=== PATIENT | male | born 1955 | race Caucasian/White ===

== ENCOUNTER 2017-02-22 21:58 | Inpatient (IN) ==
[2017-02-23] MEDS ORDERED: Naloxone 0.4 MG/ML INJ IVP PRN (01:38)
[2017-02-23] MEDS ORDERED: Acetaminophen 325 MG TABLET PO PRN (01:38)
[2017-02-23] MEDS ORDERED: Ondansetron 4 MG/2 ML VIAL IVP PRN (01:38)
--- NOTE | 2017-02-23 01:45 | Internal Med History&Physical ---
Date of Encounter: 02/23/17 Time of Encounter: 01:00 Assessment and Plan (1) COPD (chronic obstructive pulmonary disease) Current visit: No Status: Acute Not in exacerbation, continue nebs prn and home MDI. O2 supplementation Qualifiers: COPD type: unspecified COPD Qualified Code(s): J44.9 - Chronic obstructive pulmonary disease, unspecified (2) History of lung cancer Current visit: Yes Status: Chronic Unclear if he has recurrent disease although CT done earlier this year shows similar area of concern on the right. I think it prudent to get Pulm and Onc consult for further testing and advice. (3) Hypothyroid Current visit: Yes Status: Acute Continue home Synthroid. Qualifiers: Hypothyroidism type: unspecified Qualified Code(s): E03.9 - Hypothyroidism , unspecified (4) Type 2 diabetes mellitus Current visit: Yes Status: Acute Home meds, FS monitoring. Qualifiers: Diabetes mellitus complication status: with hyperglycemia Diabetes mellitus watermelon harvesting supervisor insulin use: without watermelon harvesting supervisor use Qualified Code(s): E11.65 - Type 2 diabetes mellitus with hyperglycemia Internal Medicine - H&P: HPI Chief complaint: Weakness Admitted From: Hospital to Hospital Transfer Plans for Post Hospital Care: Home History of present illness: Mr. 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 He presented there with weakness and CT chest was done and showed mild pathc bronchopneumonia, 3.3x5.4cm opacity in right perihilar region, atelectasis right upper and middle lobes. His oncologist, Dr Hartman is here at [place]. At this time he feels weak, no dyspnea, no chest pains, no change in chronic cough , no change in BM. Estimated LOS less than 2 days. Past Med Surg Social Fam HX - Past Medical History Medical history: cancer, COPD, diabetes, GERD, hyperlipidemia, thyroid disease, other Psychiatric history: anxiety, panic disorder - Past Surgical History Surgical History: cataract, other - Social History Smoking Status: Former smoker Smokeless Tobacco Status: Yes Alcohol use: none Drug use: none - Family History Sister Living Status: Hx Family GI Disorders: Yes Internal Medicine - H&P: Meds Atenolol [Tenormin] 25 mg PO DAILY 11/23/14 [History] Glimepiride [Amaryl] 4 mg PO BID 11/23/14 [History] Metformin HCl [Metformin HCl ER] 500 mg PO BID 11/23/14 [History] Oxygen 1 each .ROUTE AD 11/23/14 [History] SitaGLIPtin [Januvia] 100 mg PO DAILY 11/23/14 [History] Tiotropium [Spiriva] 18 mcg IH DAILY 11/23/14 [History] Levothyroxine [Synthroid] 112 mcg PO DAILY #30 tablet 03/13/16 [Rx] HYDROcodone/Acet 7.5/325 mg [[place] 7.5-325 mg] 1 tab PO BID #60 tablet 11/04/16 [Rx] Rosuvastatin [Crestor] 20 mg PO HS 11/04/16 [History] 3 Allergy/AdvReac Type Severity Reaction Status Date / Time No Known Allergies Allergy Unverified 11/04/16 13:26 All Systems PM: A 10-system review of systems was performed and is negative for pertinent findings except as documented above in the HPI. - Constitutional Vitals: Temp Pulse Resp BP Pulse Ox 97.7 F 100 20 105/67 95 02/23/17 00:23 02/23/17 00:23 02/23/17 00:23 02/23/17 00:23 02/23/17 00:23 General appearance: Present: A&O X 3, pleasant Exam: Chronically ill appearing man in no distress. - Head Head exam: Present: atraumatic, normal inspection, normocephalic - Eye Eye exam: Present: EOMI, PERRL - ENT ENT exam: Present: mucous membranes moist - Neck Neck exam general surgery: Present: full ROM, supple, trachea midline - Respiratory Respiratory exam: Present: prolonged expiratory phase, wheezes - Cardiovascular Cardiovascular exam: Present: RRR, +S1, +S2 - GI/Abdominal GI/Abdominal exam: Present: normal bowel sounds, soft, no peritoneal signs - Extremities Exam Extremities exam: Present: normal inspection, warm - Neurological Exam Neurological exam: Present: CN II-XII intact, oriented X3, no focal deficits - Psychiatric Psychiatric exam: Present: normal affect, normal mood - Skin Skin exam: Present: dry, warm Internal Med - H&P Results - Labs Labs: Reviewed at [facility] 02/22/17): WBC 11 Hb 14.1 Plt 197 Na 137 K3.8 Crea 0.73 Gluc 231
[2017-02-23 03:01] LABS: Basophils % 0.1 %; Hematocrit 37.9 % (37.5-50.1); Hemoglobin 12.6 g/dL (12.9-16.9); Immature Granulocytes % 1.2 % (0-4); Lymphocytes # 0.6 K/mcL (0.6-4.6); Lymphocytes % 4.1 %; Mean Corpuscular HGB Conc 33.2 g/dL (31.6-35.5); Mean Corpuscular Hemoglobin 27.5 pg (28.0-33.3); Mean Corpuscular Volume 82.6 fL (83.0-100.0); Mean Platelet Volume 9.4 fL (9.4-12.4); Monocytes # 0.5 K/mcL (0.0-1.3); Monocytes % 3.7 %; Neutrophils # 13.2 K/mcL (1.6-8.9); Platelet Count 206 K/mcL (140-400); Red Blood Count 4.59 M/mcL (4.19-5.50); Red Cell Distribution Width 13.8 % (11.5-14.5); Segmented Neutrophils % 90.9 %
[2017-02-23 03:07] LABS: INR 1.2; Prothrombin Time 12.5 Seconds (9.4-12.1)
[2017-02-23 03:10] LABS: Activated Partial Thrombo Time 26.9 Seconds (26.0-36.0)
[2017-02-23 03:13] LABS: Alanine Aminotransferase 17 Units/L (0-55); Albumin 3.4 g/dL (3.5-5.0); Albumin/Globulin Ratio 1.1 (1.1-2.2); Alkaline Phosphatase 40 Units/L (38-126); Aspartate Amino Transferase 12 Units/L (5-34); BUN/Creatinine Ratio 26 (6-26); Bilirubin,Total 0.2 mg/dL (0.2-1.2); Blood Urea Nitrogen 19 mg/dL (8-26); Calcium 9.2 mg/dL (8.6-10.8); Carbon Dioxide 23 mEq/L (19-29); Chloride 106 mEq/L (98-109); Globulin 3.2 g/dL (2.4-3.5); Glucose 239 mg/dL (70-99); Magnesium 2.1 mg/dL (1.6-2.6); Osmolality,Calculated 298 (280-300); Phosphorous 1.6 mg/dL (2.3-4.7); Potassium 3.8 mEq/L (3.5-4.5); Sodium 139 mEq/L (136-145); Total Protein 6.6 g/dL (6.0-8.3); eGFR For African Americans > 60 (> 60); eGFR For Non-African Americans > 60 (> 60)
[2017-02-23] MEDS ORDERED: Levofloxacin 750 MG/150 ML 750 MG/150 ML BAG IVPB STA (03:15)
[2017-02-23] MEDS ORDERED: *HR* Morphine 2 MG/ML SYRINGE IVP ONE (03:19)
[2017-02-23] MEDS: *HR* Heparin 5,000 UNIT/ML VIAL SQ SCH ×2 (05:26→17:42)
[2017-02-23] MEDS: Tiotropium 18 MCG inhalation IH SCH (07:33)
[2017-02-23] MEDS ORDERED: Sodium Phosphate 30 MMOL in D5% in Water 100 ML IVPB ONE (07:50)
[2017-02-23] MEDS ORDERED: *HR* HYDROcodone/Acet 7.5/325 mg TABLET PO SCH (09:00)
[2017-02-23] MEDS: Insulin LISPRO 300 UNITS/3 ML VIAL SQ SCH ×3 (12:13→21:13)
[2017-02-23] MEDS ORDERED: *HR* HYDROcodone/Acet 7.5/325 mg TABLET PO PRN (13:06)
[2017-02-23] MEDS ORDERED: D5% in Water 1,000 ML IVC PRN (13:06)
[2017-02-23] MEDS ORDERED: Dextrose Gel 15 GM PO PRN ×2 (13:06)
[2017-02-23] MEDS ORDERED: *HR* Dextrose 50 % in Water (Syg) 50 ML SYRINGE IVP PRN (13:06)
[2017-02-23] MEDS: Insulin DETEMIR 100 UNIT/ML X5UNITS SQ SCH (21:12)
--- NOTE | 2017-02-24 02:19 | Event Note ---
Date of Encounter: 02/23/17 Time of Encounter: 15:42 Patient is a 61 year old man with history of metastatic large cell neuro endocrine cancer who underwent chemotherapy in 2013, and with chronic respiratory failure now on home O2. He presented for weakness, which he states is in all his extremities. This has been ongoing for several weeks. He was transferred from [facility] for further workup after CT chest showed bronchopneumonia and 3.3x5.4 cm opacity in right perhilar region. He denies any fevers/chills, he does have leukocytosis on admission. He is currently stable after arriving to floors. No acute distress. Does exhibit weakness, but AAOx3. - Consult to Oncology and Pulmonology in AM for further workup - PT/OT - Antibiotic therapy - currently Levaquin - glycemic control
[2017-02-24 05:08] LABS: Basophils % 0.1 %; Eosinophils % 0.1 %; Hematocrit 38.3 % (37.5-50.1); Hemoglobin 12.8 g/dL (12.9-16.9); Immature Granulocytes % 0.9 % (0-4); Lymphocytes # 1.4 K/mcL (0.6-4.6); Lymphocytes % 16.2 %; Mean Corpuscular HGB Conc 33.4 g/dL (31.6-35.5); Mean Corpuscular Hemoglobin 27.4 pg (28.0-33.3); Mean Corpuscular Volume 81.8 fL (83.0-100.0); Mean Platelet Volume 9.3 fL (9.4-12.4); Monocytes # 0.7 K/mcL (0.0-1.3); Monocytes % 7.6 %; Neutrophils # 6.4 K/mcL (1.6-8.9); Platelet Count 174 K/mcL (140-400); Red Blood Count 4.68 M/mcL (4.19-5.50); Red Cell Distribution Width 13.8 % (11.5-14.5); Segmented Neutrophils % 75.1 %
[2017-02-24] MEDS: *HR* Heparin 5,000 UNIT/ML VIAL SQ SCH ×2 (05:19→16:42)
[2017-02-24 05:20] LABS: BUN/Creatinine Ratio 29 (6-26); Blood Urea Nitrogen 18 mg/dL (8-26); Calcium 8.7 mg/dL (8.6-10.8); Carbon Dioxide 29 mEq/L (19-29); Chloride 106 mEq/L (98-109); Glucose 81 mg/dL (70-99); Osmolality,Calculated 293 (280-300); Potassium 3.6 mEq/L (3.5-4.5); Sodium 141 mEq/L (136-145); eGFR For African Americans > 60 (> 60); eGFR For Non-African Americans > 60 (> 60)
[2017-02-24] MEDS: Levofloxacin 750 MG/150 ML 750 MG/150 ML BAG IVPB SCH (07:53)
[2017-02-24] MEDS: Insulin LISPRO 300 UNITS/3 ML VIAL SQ SCH ×4 (07:55→21:26)
--- NOTE | 2017-02-24 10:46 | Internal Med Progress Note ---
Date of Encounter: 02/24/17 Time of Encounter: 10:47 - Assessment and plan (1) Pneumonia Current Visit: Yes Status: Acute Assessment and plan: CT chest from [facility] showed mild pathc bronchopneumonia, 3.3x5.4cm opacity in right perihilar region, atelectasis right upper and middle lobes Similar to prior CT scan Patient is awaiting Oncology review Continue Levaquin for now NO cultures at this time Qualifiers: Pneumonia type: due to unspecified organism Laterality: bilateral Lung location: unspecified part of lung Qualified Code(s): J18.9 - Pneumonia, unspecified organism (2) COPD (chronic obstructive pulmonary disease) Current Visit: Yes Status: Chronic Assessment and plan: NO evidence of exacerbation Qualifiers: COPD type: unspecified COPD Qualified Code(s): J44.9 - Chronic obstructive pulmonary disease, unspecified (3) History of lung cancer Current Visit: Yes Status: Chronic Assessment and plan: Oncology consulted, 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 , per chart, had prophylactic cranial radiation (4) Hypothyroid Current Visit: Yes Status: Chronic Assessment and plan: Continue home meds Qualifiers: Hypothyroidism type: unspecified Qualified Code(s): E03.9 - Hypothyroidism , unspecified (5) Type 2 diabetes mellitus Current Visit: Yes Status: Chronic Assessment and plan: 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 Continue sliding scale insulin, patient is on oral agents at home Qualifiers: Diabetes mellitus complication status: with ophthalmic complications Diabetes mellitus complication detail: with diabetic retinopathy Diabetic retinopathy severity: with unspecified retinopathy severity Diabetes mellitus macular edema: macular edema presence unspecified Diabetes mellitus terminal operator insulin use: without terminal operator use Laterality: left Qualified Code(s): E11.319 - Type 2 diabetes mellitus with unspecified diabetic retinopathy without macular edema - Subjective Interval history: Seen and evaluated at bedside No new complains Known Type II DM, HTN, Left eye blindness, admitted from outside hospital for Pneumonia and weakness Some concern about his hx of Lung CA and the new imaging finding - Constitutional Vitals: Temp Pulse Resp BP Pulse Ox 98.2 F 81 13 97/63 95 02/24/17 06:58 02/24/17 06:58 02/24/17 06:58 02/24/17 06:58 02/24/17 06:58 General appearance: Present: A&O X 3, pleasant, no acute distress - Head Head exam: Present: atraumatic, normocephalic - Eye Additional comments: Anisocoria, Lt > Rt , red eye left-chronic per patient - Neck Neck exam general surgery: Present: supple, trachea midline. Absent: lymphadenopathy - Respiratory Respiratory exam: Present: rhonchi - Cardiovascular Cardiovascular exam: Present: RRR, +S1, +S2. Absent: diastolic murmur, gallop, rubs, systolic murmur - GI/Abdominal GI/Abdominal exam: Present: normal bowel sounds, soft, no peritoneal signs. Absent: distended, tenderness - Extremities Exam Extremities exam: Present: warm, radial pulses palpable and symmetrical. Absent : calf tenderness, cyanotic, pedal edema - Neurological Exam Neurological exam: Present: alert, CN II-XII intact, oriented X3, no focal deficits. Absent: pronater drift, facial droop, speech deficit - Skin Skin exam: Present: dry, intact Internal Medicine: Result - Labs CBC & Chem 7: 02/24/17 04:41 02/24/17 04:41 Labs: Short CBC 02/24/17 Range/Units 04:41 WBC 8.5 (4.3-11.1) K/mcL Hgb 12.8 L (12.9-16.9) g/dL Hct 38.3 (37.5-50.1) % Plt Count 174 (140-400) K/mcL Neutrophils # 6.4 (1.6-8.9) K/mcL BMP 02/24/17 04:41 Sodium 141 Potassium 3.6 Chloride 106 Carbon Dioxide 29 BUN 18 Creatinine 0.63 L Glucose 81 Calcium 8.7 - ABG Interpretation ABG results: PT/INR, D-dimer PT 12.5 Seconds (9.4-12.1) H 02/23/17 02:20 Consult Discharge Plan - Plan Referrals: Juanito Dsouza DO [Primary Care Provider] - 03/05/17 11:15 am (Please follow up as schedule...)
[2017-02-24] MEDS: Tiotropium 18 MCG inhalation IH SCH (10:48)
[2017-02-24] MEDS ORDERED: *HR* HYDROcodone/Acet 5/325 mg TABLET PO PRN (16:43)
[2017-02-24] MEDS: Latanoprost 2.5 ML BOTTLE LEFT EYE SCH (18:01)
--- NOTE | 2017-02-24 19:03 | Oncology Inp Consult Note ---
Date of Encounter: 02/24/17 Time of Encounter: 19:00 Assessment and Plan (1) History of lung cancer Status: Chronic Assessment and plan: He appears to have pneumonia and has been placed on appropriate therapy by the hospitalist team. I have reviewed the outside CT report and personally reviewed CT imaging from 05/13. These findings in the January scan appear to correspond to findings on most recent scan. It does not appear he has recurrent cancer. Would recommend continued treatment for pneumonia and repeat imaging in 4-6 weeks time. Of note, slow cognition likely secondary to prior prophylactic cranial irradiation. We will otherwise sign off. Please call with questions. - Data of Consult Requesting Physician: Thomas Muse MD Primary Care Provider: Juanito Dsouza - Consult Narrative Reason for consult: Abnormal CT in setting of cancer History of present illness: Mr. Loco is a 61 year old male with a history of stage IIIb large-cell neuroendocrine cancer under the care of my partner, Dr. Hartman. He presented in August 2008 with mets to bilateral supraclavicular, paratracheal, perivascular and subcarinal lymph node basins. He was treated six cycles of cisplatin and etoposide with concurrent radiation as well as prophylactic cranial radiation March 2009. Bronchoscopy and washings January [address] Nieto was negative for malignancy. CT imaging in 2014 showed an area of atelectasis in the RUL and right hilum. Most recent CT imaging at our institution 05/01/16 shows right hilar mass and cicatricial atelectasis in the medial aspects of both upper lobes is stable. Stable subcentimeter nodules in the lungs. Fatty liver. He presented to [facility] 02/22 with feeling "weak". Denies any focality or new paresthesia. Has continued, chronic cough. Stable BENEDICT. Afebrile. No headache , blurred or double vision. Poor historian. CT imaging of chest revealed patchy pneumonia in the lung basis right>left. Trace right pleural effusion and opacity in the right perihilar region measuring 3.3 x 5.4cm. Cicatricial atelectasis in the RUL/RML. These appear chronic by outside radiology; I do not have actual images to review. Past Med Surg Social Fam HX - Past Medical History Medical history: cancer, COPD, diabetes, GERD, hyperlipidemia, thyroid disease, other Psychiatric history: anxiety, panic disorder - Past Surgical History Surgical History: cataract, other - Social History Smoking Status: Former smoker Smokeless Tobacco Status: Yes Alcohol use: none Drug use: none - Family History Sister Living Status: Hx Family GI Disorders: Yes Medications and Allergies Atenolol [Tenormin] 25 mg PO DAILY 11/23/14 [History] Glimepiride [Amaryl] 4 mg PO BID 11/23/14 [History] Metformin HCl [Metformin HCl ER] 500 mg PO BID 11/23/14 [History] Oxygen 1 each .ROUTE AD 11/23/14 [History] SitaGLIPtin [Januvia] 100 mg PO DAILY 11/23/14 [History] Tiotropium [Spiriva] 18 mcg IH DAILY 11/23/14 [History] Rosuvastatin [Crestor] 20 mg PO HS 11/04/16 [History] Brimonidine Tartrate [Brimonidine Tartrate] 2 drop BOTH EYES BID 02/23/17 [ History] Budesonide/Formoterol 80/4.5 [Symbicort 80/4.5] 2 puff IH BID 02/23/17 [History ] HYDROcodone/Acet 5/325 mg [[place] 5-325 mg] 1 tab PO Q6H PRN 02/23/17 [History] Latanoprost [Xalatan] 1 drop LEFT EYE QPM 02/23/17 [History] 3 Allergy/AdvReac Type Severity Reaction Status Date / Time No Known Allergies Allergy Unverified 11/04/16 13:26 All systems: reviewed and no additional remarkable complaints except as stated Constitutional: Present: fatigue, lethargy, weakness, weight loss Eyes: Present: as per HPI Ears: Present: as per HPI Nose, mouth and throat: Present: as per HPI Cardiovascular: Present: as per HPI Respiratory: Present: cough, dyspnea on exertion, chest congestion Gastrointestinal: Present: as per HPI Genitourinary: as per HPI Musculoskeletal: Present: as per HPI Neurological: Present: as per HPI Oncology - Exam - Constitutional Vitals: Temp Pulse Resp BP Pulse Ox 98.1 F 91 14 103/64 92 02/24/17 15:27 02/24/17 15:27 02/24/17 15:27 02/24/17 15:27 02/24/17 15:27 General appearance: cooperative, no acute distress - Head Head exam: Present: atraumatic, normal inspection, normocephalic - Eye Eye exam: Present: normal appearance, conjuntiva pink, sclera anicteric - ENT ENT exam: Present: mucous membranes moist, normal exam - Neck Neck exam: Present: full ROM, normal inspection - Respiratory Respiratory exam: Present: rhonchi - Cardiovascular Cardiovascular exam: Present: RRR - GI/Abdominal GI/Abdominal exam: Present: normal bowel sounds - Extremities Exam Extremities exam: Present: normal inspection - Neurological Exam Neurological exam: Present: alert, CN II-XII intact, oriented X3, no focal deficits - Expanded Neurological Exam Neurological exam: Present: memory loss-recent event Oncology - Results Labs: Short CBC 02/24/17 Range/Units 04:41 WBC 8.5 (4.3-11.1) K/mcL Hgb 12.8 L (12.9-16.9) g/dL Hct 38.3 (37.5-50.1) % Plt Count 174 (140-400) K/mcL Neutrophils # 6.4 (1.6-8.9) K/mcL BMP 02/24/17 04:41 Sodium 141 Potassium 3.6 Chloride 106 Carbon Dioxide 29 BUN 18 Creatinine 0.63 L Glucose 81 Calcium 8.7 Consult Discharge Plan - Plan Referrals: Juanito Dsouza DO [Primary Care Provider] - 03/05/17 11:15 am (Please follow up as schedule...)
[2017-02-24] MEDS: Insulin DETEMIR 100 UNIT/ML X5UNITS SQ SCH (21:17)
[2017-02-24] MEDS: Budesonide/Formoterol 80/4.5 MDI IH SCH (22:01)
[2017-02-25] MEDS: *HR* Heparin 5,000 UNIT/ML VIAL SQ SCH ×2 (05:24→17:14)
[2017-02-25 05:45] LABS: Basophils % 0.4 %; Eosinophils # 0.1 K/mcL (0.0-0.6); Eosinophils % 1.2 %; Hematocrit 43.2 % (37.5-50.1); Immature Granulocytes % 2.1 % (0-4); Lymphocytes # 1.6 K/mcL (0.6-4.6); Lymphocytes % 20.6 %; Mean Corpuscular HGB Conc 33.3 g/dL (31.6-35.5); Mean Corpuscular Hemoglobin 27.4 pg (28.0-33.3); Mean Corpuscular Volume 82.1 fL (83.0-100.0); Mean Platelet Volume 9.1 fL (9.4-12.4); Monocytes # 0.5 K/mcL (0.0-1.3); Monocytes % 6.6 %; Neutrophils # 5.2 K/mcL (1.6-8.9); Nucleated Red Blood Cells 0.3 /100 WBC (0); Platelet Count 188 K/mcL (140-400); Red Blood Count 5.26 M/mcL (4.19-5.50); Red Cell Distribution Width 13.6 % (11.5-14.5); Segmented Neutrophils % 69.1 %
[2017-02-25 05:50] LABS: Hemoglobin 14.4 g/dL (12.9-16.9)
[2017-02-25 06:02] LABS: BUN/Creatinine Ratio 20 (6-26); Blood Urea Nitrogen 14 mg/dL (8-26); Calcium 9.1 mg/dL (8.6-10.8); Carbon Dioxide 29 mEq/L (19-29); Chloride 104 mEq/L (98-109); Glucose 129 mg/dL (70-99); Osmolality,Calculated 292 (280-300); Potassium 4.2 mEq/L (3.5-4.5); Sodium 140 mEq/L (136-145); eGFR For African Americans > 60 (> 60); eGFR For Non-African Americans > 60 (> 60)
[2017-02-25] MEDS: Tiotropium 18 MCG inhalation IH SCH (07:59)
[2017-02-25] MEDS: Budesonide/Formoterol 80/4.5 MDI IH SCH ×2 (07:59→19:51)
[2017-02-25] MEDS: Insulin LISPRO 300 UNITS/3 ML VIAL SQ SCH ×4 (09:50→21:11)
[2017-02-25] MEDS: Levofloxacin 750 MG/150 ML 750 MG/150 ML BAG IVPB SCH (09:55)
--- NOTE | 2017-02-25 12:19 | Internal Med Progress Note ---
Date of Encounter: 02/25/17 Time of Encounter: 11:40 - Assessment and plan (1) Pneumonia Current Visit: Yes Status: Acute Assessment and plan: CT chest from [facility] showed mild pathc bronchopneumonia, 3.3x5.4cm opacity in right perihilar region, atelectasis right upper and middle lobes Similar to prior CT scan Continue Levaquin for now NO cultures at this time Qualifiers: Pneumonia type: due to unspecified organism Laterality: bilateral Lung location: unspecified part of lung Qualified Code(s): J18.9 - Pneumonia, unspecified organism (2) COPD (chronic obstructive pulmonary disease) Current Visit: Yes Status: Chronic Assessment and plan: NO evidence of exacerbation Qualifiers: COPD type: unspecified COPD Qualified Code(s): J44.9 - Chronic obstructive pulmonary disease, unspecified (3) History of lung cancer Current Visit: Yes Status: Chronic Assessment and plan: Oncology consulted, 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 , per chart, had prophylactic cranial radiation (4) Hypothyroid Current Visit: Yes Status: Chronic Assessment and plan: Continue home meds Qualifiers: Hypothyroidism type: unspecified Qualified Code(s): E03.9 - Hypothyroidism , unspecified (5) Type 2 diabetes mellitus Current Visit: Yes Status: Chronic Assessment and plan: 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 Continue sliding scale insulin, patient is on oral agents at home Qualifiers: Diabetes mellitus complication status: with ophthalmic complications Diabetes mellitus complication detail: with diabetic retinopathy Diabetic retinopathy severity: with unspecified retinopathy severity Diabetes mellitus macular edema: macular edema presence unspecified Diabetes mellitus intermediate manager insulin use: without intermediate manager use Laterality: left Qualified Code(s): E11.319 - Type 2 diabetes mellitus with unspecified diabetic retinopathy without macular edema (6) Fatigue Current Visit: Yes Status: Acute Assessment and plan: Patient reports he is feeling stronger and able to ambulate this morning PTOT recommends ECF, he is hesitant about this SW Chen to see Qualifiers: Fatigue type: unspecified Qualified Code(s): R53.83 - Other fatigue - Subjective Interval history: Seen and evaluated at bedside No new complains Known Type II DM, HTN, Left eye blindness, admitted from outside hospital for Pneumonia and weakness Being managed for community acquired pneumonia Oncolog review appreciated, no concerns for recurrent CA - Constitutional Vitals: Temp Pulse Resp BP Pulse Ox 98.6 F 86 18 85/51 94 02/25/17 11:26 02/25/17 11:26 02/25/17 11:26 02/25/17 11:26 02/25/17 11:26 General appearance: Present: A&O X 3, pleasant, no acute distress - Head Head exam: Present: atraumatic, normocephalic - Eye Eye exam: Present: PERRL, conjuntiva pink, sclera anicteric Pupils: Present: PERRL - Neck Neck exam general surgery: Present: supple, trachea midline. Absent: lymphadenopathy - Respiratory Respiratory exam: Present: rhonchi. Absent: accessory muscle use, rales, wheezes - Cardiovascular Cardiovascular exam: Present: RRR, +S1, +S2. Absent: diastolic murmur, gallop, rubs, systolic murmur - GI/Abdominal GI/Abdominal exam: Present: normal bowel sounds, soft, no peritoneal signs. Absent: distended, tenderness - Extremities Exam Extremities exam: Present: warm, radial pulses palpable and symmetrical. Absent : calf tenderness, cyanotic, pedal edema - Neurological Exam Neurological exam: Present: alert, CN II-XII intact, oriented X3, no focal deficits. Absent: pronater drift, facial droop, speech deficit - Skin Skin exam: Present: dry, intact Internal Medicine: Result - Labs CBC & Chem 7: 02/25/17 05:30 02/25/17 05:30 Labs: Short CBC 02/25/17 Range/Units 05:30 WBC 7.5 (4.3-11.1) K/mcL Hgb 14.4 D (12.9-16.9) g/dL Hct 43.2 (37.5-50.1) % Plt Count 188 (140-400) K/mcL Neutrophils # 5.2 (1.6-8.9) K/mcL BMP 02/25/17 05:30 Sodium 140 Potassium 4.2 Chloride 104 Carbon Dioxide 29 BUN 14 Creatinine 0.71 L Glucose 129 H Calcium 9.1 - ABG Interpretation ABG results: PT/INR, D-dimer PT 12.5 Seconds (9.4-12.1) H 02/23/17 02:20 Consult Discharge Plan - Plan Referrals: Juanito Dsouza DO [Primary Care Provider] - 03/05/17 11:15 am (Please follow up as schedule...)
[2017-02-25] MEDS: Latanoprost 2.5 ML BOTTLE LEFT EYE SCH (17:14)
[2017-02-25] MEDS: Insulin DETEMIR 100 UNIT/ML X5UNITS SQ SCH (21:11)
[2017-02-26 03:52] LABS: Basophils % 0.4 %; Eosinophils # 0.2 K/mcL (0.0-0.6); Eosinophils % 1.8 %; Hematocrit 41.3 % (37.5-50.1); Hemoglobin 13.7 g/dL (12.9-16.9); Immature Granulocytes % 2.4 % (0-4); Lymphocytes # 1.4 K/mcL (0.6-4.6); Lymphocytes % 17.5 %; Mean Corpuscular HGB Conc 33.2 g/dL (31.6-35.5); Mean Corpuscular Volume 81.3 fL (83.0-100.0); Mean Platelet Volume 9.3 fL (9.4-12.4); Monocytes # 0.5 K/mcL (0.0-1.3); Monocytes % 5.9 %; Neutrophils # 5.9 K/mcL (1.6-8.9); Platelet Count 209 K/mcL (140-400); Red Blood Count 5.08 M/mcL (4.19-5.50); Red Cell Distribution Width 13.2 % (11.5-14.5)
[2017-02-26 04:06] LABS: BUN/Creatinine Ratio 24 (6-26); Blood Urea Nitrogen 17 mg/dL (8-26); Carbon Dioxide 25 mEq/L (19-29); Chloride 103 mEq/L (98-109); Glucose 189 mg/dL (70-99); Osmolality,Calculated 291 (280-300); Potassium 3.8 mEq/L (3.5-4.5); Sodium 137 mEq/L (136-145); eGFR For African Americans > 60 (> 60); eGFR For Non-African Americans > 60 (> 60)
[2017-02-26] MEDS: *HR* Heparin 5,000 UNIT/ML VIAL SQ SCH (05:25)
[2017-02-26] MEDS: Insulin LISPRO 300 UNITS/3 ML VIAL SQ SCH ×2 (08:53→11:38)
[2017-02-26] MEDS ORDERED: levoFLOXacin 750 MG TABLET PO SCH (09:00)
[2017-02-26 11:08] VITALS: BP 107/71
--- NOTE | 2017-02-26 11:16 | Discharge Summary ---
Date of Encounter: 02/26/17 Time of Encounter: 09:45 - Discharge Diagnosis (1) Pneumonia Priority: Primary Status: Acute Comments: Community acquired Most likely due to strep Complete at least 7 days of Levaquin. 3 more days in SNF Qualifiers: Pneumonia type: due to unspecified organism Laterality: bilateral Lung location: unspecified part of lung Qualified Code(s): J18.9 - Pneumonia, unspecified organism (2) COPD (chronic obstructive pulmonary disease) Priority: Secondary Status: Chronic Comments: Continue home Spiriva, LABA/Steroid. No exacerbation in this visit Qualifiers: COPD type: unspecified COPD Qualified Code(s): J44.9 - Chronic obstructive pulmonary disease, unspecified (3) History of lung cancer Priority: Secondary Status: Chronic (4) Hypothyroid Priority: Secondary Status: Chronic Comments: Continue home dose of levothyroixine Qualifiers: Hypothyroidism type: unspecified Qualified Code(s): E03.9 - Hypothyroidism , unspecified (5) Type 2 diabetes mellitus Priority: Secondary Status: Chronic Comments: Continue home PO medications Qualifiers: Diabetes mellitus complication status: with ophthalmic complications Diabetes mellitus complication detail: with diabetic retinopathy Diabetic retinopathy severity: with unspecified retinopathy severity Diabetes mellitus macular edema: macular edema presence unspecified 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 [employer] insulin use: without halfway use Laterality: left Qualified Code(s): E11.319 - Type 2 diabetes mellitus with unspecified diabetic retinopathy without macular edema (6) Fatigue Priority: Primary Status: Acute Comments: For discharge to SNF Qualifiers: Fatigue type: unspecified Qualified Code(s): R53.83 - Other fatigue - Discharge Medications Prescriptions: HYDROcodone/Acet 5/325 mg [[place] 5-325 mg] 1 tab PO Q6H PRN #15 tablet PRN Reason: Pain Home Medications: Glimepiride [Amaryl] 4 mg PO BID 11/23/14 [History] Metformin HCl [Metformin HCl ER] 500 mg PO BID 11/23/14 [History] Oxygen 1 each .ROUTE AD 11/23/14 [History] SitaGLIPtin [Januvia] 100 mg PO DAILY 11/23/14 [History] Tiotropium [Spiriva] 18 mcg IH DAILY 11/23/14 [History] Rosuvastatin [Crestor] 20 mg PO HS 11/04/16 [History] Brimonidine Tartrate 2 drop BOTH EYES BID 02/23/17 [History] Budesonide/Formoterol 80/4.5 [Symbicort 80/4.5] 2 puff IH BID 02/23/17 [History ] Latanoprost [Xalatan] 1 drop LEFT EYE QPM 02/23/17 [History] HYDROcodone/Acet 5/325 mg [[place] 5-325 mg] 1 tab PO Q6H PRN #15 tablet 02/26/17 [Rx] Levothyroxine [Synthroid] 112 mcg PO DAILY@0630 tablet 02/26/17 [Rx] levoFLOXacin [Levaquin] 750 mg PO DAILY #0 tablet 02/26/17 [Rx] Allergies/Adverse Reactions: 3 Allergy/AdvReac Type Severity Reaction Status Date / Time No Known Allergies Allergy Unverified 11/04/16 13:26 Date of admission: 02/24/17 16:42 Primary care physician: Juanito Dsouza Consults: 02/23/17 19:26 Consult to Occupational Therapy [CONS] Routine Comment: Evaluate, develop and implement POC Reason for Consult: Weakness, eval and treat. Consult to Oncology [CONS] Routine Consulting Provider: [facility] Reason for Consult: History of lung cancer, patient known to Dr. Hartman. Call Completed: No Consult to Physical Therapy [CONS] Routine Comment: Evaluate, develop and implement POC Reason for Consult: Weakness, dispo planning. Consult to Pulmonology [CONS] Routine Consulting Provider: [facility] Reason for Consult: CT findings of opacities, has history of large cell endocrine cancer in 2013. Call Completed: No 02/24/17 15:23 Consult to Change Person [CONS] Routine Reason for SW Consult: therapy rec e[facility] Discharging clinician: Thomas Muse Anticipated date of discharge: 02/26/17 - Patient Status Disposition: Transfer SNF Condition: Good Functional capacity at discharge: uses cane/walker Overall status at discharge: patient is progressing back to baseline - Discharge Instructions Instructions: Sepsis (DC), Pneumonia (DC) Follow Up With: Juanito Dsouza DO [Primary Care Provider] - 03/05/17 11:15 am (Please follow up as schedule...) - Diet and Activity Activity: as per physical therapy Diet: diabetic diet, low fat, low cholesterol, low salt diet Interval History: See below Hospital course: Mr. Pittenger is a 61 year old male with DM complicated by retinopathy , Hypothyroid, Lung CA with prior cranial radiation, HTN He was transferred from [facility] in-patient to [facility] due to concerns of recurrence of his Lung CA on imaging He was being managed for pneumonia and weakness He has been clinically stable Our Oncologist here was consulted to evaluate patient and per their review, patient's disease is stable PTOT recommends SNF for in-patient rehab. He is seen and evaluated at bedside this morning, in no distress, no complains and feeling great Labs have been unremarkable Physical exam is unremarkable He had an episode of low blood pressure during this admission that responded to discontinuation of his home dose of atenolol He is clinically stable for transfer to SNF , to complete 3 more days of Levaquin resume all home meds except atenolol - Time Spent with Patient Total time spent providing and/or coordinating discharge services: Greater than 30 minutes - Constitutional Vitals: Temp Pulse Resp BP Pulse Ox 97.7 F 105 18 107/71 95 02/26/17 11:02 02/26/17 11:02 02/26/17 11:02 02/26/17 11:02 02/26/17 11:02 General appearance: Present: A&O X 3, pleasant, no acute distress, answers questions appropriately - Head Head exam: Present: atraumatic, normocephalic - Eye Eye exam: Present: PERRL, conjuntiva pink, sclera anicteric Pupils: Present: PERRL - Neck Neck exam general surgery: Present: supple, trachea midline. Absent: lymphadenopathy - Respiratory Respiratory exam: Present: CTAB. Absent: accessory muscle use, rales, rhonchi, wheezes - Cardiovascular Cardiovascular exam: Present: RRR, +S1, +S2. Absent: diastolic murmur, gallop, rubs, systolic murmur - GI/Abdominal GI/Abdominal exam: Present: normal bowel sounds, soft, no peritoneal signs. Absent: distended, tenderness - Extremities Exam Extremities exam: Present: warm, radial pulses palpable and symmetrical. Absent : calf tenderness, cyanotic, pedal edema - Neurological Exam Neurological exam: Present: alert, CN II-XII intact, oriented X3, no focal deficits. Absent: pronater drift, facial droop, speech deficit - Skin Skin exam: Present: dry, intact
[2017-02-26] MEDS: Budesonide/Formoterol 80/4.5 MDI IH SCH (11:17)
[2017-02-26] MEDS: Tiotropium 18 MCG inhalation IH SCH (11:17)
[2017-02-26] MEDS ORDERED: FLUARIX QUAD 2017-18 36MOS UP/PF 0.5 ML SYRINGE IM ONE (12:54)
--- NOTE | 2017-02-26 15:07 | Physician Discharge Referral ---
ExtendedCare Referral Info Transfer To: SNF Provider in Charge: Joe Muse Provider in Charge after Transfer: PCP Institutional Level of Care: Skilled - Diagnosis (1) Pneumonia Priority: Primary Status: Acute (2) COPD (chronic obstructive pulmonary disease) Priority: Secondary Status: Chronic (3) History of lung cancer Priority: Secondary Status: Chronic (4) Hypothyroid Priority: Secondary Status: Chronic (5) Type 2 diabetes mellitus Priority: Secondary Status: Chronic (6) Fatigue Priority: Primary Status: Acute Prognosis: Fair Aware of Diagnosis: Patient Aware of Prognosis: Patient - Transfer Medications Prescriptions: HYDROcodone/Acet 5/325 mg [[place] 5-325 mg] 1 tab PO Q6H PRN #15 tablet PRN Reason: Pain Home Medications: Glimepiride [Amaryl] 4 mg PO BID 11/23/14 [History] Metformin HCl [Metformin HCl ER] 500 mg PO BID 11/23/14 [History] Oxygen 1 each .ROUTE AD 11/23/14 [History] SitaGLIPtin [Januvia] 100 mg PO DAILY 11/23/14 [History] Tiotropium [Spiriva] 18 mcg IH DAILY 11/23/14 [History] Rosuvastatin [Crestor] 20 mg PO HS 11/04/16 [History] Brimonidine Tartrate 2 drop BOTH EYES BID 02/23/17 [History] Budesonide/Formoterol 80/4.5 [Symbicort 80/4.5] 2 puff IH BID 02/23/17 [History ] Latanoprost [Xalatan] 1 drop LEFT EYE QPM 02/23/17 [History] HYDROcodone/Acet 5/325 mg [[place] 5-325 mg] 1 tab PO Q6H PRN #15 tablet 02/26/17 [Rx] Levothyroxine [Synthroid] 112 mcg PO DAILY@0630 tablet 02/26/17 [Rx] levoFLOXacin [Levaquin] 750 mg PO DAILY #0 tablet 02/26/17 [Rx] Allergies/Adverse Reactions: 3 Allergy/AdvReac Type Severity Reaction Status Date / Time No Known Allergies Allergy Unverified 11/04/16 13:26 - Respiratory Orders Oxygen / L per min (prn) Smoking Cessation: Smoking cessation has been advised. For more information, call the Issue Tobacco Quit Line at 7-716-VJKG-NOW. - Advance Directives Code Status: Full Code - Mobility Orders Ambulate - Rehabiliation Orders Rehab Potential: Fair Rehab Orders: Evaluation for Physical Therapy - Diet Orders No Concentrated Sweets, Cardiac CERTIFICATION: I certify that the transfer of the above named patient to an Extended Care Facility is necessary for the continuing treatment of the diagnosis listed. The above information is true and accurate reflection of patient's current condition. Confidential - Redisclosure prohibited without a patient's written consent.
== END 2017-02-26 16:15 | DRG 190 ==
LOC: 2ANU → SUATTDRO 23:41
PROVIDERS: ADMIT Hospitalist; ATTEND Internal Medicine

== ENCOUNTER 2017-11-05 17:06 | Inpatient (IN) ==
--- NOTE | 2017-11-05 17:31 | Emergency Department Note ---
Disposition Clinical Impression: Shortness of breath, HCAP (healthcare-associated pneumonia) Chest pain Qualifiers: Qualified Code(s): R07.9 - Disposition: Still a Patient Condition: Fair Chest Pain HPI - General Chief Complaint: ED Chest Pain Stated Complaint: "chest pressure" Time Seen by Provider: 11/05/17 17:13 Vital Signs Reviewed: Yes Nursing Notes Reviewed: Yes - History of Present Illness HPI Narrative: 59-year-old male presents emergency department with concern for chest pain and tachycardia. Patient was being seen at the cancer center today. States that he was seen here due to his tachycardia. 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 Patient states is currently cancer free. Patient reports that he has COPD. Patient reports no fever. He reports constant cough, but no worsening of his current call. Reports no sputum production. Has not had a heart attack before. Severity scale (1-10): 6 - Related Data Home Medications Medication Instructions Recorded Confirmed Atenolol [Tenormin] 25 mg PO DAILY 11/05/17 11/05/17 Brimonidine Tartrate [Brimonidine 1 drop OP DAILY 11/05/17 11/05/17 Tartrate] Gabapentin [Neurontin] 300 mg PO TID 11/05/17 11/05/17 HYDROcodone/Acet 5/325 mg [[place] 1 tab PO Q6H PRN 11/05/17 11/05/17 5-325 mg] Levothyroxine Sodium [Levoxyl] 112 mcg PO DAILY 11/05/17 11/05/17 Metformin HCl [Metformin HCl ER] 1,000 mg PO BID 11/05/17 11/05/17 Roly/Polymyx B Sulf/Dexameth 1 drop OP DAILY 11/05/17 11/05/17 [Tbiozr-Xsgyu-Ucjqjalm Eye Drop] SitaGLIPtin [Januvia] 100 mg PO DAILY 11/05/17 11/05/17 Allergies Allergy/AdvReac Type Severity Reaction Status Date / Time No Known Allergies Allergy Verified 11/05/17 19:44 All systems ED: reviewed and negative except as stated. Review of Systems: As Per HPI Constitutional: Denies: fever Cardiovascular: Reports: chest pain Respiratory: Denies: cough, dyspnea Gastrointestinal: Denies: abdominal pain, nausea, vomiting Neurological: Denies: headache Psychiatric: Reports: anxiety Chest Pain PMH - Past Medical History Medical history: Reports: cancer, COPD, diabetes, GERD, hyperlipidemia, thyroid disease, other Surgical history: Reports: cataract, other Psychiatric history: Reports: anxiety, panic disorder - Social History Smoking Status: Former smoker Alcohol use: Reports: none Drug use: Reports: none Physical Exam - General General appearance: alert, in no apparent distress - Head Head exam: atraumatic, normocephalic - Eye Eye exam: Present: conjunctival injection (Bilaterally) - ENT ENT exam: normal exam - Neck Neck exam: Present: trachea midline - Chest Chest inspection: Present: normal inspection, symmetric chest wall rise - Respiratory Respiratory exam: Present: other (Rhonchi throughout). Absent: respiratory distress - Cardiovascular Cardiovascular exam: Present: regular rate, normal rhythm, normal heart sounds - Abdominal Exam Abdominal exam: Present: soft, Non-Tender. Absent: distention, guarding, rebound, rigidity - Extremities Exam Extremities exam: Present: normal capillary refill - Back Exam Back exam: Present: full ROM - Neurological Exam Neurological exam: Present: alert, oriented X3 - Psychiatric Psychiatric exam: Present: anxious - Skin Skin exam: Present: warm, dry, intact, normal color Course Vital Signs Temperature 97.6 F 11/05/17 17:18 Pulse Rate 116 11/05/17 17:18 Respiratory Rate 16 11/05/17 17:18 Blood Pressure 127/98 11/05/17 17:18 O2 Sat by Pulse Oximetry 93 11/05/17 17:18 Temperature 98.4 F 11/06/17 06:58 Pulse Rate 99 11/06/17 06:58 Respiratory Rate 16 11/06/17 06:58 Blood Pressure 105/63 11/06/17 06:58 O2 Sat by Pulse Oximetry 97 11/06/17 06:58 Oxygen Delivery Oxygen Delivery Room Air Chest Pain - MDM Narrative Medical decision making narrative: 61-year-old male presents emergency department with concern for tachycardia, left-sided chest pain. He was seen from the cancer Center. Patient's EKG does not reveal any evidence of any ischemic ST changes. Troponin is negative. Chest x-ray does not reveal any acute abnormality. Creatinine function is normal. Patient was given aspirin here in the emergency department. He was also given sublingual nitroglycerin. States that it helped with his chest pain. Patient was also given Ativan as well 0.5 mg. We are currently awaiting a CT angiogram of the chest to rule out pulmonary embolus. CBC does not reveal any evidence of leukocytosis. Patient has good creatinine function. CT angiogram gram reveals new right upper lobe infiltrate having the appearance of pneumonia. Patient does not have a leukocytosis. Patient was given DuoNeb' s here in the emergency department well as IV Solu-Medrol. Patient will be covered for healthcare acquired pneumonia as he set the history of cancer and frequents the cancer center. Patient given vancomycin, cefepime, Levaquin. With patient regarding his results. Stated my plan for admission for both pneumonia and chest pain. Patient agrees with plan. Patient stable at time of admission from the emergency department. Transition of care was given to the night team for admission to the hospitalist. Chest X-Ray 11/05/17 17:23 IMPRESSION: No acute abnormality detected. D/ / Elgin Dobbs MD / Elgin Dobbs MD Interpreting Provider: Elgin Dobbs MD Chest CTA 11/05/17 17:43 IMPRESSION: 1. No evidence of pulmonary embolism 2. New right upper lobe infiltrate having the appearance of pneumonia 3. 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 D/ / Elgin Dobbs MD / Elgin Dobbs MD Interpreting Provider: Elgin Dobbs MD - Lab Data Result diagrams: 11/06/17 00:24 11/06/17 00:24 Lab Results 11/05/17 11/05/17 11/05/17 Range/Units 17:22 17:22 17:22 WBC 5.2 (4.3-11.1) K/mcL RBC 5.29 (4.19-5.50) M/mcL Hgb 14.5 (12.9-16.9) g/dL Hct 43.2 (37.5-50.1) % MCV 81.7 L (83.0-100.0) fL MCH 27.4 L (28.0-33.3) pg MCHC 33.6 (31.6-35.5) g/dL RDW 13.6 (11.5-14.5) % Plt Count 184 (140-400) K/mcL MPV 9.0 L (9.4-12.4) fL Immature Gran % 0.4 (0-4) % Seg Neutrophils % 59.7 % Lymphocytes % 27.6 % Monocytes % 9.6 % Eosinophils % 2.1 % Basophils % 0.6 % Neutrophils # 3.1 (1.6-8.9) K/mcL Lymphocytes # 1.4 (0.6-4.6) K/mcL Monocytes # 0.5 (0.0-1.3) K/mcL Eosinophils # 0.1 (0.0-0.6) K/mcL Basophils # 0.0 (0.0-0.2) K/mcL PT 12.2 H (9.4-12.1) Seconds INR 1.1 APTT 36.4 H (26.0-36.0) Seconds Sodium 138 (136-145) mEq/L Potassium 3.6 (3.5-5.1) mEq/L Chloride 102 (98-107) mEq/L Carbon Dioxide 29 (23-29) mEq/L BUN 13 (8-23) mg/dL Creatinine 0.77 (0.70-1.30) mg/dL Est GFR ( Amer) > 60 (> 60) Est GFR (Non-Af Amer) > 60 (> 60) BUN/Creatinine Ratio 17 (6-26) Glucose 173 H (70-105) mg/dL Calculated Osmolality 290 (280-300) Calcium 9.8 (8.6-10.3) mg/dL Troponin I < 0.03 (< 0.04) ng/mL B-Natriuretic Peptide (Less than 100) pg/mL 11/05/17 Range/Units 17:44 WBC (4.3-11.1) K/mcL RBC (4.19-5.50) M/mcL Hgb (12.9-16.9) g/dL Hct (37.5-50.1) % MCV (83.0-100.0) fL MCH (28.0-33.3) pg MCHC (31.6-35.5) g/dL RDW (11.5-14.5) % Plt Count (140-400) K/mcL MPV (9.4-12.4) fL Immature Gran % (0-4) % Seg Neutrophils % % Lymphocytes % % Monocytes % % Eosinophils % % Basophils % % Neutrophils # (1.6-8.9) K/mcL Lymphocytes # (0.6-4.6) K/mcL Monocytes # (0.0-1.3) K/mcL Eosinophils # (0.0-0.6) K/mcL Basophils # (0.0-0.2) K/mcL PT (9.4-12.1) Seconds INR APTT (26.0-36.0) Seconds Sodium (136-145) mEq/L Potassium (3.5-5.1) mEq/L Chloride (98-107) mEq/L Carbon Dioxide (23-29) mEq/L BUN (8-23) mg/dL Creatinine (0.70-1.30) mg/dL Est GFR ( Amer) (> 60) Est GFR (Non-Af Amer) (> 60) BUN/Creatinine Ratio (6-26) Glucose (70-105) mg/dL Calculated Osmolality (280-300) Calcium (8.6-10.3) mg/dL Troponin I (< 0.04) ng/mL B-Natriuretic Peptide 38 (Less than 100) pg/mL - EKG Data EKG attestation: Yes I reviewed and interpreted this EKG. EKG results narrative: 70:21 Ventricular rate 160 bpm, [place] interval 172 ms, QRS duration 90 ms, QT 320 ms, QTC 391 ms, normal axis. Sinus tachycardia with a ventricular rate of 116 bpm. No evidence of any ischemic ST changes on this EKG. Compared to previous study obtained on 2015. Heart Score - Score History: Moderately Suspicious EKG: Normal Age: 45-65 Risk Factors: Equal/Greater than 3 risk factor or history of atherosclerotic disease Troponin: Less than normal limit HEART Score Total: 4 Attestation Statement - Attestation Attestation: I, David Johnson DO, examined this patient [id number] and my medical decision-making was reviewed with Dr. Abhilash Padilla, Resident Physician. I agree with the documented findings, disposition and treatment plan as described except to the extent set forth below. Please see my progress notes for details.
[2017-11-05 17:42] LABS: Basophils % 0.6 %; Eosinophils # 0.1 K/mcL (0.0-0.6); Eosinophils % 2.1 %; Hematocrit 43.2 % (37.5-50.1); Hemoglobin 14.5 g/dL (12.9-16.9); Immature Granulocytes % 0.4 % (0-4); Lymphocytes # 1.4 K/mcL (0.6-4.6); Lymphocytes % 27.6 %; Mean Corpuscular HGB Conc 33.6 g/dL (31.6-35.5); Mean Corpuscular Hemoglobin 27.4 pg (28.0-33.3); Mean Corpuscular Volume 81.7 fL (83.0-100.0); Monocytes # 0.5 K/mcL (0.0-1.3); Monocytes % 9.6 %; Neutrophils # 3.1 K/mcL (1.6-8.9); Platelet Count 184 K/mcL (140-400); Red Blood Count 5.29 M/mcL (4.19-5.50); Red Cell Distribution Width 13.6 % (11.5-14.5); Segmented Neutrophils % 59.7 %
[2017-11-05] MEDS ORDERED: Isovue-370 500 ML INFUS..BTL IV ONE (17:43)
[2017-11-05] MEDS ORDERED: Nitroglycerin 0.4 MG TAB.SUBL SL PRN (17:45)
[2017-11-05] MEDS ORDERED: Aspirin 81 MG TAB.CHEW PO ONE (17:45)
[2017-11-05 17:50] LABS: INR 1.1; Prothrombin Time 12.2 Seconds (9.4-12.1)
[2017-11-05 17:53] LABS: Activated Partial Thrombo Time 36.4 Seconds (26.0-36.0)
[2017-11-05 17:57] LABS: BUN/Creatinine Ratio 17 (6-26); Blood Urea Nitrogen 13 mg/dL (8-23); Calcium 9.8 mg/dL (8.6-10.3); Carbon Dioxide 29 mEq/L (23-29); Chloride 102 mEq/L (98-107); Glucose 173 mg/dL (70-105); Osmolality,Calculated 290 (280-300); Potassium 3.6 mEq/L (3.5-5.1); Sodium 138 mEq/L (136-145); Troponin I < 0.03 ng/mL (< 0.04); eGFR For African Americans > 60 (> 60); eGFR For Non-African Americans > 60 (> 60)
[2017-11-05] MEDS ORDERED: *HR* LORazepam 2 MG/ML VIAL IVP ONE (18:35)
--- NOTE | 2017-11-05 18:45 | Emergency Department Note ---
Disposition Clinical Impression: Chest pain, Shortness of breath Disposition: Still a Patient Condition: Fair Referrals: Juanito Dsouza DO [Non-Partnered Physician] - Forms: ED Satisfaction Letter Time of Disposition: 18:45 General Adult HPI - General Chief complaint: ED Chest Pain Stated complaint: "chest pressure" Time Seen by Provider: 11/05/17 17:13 - History of Present Illness Pain Scale: 6 - Related Data Home Medications Medication Instructions Recorded Confirmed Glimepiride [Amaryl] 4 mg PO BID 11/23/14 11/05/17 Metformin HCl [Metformin HCl ER] 1,000 mg PO DAILY 11/23/14 11/05/17 Oxygen 1 each .ROUTE AD 11/23/14 11/05/17 SitaGLIPtin [Januvia] 100 mg PO DAILY 11/23/14 11/05/17 Tiotropium [Spiriva] 18 mcg IH DAILY 11/23/14 11/05/17 Rosuvastatin [Crestor] 20 mg PO HS 11/04/16 11/05/17 Brimonidine Tartrate 2 drop BOTH EYES BID 02/23/17 11/05/17 Budesonide/Formoterol 80/4.5 2 puff IH BID 02/23/17 11/05/17 [Symbicort 80/4.5] Latanoprost [Xalatan] 1 drop LEFT EYE QPM 02/23/17 11/05/17 5-Hydroxytryptophan (5-Htp) 50 mg PO DAILY 03/10/17 11/05/17 [Natrol 5-Htp] Aspirin [Lo-Dose Aspirin EC] 81 mg PO DAILY 03/10/17 11/05/17 Atenolol [Tenormin] 25 mg PO DAILY 03/10/17 11/05/17 Dorzolamide [Trusopt] 1 drop LEFT EYE TID 03/10/17 11/05/17 Gabapentin [Neurontin] 300 mg PO DAILY 03/10/17 11/05/17 HYDROcodone/Acet 5/325 mg [Worth 1 tab PO Q6H PRN 03/10/17 11/05/17 5-325 mg] Previous Rx's Medication Instructions Recorded Levothyroxine [Synthroid] 112 mcg PO DAILY@0630 tablet 02/26/17 Allergies Allergy/AdvReac Type Severity Reaction Status Date / Time No Known Allergies Allergy Unverified 11/05/17 15:59 Constitutional: Denies: fever Cardiovascular: Reports: chest pain Respiratory: Denies: cough, dyspnea Gastrointestinal: Denies: abdominal pain, nausea, vomiting Neurological: Denies: headache Psychiatric: Reports: anxiety Past Medical History - Past Medical History Medical history: Reports: cancer, COPD, diabetes, GERD, hyperlipidemia, thyroid disease, other Surgical history: Reports: cataract, other Psychiatric history: Reports: anxiety, panic disorder - Social History Smoking Status: Former smoker Smokeless Tobacco Status: Yes Alcohol use: Reports: none Drug use: Reports: none Physical Exam - General General appearance: alert, in no apparent distress Course Vital Signs Temperature 97.6 F 11/05/17 17:18 Pulse Rate 116 11/05/17 17:18 Respiratory Rate 16 11/05/17 17:18 Blood Pressure 127/98 11/05/17 17:18 O2 Sat by Pulse Oximetry 93 11/05/17 17:18 Temperature 97.6 F 11/05/17 17:18 Pulse Rate 109 11/05/17 17:53 Respiratory Rate 18 11/05/17 17:53 Blood Pressure 127/90 11/05/17 17:53 O2 Sat by Pulse Oximetry 95 11/05/17 17:53 Oxygen Delivery Oxygen Delivery Room Air Medical Decision Making - Lab Data Result diagrams: 11/05/17 17:22 11/05/17 17:22 Lab Results 11/05/17 11/05/17 11/05/17 Range/Units 17:22 17:22 17:22 WBC 5.2 (4.3-11.1) K/mcL RBC 5.29 (4.19-5.50) M/mcL Hgb 14.5 (12.9-16.9) g/dL Hct 43.2 (37.5-50.1) % MCV 81.7 L (83.0-100.0) fL MCH 27.4 L (28.0-33.3) pg MCHC 33.6 (31.6-35.5) g/dL RDW 13.6 (11.5-14.5) % Plt Count 184 (140-400) K/mcL MPV 9.0 L (9.4-12.4) fL Immature Gran % 0.4 (0-4) % Seg Neutrophils % 59.7 % Lymphocytes % 27.6 % Monocytes % 9.6 % Eosinophils % 2.1 % Basophils % 0.6 % Neutrophils # 3.1 (1.6-8.9) K/mcL Lymphocytes # 1.4 (0.6-4.6) K/mcL Monocytes # 0.5 (0.0-1.3) K/mcL Eosinophils # 0.1 (0.0-0.6) K/mcL Basophils # 0.0 (0.0-0.2) K/mcL PT 12.2 H (9.4-12.1) Seconds INR 1.1 APTT 36.4 H (26.0-36.0) Seconds Sodium 138 (136-145) mEq/L Potassium 3.6 (3.5-5.1) mEq/L Chloride 102 (98-107) mEq/L Carbon Dioxide 29 (23-29) mEq/L BUN 13 (8-23) mg/dL Creatinine 0.77 (0.70-1.30) mg/dL Est GFR ( Amer) > 60 (> 60) Est GFR (Non-Af Amer) > 60 (> 60) BUN/Creatinine Ratio 17 (6-26) Glucose 173 H (70-105) mg/dL Calculated Osmolality 290 (280-300) Calcium 9.8 (8.6-10.3) mg/dL Troponin I < 0.03 (< 0.04) ng/mL B-Natriuretic Peptide (Less than 100) pg/mL 11/05/17 Range/Units 17:44 WBC (4.3-11.1) K/mcL RBC (4.19-5.50) M/mcL Hgb (12.9-16.9) g/dL Hct (37.5-50.1) % MCV (83.0-100.0) fL MCH (28.0-33.3) pg MCHC (31.6-35.5) g/dL RDW (11.5-14.5) % Plt Count (140-400) K/mcL MPV (9.4-12.4) fL Immature Gran % (0-4) % Seg Neutrophils % % Lymphocytes % % Monocytes % % Eosinophils % % Basophils % % Neutrophils # (1.6-8.9) K/mcL Lymphocytes # (0.6-4.6) K/mcL Monocytes # (0.0-1.3) K/mcL Eosinophils # (0.0-0.6) K/mcL Basophils # (0.0-0.2) K/mcL PT (9.4-12.1) Seconds INR APTT (26.0-36.0) Seconds Sodium (136-145) mEq/L Potassium (3.5-5.1) mEq/L Chloride (98-107) mEq/L Carbon Dioxide (23-29) mEq/L BUN (8-23) mg/dL Creatinine (0.70-1.30) mg/dL Est GFR ( Amer) (> 60) Est GFR (Non-Af Amer) (> 60) BUN/Creatinine Ratio (6-26) Glucose (70-105) mg/dL Calculated Osmolality (280-300) Calcium (8.6-10.3) mg/dL Troponin I (< 0.04) ng/mL B-Natriuretic Peptide 38 (Less than 100) pg/mL Attestation Statement - Attestation Attestation: I, David Johnson DO, examined this patient [id number] and my medical decision-making was reviewed with Dr. Abhilash Padilla, Resident Physician. I agree with the documented findings, disposition and treatment plan as described except to the extent set forth below. Please see my progress notes for details. 61-year-old male seen and examined some arrival. Presents today with chest pressure and pain. Patient has multiple medical issues including previous history of pleural lung cancer. Patient has not had any treatments at that he had curative procedure performed. His had symptoms of this several times the past she has known COPD and emphysema. He denies any active smoking at this point. Currently is denying shortness of breath headache vision changes nausea vomiting or diarrhea. Denies any recent fevers or chills or productive sputum. He does have chest pain. Initial EKG does not show any acute pathology or abnormality. Patient will have nitroglycerin trial completed this time along with breathing treatments and steroids. Chest x-ray EKG labs and imaging CBC chemistry and troponin will be resulted. Patient will most likely require admission. CT angiography the chest will be completed as well considering the patient is tachycardic with increased work of breathing chest discomfort and pain. Vital signs otherwise unremarkable except for the tachycardia. Pulse ox is normal. Physical exam shows a thin frail-appearing gentleman oropharynx is patent drug is midline neurologic evaluation is benign. Lungs are diminished with coarse intermittent wheezing noted diffusely across along [place]. Heart is regular but tachycardic. Abdomen is soft nontender nondistended no guarding no rigidity no peritoneal symptoms at this time. Patient moves his extremities with purpose. He has no signs of pitting edema or swelling. Symptomatically controlled will be completed and then disposition will be determined. Cardiac etiology is most concerning aspect of this at this time. Patient will most likely require sign out to the overnight physician for definitive management. We will complete a detailed review the presentation symptoms and recommendations. See detailed documentation of the physical exam, medical intervention, medical decision-making and disposition in the resident physician' s note. No critical care by the patient's treatment course at this time. Patient does not have any EKG findings are concerning or consider diagnostic.
[2017-11-05] MEDS ORDERED: Levofloxacin 750 MG/150 ML 750 MG/150 ML BAG IVPB ONE (19:30)
[2017-11-05] MEDS ORDERED: 0.9 % Sodium Chloride 1,000 ML IVC ONE ×2 (19:32→23:53)
[2017-11-05] MEDS ORDERED: methylPREDNISolone 125 MG/2 ML VIAL IVP ONE (19:50)
[2017-11-05] MEDS ORDERED: Ipratropium/Albuterol Neb 3 ML IH ONE (19:50)
[2017-11-05] MEDS: Cefepime HCl 2,000 MG in 0.9 % Sodium Chloride Mini Bag 100 ML IVPB SCH (20:21)
--- NOTE | 2017-11-05 22:09 | Internal Med History&Physical ---
Date of Encounter: 11/05/17 Time of Encounter: 22:30 Internal Medicine - H&P: HPI Chief complaint: Pneumonia Admitted From: Home Plans for Post Hospital Care: Home History of present illness: Mr. Loco is a 61 year old male Patient states that he 'wasn't feeling good' today, was at the cancer center for check up and they were concerned enough to recommend he go to the ER for evaluation. He has a history of pleural lung cancer, now apparently in remission. He was very sleepy during my exam, and did not give much details. He did deny chest pain but has chest pressure, has had a cough but no change in sputum. Denies abdominal pain, nausea and vomiting. Denies fever and chills. In the ER chest x-ray showed no abnormalities, and chest CT showed no PE, but a new right upper lobe infiltrate was seen. Patient has a history of COPD, diabetes, hypothyroidism and hypertension. Past Med Surg Social Fam HX - Past Medical History Medical history: cancer, COPD, diabetes, GERD, hyperlipidemia, thyroid disease, other Additional medical history: lung cancer Psychiatric history: anxiety, panic disorder - Past Surgical History Surgical History: cataract, other Additional surgical history: mouth surgery, biopsy - Social History Smoking Status: Former smoker Smokeless Tobacco Status: Yes Alcohol use: none Drug use: none - Family History Sister Living Status: Hx Family GI Disorders: Yes Internal Medicine - H&P: Meds Atenolol [Tenormin] 25 mg PO DAILY 11/05/17 [History] Brimonidine Tartrate [Brimonidine Tartrate] 1 drop OP DAILY 11/05/17 [History] Gabapentin [Neurontin] 300 mg PO TID 11/05/17 [History] HYDROcodone/Acet 5/325 mg [[place]ry 5-325 mg] 1 tab PO Q6H PRN 11/05/17 [History] Levothyroxine Sodium [Levoxyl] 112 mcg PO DAILY 11/05/17 [History] Metformin HCl [Metformin HCl ER] 1,000 mg PO BID 11/05/17 [History] Roly/Polymyx B Sulf/Dexameth [Fydpmz-Aydya-Igsuexqf Eye Drop] 1 drop OP DAILY 04/13 [History] SitaGLIPtin [Januvia] 100 mg PO DAILY 11/05/17 [History] 3 Allergy/AdvReac Type Severity Reaction Status Date / Time No Known Allergies Allergy Verified 11/05/17 19:44 All Systems PM: A 10-system review of systems was performed and is negative for pertinent findings except as documented above in the HPI. - Constitutional Vitals: Temp Pulse Resp BP Pulse Ox 97.6 F 119 20 160/84 100 11/05/17 17:18 11/05/17 20:50 11/05/17 20:50 11/05/17 20:50 11/05/17 20:50 General appearance: Present: cooperative, pleasant, no acute distress Exam: sleepy but arousable. - Head Head exam: Present: normal inspection - Eye Eye exam: Present: EOMI, normal appearance - Respiratory Respiratory exam: Present: rhonchi. Absent: chest wall tenderness, CTAB, respiratory distress, wheezes Additional comments: deminished breath sounds on right, crackles and rhonchi throughout - Cardiovascular Cardiovascular exam: Present: RRR. Absent: diastolic murmur, systolic murmur - GI/Abdominal GI/Abdominal exam: Present: normal bowel sounds, soft. Absent: firm, guarding, tenderness - Extremities Exam Extremities exam: Present: warm, radial pulses palpable and symmetrical. Absent : pedal edema, tenderness - Neurological Exam Neurological exam: Present: no focal deficits, strengths equal and symetr throughout. Absent: facial droop, speech deficit - Skin Skin exam: Present: dry, normal color, warm Internal Med - H&P Results - Labs CBC & Chem 7: 11/05/17 17:22 11/05/17 17:22 - Assessment and plan (1) Sepsis Current Visit: No Status: Acute Assessment and plan: Elevated lactic acid, heart rate and pneumonia. Treat as below Qualifiers: Sepsis type: sepsis due to unspecified organism Qualified Code(s): A41.9 - Sepsis, unspecified organism (2) HCAP (healthcare-associated pneumonia) Current Visit: Yes Status: Acute Assessment and plan: Patient has pneumonia on CT. White count not elevated, but does meet sepsis criteria with elevated heart rate, lactic acid and pulmonary source. Continue antibiotics Cefepime, levofloxacin and vanco initiated in ER Follow up blood cultures. Trend lactate (3) Chest pain Current Visit: Yes Status: Acute Assessment and plan: Denies chest pain currently, but had it upon arrival to ER. Likely related to patient's pneumonia. EKG in ER showed no ST changes. Continue to trend trops cardiac monitor. Qualifiers: Qualified Code(s): R07.9 - Chest pain, unspecified (4) Type 2 diabetes mellitus Current Visit: No Status: Chronic Assessment and plan: Sliding scale insulin basal insulin tonight monitor sugars with meals and at night Qualifiers: Diabetes mellitus mcc insulin use: without mcc use Diabetes mellitus complication status: without complication Qualified Code(s): E11.9 - Type 2 diabetes mellitus without complications (5) Hypothyroid Current Visit: No Status: Chronic Assessment and plan: Continue home meds Qualifiers: Hypothyroidism type: unspecified Qualified Code(s): E03.9 - Hypothyroidism , unspecified - Time Spent With Patient Total time spent is greater than 50% in coordination of care (as documented) at patient's floor/unit and/or counseling patient: Greater than 35 minutes
[2017-11-05] MEDS ORDERED: Naloxone 0.4 MG/ML INJ IVP PRN (23:02)
[2017-11-05] MEDS ORDERED: Ipratropium/Albuterol Neb 3 ML IH PRN (23:09)
[2017-11-05] MEDS ORDERED: D5% in Water 1,000 ML IVC PRN (23:10)
[2017-11-05] MEDS ORDERED: Dextrose Gel 15 GM/37.5 ML TUBE PO PRN ×2 (23:10)
[2017-11-05] MEDS ORDERED: *HR* Dextrose 50 % in Water (Syg) 50 ML SYRINGE IVP PRN (23:10)
[2017-11-05] MEDS ORDERED: Vancomycin (wt based) 1,000 MG VIAL IVPB SCH (23:45)
[2017-11-06] MEDS: Insulin DETEMIR 100 UNIT/ML X5UNITS SQ SCH ×2 (00:33→22:44)
[2017-11-06 00:39] LABS: Hematocrit 40.6 % (37.5-50.1); Hemoglobin 13.6 g/dL (12.9-16.9); Mean Corpuscular HGB Conc 33.5 g/dL (31.6-35.5); Mean Corpuscular Hemoglobin 27.4 pg (28.0-33.3); Mean Corpuscular Volume 81.7 fL (83.0-100.0); Mean Platelet Volume 9.1 fL (9.4-12.4); Platelet Count 156 K/mcL (140-400); Red Blood Count 4.97 M/mcL (4.19-5.50); Red Cell Distribution Width 13.5 % (11.5-14.5)
[2017-11-06 00:59] LABS: BUN/Creatinine Ratio 19 (6-26); Blood Urea Nitrogen 12 mg/dL (8-23); Calcium 9.4 mg/dL (8.6-10.3); Carbon Dioxide 25 mEq/L (23-29); Chloride 103 mEq/L (98-107); Glucose 215 mg/dL (70-105); Osmolality,Calculated 288 (280-300); Potassium 3.7 mEq/L (3.5-5.1); Sodium 136 mEq/L (136-145); eGFR For African Americans > 60 (> 60); eGFR For Non-African Americans > 60 (> 60)
[2017-11-06] MEDS: *HR* Heparin 5,000 UNIT/ML VIAL SQ SCH ×2 (06:27→18:20)
[2017-11-06] MEDS: Cefepime HCl 2,000 MG in 0.9 % Sodium Chloride Mini Bag 100 ML IVPB SCH ×2 (06:28→18:19)
[2017-11-06] MEDS: Gabapentin 300 MG CAPSULE PO SCH ×3 (10:05→22:44)
[2017-11-06] MEDS: Insulin LISPRO 300 UNITS/3 ML VIAL SQ SCH ×3 (10:21→16:41)
--- NOTE | 2017-11-06 18:11 | Electrocardiograph Report ---
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
--- NOTE | 2017-11-06 19:03 | Internal Med Progress Note ---
<Pedro Hoffman - Last Filed: 11/06/17 19:19> Date of Encounter: 11/06/17 Time of Encounter: 10:00 - Assessment and plan (1) Acute respiratory failure with hypoxia Current Visit: Yes Status: Acute Assessment and plan: - patient has a Hx of COPD and pleural cancer s/p multiple rounds of chemo/ radiation - patient presented with chain pain , tachycardia with elevated lactate (2.3) - patient currently on cefepime, Vanc and levofloxacine. He's breathing on room air - monitor patients vitals, f/u blood cultures, trend lactate (2) Pneumonia Current Visit: No Status: Acute Assessment and plan: Patient's CTA shows New right upper lobe infiltrate having the appearance of pneumonia. White count not elevated, . Continue antibiotics Cefepime, levofloxacin and vanco initiated in ER Follow up blood cultures. Trend lactate Qualifiers: Pneumonia type: due to unspecified organism Laterality: bilateral Lung location: unspecified part of lung Qualified Code(s): J18.9 - Pneumonia, unspecified organism (3) Diabetes mellitus Current Visit: Yes Status: Acute Assessment and plan: Sliding scale insulin basal insulin tonight monitor sugars with meals and at night Qualifiers: Diabetes mellitus type: type 2 Qualified Code(s): E11.9 - Type 2 diabetes mellitus without complications (4) Hypothyroid Current Visit: No Status: Chronic Assessment and plan: continues his home medication Qualifiers: Hypothyroidism type: unspecified Qualified Code(s): E03.9 - Hypothyroidism , unspecified (5) DVT prophylaxis Current Visit: Yes Status: Acute Assessment and plan: SQ heparin - Time Spent With Patient Total time spent is greater than 50% in coordination of care (as documented) at patient's floor/unit and/or counseling patient: - Subjective Interval history: patient was seen and examined by me thimaddy AM. He appears to be in mild distress. He denies any chest pain but has chest pressure, has had a cough but no change in sputum. Denies abdominal pain, nausea and vomiting. Denies fever and chills. - Constitutional Vitals: Temp Pulse Resp BP Pulse Ox 97.9 F 90 15 113/65 95 11/06/17 16:10 11/06/17 16:10 11/06/17 16:10 11/06/17 16:10 11/06/17 16:10 General appearance: Present: cooperative, pleasant, no acute distress - Head Head exam: Present: atraumatic, normal inspection, normocephalic - Respiratory Additional comments: b/l wheezing, no ronchi, mild egophony - Cardiovascular Cardiovascular exam: Present: RRR, +S1, +S3 - GI/Abdominal Additional comments: soft, non-tender, no hypo or hyperactive bowel sounds - Extremities Exam Additional comments: no pedal edema, no joint swelling, pulses symmetrical bilaterally Internal Medicine: Result - Labs CBC & Chem 7: 11/06/17 00:24 11/06/17 00:24 Labs: Short CBC 11/06/17 Range/Units 00:24 WBC 5.5 (4.3-11.1) K/mcL Hgb 13.6 (12.9-16.9) g/dL Hct 40.6 (37.5-50.1) % Plt Count 156 (140-400) K/mcL BMP 11/06/17 00:24 Sodium 136 Potassium 3.7 Chloride 103 Carbon Dioxide 25 BUN 12 Creatinine 0.63 L Glucose 215 H Calcium 9.4 Cardiac Enzymes 11/05/17 11/06/17 Range/Units 23:37 05:23 Troponin I < 0.03 < 0.03 (< 0.04) ng/mL - ABG Interpretation ABG results: PT/INR, D-dimer PT 12.2 Seconds (9.4-12.1) H 11/05/17 17:22 Consult Discharge Plan - Plan Referrals: Juanito Dsouza DO [Primary Care Provider] - <Sharlene Chaudhary - Last Filed: 11/07/17 08:24> Date of Encounter: 11/06/17 - Assessment and plan (1) Hypothyroid Current Visit: No Status: Chronic Qualifiers: Hypothyroidism type: unspecified Qualified Code(s): E03.9 - Hypothyroidism , unspecified (2) Pneumonia Current Visit: No Status: Acute Qualifiers: Pneumonia type: due to unspecified organism Laterality: bilateral Lung location: unspecified part of lung Qualified Code(s): J18.9 - Pneumonia, unspecified organism (3) Acute respiratory failure with hypoxia Current Visit: Yes Status: Acute (4) Diabetes mellitus Current Visit: Yes Status: Acute Qualifiers: Diabetes mellitus type: type 2 Qualified Code(s): E11.9 - Type 2 diabetes mellitus without complications (5) DVT prophylaxis Current Visit: Yes Status: Acute - Time Spent With Patient Total time spent is greater than 50% in coordination of care (as documented) at patient's floor/unit and/or counseling patient: - Constitutional Vitals: Temp Pulse Resp BP Pulse Ox 98 F 80 16 113/68 99 11/07/17 07:30 11/07/17 07:30 11/07/17 07:30 11/07/17 07:30 11/07/17 07:30 Internal Medicine: Result - Labs CBC & Chem 7: 11/06/17 00:24 11/07/17 04:00 Labs: BMP 11/07/17 04:00 Sodium 140 Potassium 4.2 Chloride 108 H Carbon Dioxide 27 BUN 14 Creatinine 0.62 L Glucose 103 Calcium 8.7 - ABG Interpretation ABG results: PT/INR, D-dimer PT 12.2 Seconds (9.4-12.1) H 11/05/17 17:22 - Attending Attestation I examined this patient and my medical decision-making was reviewed with the Resident Physician Dr. Hoffman. I agree with the documented findings, disposition and treatment plan as described except to the extent set forth below. Mr. Loco is a 61 year old male with known PMH of lung cancer, COPD, chronic hypoxic resp failure uses 2 lit O2 at home and GERD pt admitted with pneumonia and SOB. Pt states he is feeling little better today. Denied any CP. Still has Cough+ Gen: A, A< O x 3 Chest: Diminished BS b/l, mild wheezing, no crackles Heart: S1S2+ RRR No murmurs a/p 1. Acute on chronic hypoxic resp failure 2. Acute pnuemonia 3. Mild COPD exacerbation cont duoneb and O2 cont empirical abx for now will deescalate abx in AM depending how pt responds clinically
[2017-11-06] MEDS: Levofloxacin 750 MG/150 ML 750 MG/150 ML BAG IVPB SCH (22:44)
[2017-11-07] MEDS: *HR* Heparin 5,000 UNIT/ML VIAL SQ SCH ×2 (06:00→18:20)
[2017-11-07] MEDS: Cefepime HCl 2,000 MG in 0.9 % Sodium Chloride Mini Bag 100 ML IVPB SCH ×2 (06:01→18:16)
[2017-11-07 07:37] LABS: BUN/Creatinine Ratio 23 (6-26); Blood Urea Nitrogen 14 mg/dL (8-23); Calcium 8.7 mg/dL (8.6-10.3); Carbon Dioxide 27 mEq/L (23-29); Chloride 108 mEq/L (98-107); Glucose 103 mg/dL (70-105); Osmolality,Calculated 291 (280-300); Potassium 4.2 mEq/L (3.5-5.1); Sodium 140 mEq/L (136-145); eGFR For African Americans > 60 (> 60); eGFR For Non-African Americans > 60 (> 60)
--- NOTE | 2017-11-07 08:39 | Internal Med Progress Note ---
<Pedro Hoffman - Last Filed: 11/07/17 15:33> Date of Encounter: 11/07/17 Time of Encounter: 08:39 - Assessment and plan (1) Acute respiratory failure with hypoxia Current Visit: Yes Status: Resolved Assessment and plan: -Resolved today. Not exhibitng dependence on oxygen as of today - He's on day 2 cefepime, Vanc and levofloxacine. He's breathing on room air - patient has a Hx of COPD and pleural cancer s/p multiple rounds of chemo/ radiation - patient presented with chain pain , tachycardia with elevated lactate (2.3) - monitor patients vitals, f/u blood cultures, trend lactate (2) Pneumonia Current Visit: No Status: Acute Assessment and plan: -HCAP secondary to his multiple visits to the hospital. Patient's CTA showed New right upper lobe infiltrate having the appearance of pneumonia. White count not elevated (5.5) . - Patient endorses no deterioration in his respiratory condition. He endorses not requiring O2 today. -He's on day 2 of his antibiotics Cefepime, levofloxacin and vanc, for a total course of 7-10 days -Trend lactate Qualifiers: Pneumonia type: due to unspecified organism Laterality: bilateral Lung location: unspecified part of lung Qualified Code(s): J18.9 - Pneumonia, unspecified organism (3) Diabetes mellitus Current Visit: Yes Status: Acute Assessment and plan: Sliding scale insulin. His glucose is within the range (150-180) basal insulin tonight monitor sugars with meals and at night. Continue Accu checks Qualifiers: Diabetes mellitus type: type 2 Qualified Code(s): E11.9 - Type 2 diabetes mellitus without complications (4) Hypothyroid Current Visit: No Status: Chronic Assessment and plan: continues his home medication Qualifiers: Hypothyroidism type: unspecified Qualified Code(s): E03.9 - Hypothyroidism , unspecified (5) DVT prophylaxis Current Visit: Yes Status: Acute - Time Spent With Patient Total time spent is greater than 50% in coordination of care (as documented) at patient's floor/unit and/or counseling patient: - Subjective Interval history: patient was seen and examined by me thiis AM. He appears to be in no acute distress. He denies any chest pain but has chest pressure, has had a cough but no change in sputum. Denies abdominal pain, nausea and vomiting. Denies fever and chills. continues to be on nVanc/Leovflox ad Cefepime for CAP - Constitutional Vitals: Temp Pulse Resp BP Pulse Ox 98 F 80 16 113/68 99 11/07/17 07:30 11/07/17 07:30 11/07/17 07:30 11/07/17 07:30 11/07/17 07:30 General appearance: Present: cooperative, pleasant, no acute distress - Head Head exam: Present: atraumatic, normal inspection, normocephalic - Respiratory Additional comments: ronchi, nl to percussion, no rales - Cardiovascular Additional comments: RRR, no gallops,murmurs or rubs - GI/Abdominal Additional comments: soft, non-tender, no hepto or splenometgaly - Extremities Exam Additional comments: normal ROM, skin good turgor, warm Internal Medicine: Result - Labs CBC & Chem 7: 11/06/17 00:24 11/07/17 04:00 Labs: BMP 11/07/17 04:00 Sodium 140 Potassium 4.2 Chloride 108 H Carbon Dioxide 27 BUN 14 Creatinine 0.62 L Glucose 103 Calcium 8.7 - ABG Interpretation ABG results: PT/INR, D-dimer PT 12.2 Seconds (9.4-12.1) H 11/05/17 17:22 Consult Discharge Plan - Plan Referrals: Juanito Dsouza DO [Primary Care Provider] - <Sharlene Chaudhary - Last Filed: 11/07/17 15:45> Date of Encounter: 11/07/17 - Assessment and plan (1) Hypothyroid Current Visit: No Status: Chronic Qualifiers: Hypothyroidism type: unspecified Qualified Code(s): E03.9 - Hypothyroidism , unspecified (2) Pneumonia Current Visit: No Status: Acute Qualifiers: Pneumonia type: due to unspecified organism Laterality: bilateral Lung location: unspecified part of lung Qualified Code(s): J18.9 - Pneumonia, unspecified organism (3) Acute respiratory failure with hypoxia Current Visit: Yes Status: Resolved (4) Diabetes mellitus Current Visit: Yes Status: Acute Qualifiers: Diabetes mellitus type: type 2 Qualified Code(s): E11.9 - Type 2 diabetes mellitus without complications (5) DVT prophylaxis Current Visit: Yes Status: Acute - Time Spent With Patient Total time spent is greater than 50% in coordination of care (as documented) at patient's floor/unit and/or counseling patient: - Constitutional Vitals: Temp Pulse Resp BP Pulse Ox 98.5 F 80 16 95/57 95 11/07/17 15:38 11/07/17 15:38 11/07/17 15:38 11/07/17 15:38 11/07/17 15:38 Internal Medicine: Result - Labs CBC & Chem 7: 11/06/17 00:24 11/07/17 04:00 Labs: BMP 11/07/17 04:00 Sodium 140 Potassium 4.2 Chloride 108 H Carbon Dioxide 27 BUN 14 Creatinine 0.62 L Glucose 103 Calcium 8.7 - ABG Interpretation ABG results: PT/INR, D-dimer PT 12.2 Seconds (9.4-12.1) H 11/05/17 17:22 - Attending Attestation I examined this patient and my medical decision-making was reviewed with the Resident Physician Dr. Hoffman. I agree with the documented findings, disposition and treatment plan as described except to the extent set forth below. Mr. Loco is a 61 year old male with known PMH of lung cancer, COPD, chronic hypoxic resp failure uses 2 lit O2 at home and GERD pt admitted with pneumonia and SOB. Pt states he is feeling little better today. Denied any CP. Still has Cough+, unable to bring up any sputum Gen: A, A, O x 3 Chest: Diminished BS b/l, mild wheezing, no crackles..Mild ronchi Heart: S1S2+ RRR No murmurs a/p 1. Acute on chronic hypoxic resp failure 2. Acute pnuemonia 3. Mild COPD exacerbation 4. Sepsis Pt did meet sepis criteria with Tahcycardia, elevated LA and source of Inf as PNA cont duoneb and O2 cont empirical abx for now LA still elevated.. cont trend on LA Pt's BP running little low , so will give him IV NS bolus + start him on maintainence fluids Cont close monitoring He is high risk for resp failure and required close monitoring on telemetry. So will switch him to full admission today since he may need to stay in the hospital more than 3 nights.
[2017-11-07] MEDS: Gabapentin 300 MG CAPSULE PO SCH ×3 (09:32→21:29)
[2017-11-07] MEDS: Insulin LISPRO 300 UNITS/3 ML VIAL SQ SCH ×3 (09:33→18:21)
[2017-11-07] MEDS ORDERED: 0.9 % Sodium Chloride 500 ML IVC ONE (11:57)
[2017-11-07] MEDS ORDERED: 0.9 % Sodium Chloride 1,000 ML IVC SCH (12:00)
[2017-11-07] MEDS: Insulin DETEMIR 100 UNIT/ML X5UNITS SQ SCH (21:29)
[2017-11-07] MEDS: Levofloxacin 750 MG/150 ML 750 MG/150 ML BAG IVPB SCH (21:30)
[2017-11-08 05:37] LABS: BUN/Creatinine Ratio 25 (6-26); Blood Urea Nitrogen 13 mg/dL (8-23); Calcium 8.4 mg/dL (8.6-10.3); Carbon Dioxide 28 mEq/L (23-29); Chloride 108 mEq/L (98-107); Glucose 127 mg/dL (70-105); Osmolality,Calculated 294 (280-300); Potassium 3.9 mEq/L (3.5-5.1); Sodium 141 mEq/L (136-145); eGFR For African Americans > 60 (> 60); eGFR For Non-African Americans > 60 (> 60)
[2017-11-08] MEDS: Cefepime HCl 2,000 MG in 0.9 % Sodium Chloride Mini Bag 100 ML IVPB SCH ×2 (06:38→17:47)
[2017-11-08] MEDS: *HR* Heparin 5,000 UNIT/ML VIAL SQ SCH ×2 (06:38→17:46)
[2017-11-08] MEDS: Insulin LISPRO 300 UNITS/3 ML VIAL SQ SCH ×3 (08:52→17:46)
[2017-11-08] MEDS: Gabapentin 300 MG CAPSULE PO SCH ×3 (08:53→21:59)
--- NOTE | 2017-11-08 09:53 | Internal Med Progress Note ---
<Pedro Hoffman - Last Filed: 11/08/17 15:05> Date of Encounter: 11/08/17 Time of Encounter: 09:20 - Assessment and plan (1) Acute respiratory failure with hypoxia Current Visit: Yes Status: Resolved Assessment and plan: -Resolved today. Not exhibiting dependence on oxygen as of today - He's on day 2 cefepime and levofloxacine. His Vanc has been discontinued. He' s breathing on room air - patient has a Hx of COPD and pleural cancer s/p multiple rounds of chemo/ radiation - patient presented with chain pain , tachycardia, -lactate trending down (2.3 > 2.9> 1.2) - monitor patients vitals, f/u blood cultures, trend lactate (2) Pneumonia Current Visit: No Status: Acute Assessment and plan: -HCAP secondary to his multiple visits to the hospital. Patient's CTA showed New right upper lobe infiltrate having the appearance of pneumonia. White count not elevated (5.5) . - Patient endorses no deterioration in his respiratory condition. He endorses not requiring O2 today. -He's on day 2 of his antibiotics Cefepime, levofloxacin, for a total course of 7-10 days -Lactate trending down Qualifiers: Pneumonia type: due to unspecified organism Laterality: bilateral Lung location: unspecified part of lung Qualified Code(s): J18.9 - Pneumonia, unspecified organism (3) Diabetes mellitus Current Visit: Yes Status: Acute Assessment and plan: Sliding scale insulin. His glucose is within the range (150-180) basal insulin tonight monitor sugars with meals and at night. Continue Accu checks Qualifiers: Diabetes mellitus type: type 2 Qualified Code(s): E11.9 - Type 2 diabetes mellitus without complications (4) Hypothyroid Current Visit: No Status: Chronic Assessment and plan: continues his home medication Qualifiers: Hypothyroidism type: unspecified Qualified Code(s): E03.9 - Hypothyroidism , unspecified (5) DVT prophylaxis Current Visit: Yes Status: Acute Assessment and plan: SQ heparin - Time Spent With Patient Total time spent is greater than 50% in coordination of care (as documented) at patient's floor/unit and/or counseling patient: - Subjective Interval history: patient was seen and examined by me thiis AM. He appears to be in no acute distress. Patient was a little hypotensive yesterday , given boluses . He is not hypotensive today (SBP : 107, 121, 116) . He continues to be on home dose of atenolol 25mg daily. He denies any chest pain or chest pressure, has had a cough but no change in sputum still has ronchi on physical exam but no egophony or tactile fremitus appreciated. Denies abdominal pain, nausea and vomiting. Denies fever and chills. He's on day 3 of his Leovflox and Cefepime for his HCAP. - Constitutional Vitals: Temp Pulse Resp BP Pulse Ox 98.4 F 76 16 116/70 96 11/08/17 07:39 11/08/17 07:39 11/08/17 07:39 11/08/17 07:39 11/08/17 07:39 General appearance: Present: cooperative, pleasant, no acute distress - Head Head exam: Present: atraumatic, normal inspection, normocephalic - Respiratory Additional comments: -continues to have ronchi in his lungs, nl to percussion , no rales - Cardiovascular Additional comments: RRR, no gallops,murmurs or rubs - GI/Abdominal Additional comments: soft, non-distended, bowel sounds were normal - Extremities Exam Additional comments: no edema noted, ROM appropriate for condition, skin warm and good turgor Internal Medicine: Result - Labs CBC & Chem 7: 11/06/17 00:24 11/08/17 05:01 Labs: BMP 11/08/17 05:01 Sodium 141 Potassium 3.9 Chloride 108 H Carbon Dioxide 28 BUN 13 Creatinine 0.52 L Glucose 127 H Calcium 8.4 L - ABG Interpretation ABG results: PT/INR, D-dimer PT 12.2 Seconds (9.4-12.1) H 11/05/17 17:22 Consult Discharge Plan - Plan Referrals: Juanito Dsouza DO [Primary Care Provider] - <Sharlene Chaudhary - Last Filed: 11/08/17 15:10> Date of Encounter: 11/08/17 - Assessment and plan (1) Hypothyroid Current Visit: No Status: Chronic Qualifiers: Hypothyroidism type: unspecified Qualified Code(s): E03.9 - Hypothyroidism , unspecified (2) Pneumonia Current Visit: No Status: Acute Qualifiers: Pneumonia type: due to unspecified organism Laterality: bilateral Lung location: unspecified part of lung Qualified Code(s): J18.9 - Pneumonia, unspecified organism (3) Acute respiratory failure with hypoxia Current Visit: Yes Status: Resolved (4) Diabetes mellitus Current Visit: Yes Status: Acute Qualifiers: Diabetes mellitus type: type 2 Qualified Code(s): E11.9 - Type 2 diabetes mellitus without complications (5) DVT prophylaxis Current Visit: Yes Status: Acute - Time Spent With Patient Total time spent is greater than 50% in coordination of care (as documented) at patient's floor/unit and/or counseling patient: - Constitutional Vitals: Temp Pulse Resp BP Pulse Ox 97.9 F 76 16 102/60 98 11/08/17 11:42 11/08/17 11:42 11/08/17 11:42 11/08/17 11:42 11/08/17 11:42 Internal Medicine: Result - Labs CBC & Chem 7: 11/06/17 00:24 11/08/17 05:01 - ABG Interpretation ABG results: PT/INR, D-dimer PT 12.2 Seconds (9.4-12.1) H 11/05/17 17:22 - Attending Attestation I examined this patient and my medical decision-making was reviewed with the Resident Physician Dr. Hoffman. I agree with the documented findings, disposition and treatment plan as described except to the extent set forth below. Mr. Loco is a 61 year old male with known PMH of lung cancer, COPD, chronic hypoxic resp failure uses 2 lit O2 at home and GERD pt admitted with pneumonia and SOB. Pt states he is feeling little better today. Denied any CP. Still has Cough+, unable to bring up any sputum Gen: A, A, O x 3 Chest: Diminished BS b/l, mild wheezing, no crackles..Mild ronchi Heart: S1S2+ RRR No murmurs a/p 1. Acute on chronic hypoxic resp failure 2. Acute pnuemonia 3. Mild COPD exacerbation 4. Sepsis Pt did meet sepsis criteria with Tachycardia, elevated LA and source of Inf as PNA cont duoneb and O2 cont empirical abx for now LA improved BP improved Cont close monitoring Possible d/c home in AM
[2017-11-08] MEDS: Levofloxacin 750 MG/150 ML 750 MG/150 ML BAG IVPB SCH (21:58)
[2017-11-08] MEDS: Insulin DETEMIR 100 UNIT/ML X5UNITS SQ SCH (21:59)
[2017-11-09] MEDS: *HR* Heparin 5,000 UNIT/ML VIAL SQ SCH (06:18)
[2017-11-09] MEDS: Cefepime HCl 2,000 MG in 0.9 % Sodium Chloride Mini Bag 100 ML IVPB SCH (06:18)
[2017-11-09 07:06] LABS: BUN/Creatinine Ratio 23 (6-26); Blood Urea Nitrogen 12 mg/dL (8-23); Calcium 8.9 mg/dL (8.6-10.3); Carbon Dioxide 29 mEq/L (23-29); Chloride 106 mEq/L (98-107); Glucose 139 mg/dL (70-105); Osmolality,Calculated 290 (280-300); Potassium 3.9 mEq/L (3.5-5.1); Sodium 139 mEq/L (136-145); eGFR For African Americans > 60 (> 60); eGFR For Non-African Americans > 60 (> 60)
[2017-11-09] MEDS: Gabapentin 300 MG CAPSULE PO SCH ×2 (08:01→16:10)
[2017-11-09] MEDS: Insulin LISPRO 300 UNITS/3 ML VIAL SQ SCH ×2 (08:02→11:47)
[2017-11-09 11:45] VITALS: BP 103/68
--- NOTE | 2017-11-09 13:03 | Discharge Summary ---
<Maria M Hoffmanbh - Last Filed: 11/09/17 14:41> - NOTES TO OUTPATIENT PROVIDER Notes to Outpatient Provider: - discharged on Symbicort for his PMHx of COPD. - Given 4 more days of Levofloxacin 750mg PO. - Patient insructed to get Mucinex to help with thinning his mucus. Date of Encounter: 11/09/17 Time of Encounter: 10:00 - Discharge Diagnosis (1) Acute respiratory failure with hypoxia Priority: Secondary Status: Resolved (2) Pneumonia Priority: Primary Status: Acute Qualifiers: Laterality: bilateral Lung location: upper lobe of lung Qualified Code(s) : J18.1 - Lobar pneumonia, unspecified organism (3) Diabetes mellitus Priority: Secondary Status: Acute Qualifiers: Diabetes mellitus type: type 2 Qualified Code(s): E11.9 - Type 2 diabetes mellitus without complications (4) Hypothyroid Priority: Secondary Status: Chronic Qualifiers: Hypothyroidism type: unspecified Qualified Code(s): E03.9 - Hypothyroidism , unspecified (5) DVT prophylaxis Priority: Secondary Status: Acute Hospital course: Mr. Loco is a 61 year old male with a PMHx of COPD, lung cancer s/p chemotherapy & radiation, who was admitted to the hospital on 11/05 because of sepsis (was tachyardia with elevated LA (2.3) ) with the source of infection being PNA. He was found to have acute on chronic hypoxic respiratory failure. Patient was initially treated with Vancomycin, Cefepime and Levofloxacin but we discontinued his Vancomycin because he was negative for MRSA. He continued to be on Cefepime and Levofloxacin for the rest of the hospital stay. Physical exam appeared to be improving during his hospital stay with bare minimal dependence on O2 on day 4 of his hospital stay. Patient has been instructed to keep using the incentive spirometer at home and the benefits have been explained to the patient. I have also instructed him to use his Symbicort 2 puffs twice a day but not to exceed more than 4 puffs a day - Time Spent with Patient Total time spent providing and/or coordinating discharge services: - Discharge Medications Prescriptions: Budesonide/Formoterol 80/4.5 [Symbicort 80/4.5] 1 puff IH BID 30 Days #1 inh levoFLOXacin [Levaquin] 750 mg PO HS #4 tablet Home Medications: Atenolol [Tenormin] 25 mg PO DAILY 11/05/17 [History] Brimonidine Tartrate 1 drop OP DAILY 11/05/17 [History] Gabapentin [Neurontin] 300 mg PO TID 11/05/17 [History] HYDROcodone/Acet 5/325 mg [[place] 5-325 mg] 1 tab PO Q6H PRN 11/05/17 [History] Levothyroxine Sodium [Levoxyl] 112 mcg PO DAILY 11/05/17 [History] Metformin HCl [Metformin HCl ER] 1,000 mg PO BID 11/05/17 [History] Roly/Polymyx B Sulf/Dexameth [Cqftiy-Dlleq-Yurgqjjq Eye Drop] 1 drop OP DAILY 04/13 [History] SitaGLIPtin [Januvia] 100 mg PO DAILY 11/05/17 [History] Budesonide/Formoterol 80/4.5 [Symbicort 80/4.5] 1 puff IH BID 30 Days #1 inh [Rx] levoFLOXacin [Levaquin] 750 mg PO HS #4 tablet 11/09/17 [Rx] Allergies/Adverse Reactions: 3 Allergy/AdvReac Type Severity Reaction Status Date / Time No Known Allergies Allergy Verified 11/05/17 19:44 Date of admission: 11/08/17 10:16 Primary care physician: Juanito Dsouza - Constitutional Vitals: Temp Pulse Resp BP Pulse Ox 98.3 F 81 16 103/68 94 11/09/17 11:41 11/09/17 11:41 11/09/17 11:41 11/09/17 11:41 11/09/17 11:41 General appearance: Present: cooperative, pleasant, no acute distress - Head Head exam: Present: atraumatic, normal inspection, normocephalic - Respiratory Additional comments: Ronchi no rales or strior. No egophony or tacticle fremitus - Cardiovascular Additional comments: RRR, no gallops, rubs, or murmurs - GI/Abdominal Additional comments: soft, non-tender, normal Bowel sounds, No organomegaly - Extremities Exam Additional comments: ROM appropriate for his condition, pulses symmetrical bilaterally - Patient Status Disposition: Home Health Service Functional capacity at discharge: uses cane/walker Overall status at discharge: patient is progressing back to baseline - Discharge Instructions Instructions: Acute Respiratory Distress Syndrome (DC), Pneumonia (DC) Follow Up With: Juanito Dsouza DO [Primary Care Provider] - 11/24/17 8:20 am <Sharlene Chaudhary - Last Filed: 11/09/17 15:07> Date of Encounter: 11/09/17 - Discharge Diagnosis (1) Hypothyroid Status: Chronic Qualifiers: Hypothyroidism type: unspecified Qualified Code(s): E03.9 - Hypothyroidism , unspecified (2) Pneumonia Status: Acute Qualifiers: Laterality: bilateral Lung location: upper lobe of lung Qualified Code(s) : J18.1 - Lobar pneumonia, unspecified organism (3) Acute respiratory failure with hypoxia Status: Resolved (4) Diabetes mellitus Status: Acute Qualifiers: Diabetes mellitus type: type 2 Qualified Code(s): E11.9 - Type 2 diabetes mellitus without complications (5) DVT prophylaxis Status: Acute Hospital course: Mr. Loco is a 61 year old male - Time Spent with Patient Total time spent providing and/or coordinating discharge services: Date of admission: 11/08/17 10:16 Primary care physician: Juanito Dsouza - Constitutional Vitals: Temp Pulse Resp BP Pulse Ox 98.3 F 81 16 103/68 94 11/09/17 11:41 11/09/17 11:41 11/09/17 11:41 11/09/17 11:41 11/09/17 11:41 - Attending Attestation I examined this patient and my medical decision-making was reviewed with the Resident Physician Dr. Hoffman. I agree with the documented findings, disposition and treatment plan as described except to the extent set forth below. Mr. Loco is a 61 year old male with known PMH of lung cancer, COPD, chronic hypoxic resp failure uses 2 lit O2 at home and GERD pt admitted with pneumonia and SOB. Pt states he is feeling little better today. Denied any CP. Still has Cough+, unable to bring up any sputum Gen: A, A, O x 3 Chest: Diminished BS b/l, mild wheezing, no crackles..Mild ronchi Heart: S1S2+ RRR No murmurs a/p 1. Acute on chronic hypoxic resp failure 2. Acute pnuemonia 3. Mild COPD exacerbation 4. Sepsis Pt did meet sepsis criteria with Tachycardia, elevated LA and source of Inf as PNA cont duoneb and O2 Switched to PO abx Medically stable to d.c home today
[2017-11-09] MEDS ORDERED: levoFLOXacin 750 MG TABLET PO SCH (21:00)
== END 2017-11-09 18:00 | disposition home health service (06) | DRG 871 ==
LOC: EMEROO 17:06 → 2NENU 17:06 → SUATTDRO 11-08 10:16
PROVIDERS: ADMIT Pediatrics; ATTEND Family Medicine

== ENCOUNTER 2018-05-24 12:44 | Observation (INO) ==
[2018-05-24] MEDS ORDERED: Ipratropium/Albuterol Neb 3 ML IH ONE (13:18)
--- NOTE | 2018-05-24 13:22 | Emergency Department Note ---
Disposition Clinical Impression: COPD exacerbation Disposition: Admitted As Inpatient Condition: Fair Time of Disposition: 15:26 SOB HPI - General Chief Complaint: ED Shortness of Breath/Dyspnea Stated Complaint: Possible pneumonia,weakness,COPD Time Seen by Provider: 05/24/18 13:00 Source: patient, family Limitations: no limitations Nursing Notes Reviewed: Yes Vital Signs Reviewed: Yes - History of Present Illness Patient is a 62-year-old male presenting to [facility] ED for a 2 week history of progressively worsening shortness of breath. Patient states that he was seen at [facility] during this time. Diagnosed with COPD exacerbation and sent home. Patient's son is in room acting as code historian. 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 Patient's son states that patient has scarring of his right lung where he frequently develops pneumonia 4-7 times per year. Patient states that this presentation is similar in nature to his prior pneumonias. Upon initial presentation patient is sitting upright in hospital bed he is speaking in 1-2 word sentences, he is satting at 98% on room air but appears to have increased work of breathing. Patient has a wet cough audible in room which patient states is productive of mcintyre mucus intermittently. Patient states that he has been very weak and has had difficulty with ambulation and has dizziness upon standing. Patient also admits to left lower quadrant "tenderness to palpation. Patient denies headaches, vision change, tinnitus, neck or back pain, chest pain, generalized abdominal pain, nausea, vomiting, or numbness and paresthesias. Pt Subjective Complaint: shortness of breath, cough Onset (ago): week(s) Context: recent illness Severity: moderate, severe Consistency/Duration: gradually worsening Improves with: oxygen, bronchodilators, upright position Worsens with: exertion Known history of: COPD, congestive heart failure, diabetes, recurrent pneumonia Associated symptoms: Reports: cough, sputum production. Denies: chest pain, parasthesias, nausea/vomiting, abdominal pain Treatment prior to arrival: bronchodilator Cough present: Yes Cough Description: Involuntary Cough Frequency: Intermittent Sputum production: Yes Sputum Amount: Small Sputum Color: Mcintyre - Related Data Home oxygen amount: 2 liters (2.5 L/m) Home Medications Medication Instructions Recorded Confirmed RX: Atenolol [Tenormin] 25 mg PO DAILY 11/05/17 03/10/18 RX: Brimonidine Tartrate 1 drop OP DAILY 11/05/17 03/10/18 RX: Gabapentin [Neurontin] 300 mg PO TID 11/05/17 03/10/18 RX: HYDROcodone/Acet 5/325 mg 1 tab PO Q6H PRN 11/05/17 03/10/18 [[place] 5-325 mg] RX: Levothyroxine Sodium [Levoxyl] 112 mcg PO DAILY 11/05/17 03/10/18 RX: Metformin HCl [Metformin ER 1,000 mg PO BID 11/05/17 03/10/18 Gastric] RX: Roly/Polymyx B Sulf/Dexameth 1 drop OP DAILY 11/05/17 03/10/18 [Iqosfz-Dhmqq-Vbhlcana Eye Drop] RX: SitaGLIPtin [Januvia] 100 mg PO DAILY 11/05/17 03/10/18 Previous Rx's Medication Instructions Recorded Budesonide/Formoterol 80/4.5 1 puff IH BID 30 Days #1 inh 11/09/17 [Symbicort 80/4.5] Guaifenesin [Mucinex] 600 mg PO BID #20 tab.er.12h 01/08/18 Allergies Allergy/AdvReac Type Severity Reaction Status Date / Time No Known Allergies Allergy Verified 03/10/18 15:39 All systems ED: reviewed and negative except as stated. Review of Systems: As Per HPI Past Medical History - Past Medical History Medical history: Reports: cancer, CHF, COPD, diabetes, GERD, hyperlipidemia, thyroid disease, other Surgical history: Reports: cataract, other Psychiatric history: Reports: anxiety, panic disorder - Social History Smoking Status: Former smoker Smokeless Tobacco Status: Yes Alcohol use: Reports: none Drug use: Reports: none Physical Exam - General Limitations: no limitations General appearance: alert, in no apparent distress - Head Head exam: atraumatic, normocephalic, normal inspection - Eye Eye exam: Present: normal appearance, PERRL, EOMI. Absent: scleral icterus - Neck Neck exam: Present: normal inspection, trachea midline - Chest Chest inspection: Present: normal inspection, symmetric chest wall rise - Respiratory Respiratory exam: Present: prolonged expiratory phase. Absent: respiratory distress, wheezes, stridor, accessory muscle use - Expanded Respiratory Exam Location: rhonchi: Left, Right, Upper, Lower - Cardiovascular Cardiovascular exam: Present: regular rate, normal rhythm, normal heart sounds, +S1, +S2. Absent: systolic murmur, diastolic murmur, JVD, +S3, +S4 - Abdominal Exam Abdominal exam: Present: soft, tenderness, normal bowel sounds. Absent: distention, guarding, rebound, rigidity Abdominal tenderness: Present: LLQ, mild - Neurological Exam Neurological exam: Present: alert, oriented X3 - Psychiatric Psychiatric exam: Present: anxious - Skin Skin exam: Present: warm, dry, intact, pallor. Absent: cyanosis, diaphoresis Course Course Narrative: CBC, BMP, BNP, troponin, 2 view chest x-ray, EKG/old EKG, lactate, blood cultures will be performed in order to further assess for potential underlying etiology. Patient will be given 9 mL of DuoNeb nebulizer therapy and started on oxygen titration for the management of his symptoms. Vital Signs Temperature 97.6 F 05/24/18 12:45 Pulse Rate 95 05/24/18 12:45 Respiratory Rate 22 05/24/18 12:45 Blood Pressure 100/64 05/24/18 12:45 O2 Sat by Pulse Oximetry 95 05/24/18 12:45 Temperature 97.6 F 05/24/18 12:45 Pulse Rate 95 05/24/18 12:45 Respiratory Rate 18 05/24/18 15:23 Blood Pressure 112/96 05/24/18 15:23 O2 Sat by Pulse Oximetry 98 05/24/18 13:37 Oxygen Delivery Oxygen Delivery Nasal Cannula Shortness of Breath/Dyspnea - [facility] Narrative Medical decision making narrative: Patient is positive relief of symptoms with DuoNeb therapy Patient requires 2.5 L/m of oxygen while at home and currently does not have oxygen resources Patient chest x-ray imaging negative for acute pneumonia or evidence of pulmonary edema Patient will be admitted to hospital medicine service for further evaluation and management of COPD exacerbation as well as providing assistance with acquiring home oxygen resources. Admission planning discussed at length with patient and patient's son. Both v erbalize their understanding and agreement with this plan. Patient is hemodynamically stable at the time of admission. - Differential Diagnosis Likely: acute exacerbation of chronic obstructive airways disease - Lab Data Lab results reviewed: Yes I reviewed the patient's lab results. Result diagrams: 05/25/18 05:23 01/29/19 05:23 Lab Results 05/24/18 05/24/18 05/24/18 Range/Units 13:04 13:04 13:04 WBC 9.3 (4.3-11.1) K/mcL RBC 5.37 (4.19-5.50) M/mcL Hgb 14.8 (12.9-16.9) g/dL Hct 45.4 (37.5-50.1) % MCV 84.5 (83.0-100.0) fL MCH 27.6 L (28.0-33.3) pg MCHC 32.6 (31.6-35.5) g/dL RDW 13.6 (11.5-14.5) % Plt Count 269 (140-400) K/mcL MPV 9.1 L (9.4-12.4) fL Immature Gran % 3.3 (0-4) % Seg Neutrophils % 75.7 % Lymphocytes % 12.6 % Monocytes % 6.2 % Eosinophils % 1.7 % Basophils % 0.5 % Neutrophils # 7.0 (1.6-8.9) K/mcL Lymphocytes # 1.2 (0.6-4.6) K/mcL Monocytes # 0.6 (0.0-1.3) K/mcL Eosinophils # 0.2 (0.0-0.6) K/mcL Basophils # 0.1 (0.0-0.2) K/mcL PT (9.4-12.1) Seconds INR APTT (26.0-36.0) Seconds D-Dimer (0-500) ng/mLFEU Sodium 138 (136-145) mEq/L Potassium 4.0 (3.5-5.1) mEq/L Chloride 100 (98-107) mEq/L Carbon Dioxide 27 (23-29) mEq/L BUN 16 (8-23) mg/dL Creatinine 0.77 (0.70-1.30) mg/dL Est GFR ( Amer) > 60 (> 60) Est GFR (Non-Af Amer) > 60 (> 60) BUN/Creatinine Ratio 21 (6-26) Glucose 304 H (70-105) mg/dL Calculated Osmolality 299 (280-300) Lactic Acid (0.5-2.2) mmol/L Calcium 10.0 (8.6-10.3) mg/dL Troponin I < 0.03 (< 0.04) ng/mL B-Natriuretic Peptide 50 (Less than 100) pg/mL 05/24/18 05/24/18 Range/Units 13:04 14:27 WBC (4.3-11.1) K/mcL RBC (4.19-5.50) M/mcL Hgb (12.9-16.9) g/dL Hct (37.5-50.1) % MCV (83.0-100.0) fL MCH (28.0-33.3) pg MCHC (31.6-35.5) g/dL RDW (11.5-14.5) % Plt Count (140-400) K/mcL MPV (9.4-12.4) fL Immature Gran % (0-4) % Seg Neutrophils % % Lymphocytes % % Monocytes % % Eosinophils % % Basophils % % Neutrophils # (1.6-8.9) K/mcL Lymphocytes # (0.6-4.6) K/mcL Monocytes # (0.0-1.3) K/mcL Eosinophils # (0.0-0.6) K/mcL Basophils # (0.0-0.2) K/mcL PT 11.3 (9.4-12.1) Seconds INR 1.0 APTT 34.6 (26.0-36.0) Seconds D-Dimer 935 H (0-500) ng/mLFEU Sodium (136-145) mEq/L Potassium (3.5-5.1) mEq/L Chloride (98-107) mEq/L Carbon Dioxide (23-29) mEq/L BUN (8-23) mg/dL Creatinine (0.70-1.30) mg/dL Est GFR ( Amer) (> 60) Est GFR (Non-Af Amer) (> 60) BUN/Creatinine Ratio (6-26) Glucose (70-105) mg/dL Calculated Osmolality (280-300) Lactic Acid 1.7 (0.5-2.2) mmol/L Calcium (8.6-10.3) mg/dL Troponin I (< 0.04) ng/mL B-Natriuretic Peptide (Less than 100) pg/mL - Radiology Data Radiology results reviewed: Yes I reviewed the patient's radiology results. Chest X-Ray 05/24/18 13:11 IMPRESSION: No acute radiographic findings. Persistent right perihilar opacity as previously noted likely fibrosis with residual/recurrent tumor not excluded. Continued follow-up is recommended. D/ / 05/24/2018 13:39:36 Leon Acosta MD / [facility] Interpreting Provider: Leon Acosta MD - EKG Data EKG attestation: Yes I reviewed and interpreted this EKG. EKG results narrative: Patient EKG shows normal sinus rhythm with a rate of 95 bpm, QRS duration of 104, QTc intervals of 444 there are no significant ST segment elevations or depressions or any other signs of acute ischemic change. At this time there is no prior EKG available for comparison. Attestation Statement - Attestation Attestation: I, Tino Vick, examined this patient and my medical decision-making was reviewed with the BUILDING ASSOCIATE/PA/Advanced Practice Nurse/Resident Physician. I agree with the documented findings, disposition and treatment plan as described except to the extent set forth below. 62-year-old male presents emergency Department with concerns of difficulty in breathing. Patient states his symptoms have been worsening over the past 2 weeks. He was previously admitted to [facility] and discharged 1 week ago for similar symptoms. He does a fever but is very concerned about possible pneumonia. He has a history of laryngeal cancer which had radiation therapy. Patient has wheezing and rhonchi on exam. Patient was afebrile emergency department, did not have leukocytosis or obvious pneumonia on chest x-ray however did show previous scarring. Patient was given breathing treatments in emergency department with improvement of his symptoms. He continued to have work of breathing and was admitted to the hospital for further evaluation.
[2018-05-24 13:32] LABS: Basophils # 0.1 K/mcL (0.0-0.2); Basophils % 0.5 %; Eosinophils # 0.2 K/mcL (0.0-0.6); Eosinophils % 1.7 %; Hematocrit 45.4 % (37.5-50.1); Hemoglobin 14.8 g/dL (12.9-16.9); Immature Granulocytes % 3.3 % (0-4); Lymphocytes # 1.2 K/mcL (0.6-4.6); Lymphocytes % 12.6 %; Mean Corpuscular HGB Conc 32.6 g/dL (31.6-35.5); Mean Corpuscular Hemoglobin 27.6 pg (28.0-33.3); Mean Corpuscular Volume 84.5 fL (83.0-100.0); Mean Platelet Volume 9.1 fL (9.4-12.4); Monocytes # 0.6 K/mcL (0.0-1.3); Monocytes % 6.2 %; Platelet Count 269 K/mcL (140-400); Red Blood Count 5.37 M/mcL (4.19-5.50); Red Cell Distribution Width 13.6 % (11.5-14.5); Segmented Neutrophils % 75.7 %
[2018-05-24 13:50] LABS: BUN/Creatinine Ratio 21 (6-26); Blood Urea Nitrogen 16 mg/dL (8-23); Carbon Dioxide 27 mEq/L (23-29); Chloride 100 mEq/L (98-107); Glucose 304 mg/dL (70-105); Osmolality,Calculated 299 (280-300); Sodium 138 mEq/L (136-145); eGFR For Non-African Americans > 60 (> 60)
[2018-05-24 13:51] LABS: Troponin I < 0.03 ng/mL (< 0.04)
[2018-05-24] MEDS ORDERED: Naloxone 0.4 MG/ML INJ IVP PRN (14:32)
[2018-05-24] MEDS ORDERED: traMADol 50 MG TABLET PO PRN (14:32)
[2018-05-24] MEDS ORDERED: *HR* Dextrose 50 % in Water (Syg) 50 ML SYRINGE IVP PRN (14:35)
[2018-05-24] MEDS ORDERED: D5% in Water 1,000 ML IVC PRN (14:35)
[2018-05-24] MEDS ORDERED: Dextrose Gel 15 GM/37.5 ML TUBE PO PRN ×2 (14:35)
--- NOTE | 2018-05-24 15:04 | Internal Med History&Physical ---
Date of Encounter: 05/24/18 Time of Encounter: 15:04 Internal Medicine - H&P: HPI Chief complaint: Shortness of breath, productive cough and generalized weakness. Admitted From: Home Plans for Post Hospital Care: Home History of present illness: Mr. Loco is a 62 year old male past medical history of COPD, diabetes and laryngeal cancer. Patient was brought to the ED due to generalized weakness, productive cough and shortness of breath. He reports that over the past week he has been feeling very weak to the point that he is almost not able to move around and walk. Also reports being admitted at [facility] for generalized weakness and COPD exacerbation. He was discharged home on oral antibiotics and scheduled to have home PT. But her reports that he decided to come to the ED because his symptoms of productive cough of yellowish sputum, and the generalized weakness and the shortness of breath seems to be getting worse. Reports getting short of breath with minimal exertion now. Denies fever/chills, nausea, vomiting or abdominal pain. Past Med Surg Social Fam HX - Past Medical History Medical history: cancer, CHF, COPD, diabetes, GERD, hyperlipidemia, thyroid disease, other Additional medical history: ca in larynx-in remission for 10+ years Psychiatric history: anxiety, panic disorder - Past Surgical History Surgical History: cataract, other Additional surgical history: R shoulder, carpal tunnel - Social History Smoking Status: Former smoker Smokeless Tobacco Status: Yes Alcohol use: none Drug use: none - Family History Sister Living Status: Hx Family GI Disorders: Yes Internal Medicine - H&P: Meds Atenolol [Tenormin] 25 mg PO DAILY 11/05/17 [History] Brimonidine Tartrate 1 drop OP DAILY 11/05/17 [History] Gabapentin [Neurontin] 300 mg PO TID 11/05/17 [History] HYDROcodone/Acet 5/325 mg [[place] 5-325 mg] 1 tab PO Q6H PRN 11/05/17 [History] Levothyroxine Sodium [Levoxyl] 112 mcg PO DAILY 11/05/17 [History] Metformin HCl [Metformin ER Gastric] 1,000 mg PO BID 11/05/17 [History] Roly/Polymyx B Sulf/Dexameth [Gnlzjh-Rkthl-Wwzueiih Eye Drop] 1 drop OP DAILY 11/05/17 [History] SitaGLIPtin [Januvia] 100 mg PO DAILY 11/05/17 [History] Budesonide/Formoterol 80/4.5 [Symbicort 80/4.5] 1 puff IH BID 30 Days #1 inh 11/09/17 [Rx] Guaifenesin [Mucinex] 600 mg PO BID #20 tab.er.12h 01/08/18 [Rx] Allergy/AdvReac Type Severity Reaction Status Date / Time No Known Allergies Allergy Verified 03/10/18 15:39 All Systems PM: A 10-system review of systems was performed and is negative for pertinent findings except as documented above in the HPI. - Constitutional Constitutional: weakness, no chills, no fever(s), no weight loss - EENT Eyes: no irritation - Cardiovascular Cardiovascular ROS IM: dyspnea on exertion, no chest pain, no edema, no lightheadedness, no orthopnea, no palpitations - Respiratory Respiratory: cough, dyspnea on exertion, chest congestion, change in phlegm color, no wheezing, no pain with cough - Gastrointestinal Gastrointestinal: no abdominal pain, no diarrhea, no melena, no nausea, no vom iting - Genitourinary Genitourinary ROS male: no flank pain, no nocturia, no urinary frequency, no urinary hesitancy, no urinary incontinence, no urinary urgency - Musculoskeletal Musculoskeletal ROS IM: no muscle weakness - Integumentary Integumentary IM: no sores - Neurological Neurological ROS: no lack of coordination - Psychiatric Psychiatric: no anxiety, no irritability - Endocrine Endocrine IM: no cold intolerance, no excessive sweating, no polydipsia - Hematologic/Lymphatic Hematologic/Lymphatic: no lymphadenopathy - Allergic/Immunologic Allergic/Immunologic: no GI upset with certain foods Additional comments: Rest of a 10 review of system negative. - Constitutional Vitals: Temp Pulse Resp BP Pulse Ox 97.6 F 95 22 100/64 98 05/24/18 12:45 05/24/18 12:45 05/24/18 13:37 05/24/18 12:45 05/24/18 13:37 Exam: Vitals: Reviewed. General: Alert and oriented x2. In mil distress due to generalized weakness and couch. Skin: Normal color, no rash, no lesions. HEENT: EOM, pupils equal, round and reactive. Cardiovascular: RRR, normal S1 & S2, no rubs, murmurs or gallops. Lungs: B/L rales, more significant at the bases. Minimal scattered wheezing b/l, no crackles. Abdomen: Obese, soft, non-tender, no rigidity. Extremities: No deformity, no edema or tenderness, no joint swelling or clubbing. Neurological: Normal cognition and motor skills. Rest of the physical exam is non contributory Internal Med - H&P Results - Labs CBC & Chem 7: 05/24/18 13:04 05/24/18 13:04 Labs: Short CBC 05/24/18 Range/Units 13:04 WBC 9.3 (4.3-11.1) K/mcL Hgb 14.8 (12.9-16.9) g/dL Hct 45.4 (37.5-50.1) % Plt Count 269 (140-400) K/mcL Neutrophils # 7.0 (1.6-8.9) K/mcL BMP 05/24/18 13:04 Sodium 138 Potassium 4.0 Chloride 100 Carbon Dioxide 27 BUN 16 Creatinine 0.77 Glucose 304 H Calcium 10.0 Cardiac Enzymes 05/24/18 Range/Units 13:04 Troponin I < 0.03 (< 0.04) ng/mL - Impressions ITS Impressions Chest X-Ray 05/24/18 13:11 IMPRESSION: No acute radiographic findings. Persistent right perihilar opacity as previously noted likely fibrosis with residual/recurrent tumor not excluded. Continued follow-up is recommended. D/ / 05/24/2018 13:39:36 Leon Acosta MD / [facility] Interpreting Provider: Leon Acosta MD - Diagnostic Studies Chest x-ray Status: image reviewed by me (chronic scaring) - Assessment and plan (1) Acute exacerbation of chronic obstructive airways disease Current Visit: No Status: Acute Assessment and plan: patient with mild b/l wheezing. plus b/l rales. Plan: Started on bronchodilators Q4RT scheduled. Continue Symbicort Solu-Medrol 40mg/IV Q12hr started on empiric antibiotics coverage with levofloxacin 750mg/IV daily daily Sputum culture and gram stain Respiratory panel. O2 by nasal cannula, titrate for O2Sat >92% Incentive spirometry. (2) DVT prophylaxis Current Visit: No Status: Acute Assessment and plan: Heparin 5000 subq Q12HRs. (3) Diabetes mellitus Current Visit: No Status: Chronic Assessment and plan: Carbs controlled diet. Started on Levemir 10 units BID, plus lispro 4 units ac and lispro medium dose sliding scale. 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 will check TSH, reflex to t4. Qualifiers: Hypothyroidism type: unspecified Qualified Code(s): E03.9 - Hypothyroidism, unspecified (5) Generalized weakness Current Visit: Yes Status: Acute Assessment and plan: Daily PT/OT. - Time Spent With Patient Total time spent is greater than 50% in coordination of care (as documented) at patient's floor/unit and/or counseling patient: Greater than 35 minutes (45)
[2018-05-24 15:09] LABS: Prothrombin Time 11.3 Seconds (9.4-12.1)
[2018-05-24 15:12] LABS: Activated Partial Thrombo Time 34.6 Seconds (26.0-36.0)
[2018-05-24] MEDS ORDERED: 0.9 % Sodium Chloride 1,000 ML IVC SCH (15:15)
[2018-05-24] MEDS: Ipratropium/Albuterol Neb 3 ML IH SCH ×3 (16:46→23:56)
[2018-05-24] MEDS: Levofloxacin 750 MG/150 ML 750 MG/150 ML BAG IVPB SCH (17:27)
[2018-05-24] MEDS: MethylPREDNISolone 40 MG/ML VIAL IVP SCH (17:28)
[2018-05-24] MEDS: Insulin LISPRO 300 UNITS/3 ML VIAL SQ SCH ×2 (17:30→17:31)
[2018-05-24] MEDS: *HR* Heparin 5,000 UNIT/ML VIAL SQ SCH (17:33)
[2018-05-24 18:49] LABS: Adenovirus Not Detected (Not Detect); Bordetella Pertussis Not Detected (Not Detect); Chlamydophila pneumoniae Not Detected (Not Detect); Coronavirus 229E Not Detected (Not Detect); Coronavirus HKU1 Not Detected (Not Detect); Coronavirus NL63 Not Detected (Not Detect); Coronavirus OC43 Not Detected (Not Detect); Human Metapneumovirus Not Detected (Not Detect); Human Rhinovirus/Enterovirus Not Detected (Not Detect); Influenza A Subtype 2009 H1 Not Detected (Not Detect); Influenza A Untypeable Not Detected (Not Detect); Influenza B Not Detected (Not Detect); Mycoplasma pneumoniae Not Detected (Not Detect); Parainfluenza Virus 1 Not Detected (Not Detect); Parainfluenza Virus 2 Not Detected (Not Detect); Parainfluenza Virus 3 Not Detected (Not Detect); Parainfluenza Virus 4 Not Detected (Not Detect); Respiratory Syncytial Virus Not Detected (Not Detect)
[2018-05-24] MEDS: Budesonide/Formoterol 80/4.5 MDI IH SCH (20:02)
[2018-05-24] MEDS: Insulin DETEMIR 100 UNIT/ML X5UNITS SQ SCH (21:21)
[2018-05-25] MEDS: Ipratropium/Albuterol Neb 3 ML IH SCH ×5 (04:35→20:19)
[2018-05-25 05:34] LABS: Hematocrit 39.7 % (37.5-50.1); Mean Corpuscular HGB Conc 32.5 g/dL (31.6-35.5); Mean Corpuscular Hemoglobin 26.9 pg (28.0-33.3); Mean Corpuscular Volume 82.9 fL (83.0-100.0); Mean Platelet Volume 8.9 fL (9.4-12.4); Platelet Count 205 K/mcL (140-400); Red Blood Count 4.79 M/mcL (4.19-5.50); Red Cell Distribution Width 13.2 % (11.5-14.5)
[2018-05-25 05:36] LABS: Hemoglobin 12.9 g/dL (12.9-16.9)
[2018-05-25 05:53] LABS: BUN/Creatinine Ratio 23 (6-26); Blood Urea Nitrogen 14 mg/dL (8-23); Calcium 8.7 mg/dL (8.6-10.3); Carbon Dioxide 26 mEq/L (23-29); Chloride 103 mEq/L (98-107); Glucose 255 mg/dL (70-105); Osmolality,Calculated 291 (280-300); Phosphorous 2.4 mg/dL (2.7-4.5); Potassium 4.3 mEq/L (3.5-5.1); Sodium 136 mEq/L (136-145); eGFR For Non-African Americans > 60 (> 60)
[2018-05-25 05:55] LABS: Chol/HDL Ratio 1.8 (0-4.9)
[2018-05-25] MEDS: *HR* Heparin 5,000 UNIT/ML VIAL SQ SCH ×2 (06:05→17:04)
[2018-05-25] MEDS: MethylPREDNISolone 40 MG/ML VIAL IVP SCH ×2 (06:05→17:04)
[2018-05-25] MEDS: Budesonide/Formoterol 80/4.5 MDI IH SCH ×2 (07:52→20:19)
--- NOTE | 2018-05-25 08:02 | Electrocardiograph Report ---
[facility] [place] [facility] Test Date: 2018-05-24 Pat Name: Lisandro Loco Department: [id number] Room: 3B16 Gender: M Performing Artist: : [id number] Requested By: Smeaj Ma Order Number: [id number] Reading MD: Serina Dorsey Measurements Intervals [place] Rate: 95 P: 57 [place]: 151 QRS: 52 QRSD: 103 T: 74 QT: 353 QTc: 444 Interpretive Statements Sinus rhythm Low voltage, precordial leads Abnormal R-wave progression, early transition Artifact in lead(s) I II aVR aVL aVF Electronically Signed On 05-25-2018 8:00:46 EST by Serina Dorsey
[2018-05-25] MEDS: Insulin LISPRO 300 UNITS/3 ML VIAL SQ SCH ×6 (08:36→17:40)
[2018-05-25] MEDS: Insulin DETEMIR 100 UNIT/ML X5UNITS SQ SCH ×2 (08:36→20:29)
--- NOTE | 2018-05-25 09:48 | Internal Med Progress Note ---
Hospitalist Progress Note - Encounter Date of Encounter: 05/25/18 Time of Encounter: 09:46 - Subjective Interval History: Pt reported improved sob and cough. He has no fever, chills, night sweats, chest pain, or palpitation. - Exam Vitals: Temp Pulse Resp BP Pulse Ox 98.4 F 78 16 106/67 94 05/25/18 06:35 05/25/18 06:35 05/25/18 07:53 05/25/18 06:35 05/25/18 07:53 Exam: PHYSICAL EXAMINATION: GENERAL APPEARANCE: The patient is alert, oriented and in no acute distress. HEENT: Head is normocephalic. The sinuses are nontender. Pupils are equal and reactive. The nares are patent. Oropharynx clear without lesions. NECK: Supple without lymphadenopathy. HEART: Regular rate and rhythm. LUNGS: No Bilateral crackles or wheezes are heard. ABDOMEN: Soft, nontender, nondistended with good bowel sounds heard. Inguinal area is normal. EXTREMITIES: Without cyanosis, clubbing or edema. NEUROLOGICAL: Gross nonfocal. SKIN: Warm and dry without any rash. - Assessment and Plan (1) Hypothyroid Current Visit: No Status: Chronic Assessment and Plan: Normal TSH, continue home dose of Synthroid. (2) Acute exacerbation of chronic obstructive airways disease Current Visit: No Status: Acute Assessment and Plan: 05/24 patient with mild b/l wheezing. plus b/l rales. Plan: Started on bronchodilators Q4RT scheduled. Continue Symbicort Solu-Medrol 40mg/IV Q12hr started on empiric antibiotics coverage with levofloxacin 750mg/IV daily daily Sputum culture and gram stain Respiratory panel. O2 by nasal cannula, titrate for O2Sat >92% Incentive spirometry. 05/25 Cough and shortness of breath improving, continue current treatment. Afebrile, WBC normal, plan to change IV antibiotics to oral tomorrow. Anticipated discharge tomorrow. (3) Diabetes mellitus Current Visit: No Status: Chronic Assessment and Plan: Hold oral diabetic agents, continue current insulin regimen. Last A1c about a year ago 7.3, will repeat. (4) Generalized weakness Current Visit: Yes Status: Acute Assessment and Plan: Daily PT/OT. (5) DVT prophylaxis Current Visit: No Status: Acute Assessment and Plan: Heparin 5000 subq Q12HRs. - Time Spent with Patient Total time spent is greater than 50% in coordination of care (as documented) at patient's floor/unit and/or counseling patient: Greater than 35 minutes Plan of Care Discussed with: patient Internal Medicine: Result - Labs CBC & Chem 7: 05/25/18 05:23 05/25/18 05:23 Labs: Short CBC 05/24/18 05/25/18 Range/Units 13:04 05:23 WBC 9.3 10.4 (4.3-11.1) K/mcL Hgb 14.8 12.9 D (12.9-16.9) g/dL Hct 45.4 39.7 (37.5-50.1) % Plt Count 269 205 (140-400) K/mcL Neutrophils # 7.0 (1.6-8.9) K/mcL BMP 05/24/18 05/25/18 13:04 05:23 Sodium 138 136 Potassium 4.0 4.3 Chloride 100 103 Carbon Dioxide 27 26 BUN 16 14 Creatinine 0.77 0.61 L Glucose 304 H 255 H Calcium 10.0 8.7 Cardiac Enzymes 05/24/18 Range/Units 13:04 Troponin I < 0.03 (< 0.04) ng/mL - ABG Interpretation ABG results: PT/INR, D-dimer PT 11.3 Seconds (9.4-12.1) 05/24/18 13:04 D-Dimer 935 ng/mLFEU (0-500) H 05/24/18 13:04 - Impressions Impressions Chest X-Ray 05/24/18 13:11 IMPRESSION: No acute radiographic findings. Persistent right perihilar opacity as previously noted likely fibrosis with residual/recurrent tumor not excluded. Continued follow-up is recommended. D/ / 05/24/2018 13:39:36 Leon Acosta MD / [facility] Interpreting Provider: Leon Acosta MD Consult Discharge Plan - Plan Referrals: NONE,PCP [Primary Care Provider] - (1) Hypothyroid Qualifiers: Hypothyroidism type: unspecified Qualified Code(s): E03.9 - Hypothyroidism, unspecified (3) Diabetes mellitus Qualifiers: Diabetes mellitus type: type 2 Diabetes mellitus professional shopper insulin use: unspecified professional shopper insulin use status Diabetes mellitus complication status: with unspecified complications Qualified Code(s): E11.8 - Type 2 diabetes mellitus with unspecified complications
[2018-05-25] MEDS ORDERED: Gabapentin 300 MG CAPSULE PO PRN (16:11)
[2018-05-25] MEDS: Levofloxacin 750 MG/150 ML 750 MG/150 ML BAG IVPB SCH (17:04)
[2018-05-25] MEDS: Dorzolamide/Timolol OPTH 10 ML BOTTLE LEFT EYE SCH (17:05)
[2018-05-26] MEDS: Ipratropium/Albuterol Neb 3 ML IH SCH ×7 (00:44→23:30)
[2018-05-26 04:46] LABS: Hematocrit 35.9 % (37.5-50.1); Hemoglobin 11.9 g/dL (12.9-16.9); Mean Corpuscular HGB Conc 33.1 g/dL (31.6-35.5); Mean Corpuscular Hemoglobin 27.5 pg (28.0-33.3); Mean Corpuscular Volume 82.9 fL (83.0-100.0); Mean Platelet Volume 9.4 fL (9.4-12.4); Platelet Count 203 K/mcL (140-400); Red Blood Count 4.33 M/mcL (4.19-5.50); Red Cell Distribution Width 13.3 % (11.5-14.5)
[2018-05-26] MEDS ORDERED: Acetaminophen 325 MG TABLET PO ONE (04:46)
[2018-05-26 05:07] LABS: BUN/Creatinine Ratio 30 (6-26); Blood Urea Nitrogen 18 mg/dL (8-23); Calcium 9.2 mg/dL (8.6-10.3); Carbon Dioxide 25 mEq/L (23-29); Chloride 104 mEq/L (98-107); Glucose 299 mg/dL (70-105); Osmolality,Calculated 297 (280-300); Potassium 4.4 mEq/L (3.5-5.1); Sodium 137 mEq/L (136-145); eGFR For Non-African Americans > 60 (> 60)
[2018-05-26] MEDS: *HR* Heparin 5,000 UNIT/ML VIAL SQ SCH ×2 (05:07→16:45)
[2018-05-26] MEDS: MethylPREDNISolone 40 MG/ML VIAL IVP SCH ×2 (05:07→16:40)
[2018-05-26] MEDS: Aspirin Enteric Coated 81 MG Tablet PO SCH (08:00)
[2018-05-26] MEDS: Insulin LISPRO 300 UNITS/3 ML VIAL SQ SCH ×6 (08:00→16:48)
[2018-05-26] MEDS: Dorzolamide/Timolol OPTH 10 ML BOTTLE LEFT EYE SCH ×2 (08:01→21:16)
[2018-05-26] MEDS: Cognium PO SCH (08:02)
[2018-05-26] MEDS: Insulin DETEMIR 100 UNIT/ML X5UNITS SQ SCH ×2 (08:04→21:16)
[2018-05-26 09:04] LABS: Estimated Average Glucose 186 mg/dl; Hemoglobin A1C 8.1 %
[2018-05-26] MEDS: Budesonide/Formoterol 80/4.5 MDI IH SCH ×2 (11:33→20:06)
[2018-05-26] MEDS ORDERED: Isovue-370 500 ML BOTTLE IVP ONE (13:49)
[2018-05-26] MEDS: Levofloxacin 750 MG/150 ML 750 MG/150 ML BAG IVPB SCH (16:41)
--- NOTE | 2018-05-26 17:56 | Internal Med Progress Note ---
Hospitalist Progress Note - Encounter Date of Encounter: 05/26/18 Time of Encounter: 09:00 - Subjective Interval History: Was seen and examined earlier this morning it appears his respiratory status has improved however review of his lab work does show an elevated d-dimer does not appear to be any rule out of PE. Discussed with the patient possible CTA which he agreed. Patient will require further testing -and 1 more day of observation to complete testing - Exam Vitals: Temp Pulse Resp BP Pulse Ox 97.9 F 88 18 108/66 94 05/26/18 15:55 05/26/18 15:55 05/26/18 16:33 05/26/18 15:55 05/26/18 16:33 Exam: PHYSICAL EXAMINATION: GENERAL APPEARANCE: The patient is alert, oriented and in no acute distress. HEENT: Head is normocephalic. The sinuses are nontender. Pupils are equal and reactive. The nares are patent. Oropharynx clear without lesions. NECK: Supple without lymphadenopathy. HEART: Regular rate and rhythm. LUNGS: No Bilateral crackles or wheezes are heard. ABDOMEN: Soft, nontender, nondistended with good bowel sounds heard. Inguinal area is normal. EXTREMITIES: Without cyanosis, clubbing or edema. NEUROLOGICAL: Gross nonfocal. SKIN: Warm and dry without any rash. - Assessment and Plan (1) Hypothyroid Current Visit: No Status: Chronic Assessment and Plan: Normal TSH, continue home dose of Synthroid. (2) Acute exacerbation of chronic obstructive airways disease Current Visit: No Status: Acute Assessment and Plan: 05/24 patient with mild b/l wheezing. plus b/l rales. Plan: Started on bronchodilators Q4RT scheduled. Continue Symbicort Solu-Medrol 40mg/IV Q12hr started on empiric antibiotics coverage with levofloxacin 750mg/IV daily daily Sputum culture and gram stain Respiratory panel. O2 by nasal cannula, titrate for O2Sat >92% Incentive spirometry. 05/25 Cough and shortness of breath improving, continue current treatment. Afebrile, WBC normal, plan to change IV antibiotics to oral tomorrow. Anticipated discharge tomorrow. 05/26 Shortness of breath and coughing has improved we will ambulate the patient today to see how he tolerates Continues to be afebrile white count within normal limits-continue with Levaquin We will switch to oral steroids We will obtain CTA chest to rule out any possibility of PE which may be contributing to shortness of breath 6 minute walk prior to discharge to see patient qualifies for home O2 (3) DVT prophylaxis Current Visit: No Status: Acute Assessment and Plan: Heparin 5000 subq Q12HRs. (4) Diabetes mellitus Current Visit: No Status: Chronic Assessment and Plan: Hold oral diabetic agents, continue current insulin regimen. Last A1c about a year ago 7.3, current A1c is 8.1 (5) Generalized weakness Current Visit: Yes Status: Acute Assessment and Plan: Daily PT/OT. Patient will have PT OT as outpatient-home health - Time Spent with Patient Total time spent is greater than 50% in coordination of care (as documented) at patient's floor/unit and/or counseling patient: Internal Medicine: Result - Labs CBC & Chem 7: 05/26/18 02:44 05/26/18 02:44 Labs: Short CBC 05/26/18 Range/Units 02:44 WBC 12.1 H (4.3-11.1) K/mcL Hgb 11.9 L (12.9-16.9) g/dL Hct 35.9 L (37.5-50.1) % Plt Count 203 (140-400) K/mcL BMP 05/26/18 02:44 Sodium 137 Potassium 4.4 Chloride 104 Carbon Dioxide 25 BUN 18 Creatinine 0.61 L Glucose 299 H Calcium 9.2 - ABG Interpretation ABG results: PT/INR, D-dimer PT 11.3 Seconds (9.4-12.1) 05/24/18 13:04 D-Dimer 935 ng/mLFEU (0-500) H 05/24/18 13:04 - Impressions Impressions Chest CTA 05/26/18 13:49 IMPRESSION: Negative for acute pulmonary embolism. Posttreatment related changes along the paramediastinal/perihilar lung bilaterally with progressive volume loss/atelectasis involving the right upper lobe. Degree of soft tissue prominence at the right hilum otherwise appears similar to the prior exam. Severe stenosis of the right upper lobe bronchus, posttreatment related. No substantial change in bibasilar tree-in-bud/clustered nodularity, favored to be infectious or inflammatory in etiology. D/ / Juan Francisco La / Juan Francisco La Interpreting Provider: Juan Francisco La Consult Discharge Plan - Plan Referrals: NONE,PCP [Primary Care Provider] - (1) Hypothyroid Qualifiers: Hypothyroidism type: unspecified Qualified Code(s): E03.9 - Hypothyroidism, unspecified (4) Diabetes mellitus Qualifiers: Diabetes mellitus type: type 2 Diabetes mellitus usp insulin use: unspecified termite helper insulin use status Diabetes mellitus complication status: with unspecified complications Qualified Code(s): E11.8 - Type 2 diabetes soledad litus with unspecified complications
[2018-05-27] MEDS: Ipratropium/Albuterol Neb 3 ML IH SCH ×3 (04:07→12:19)
[2018-05-27] MEDS: *HR* Heparin 5,000 UNIT/ML VIAL SQ SCH (05:52)
[2018-05-27 06:47] VITALS: BP 105/60
[2018-05-27] MEDS: Budesonide/Formoterol 80/4.5 MDI IH SCH (07:57)
--- NOTE | 2018-05-27 08:45 | Discharge Summary ---
- NOTES TO OUTPATIENT PROVIDER Notes to Outpatient Provider: Red with COPD exacerbation continuous steroids taper and Levaquin Orders not resulted at time of discharge: Pending orders 05/24/18 13:40 Culture,Blood [BC] Stat 05/27/18 07:34 CBC [Complete Blood Count] [HEME] Routine Chem 7 [Basic Metabolic Panel] Routine Date of Encounter: 05/27/18 Time of Encounter: 08:21 - Discharge Diagnosis (1) Hypothyroid Priority: Secondary Status: Chronic Qualifiers: Hypothyroidism type: unspecified Qualified Code(s): E03.9 - Hypothyroidism, unspecified (2) Acute exacerbation of chronic obstructive airways disease Priority: Primary Status: Acute (3) Diabetes mellitus Priority: Secondary Status: Chronic Qualifiers: Diabetes mellitus type: type 2 Diabetes mellitus mcc insulin use: unspecified exhibit specialist insulin use status Diabetes mellitus complication status: with unspecified complications Qualified Code(s): E11.8 - Type 2 diabetes mellitus with unspecified complications (4) Generalized weakness Priority: Secondary Status: Acute Hospital course: Mr. Loco is a 62 year old male medical history of COPD patient does use oxygen at night diabetes laryngeal cancer GERD thyroid disease. Presented to [facility] ED with complaints of generalized weakness productive cough and shortness of breath. He had been admitted previously at [facility] for same symptoms and was discharged on oral antibiotics and home PT but presented to the ER because of symptoms continued. He was given Solu-Medrol Levaquin and bronchodilators and oxygen. He did have an elevated d-dimer and a CTA was completed which was negative for any pulmonary embolism however does show severe stenosis of the right upper lobe bronchus. Patient underwent a 6 minute walk test and he did not qualify for continuous home oxygen. Currently he only uses oxygen at night. Oxygen saturations have been stable and his respiratory state has improved. He was evaluated by PT and OT recommending home health Advised patient to follow-up with primary care provider as well as pulmonology as an outpatient. Patient will be sent home with prescriptions of Levaquin steroid taper and levothyroxine. Currently he is hemodynamically stable and is ready for discharge. - Time Spent with Patient Total time spent providing and/or coordinating discharge services: - Discharge Medications Prescriptions: levoFLOXacin [Levaquin] 750 mg PO DAILY #4 tablet Levothyroxine [Synthroid] 112 mcg PO DAILY@0630 #30 tablet predniSONE [Prednisone] 10 mg PO DAILY #30 tab.ds.pk Home Medications: Atenolol [Tenormin] 25 mg PO DAILY 11/05/17 [History] Brimonidine Tartrate 1 drop BOTH EYES BID 11/05/17 [History] Gabapentin [Neurontin] 300 mg PO TID PRN 11/05/17 [History] HYDROcodone/Acet 5/325 mg [[place] 5-325 mg] 1 tab PO Q6H PRN 11/05/17 [History] Levothyroxine Sodium [Levoxyl] 112 mcg PO DAILY 11/05/17 [History] SitaGLIPtin [Januvia] 100 mg PO DAILY 11/05/17 [History] Albuterol Neb [Proventil Neb] 2.5 mg IH TID PRN 05/25/18 [History] Aspirin [Lo-Dose Aspirin EC] 81 mg PO DAILY 05/25/18 [History] Budesonide/Formoterol 80/4.5 [Symbicort 80/4.5] 2 puff IH BID 05/25/18 [History] Dorzolamide/Timolol/Pf [Dorzolamide-Timolol 2%-0.5%] 1 drop LEFT EYE BID 05/25/18 [History] Glimepiride [Amaryl] 8 mg PO DAILY 05/25/18 [History] Metformin HCl [Glucophage Xr] 1,000 mg PO DAILY 05/25/18 [History] Non-Formulary Medication 1 tab PO DAILY 05/25/18 [History] Rosuvastatin Calcium 20 mg PO DAILY 05/25/18 [History] Levothyroxine [Synthroid] 112 mcg PO DAILY@0630 #30 tablet 05/27/18 [Rx] levoFLOXacin [Levaquin] 750 mg PO DAILY #4 tablet 05/27/18 [Rx] predniSONE [Prednisone] 10 mg PO DAILY #30 tab.ds.pk 05/27/18 [Rx] Allergies/Adverse Reactions: Allergy/AdvReac Type Severity Reaction Status Date / Time No Known Allergies Allergy Verified 05/25/18 09:22 Date of admission: 05/24/18 15:08 Primary care physician: PCP NONE Consults: 05/24/18 15:03 Consult to Occupational Therapy [CONS] Routine Comment: Evaluate, develop and implement POC Reason for Consult: generalized weakness Does patient have active BEDREST order?: No Is patient medically & hemodynamically stable?: Yes Consult to Physical Therapy [CONS] Routine Comment: Evaluate, develop and implement POC Reason for Consult: generalized weakness Does patient have active BEDREST order?: No Is patient medically & hemodynamically stable?: Yes 05/25/18 08:42 Consult to Nurse Navigator [CONS] Routine Comment: COPD Discharging clinician: Anna Xiong Anticipated date of discharge: 05/27/18 - Constitutional Vitals: Temp Pulse Resp BP Pulse Ox 98.4 F 91 16 105/60 91 05/27/18 06:46 05/27/18 06:46 05/27/18 06:46 05/27/18 06:46 05/27/18 06:46 General appearance: Present: A&O X 3 Exam: . - Head Head exam: Present: atraumatic, normocephalic - Eye Eye exam: Present: PERRL, conjuntiva pink, sclera anicteric Pupils: Present: PERRL - Neck Neck exam general surgery: Present: supple, trachea midline. Absent: lymphadenopathy - Respiratory Respiratory exam: Present: CTAB. Absent: accessory muscle use, rales, rhonchi, wheezes - Cardiovascular Cardiovascular exam: Present: RRR, +S1, +S2. Absent: diastolic murmur, gallop, rubs, systolic murmur - GI/Abdominal GI/Abdominal exam: Present: normal bowel sounds, soft, no peritoneal signs. Absent: distended, tenderness - Extremities Exam Extremities exam: Present: warm, radial pulses palpable and symmetrical. Absent: calf tenderness, cyanotic, pedal edema - Neurological Exam Neurological exam: Present: CN II-XII intact, oriented X3, no focal deficits. Absent: pronater drift, facial droop, speech deficit - Skin Skin exam: Present: dry, intact - Patient Status Disposition: Home Health Service Condition: Fair Functional capacity at discharge: independent ambulation Overall status at discharge: patient is back to baseline - Discharge Instructions Instructions: Chronic Obstructive Pulmonary Disease (DC) Follow Up With: [facility] [Provider Group] (Appointment has been requested. Office will call with date and time of appointment. ) uJanito Dsouza DO [Non-Partnered Physician] - 06/03/18 2:30 pm (Please bring photo I.D. and insurance cards to appointment ) - Diet and Activity Activity: increase activity as tolerated Diet: advance to your usual diet
[2018-05-27 08:46] LABS: Basophils % 0.1 %; Hematocrit 40.2 % (37.5-50.1); Hemoglobin 13.1 g/dL (12.9-16.9); Immature Granulocytes % 1.5 % (0-4); Lymphocytes # 1.5 K/mcL (0.6-4.6); Lymphocytes % 10.3 %; Mean Corpuscular HGB Conc 32.6 g/dL (31.6-35.5); Mean Corpuscular Hemoglobin 27.6 pg (28.0-33.3); Mean Corpuscular Volume 84.8 fL (83.0-100.0); Mean Platelet Volume 9.1 fL (9.4-12.4); Monocytes # 0.7 K/mcL (0.0-1.3); Monocytes % 4.5 %; Neutrophils # 12.4 K/mcL (1.6-8.9); Platelet Count 217 K/mcL (140-400); Red Blood Count 4.74 M/mcL (4.19-5.50); Red Cell Distribution Width 13.5 % (11.5-14.5); Segmented Neutrophils % 83.6 %
[2018-05-27] MEDS ORDERED: predniSONE 20 MG TABLET PO SCH (09:00)
[2018-05-27] MEDS: Insulin LISPRO 300 UNITS/3 ML VIAL SQ SCH ×4 (09:04→12:49)
[2018-05-27] MEDS: Aspirin Enteric Coated 81 MG Tablet PO SCH (09:07)
[2018-05-27 09:08] LABS: BUN/Creatinine Ratio 25 (6-26); Blood Urea Nitrogen 15 mg/dL (8-23); Calcium 8.8 mg/dL (8.6-10.3); Carbon Dioxide 22 mEq/L (23-29); Chloride 106 mEq/L (98-107); Glucose 190 mg/dL (70-105); Osmolality,Calculated 292 (280-300); Potassium 3.7 mEq/L (3.5-5.1); Sodium 138 mEq/L (136-145); eGFR For Non-African Americans > 60 (> 60)
[2018-05-27] MEDS: Dorzolamide/Timolol OPTH 10 ML BOTTLE LEFT EYE SCH (09:10)
[2018-05-27] MEDS: Cognium PO SCH (09:11)
[2018-05-27] MEDS: Insulin DETEMIR 100 UNIT/ML X5UNITS SQ SCH (10:20)
--- NOTE | 2018-05-27 14:44 | Physician Discharge Referral ---
ExtendedCare Referral Info Transfer To: [facility] Provider in Charge: linden Xiong Provider in Charge after Transfer: PCP Institutional Level of Care: Skilled - Diagnosis (1) Hypothyroid Priority: Secondary Status: Chronic (2) Acute exacerbation of chronic obstructive airways disease Priority: Primary Status: Acute (3) Diabetes mellitus Priority: Secondary Status: Chronic (4) Generalized weakness Priority: Secondary Status: Acute Prognosis: Good Aware of Diagnosis: Patient Aware of Prognosis: Patient - Transfer Medications Prescriptions: levoFLOXacin [Levaquin] 750 mg PO DAILY #4 tablet Levothyroxine [Synthroid] 112 mcg PO DAILY@0630 #30 tablet predniSONE [Prednisone] 10 mg PO DAILY #30 tab.ds.pk Home Medications: Atenolol [Tenormin] 25 mg PO DAILY 11/05/17 [History] Brimonidine Tartrate 1 drop BOTH EYES BID 11/05/17 [History] Gabapentin [Neurontin] 300 mg PO TID PRN 11/05/17 [History] HYDROcodone/Acet 5/325 mg [[place] 5-325 mg] 1 tab PO Q6H PRN 11/05/17 [History] Levothyroxine Sodium [Levoxyl] 112 mcg PO DAILY 11/05/17 [History] SitaGLIPtin [Januvia] 100 mg PO DAILY 11/05/17 [History] Albuterol Neb [Proventil Neb] 2.5 mg IH TID PRN 05/25/18 [History] Aspirin [Lo-Dose Aspirin EC] 81 mg PO DAILY 05/25/18 [History] Budesonide/Formoterol 80/4.5 [Symbicort 80/4.5] 2 puff IH BID 05/25/18 [History] Dorzolamide/Timolol/Pf [Dorzolamide-Timolol 2%-0.5%] 1 drop LEFT EYE BID 05/25/18 [History] Glimepiride [Amaryl] 8 mg PO DAILY 05/25/18 [History] Metformin HCl [Glucophage Xr] 1,000 mg PO DAILY 05/25/18 [History] Non-Formulary Medication 1 tab PO DAILY 05/25/18 [History] Rosuvastatin Calcium 20 mg PO DAILY 05/25/18 [History] Levothyroxine [Synthroid] 112 mcg PO DAILY@0630 #30 tablet 05/27/18 [Rx] levoFLOXacin [Levaquin] 750 mg PO DAILY #4 tablet 05/27/18 [Rx] predniSONE [Prednisone] 10 mg PO DAILY #30 tab.ds.pk 05/27/18 [Rx] Allergies/Adverse Reactions: Allergy/AdvReac Type Severity Reaction Status Date / Time No Known Allergies Allergy Verified 05/25/18 09:22 - Respiratory Orders Oxygen / L per min (2 L nasal cannula at night) Smoking Cessation: Smoking cessation has been advised. For more information, call the [place] Tobacco Quit Line at 0-355-HOVS-NOW. - Ancillary Orders May use pressure relief devices daily prn - Advance Directives Living Will: No Power of Physical Security Manager for Health Care: No Code Status: Full Code - Mobility Orders Ambulate - Rehabiliation Orders Rehab Potential: Good Rehab Orders: Evaluation for Physical Therapy, Evaluation for Occupational Therapy - Diet Orders No Concentrated Sweets CERTIFICATION: I certify that the transfer of the above named patient to an Extended Care Facility is necessary for the continuing treatment of the diagnosis listed. The above information is true and accurate reflection of patient's current condition. Confidential - Redisclosure prohibited without a patient's written consent.
== END 2018-05-27 15:54 | disposition home health service (06) ==
LOC: EMEROOARM 12:44 → 3BNU 12:44
PROVIDERS: ADMIT Internal Medicine; ATTEND Internal Medicine

== ENCOUNTER 2018-06-30 05:14 | Inpatient (IN) ==
[~2018-06-30 05:14] MED LIST: *HR* Dextrose 50 % in Water (Syg) 50 ML SYRINGE IVP PRN; Acetaminophen 325 MG TABLET PO PRN; Albuterol 2.5 MG/3 ML NEBULIZER IH PRN; D5% in Water 1,000 ML IVC PRN; Dextrose 4 GM Chewable Tablets PO PRN; Dextrose Gel 15 GM/37.5 ML TUBE PO PRN; Naloxone 0.4 MG/ML INJ IVP PRN; Ondansetron 4 MG/2 ML VIAL IVP PRN
--- NOTE | 2018-06-30 05:31 | Internal Med History&Physical ---
Date of Encounter: 06/30/18 Time of Encounter: 04:15 Internal Medicine - H&P: HPI Chief complaint: cough, SOB Admitted From: Hospital to Hospital Transfer Plans for Post Hospital Care: Home History of present illness: Mr. Loco is a 62 year old male who presents in transfer from [facility]. He presented there with complaints of cough, shortness of breath, and wheezing. He had bronchoscopy roughly 10 days ago and was found to have evidence of nxisn-xjzy-cacdkulia Proteus Mirabillis in his bronchoscopy/BAL specimen. Because of his symptoms and worsening dyspnea, he came to ER in [place]. [facility] contacted me for transfer request to [facility]. Upon my assessment, patient is sleeping and resting comfortably. He denies any chest pain. He states his shortness of breath is at his baseline. He does complain of cough, which is mostly dry and rarely productive. He denies any hemoptysis. He denies any vomiting, nausea, or diarrhea. He denies any chest pain. I reviewed his most recent records from his bronchoscopy and BAL specimen, and he had Proteus species sensitive only to gentamicin and tobramycin. He does have a history of lung cancer, but he states the lung cancer is resolved now. Past Med Surg Social Fam HX - Past Medical History Attestation: Yes The following information was validated with the patient. Source: patient, old records reviewed, other ([facility] notes) Medical history: cancer, COPD, diabetes, GERD, hyperlipidemia, thyroid disease Additional medical history: pericardial effusion, lung cancer with mets, measles, mumps, dermatitis Psychiatric history: anxiety, panic disorder - Past Surgical History Surgical History: cataract, orthopedic, other, other Additional surgical history: lymphnode bx, ctr, cataracts, laser eye surgery, teeth extraction - Social History Smoking Status: Former smoker Smokeless Tobacco Status: Yes Alcohol use: none Drug use: none Current living situation: Home, With Family Activity Level: Independent ambulation Recent Out of Country Travel Within the Last 8 Weeks: No - Family History Sister Living Status: Hx Family GI Disorders: Yes Internal Medicine - H&P: Meds Atenolol [Tenormin] 25 mg PO DAILY 11/05/17 [History] Brimonidine Tartrate 1 drop BOTH EYES BID 11/05/17 [History] Gabapentin [Neurontin] 300 mg PO TID PRN 11/05/17 [History] HYDROcodone/Acet 5/325 mg [[place] 5-325 mg] 1 tab PO Q6H PRN 11/05/17 [History] Levothyroxine Sodium [Levoxyl] 112 mcg PO DAILY 11/05/17 [History] SitaGLIPtin [Januvia] 100 mg PO DAILY 11/05/17 [History] Albuterol Neb [Proventil Neb] 2.5 mg IH TID PRN 05/25/18 [History] Aspirin [Lo-Dose Aspirin EC] 81 mg PO DAILY 05/25/18 [History] Budesonide/Formoterol 80/4.5 [Symbicort 80/4.5] 2 puff IH BID 05/25/18 [History] Dorzolamide/Timolol/Pf [Dorzolamide-Timolol 2%-0.5%] 1 drop LEFT EYE BID 05/25/18 [History] Glimepiride [Amaryl] 8 mg PO DAILY 05/25/18 [History] Metformin HCl [Glucophage Xr] 1,000 mg PO DAILY 05/25/18 [History] Non-Formulary Medication 1 tab PO DAILY 05/25/18 [History] Rosuvastatin Calcium 20 mg PO DAILY 05/25/18 [History] Levothyroxine [Synthroid] 112 mcg PO DAILY@0630 #30 tablet 05/27/18 [Rx] levoFLOXacin [Levaquin] 750 mg PO DAILY #4 tablet 05/27/18 [Rx] predniSONE [Prednisone] 10 mg PO DAILY #30 tab.ds.pk 05/27/18 [Rx] Allergy/AdvReac Type Severity Reaction Status Date / Time No Known Allergies Allergy Verified 05/25/18 09:22 - Constitutional Constitutional: no chills, no fever(s), no night sweats - EENT Eyes: no blurry vision, no change in vision Ears: no ear pain, no tinnitus Nose, mouth and throat: no nasal congestion, no sinus pressure, no sore throat - Cardiovascular Cardiovascular ROS IM: dyspnea, dyspnea on exertion, no chest pain, no diaphoresis, no lightheadedness, no orthopnea, no palpitations, no paroxysmal nocturnal dyspnea, no syncope - Respiratory Respiratory: cough, dyspnea, dyspnea on exertion, wheezing, chest congestion, change in phlegm color, pain with cough, no hemoptysis, no pain on inspiration, no excessive phlegm production - Gastrointestinal Gastrointestinal: no abdominal pain, no diarrhea, no hematemesis, no hematochezia, no melena, no nausea, no vomiting - Genitourinary Genitourinary ROS male: no dysuria, no flank pain, no hematuria - Musculoskeletal Musculoskeletal ROS IM: no arthralgias, no back pain - Integumentary Integumentary IM: no rash, no jaundice - Neurological Neurological ROS: no dizziness, no focal weakness, no frequent falls, no headache(s) - Psychiatric Psychiatric: no anxiety, no depression - Endocrine Endocrine IM: no cold intolerance, no heat intolerance, no polydipsia, no polyuria - Allergic/Immunologic Allergic/Immunologic: no GI upset with certain foods - Constitutional Vitals: Temp Pulse Resp BP Pulse Ox 98.0 F 92 16 101/65 97 06/30/18 04:21 06/30/18 04:21 06/30/18 04:21 06/30/18 04:21 06/30/18 04:21 General appearance: Present: cooperative, mild distress, A&O X 3, pleasant, answers questions appropriately Exam: see below - Head Head exam: Present: atraumatic, normal inspection - Eye Eye exam: Present: EOMI, PERRL. Absent: scleral icterus Pupils: Present: normal accommodation - ENT ENT exam: Present: mucous membranes dry, normal exam, normal oropharynx - Neck Neck exam general surgery: Present: full ROM, supple. Absent: tenderness, nuchal rigidity, thyromegaly - Respiratory Respiratory exam: Present: prolonged expiratory phase, rales, respiratory distress (mild), rhonchi, wheezes. Absent: chest wall tenderness, CTAB - Cardiovascular Cardiovascular exam: Present: distant heart sounds, RRR, +S1, +S2. Absent: diastolic murmur, systolic murmur - GI/Abdominal GI/Abdominal exam: Present: normal bowel sounds, soft. Absent: guarding, hepatomegaly, mass, rebound, splenomegaly, tenderness - Extremities Exam Extremities exam: Present: full ROM, warm, radial pulses palpable and symmetrical. Absent: calf tenderness, pedal edema, tenderness - Back Exam Back exam: Present: normal inspection. Absent: CVA tenderness (L), CVA tenderness (R) - Neurological Exam Neurological exam: Present: alert, CN II-XII intact, oriented X3, no focal deficits - Psychiatric Psychiatric exam: Present: normal affect, normal mood - Skin Skin exam: Present: dry, intact, warm Internal Med - H&P Results - Labs Labs: I reviewed her labs from [facility] and include the following: Sodium 139 Potassium 3.9 Chloride 99 Carbon Dioxide 30 BUN 11 Creatinine 0.83 WBC 13.2 Hemoglobin 13.9 Hematocrit 43.1 Platelets 244 Chest x-ray results not available but reported to me as right upper lobe infiltrate from [facility] - EKG Data -: EKG Interpreted by Myself - EKG Data Prior EKG available for review: no EKG comments: 06/30/18 05:37 Sinus tachycardia; no acute St-T changes - Assessment and Plan (1) Proteus mirabilis pneumonia Current Visit: Yes Status: Acute Assessment and plan: 1. Will re-order sputum culture and gram stain. 2. Will treat with Zosyn IV and RIDGE aerosols. 3. Consult ID for guidance. May need IV tobramycin. (2) COPD exacerbation Current Visit: Yes Status: Acute Assessment and plan: 1. Steroids, aerosols, and oxygen as needed. 2. Monitor clinically. (3) Type 2 diabetes mellitus Current Visit: Yes Status: Chronic Assessment and plan: 1. Will hold oral meds. 2. Will order SSI and monitor glucose with insulin adjustment as necessary. Qualifiers: Diabetes mellitus senior care insulin use: without termite inspector use Diabetes me llitus complication status: without complication Qualified Code(s): E11.9 - Type 2 diabetes mellitus without complications (4) Sepsis Current Visit: Yes Status: Acute Assessment and plan: 1. Although patient meets sepsis criteria, I do not feel he is septic. 2. He is hemodynamically preserved. 3. Will maintain IVF hydration. Antibiotics as above. 4. Will trend lactate levels. 5. Blood and sputum cultures ordered. Qualifiers: Sepsis type: sepsis due to unspecified organism Qualified Code(s): A41.9 - Sepsis, unspecified organism (5) DVT prophylaxis Current Visit: Yes Status: Acute Assessment and plan: 1. Heparin SQ.
[2018-06-30] MEDS ORDERED: Tobramycin for INHALATION 300 MG/5 ML AMPUL IH SCH ×2 (06:00→10:45)
[2018-06-30 06:15] LABS: Basophils # 0.1 K/mcL (0.0-0.2); Basophils % 0.6 %; Eosinophils # 0.1 K/mcL (0.0-0.6); Eosinophils % 0.7 %; Hemoglobin 12.9 g/dL (12.9-16.9); Immature Granulocytes % 1.4 % (0-4); Lymphocytes # 1.8 K/mcL (0.6-4.6); Mean Corpuscular HGB Conc 32.3 g/dL (31.6-35.5); Mean Corpuscular Hemoglobin 26.8 pg (28.0-33.3); Mean Corpuscular Volume 83.2 fL (83.0-100.0); Mean Platelet Volume 8.9 fL (9.4-12.4); Monocytes # 0.8 K/mcL (0.0-1.3); Monocytes % 9.8 %; Neutrophils # 5.6 K/mcL (1.6-8.9); Platelet Count 228 K/mcL (140-400); Red Blood Count 4.81 M/mcL (4.19-5.50); Red Cell Distribution Width 13.3 % (11.5-14.5); Segmented Neutrophils % 66.5 %
[2018-06-30 06:20] LABS: INR 1.1; Prothrombin Time 12.9 Seconds (9.4-12.1)
[2018-06-30] MEDS: *HR* Heparin 5,000 UNIT/ML VIAL SQ SCH ×2 (06:21→18:51)
[2018-06-30] MEDS: 0.9 % Sodium Chloride w KCl 20 MEQ/1,000 ML MLS IVC SCH ×2 (06:22→21:57)
[2018-06-30 06:23] LABS: Activated Partial Thrombo Time 34.3 Seconds (26.0-36.0)
[2018-06-30 06:31] LABS: Alanine Aminotransferase 12 Units/L (7-52); Albumin 3.6 g/dL (3.5-5.7); Albumin/Globulin Ratio 1.2 (1.1-2.2); Alkaline Phosphatase 44 Units/L (34-104); Aspartate Amino Transferase 10 Units/L (13-39); BUN/Creatinine Ratio 16 (6-26); Bilirubin,Total 0.7 mg/dL (0.3-1.0); Blood Urea Nitrogen 8 mg/dL (8-23); Calcium 9.3 mg/dL (8.6-10.3); Carbon Dioxide 27 mEq/L (23-29); Chloride 101 mEq/L (98-107); Glucose 118 mg/dL (70-105); Osmolality,Calculated 283 (280-300); Potassium 3.5 mEq/L (3.5-5.1); Sodium 137 mEq/L (136-145); Total Protein 6.6 g/dL (6.4-8.9); eGFR For Non-African Americans > 60 (> 60)
[2018-06-30] MEDS: Ipratropium/Albuterol Neb 3 ML IH SCH ×5 (07:52→23:59)
[2018-06-30] MEDS ORDERED: methylPREDNISolone 125 MG/2 ML VIAL IVP SCH (08:00)
[2018-06-30] MEDS: Insulin LISPRO 300 UNITS/3 ML VIAL SQ SCH ×4 (08:20→21:49)
[2018-06-30] MEDS: Piperacillin/Tazobactam 3.375 GM in 0.9 % Sodium Chloride Mini Bag 100 ML IVPB SCH ×2 (08:27→17:26)
--- NOTE | 2018-06-30 08:28 | Event Note ---
Date of Encounter: 06/30/18 Time of Encounter: 08:23 Patient seen and examined this morning at bedside. No acute overnight events. Breathing slightly better. Denies any chest pain. General: In no acute distress. Conversant. Obese. Respiratory exam: transmitted secretory sound. no accessory muscle use, rhonchi, wheezes. Crackles at base Cardiovascular exam: RRR, +S1, +S2. no murmur, gallop, rubs. GI/Abdominal exam: Non-tender, Non-distended, normal bowel sounds, soft, no peritoneal signs. Extremities exam: full ROM, no pedal edema, no calf tenderness Neurological exam: CN II-XII intact, AO X3, no focal deficits. no pronater drift, facial droop, speech deficit A/P Proteus mirabilis pneumonia - f/u sputum culture and blood culture - Recent BAL with multidrug resistant Pneumonia - c/w Zosyn IV and RIDGE aerosols. ID consulted for guidance. May need IV tobramycin. COPD exacerbation - Taper steroids - supplemental oxygen - antibiotics as above Type 2 diabetes mellitus - hold oral meds. - c/w SSI and accuchecks DVT prophylaxis - Heparin SQ.
[2018-06-30] MEDS: methylPREDNISolone 125 MG/2 ML VIAL IVP SCH (09:40)
--- NOTE | 2018-06-30 10:30 | Infectious Disease Consult ---
Date of Encounter: 06/30/18 Time of Encounter: 10:22 Assessment and Plan (1) Sepsis Status: Acute Assessment and plan: Patient met sepsis criteria on admission to [facility]. 2 SIRS: HR 108, WBC 13.2 -patient does not appear septic and no longer meet sepsis criteria. -Organism is Proteus Mirabilis -sources right upper and middle lobe lung -Afebrile, hemodynamically stable -WBC WNL -lactic acid 0.9 -06/30/2018 blood cultures pending -06/22/2018 right upper lobe and right middle lobe bronchoscopy results growing Proteus Miribilis MDR -Chest x-ray demonstrated right upper lobe infiltrate Plan: -continue Zosyn -continue IV tobramycin -blood cultures pending -sputum culture ordered -order chest x-ray for AM -order pro- calcitonin Qualifiers: Sepsis type: sepsis due to unspecified organism Qualified Code(s): A41.9 - Sepsis, unspecified organism (2) Proteus mirabilis pneumonia Status: Acute Assessment and plan: Proteus mirabilis pneumonia MDR -sources right upper and middle lobe of lung -recurrent pneumonia for the past 3 to 4 years. Patient has risk factors for MDRO due to frequent hospitalizations, recurrent pneumonia, lung cancer, COPD, diabetes. -Bronchoscopy on 06/22/2018 which demonstrated right upper lobe and right middle lobe Proteus Mirabilis. MDR with sensitivity only to gentamicin and tobramycin. Acid fasting negative. Cytology demonstrated acute inflammatory cells, bronchial cells, alveolar macrophages. -Chest x-ray demonstrated right upper lobe infiltrate Plan: -patient currently receiving Zosyn and tobramycin -chest x-ray ordered for a.m. (3) COPD (chronic obstructive pulmonary disease) Status: Chronic Assessment and plan: Patient has known history of COPD taking steroids chronically and using inhalers. 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 The patient completed treatment of radiation and chemotherapy. He follows with Dr. Hartman at the [facility]. (5) Type 2 diabetes mellitus Status: Chronic Assessment and plan: Patient has known history of diabetes taking oral hypoglycemic medication. -Management for primary team Qualifiers: Diabetes mellitus intermediate card tender insulin use: without fpc use Diabetes mellitus complication status: without complication Qualified Code(s): E11.9 - Type 2 diabetes mellitus without complications Infectious Disease HPI - Data of Consult Patient: new to practice Consult date: 06/30/18 Requesting Physician: Flower Calhoun MD Primary Care Provider: PCP NONE - Consult Narrative Reason for consult: MDR Proteus pneumonia History of present illness: Mr. Loco is a 62 year old male who presented to [facility] as a transfer from [facility] on 06/30/2018 complaining of cough and shortness of breath found to have MDR Proteus pneumonia. Infectious disease was consulted on 06/30/2018 due to MDR Proteus pneumonia. 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 COPD, diabetes. Upon my examination of the patient he stated that for approximately a week he has had cough with sputum production, shortness of breath, fatigue, increased weakness to the point that he was having difficulty walking. He denied fever, chills, chest pain, abdominal pain, nausea, vomiting. He stated that the symptoms started 3 days after his bronchoscopy which immediately after the bronchoscopy he felt improved. He stated that for the past 3 to 4 years he has been getting pneumonia every winter, however lately he has been getting pneumonia throughout the year. He has already been admitted twice this year for pneumonia. He is up-to-date on his flu shot and pneumonia vaccine. He is a former smoker who quit in 2004. He denies recent travel. He denies sick contacts. Initial vitals/labs/imaging at [facility] demonstrated afebrile, HR 108, BP 124/77. WBC 13.2, hemoglobin 13.9, platelets 244, sodium 139, potassium 3.9, creatinine 0.83. Chest x-ray demonstrated right upper lobe infiltrate from [facility]. Review of medical records it was noted by the patient's retail coordinator noted that he has had 2 admissions and treated for pneumonia already this year with COPD exacerbations. He continued to feel weak and not improved. The patient then was ordered for a bronchoscopy on 06/22/2018 which demonstrated right upper lobe and right middle lobe Proteus Mirabilis. MDR with sensitivity only to gentamicin and tobramycin. Acid fasting negative. Cytology demonstrated acute inflammatory cells, bronchial cells, alveolar macrophages. CC: Flower Calhoun MD Past Med Surg Social Fam HX - Past Medical History Attestation: Yes The following information was validated with the patient. Source: patient Medical history: cancer, COPD, diabetes, GERD, hyperlipidemia, thyroid disease Additional medical history: pericardial effusion, lung cancer with mets, measles, mumps, dermatitis Psychiatric history: anxiety, panic disorder - Past Surgical History Surgical History: cataract, orthopedic, other, other Additional surgical history: lymphnode bx, ctr, cataracts, laser eye surgery, teeth extraction - Social History Smoking Status: Former smoker Smokeless Tobacco Status: Yes Alcohol use: none Drug use: none - Family History Sister Living Status: Hx Family GI Disorders: Yes Infectious Disease-CN:Meds RX: Atenolol [Tenormin] 25 mg PO DAILY 11/05/17 [History] RX: Gabapentin [Neurontin] 600 mg PO DAILY 11/05/17 [History] RX: HYDROcodone/Acet 5/325 mg [Aroda 5-325 mg] 1 tab PO Q6H PRN 11/05/17 [History] RX: SitaGLIPtin [Januvia] 100 mg PO DAILY 11/05/17 [History] RX: Albuterol Neb [Proventil Neb] 2.5 mg IH TID PRN 05/25/18 [History] RX: Aspirin [Lo-Dose Aspirin EC] 81 mg PO DAILY 05/25/18 [History] RX: Dorzolamide/Timolol/Pf [Dorzolamide-Timolol 2%-0.5%] 1 drop LEFT EYE BID 05/25/18 [History] RX: Glimepiride [Amaryl] 8 mg PO DAILY 05/25/18 [History] RX: Metformin HCl [Glucophage Xr] 1,000 mg PO DAILY 05/25/18 [History] RX: Non-Formulary Medication 1 tab PO DAILY 05/25/18 [History] Albuterol Sulfate [Proair Hfa] 2 puff IH Q4H PRN 07/01/18 [History] Atorvastatin [Lipitor] 40 mg PO DAILY 07/01/18 [History] RX: Brimonidine 0.2% [Alphagan] 1 drop BOTH EYES BID 07/01/18 [History] RX: Budesonide/Formoterol 160/4.5 [Symbicort 160/4.5] 2 puff IH BID 07/01/18 [History] RX: Levothyroxine [Synthroid] 112 mcg PO DAILY 07/01/18 [History] Tiotropium [place] [Spiriva Respimat] 2 puff IH DAILY 07/01/18 [History] Allergy/AdvReac Type Severity Reaction Status Date / Time No Known Allergies Allergy Verified 07/01/18 10:33 - Constitutional Constitutional: Present: fatigue, lethargy, weakness. Absent: chills, fever(s) - EENT Eyes: Absent: blurry vision, change in vision - Cardiovascular Cardiovascular: Absent: chest pain, edema, palpitations - Respiratory Respiratory: Present: cough, dyspnea, excessive phlegm production. Absent: hemoptysis - Gastrointestinal Gastrointestinal: Absent: abdominal pain, nausea, vomiting - Musculoskeletal Musculoskeletal: Absent: joint swelling, muscle cramps - Integumentary Integumentary: Absent: new lesions, rash, sores - Hematologic/Lymphatic Hematologic/Lymphatic: Absent: easy bleeding, easy bruising Exam - Constitutional Vitals: Temp Pulse Resp BP Pulse Ox 98.4 F 88 16 104/67 98 06/30/18 06:51 06/30/18 06:51 06/30/18 06:51 06/30/18 06:51 06/30/18 06:51 Exam: Gen.: Vitals noted. No acute distress. AAOx3 HEENT: oropharynx clear, Normocephalic, atraumatic Neck: Supple. No adenopathy. Cardiac: RRR, no murmur, +S1/S2 Pulmonary: bilaterally wheezes and rhonchi worse on the right, equal chest expansion Abdomen: soft, nontender, Bowel sounds noted, no guarding MSK: no joint swelling noted Extremities: no BLE edema, nontender calf, no cyanosis or clubbing Neuro: A&Ox3, moves all extremities Psych: Appropriate mood and behavior Infectious Disease CN: Results - Labs CBC & Chem 7: 07/01/18 09:39 07/01/18 09:39 Cultures: Cultures 06/30/18 05:50 Blood Culture - Preliminary Peripheral Venipuncture Culture is incubating and being continuously monitored for growth. Final report to follow. 06/30/18 05:50 Blood Culture - Preliminary Peripheral Venipuncture Culture is incubating and being continuously monitored for growth. Final report to follow. Consult Discharge Plan - Plan Referrals: NONE,PCP [Primary Care Provider] - - Attending Attestation I examined this patient and my medical decision-making was reviewed with the Resident Physician. I agree with the documented findings, disposition and treatment plan as described except to the extent set forth below. Patient seen and examined. Not the best historian. Agree with the resident's history of present illness, review of system and physical exam Assessment and plan: 1.sepsis 2.pneumonia secondary to multidrug resistant Proteus mirabilis 3.COPD 4.history of lung cancer 5.diabetes mellitus type 2 Recommendations: I did call and speak with microbiology lab to see if they have any antibiotics that they are suppressing results on. I spoke with 3 sets from lab. She states that she will call me back with the results. She then called me back and told me that the Proteus mirabilis is pansensitive. I asked her to fax me the report but we were unsuccessful in receiving it. I did call later and I was unable to get in touch with her. Due to the fact that we do not have old information, I will continue the Zosyn and the tobramycin. I will switch the tobramycin from inhaled to IV until we have more information. Hopefully in the a.m. we can get the official report and tailor antibiotics accordingly. Monitor lab Monitor kidney function closely
[2018-06-30] MEDS ORDERED: TOBRAMYCIN SULF IVPB SCH ×3 (16:00→22:00)
[2018-06-30] MEDS ORDERED: D5 IVPB SCH ×3 (16:00→22:00)
[2018-06-30] MEDS ORDERED: WATER IVPB SCH ×3 (16:00→22:00)
--- NOTE | 2018-06-30 19:22 | Electrocardiograph Report ---
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
[2018-06-30] MEDS: Dorzolamide/Timolol OPTH 10 ML BOTTLE LEFT EYE SCH (21:50)
[2018-07-01] MEDS: Ipratropium/Albuterol Neb 3 ML IH SCH ×5 (03:37→20:53)
[2018-07-01] MEDS: *HR* Heparin 5,000 UNIT/ML VIAL SQ SCH ×2 (06:24→17:15)
[2018-07-01] MEDS: Insulin LISPRO 300 UNITS/3 ML VIAL SQ SCH ×4 (08:36→23:33)
[2018-07-01] MEDS: Piperacillin/Tazobactam 3.375 GM in 0.9 % Sodium Chloride Mini Bag 100 ML IVPB SCH ×2 (08:37)
[2018-07-01] MEDS: methylPREDNISolone 125 MG/2 ML VIAL IVP SCH (08:37)
[2018-07-01] MEDS: Dorzolamide/Timolol OPTH 10 ML BOTTLE LEFT EYE SCH ×2 (08:38→20:43)
--- NOTE | 2018-07-01 09:30 | Infectious Disease Progress No ---
Date of Encounter: 07/01/18 Time of Encounter: 09:29 - Assessment and Plan (1) Sepsis Current Visit: Yes Status: Acute Patient met sepsis criteria on admission to [facility]. 2 SIRS: HR 108, WBC 13.2 -Organism is Proteus Mirabilis -sources right upper and middle lobe lung -patient meets SIRS criteria but does not appear clinically septic at this time. -Afebrile, hemodynamically stable, tachycardia 91 -WBC 12.1 -lactic acid 0.9 -06/30/2018 blood cultures pending -06/22/2018 right upper lobe and right middle lobe bronchoscopy results growing Proteus Miribilis MDR -06/30/2018 Chest x-ray demonstrated right upper lobe infiltrate -07/01/2018 chest x-ray demonstrating stable traction bronchiectasis and scarring Plan: -start ceftriaxone 2 mg daily. Culture Sensitivity was reviewed in the organism is susceptible to ceftriaxone. -stop Zosyn day 2 -stop IV tobramycin day 2 -blood cultures pending -sputum culture pending -pro- calcitonin pending -continue droplet precautions Qualifiers: Sepsis type: sepsis due to unspecified organism Qualified Code(s): A41.9 - Sepsis, unspecified organism (2) Proteus mirabilis pneumonia Current Visit: Yes Status: Acute Proteus mirabilis pneumonia MDR -sources right upper and middle lobe of lung -recurrent pneumonia for the past 3 to 4 years. Patient has risk factors for MDRO due to frequent hospitalizations, recurrent pneumonia, lung cancer, COPD, diabetes. -Bronchoscopy on 06/22/2018 which demonstrated right upper lobe and right middle lobe Proteus Mirabilis. MDR with sensitivity only to gentamicin and tobramycin. Acid fasting negative. Cytology demonstrated acute inflammatory cells, bronchial cells, alveolar macrophages. -06/30/2018 Chest x-ray demonstrated right upper lobe infiltrate -07/01/2018 chest x-ray demonstrating stable traction bronchiectasis and scarring Plan: -start ceftriaxone 2 mg daily -stop Zosyn and tobramycin -continue droplet precautions (3) COPD (chronic obstructive pulmonary disease) Current Visit: No Status: Chronic Patient has known history of COPD taking steroids chronically and using inhalers. 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 The patient completed treatment of radiation and chemotherapy. He follows with Dr. Hartman at the [facility]. (5) Type 2 diabetes mellitus Current Visit: Yes Status: Chronic Patient has known history of diabetes taking oral hypoglycemic medication. -Management for primary team Qualifiers: Diabetes mellitus nursing home insulin use: without nursing home use Diabetes mellitus complication status: without complication Qualified Code(s): E11.9 - Type 2 diabetes mellitus without complications - Subjective Interval history: Patient seen and examined at bedside. He is resting comfortably watching television. He stated that he feels that his shortness of breath is improving. He stated that he is finally able to cough sputum up whereas before it was a dry cough. In general he feels improved. He denies fever, chills, chest pain, abdominal pain, nausea, vomiting. Infect Dis PN-Objective Data - Labs CBC & Chem 7: 07/02/18 04:09 07/01/18 09:39 Labs: Laboratory Results - last 24 hr 06/30/18 06/30/18 06/30/18 07:30 09:24 11:18 POC Glucose 108 H 208 H Lactic Acid 0.9 Random Tobramycin 06/30/18 07/01/18 16:16 07:54 POC Glucose 334 H Lactic Acid Random Tobramycin 1.9 Cultures: Cultures 06/30/18 05:50 Blood Culture - Preliminary Peripheral Venipuncture Culture is incubating and being continuously monitored for growth. Final report to follow. 06/30/18 05:50 Blood Culture - Preliminary Peripheral Venipuncture Culture is incubating and being continuously monitored for growth. Final report to follow. - Impressions Impressions Chest X-Ray 07/01/18 07:00 IMPRESSION: No evidence for acute cardiopulmonary process. Stable appearance to likely posttreatment scarring and traction bronchiectasis involving the right paramediastinal and perihilar regions. D/ / 07/01/2018 08:24:23 Heriberto Giron MD / jorge Interpreting Provider: Heriberto Giron MD Exam - Constitutional Vitals: Temp Pulse Resp BP Pulse Ox 98.1 F 86 17 101/67 97 07/01/18 06:23 03/07/19 06:23 07/01/18 07:57 07/01/18 06:23 07/01/18 07:57 Exam: Gen.: Vitals noted. No acute distress. AAOx3 HEENT: oropharynx clear, Normocephalic, atraumatic Neck: Supple. No adenopathy. Cardiac: RRR, no murmur, +S1/S2 Pulmonary: bilaterally wheezes and rhonchi, equal chest expansion Abdomen: soft, nontender, Bowel sounds noted, no guarding MSK: no joint swelling noted Extremities: no BLE edema, nontender calf, no cyanosis or clubbing Neuro: A&Ox3, moves all extremities Psych: Appropriate mood and behavior Consult Discharge Plan - Plan Referrals: NONE,PCP [Primary Care Provider] - - Attending Attestation I examined this patient and my medical decision-making was reviewed with the Resident Physician. I agree with the documented findings, disposition and treatment plan as described except to the extent set forth below. Assessment and plan: 1.sepsis 2.pneumonia secondary to multidrug resistant Proteus mirabilis S: cephalosporins 3.COPD 4.history of lung cancer 5.diabetes mellitus type 2 Plan: -start ceftriaxone 2 mg daily. Culture Sensitivity was reviewed in the organism is susceptible to ceftriaxone. -stop Zosyn day 2 -stop IV tobramycin day 2
[2018-07-01 09:54] LABS: Basophils % 0.1 %; Hematocrit 35.4 % (37.5-50.1); Hemoglobin 11.7 g/dL (12.9-16.9); Immature Granulocytes % 1.3 % (0-4); Lymphocytes # 0.9 K/mcL (0.6-4.6); Lymphocytes % 7.4 %; Mean Corpuscular HGB Conc 33.1 g/dL (31.6-35.5); Mean Corpuscular Hemoglobin 27.6 pg (28.0-33.3); Mean Corpuscular Volume 83.5 fL (83.0-100.0); Mean Platelet Volume 9.3 fL (9.4-12.4); Monocytes # 0.8 K/mcL (0.0-1.3); Monocytes % 6.9 %; Neutrophils # 10.2 K/mcL (1.6-8.9); Platelet Count 204 K/mcL (140-400); Red Blood Count 4.24 M/mcL (4.19-5.50); Red Cell Distribution Width 13.5 % (11.5-14.5); Segmented Neutrophils % 84.3 %
--- NOTE | 2018-07-01 10:11 | Internal Med Progress Note ---
Hospitalist Progress Note - Encounter Date of Encounter: 07/01/18 Time of Encounter: 10:07 - Subjective Interval History: Patient seen and examined this morning. No acute overnight events. Denies new complains. Breathing better. Afebrile. Not getting out of bed. Denies bowel or bladder complains. - Exam Vitals: Temp Pulse Resp BP Pulse Ox 98.1 F 86 17 101/67 97 07/01/18 06:23 07/01/18 06:23 07/01/18 07:57 07/01/18 06:23 07/01/18 07:57 Exam: General: In no acute distress. Conversant. Obese. Respiratory exam: transmitted secretory sound. no accessory muscle use, rhonchi, wheezes. Crackles at base Cardiovascular exam: RRR, +S1, +S2. no murmur, gallop, rubs. GI/Abdominal exam: Non-tender, Non-distended, normal bowel sounds, soft, no peritoneal signs. Extremities exam: full ROM, no pedal edema, no calf tenderness Neurological exam: CN II-XII intact, AO X3, no focal deficits. no pronater drift, facial droop, speech deficit - Assessment and Plan (1) Type 2 diabetes mellitus Current Visit: Yes Status: Chronic (2) DVT prophylaxis Current Visit: Yes Status: Acute (3) COPD exacerbation Current Visit: Yes Status: Acute (4) Proteus mirabilis pneumonia Current Visit: Yes Status: Acute (5) Sepsis Current Visit: Yes Status: Acute - Summary of Assessment and Plan Summary of Assessment and Plan: Proteus mirabilis pneumonia - f/u sputum culture and blood culture - Recent BAL with multidrug resistant Pneumonia - c/w Zosyn IV and Tobramycin - ID following. Recommendations appreciated. COPD exacerbation - Taper steroids - supplemental oxygen - antibiotics as above Hypothyroidism - Start synthroid Type 2 diabetes mellitus - hold oral meds. - c/w SSI and accuchecks - Start levemir given elevated BG. DVT prophylaxis - Heparin SQ. OOB with assistance - Time Spent with Patient Total time spent is greater than 50% in coordination of care (as documented) at patient's floor/unit and/or counseling patient: Internal Medicine: Result - Labs CBC & Chem 7: 07/01/18 09:39 07/01/18 09:39 Labs: Short CBC 07/01/18 Range/Units 09:39 WBC 12.1 H (4.3-11.1) K/mcL Hgb 11.7 L (12.9-16.9) g/dL Hct 35.4 L (37.5-50.1) % Plt Count 204 (140-400) K/mcL Neutrophils # 10.2 H (1.6-8.9) K/mcL - ABG Interpretation ABG results: PT/INR, D-dimer PT 12.9 Seconds (9.4-12.1) H 06/30/18 05:52 - Impressions Impressions Chest X-Ray 07/01/18 07:00 IMPRESSION: No evidence for acute cardiopulmonary process. Stable appearance to likely posttreatment scarring and traction bronchiectasis involving the right paramediastinal and perihilar regions. D/ / 07/01/2018 08:24:23 Heriberto Giron MD / jorge Interpreting Provider: Heriberto Giron MD Consult Discharge Plan - Plan Referrals: NONE,PCP [Primary Care Provider] - (1) Type 2 diabetes mellitus Qualifiers: Diabetes mellitus forging press lever tender insulin use: without forging press lever tender use Diabetes melli tus complication status: without complication Qualified Code(s): E11.9 - Type 2 diabetes mellitus without complications (5) Sepsis Qualifiers: Sepsis type: sepsis due to unspecified organism Qualified Code(s): A41.9 - Sepsis, unspecified organism
[2018-07-01 10:13] LABS: BUN/Creatinine Ratio 20 (6-26); Blood Urea Nitrogen 12 mg/dL (8-23); Calcium 8.7 mg/dL (8.6-10.3); Carbon Dioxide 25 mEq/L (23-29); Chloride 106 mEq/L (98-107); Glucose 293 mg/dL (70-105); Osmolality,Calculated 295 (280-300); Potassium 4.2 mEq/L (3.5-5.1); Sodium 137 mEq/L (136-145); eGFR For Non-African Americans > 60 (> 60)
[2018-07-01] MEDS: cefTRIAXone 2,000 MG in Water for inj. (sterile) 20 ML 20 ML IVP SCH (17:13)
[2018-07-01] MEDS ORDERED: Aminoglycoside Consult 1 EACH MC ONE (17:50)
[2018-07-01] MEDS ORDERED: Insulin DETEMIR 100 UNIT/ML X5UNITS SQ SCH (21:00)
[2018-07-02] MEDS: Ipratropium/Albuterol Neb 3 ML IH SCH ×6 (00:36→20:54)
[2018-07-02] MEDS: *HR* Heparin 5,000 UNIT/ML VIAL SQ SCH ×2 (04:11→16:31)
[2018-07-02 04:47] LABS: Basophils % 0.2 %; Hematocrit 34.5 % (37.5-50.1); Hemoglobin 11.2 g/dL (12.9-16.9); Lymphocytes # 1.1 K/mcL (0.6-4.6); Lymphocytes % 10.1 %; Mean Corpuscular HGB Conc 32.5 g/dL (31.6-35.5); Mean Corpuscular Hemoglobin 27.3 pg (28.0-33.3); Mean Corpuscular Volume 83.9 fL (83.0-100.0); Mean Platelet Volume 9.6 fL (9.4-12.4); Monocytes # 0.5 K/mcL (0.0-1.3); Monocytes % 4.9 %; Neutrophils # 9.1 K/mcL (1.6-8.9); Platelet Count 205 K/mcL (140-400); Red Blood Count 4.11 M/mcL (4.19-5.50); Red Cell Distribution Width 13.5 % (11.5-14.5); Segmented Neutrophils % 83.8 %
[2018-07-02] MEDS: Dorzolamide/Timolol OPTH 10 ML BOTTLE LEFT EYE SCH ×2 (07:50→20:02)
[2018-07-02] MEDS ORDERED: methylPREDNISolone 125 MG/2 ML VIAL IVP SCH (09:00)
[2018-07-02] MEDS: Insulin LISPRO 300 UNITS/3 ML VIAL SQ SCH ×4 (09:12→22:29)
--- NOTE | 2018-07-02 09:56 | Infectious Disease Progress No ---
Date of Encounter: 07/02/18 Time of Encounter: 09:53 - Assessment and Plan (1) Sepsis Current Visit: Yes Status: Acute Resolved. Patient met sepsis criteria on admission to [facility]. 2 SIRS: HR 108, WBC 13.2 -Organism is Proteus Mirabilis -sources right upper and middle lobe lung -patient meets SIRS criteria but does not appear clinically septic at this time. -Afebrile, hemodynamically stable, tachycardia 101 -WBC 10.8 -lactic acid 0.9 -pro-calcitonin <0.07 -sputum culture growing GNR -06/30/2018 blood cultures pending -06/22/2018 right upper lobe and right middle lobe bronchoscopy results growing Proteus Miribilis MDR -06/30/2018 Chest x-ray demonstrated right upper lobe infiltrate -07/01/2018 chest x-ray demonstrating stable traction bronchiectasis and scarring Plan: -continue ceftriaxone 2 mg daily day 2. Culture Sensitivity was reviewed in the organism is susceptible to ceftriaxone. Upon discharge patient and sent with ominef for total of 2 weeks treatment through 07/13/2018. -blood cultures pending -continue droplet precautions -Discontinued Zosyn and tobramycin Qualifiers: Sepsis type: sepsis due to unspecified organism Qualified Code(s): A41.9 - Sepsis, unspecified organism (2) Proteus mirabilis pneumonia Current Visit: Yes Status: Acute Proteus mirabilis pneumonia MDR -sources right upper and middle lobe of lung -recurrent pneumonia for the past 3 to 4 years. Patient has risk factors for MDRO due to frequent hospitalizations, recurrent pneumonia, lung cancer, COPD, diabetes. -Bronchoscopy on 06/22/2018 which demonstrated right upper lobe and right middle lobe Proteus Mirabilis. MDR with sensitivity only to gentamicin and tobramycin. Acid fasting negative. Cytology demonstrated acute inflammatory cells, bronchial cells, alveolar macrophages. -06/30/2018 Chest x-ray demonstrated right upper lobe infiltrate -07/01/2018 chest x-ray demonstrating stable traction bronchiectasis and scarring Plan: -continue ceftriaxone 2 mg daily day 2. Culture Sensitivity was reviewed in the organism is susceptible to ceftriaxone. Upon discharge patient and sent with ominef for total of 2 weeks treatment through 07/13/2018. -continue droplet precautions -discontinued Zosyn and tobramycin (3) COPD (chronic obstructive pulmonary disease) Current Visit: No Status: Chronic Patient has known history of COPD taking steroids chronically and using inhalers. 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 The patient completed treatment of radiation and chemotherapy. He follows with Dr. Hartman at the [facility] [place]. (5) Type 2 diabetes mellitus Current Visit: Yes Status: Chronic Patient has known history of diabetes taking oral hypoglycemic medication. 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 He is resting comfortably watching television. He stated that he feels that his shortness of breath is improving. He denies fever, chills, chest pain, abdominal pain, nausea, vomiting. Infect Dis PN-Objective Data - Labs CBC & Chem 7: 07/02/18 04:09 07/01/18 09:39 Labs: Laboratory Results - last 24 hr 06/30/18 07/01/18 07/01/18 21:09 07:22 09:39 WBC 12.1 H RBC 4.24 Hgb 11.7 L Hct 35.4 L MCV 83.5 MCH 27.6 L MCHC 33.1 RDW 13.5 Plt Count 204 MPV 9.3 L Immature Gran % 1.3 Seg Neutrophils % 84.3 Lymphocytes % 7.4 Monocytes % 6.9 Eosinophils % 0.0 Basophils % 0.1 Neutrophils # 10.2 H Lymphocytes # 0.9 Monocytes # 0.8 Eosinophils # 0.0 Basophils # 0.0 Sodium Potassium Chloride Carbon Dioxide BUN Creatinine Est GFR ( Amer) Est GFR (Non-Af Amer) BUN/Creatinine Ratio Glucose POC Glucose 320 H 258 H Calculated Osmolality Calcium 07/01/18 07/01/18 07/01/18 09:39 12:09 16:53 WBC RBC Hgb Hct MCV MCH MCHC RDW Plt Count MPV Immature Gran % Seg Neutrophils % Lymphocytes % Monocytes % Eosinophils % Basophils % Neutrophils # Lymphocytes # Monocytes # Eosinophils # Basophils # Sodium 137 Potassium 4.2 Chloride 106 Carbon Dioxide 25 BUN 12 Creatinine 0.60 L Est GFR ( Amer) > 60 Est GFR (Non-Af Amer) > 60 BUN/Creatinine Ratio 20 Glucose 293 H POC Glucose 320 H 348 H Calculated Osmolality 295 Calcium 8.7 07/01/18 07/02/18 21:01 04:09 WBC 10.8 RBC 4.11 L Hgb 11.2 L Hct 34.5 L MCV 83.9 MCH 27.3 L MCHC 32.5 RDW 13.5 Plt Count 205 MPV 9.6 Immature Gran % 1.0 Seg Neutrophils % 83.8 Lymphocytes % 10.1 Monocytes % 4.9 Eosinophils % 0.0 Basophils % 0.2 Neutrophils # 9.1 H Lymphocytes # 1.1 Monocytes # 0.5 Eosinophils # 0.0 Basophils # 0.0 Sodium Potassium Chloride Carbon Dioxide BUN Creatinine Est GFR ( Amer) Est GFR (Non-Af Amer) BUN/Creatinine Ratio Glucose POC Glucose 314 H Calculated Osmolality Calcium Cultures: Cultures 07/01/18 10:30 Sputum Culture - Preliminary Sputum 06/30/18 05:50 Blood Culture - Preliminary Peripheral Venipuncture Culture is incubating and being continuously monitored for growth. Final report to follow. 06/30/18 05:50 Blood Culture - Preliminary Peripheral Venipuncture Culture is incubating and being continuously casey tored for growth. Final report to follow. - Impressions Impressions Chest X-Ray 07/01/18 07:00 IMPRESSION: No evidence for acute cardiopulmonary process. Stable appearance to likely posttreatment scarring and traction bronchiectasis involving the right paramediastinal and perihilar regions. D/ / 07/01/2018 08:24:23 Heriberto Giron MD / bcarter Interpreting Provider: Heriberto Giron MD Exam - Constitutional Vitals: Temp Pulse Resp BP Pulse Ox 97.9 F 88 18 98/54 95 07/02/18 06:41 07/02/18 06:41 07/02/18 07:38 07/02/18 06:41 07/02/18 07:38 Exam: Gen.: Vitals noted. No acute distress. AAOx3 HEENT: oropharynx clear, Normocephalic, atraumatic Neck: Supple. No adenopathy. Cardiac: RRR, no murmur, +S1/S2 Pulmonary: bilaterally wheezes and rhonchi, equal chest expansion Abdomen: soft, nontender, Bowel sounds noted, no guarding MSK: no joint swelling noted Extremities: no BLE edema, nontender calf, no cyanosis or clubbing Neuro: A&Ox3, moves all extremities Psych: Appropriate mood and behavior Consult Discharge Plan - Plan Referrals: NONE,PCP [Primary Care Provider] - - Attending Attestation I examined this patient and my medical decision-making was reviewed with the Resident Physician. I agree with the documented findings, disposition and treatment plan as described except to the extent set forth below. Assessment and plan: 1.sepsis 2.pneumonia secondary to multidrug resistant Proteus mirabilis S: cephalosporins 3.COPD 4.history of lung cancer 5.diabetes mellitus type 2 Plan: Continue ceftriaxone for now Await sputum culture likely to be Proteus Clinically patient looking great Consider switching him to oral Omnicef if the repeat sputum culture is susceptible Duration of treatment 2 weeks
--- NOTE | 2018-07-02 16:26 | Internal Med Progress Note ---
Hospitalist Progress Note - Encounter Date of Encounter: 07/02/18 Time of Encounter: 12:05 - Subjective Interval History: Patient seen and examined this morning at bedside. No acute overnight events. Denies new complaint. Feeling better. Breathing improving. Afebrile. - Exam Vitals: Temp Pulse Resp BP Pulse Ox 98.5 F 87 18 102/63 96 07/02/18 14:21 07/02/18 14:21 07/02/18 16:01 07/02/18 14:21 07/02/18 16:01 Exam: General: In no acute distress. Conversant. Obese. Respiratory exam: transmitted secretory sound with occasional rhonchi bilaterally. no accessory muscle use, rhonchi, wheezes. Crackles at base Cardiovascular exam: RRR, +S1, +S2. no murmur, gallop, rubs. GI/Abdominal exam: Non-tender, Non-distended, normal bowel sounds, soft, no peritoneal signs. Extremities exam: full ROM, no pedal edema, no calf tenderness Neurological exam: CN II-XII intact, AO X3, no focal deficits. no pronater drift, facial droop, speech deficit - Assessment and Plan (1) Type 2 diabetes mellitus Current Visit: Yes Status: Chronic (2) DVT prophylaxis Current Visit: Yes Status: Acute (3) COPD exacerbation Current Visit: Yes Status: Acute (4) Proteus mirabilis pneumonia Current Visit: Yes Status: Acute (5) Sepsis Current Visit: Yes Status: Acute - Summary of Assessment and Plan Summary of Assessment and Plan: Proteus mirabilis pneumonia - f/u final sputum culture and blood culture. sputum growing GNR. - Recent bronchoscope with BAL with Proteus mirabilis which is sensitive to cephlosoprins. - Zosyn IV and Tobramycin stopped and started on ceftriaxone. - ID following. Recommendations appreciated. Will await culture to finalize. May discharge on ominef for total of 2 weeks treatment through 07/13/2018 if culture with same organism. COPD exacerbation - Taper steroids - supplemental oxygen - antibiotics as above Hypothyroidism - c/w synthroid Type 2 diabetes mellitus - hold oral meds. - c/w SSI and accuchecks - increase levemir given elevated BG. DVT prophylaxis - Heparin SQ. OOB with assistance - Time Spent with Patient Total time spent is greater than 50% in coordination of care (as documented) at patient's floor/unit and/or counseling patient: Internal Medicine: Result - Labs CBC & Chem 7: 07/02/18 04:09 07/01/18 09:39 Labs: Short CBC 07/02/18 Range/Units 04:09 WBC 10.8 (4.3-11.1) K/mcL Hgb 11.2 L (12.9-16.9) g/dL Hct 34.5 L (37.5-50.1) % Plt Count 205 (140-400) K/mcL Neutrophils # 9.1 H (1.6-8.9) K/mcL - ABG Interpretation ABG results: PT/INR, D-dimer PT 12.9 Seconds (9.4-12.1) H 06/30/18 05:52 Consult Discharge Plan - Plan Referrals: NONE,PCP [Primary Care Provider] - (1) Type 2 diabetes mellitus 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
[2018-07-02] MEDS: cefTRIAXone 2,000 MG in Water for inj. (sterile) 20 ML 20 ML IVP SCH (16:31)
[2018-07-02] MEDS ORDERED: Insulin DETEMIR 100 UNIT/ML X5UNITS SQ SCH (21:00)
[2018-07-03] MEDS: Ipratropium/Albuterol Neb 3 ML IH SCH ×5 (00:11→16:41)
[2018-07-03] MEDS: *HR* Heparin 5,000 UNIT/ML VIAL SQ SCH (03:58)
[2018-07-03] MEDS: Insulin LISPRO 300 UNITS/3 ML VIAL SQ SCH ×2 (08:13→11:46)
[2018-07-03] MEDS: Dorzolamide/Timolol OPTH 10 ML BOTTLE LEFT EYE SCH (08:18)
[2018-07-03] MEDS ORDERED: MethylPREDNISolone 40 MG/ML VIAL IVP SCH (09:00)
--- NOTE | 2018-07-03 13:21 | Discharge Summary ---
- NOTES TO OUTPATIENT PROVIDER Notes to Outpatient Provider: Patient will finish 2 week course of antibiotics with Omnicef for pneumonia and 7 day course of steroid. Atenolol has been stopped given the blood pressure is stable and history of COPD. Consider resuming if indicated. Orders not resulted at time of discharge: Pending orders 06/30/18 05:50 Culture,Blood [BC] Stat Date of Encounter: 07/03/18 Time of Encounter: 12:35 - Discharge Diagnosis (1) Type 2 diabetes mellitus Priority: Secondary Status: Chronic Qualifiers: Diabetes mellitus manager intermediate insulin use: without assisted use Diabetes mellitus complication status: without complication Qualified Code(s): E11.9 - Type 2 diabetes mellitus without complications (2) DVT prophylaxis Priority: Secondary Status: Acute (3) COPD exacerbation Priority: Primary Status: Acute (4) Proteus mirabilis pneumonia Priority: Primary Status: Acute (5) Sepsis Priority: Primary Status: Acute Qualifiers: Sepsis type: sepsis due to unspecified organism Qualified Code(s): A41.9 - Sepsis, unspecified organism Hospital course: Mr. Loco is a 62 year old male with past medical history of diabetes, COPD, hypothyroidism, hyperlipidemia was transferred from [facility] for shortness of breath and multidrug-resistant Proteus mirabilis pneumonia on recent bronchoscopy. Patient was only sensitive to gentamicin and tobramycin. Patient was started on Zosyn and inhaled tobramycin which was changed to IV tobramycin based on infectious disease recommendations. Although patient met SIRS criteria he did not appear clinically septic. On review of culture and sensitivity it was found that Proteus mirabilis was sensitive to ceftriaxone and he was started on it. Patient was also treated for COPD exacerbation with steroids and nebulizer treatment. Patient improved significantly over his stay. Sputum culture grew Proteus mirabilis with same sensitivity profile. Patient was discharged to finish 2 week course of antibiotics with Omnicef for remaining 11 days. Patient would also finish seven-day course of steroids. Discharge discussed with: patient, nurse, wellness consultant - Time Spent with Patient Total time spent providing and/or coordinating discharge services: Time spent: Greater than 30 minutes (38) - Discharge Medications Prescriptions: New Cefdinir [Omnicef] 300 mg PO BID 11 Days #22 capsule predniSONE [PredniSONE] 40 mg PO DAILY 3 Days #6 tablet Continue SitaGLIPtin [Januvia] 100 mg PO DAILY HYDROcodone/Acet 5/325 mg [Emerson 5-325 mg] 1 tab PO Q6H PRN PRN Reason: Pain Gabapentin [Neurontin] 600 mg PO DAILY Albuterol Neb [Proventil Neb] 2.5 mg IH TID PRN PRN Reason: Shortness Of Breath Aspirin [Lo-Dose Aspirin EC] 81 mg PO DAILY Dorzolamide/Timolol/Pf [Dorzolamide-Timolol 2%-0.5%] 1 drop LEFT EYE BID Glimepiride [Amaryl] 8 mg PO DAILY Metformin HCl [Glucophage Xr] 1,000 mg PO DAILY Non-Formulary Medication 1 tab PO DAILY Atorvastatin [Lipitor] 40 mg PO DAILY Budesonide/Formoterol 160/4.5 [Symbicort 160/4.5] 2 puff IH BID Levothyroxine [Synthroid] 112 mcg PO DAILY Tiotropium [place] [Spiriva Respimat] 2 puff IH DAILY Albuterol Sulfate [Proair Hfa] 2 puff IH Q4H PRN PRN Reason: COPD Brimonidine 0.2% [Alphagan] 1 drop BOTH EYES BID Discontinued Atenolol [Tenormin] 25 mg PO DAILY Home Medications: Gabapentin [Neurontin] 600 mg PO DAILY 11/05/17 [History] HYDROcodone/Acet 5/325 mg [[place]erson 5-325 mg] 1 tab PO Q6H PRN 11/05/17 [History] SitaGLIPtin [Januvia] 100 mg PO DAILY 11/05/17 [History] Albuterol Neb [Proventil Neb] 2.5 mg IH TID PRN 05/25/18 [History] Aspirin [Lo-Dose Aspirin EC] 81 mg PO DAILY 05/25/18 [History] Dorzolamide/Timolol/Pf [Dorzolamide-Timolol 2%-0.5%] 1 drop LEFT EYE BID 05/25/18 [History] Glimepiride [Amaryl] 8 mg PO DAILY 05/25/18 [History] Metformin HCl [Glucophage Xr] 1,000 mg PO DAILY 05/25/18 [History] Non-Formulary Medication 1 tab PO DAILY 05/25/18 [History] Albuterol Sulfate [Proair Hfa] 2 puff IH Q4H PRN 07/01/18 [History] Atorvastatin [Lipitor] 40 mg PO DAILY 07/01/18 [History] Brimonidine 0.2% [Alphagan] 1 drop BOTH EYES BID 07/01/18 [History] Budesonide/Formoterol 160/4.5 [Symbicort 160/4.5] 2 puff IH BID 07/01/18 [History] Levothyroxine [Synthroid] 112 mcg PO DAILY 07/01/18 [History] Tiotropium [place] [Spiriva Respimat] 2 puff IH DAILY 07/01/18 [History] Cefdinir [Omnicef] 300 mg PO BID 11 Days #22 capsule 07/03/18 [Rx] predniSONE [PredniSONE] 40 mg PO DAILY 3 Days #6 tablet 07/03/18 [Rx] Allergies/Adverse Reactions: Allergy/AdvReac Type Severity Reaction Status Date / Time No Known Allergies Allergy Verified 07/01/18 10:33 Date of admission: 06/30/18 05:14 Primary care physician: PCP NONE Consults: 06/30/18 05:39 Consult to Infectious Diseases [CONS] Routine Consulting Provider: Infectious Disease Nadine Reason for Consult: MDR proteus pneumonia Call Completed: No 07/01/18 12:49 Consult to Physical Therapy [CONS] Routine Comment: Evaluate, develop and implement POC Reason for Consult: EVAL AND TREAT WEAKNESS R/T MONTHS OF PNEUMONIA Does patient have active BEDREST order?: No Is patient medically & hemodynamically stable?: Yes 07/01/18 12:50 Consult to Occupational Therapy [CONS] Routine Comment: Evaluate, develop and implement POC Reason for Consult: EVAL AND TREAT WEAKNESS R/T MONTHS OF PNEUMONIA Does patient have active BEDREST order?: No Is patient medically & hemodynamically stable?: Yes 07/01/18 12:52 Consult to Receiver Dispatcher [CONS] Routine Reason for SW Consult: Possibly needs placement Discharging clinician: Flower Calhoun - Constitutional Vitals: Temp Pulse Resp BP Pulse Ox 97.6 F 89 14 126/74 95 07/03/18 11:45 07/03/18 11:45 07/03/18 11:45 07/03/18 11:45 07/03/18 11:45 Exam: General: In no acute distress. Conversant. Obese. Respiratory exam: CTAB, no accessory muscle use, rhonchi, wheezes Cardiovascular exam: RRR, +S1, +S2. no murmur, gallop, rubs. GI/Abdominal exam: Non-tender, Non-distended, normal bowel sounds, soft, no peritoneal signs. Extremities exam: full ROM, no pedal edema, no calf tenderness Neurological exam: CN II-XII intact, AO X3, no focal deficits - Patient Status Disposition: Home, Self-Care Condition: Fair - Discharge Instructions Follow Up With: NONE,PCP [Primary Care Provider] - - Diet and Activity Activity: increase activity as tolerated
[2018-07-03 15:32] VITALS: BP 107/69
[2018-07-03] MEDS: cefTRIAXone 2,000 MG in Water for inj. (sterile) 20 ML 20 ML IVP SCH (16:26)
== END 2018-07-03 17:51 | disposition home or self-care (01) | DRG 871 ==
LOC: 3NENU → SUATTDRO 05:14
PROVIDERS: ADMIT Pediatrics; ATTEND Internal Medicine

== ENCOUNTER 2018-09-14 05:15 | Inpatient (IN) ==
--- NOTE | 2018-09-14 09:34 | Internal Med History&Physical ---
<Aime Redding - Last Filed: 09/14/18 11:17> Date of Encounter: 09/14/18 Time of Encounter: 09:34 Internal Medicine - H&P: HPI Chief complaint: Weakness Admitted From: Intrahospital Transfer ([facility]) Plans for Post Hospital Care: Transfer [facility] History of present illness: Mr. 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 Of note, patient was recently discharged from [facility] on IV Rocephin, Azithromycin, and prednisone taper on 08/02/18 due to MRDO Proteus mirabilis pneumonia and RSV infection. Patient lives at home with his sister and ambulates with a walker. Patient is a very poor historian, slow to respond to questions, and has difficulty recalling the current month of the year. He reports feeling weak for the past 2 days and fell at home while transferring from his recliner to his bed. Patient also reports diarrhea since his rod piler, Dr. Giles, started him on Daliresp on 08/12/18. At [facility], labs revealed leukocytosis WBC 15.9 with left shift, hemoglobin 15.5, hematocrit 49.1, platelet count 244, sodium 134, potassium 3.9, chloride 98, carbon dioxide 26, BUN 12, creatinine 0.88, glucose 133, calcium 9.7, albumin 4.1, magnesium 2.1, phos 2.6, BNP 365.7, CK 45, troponin < 0.056, CRP 5.7, lactic acid 2.8 --> 1.3, UA was negative, and ABG revealed pH 7.43, pCO2 33, PO2 80, bicarbonate 21.9, and O2 sat 96 %. EKG revealed new onset atrial fibrillation with heart rate 119, normal axis, no ST elevations or depressions. Patient does not have a known history of atrial fibrillation and is not on any anticoagulation. Vital signs at [facility] revealed pulse 111, resp rate 24, blood pressure 119/75, temp 98.4 F, and SPO2 91% on 2 L O2. Patient was given Levaquin IV 500 mg 1, Solu-Medrol 125 mg IV 1, and transferred to [facility] for further management. Past Med Surg Social Fam HX - Past Medical History Medical history: cancer, COPD, diabetes, GERD, hyperlipidemia, thyroid disease Additional medical history: Lung CA Psychiatric history: anxiety - Past Surgical History Surgical History: cataract, orthopedic, other, other Additional surgical history: Pericardial window, left supraclavicular lymph node biopsy, carpal tunnel release - Social History Smoking Status: Former smoker Smokeless Tobacco Status: Yes Alcohol use: none Drug use: none Current living situation: Home, With Family Activity Level: Uses cane/walker - Family History Sister Living Status: Hx Family Cancer: Yes (Lymph node cancer) Hx Family GI Disorders: Yes Mother Age at : 86 Hx Family Medical Disorders: Yes (Alzheimers) Father Living Status: Age at : 85 Hx Family Cardiac Disorders: Yes (OK, CHF) Hx Family Respiratory Disorders: Yes (Black lung) Internal Medicine - H&P: Meds Gabapentin [Neurontin] 600 mg PO QAM 11/05/17 [History] SitaGLIPtin [Januvia] 100 mg PO QAM 11/05/17 [History] Albuterol Neb [Proventil Neb] 2.5 mg IH TID 05/25/18 [History] Aspirin [Lo-Dose Aspirin EC] 81 mg PO DAILY 05/25/18 [History] Dorzolamide/Timolol/Pf [Dorzolamide-Timolol 2%-0.5%] 1 drop LEFT EYE BID 05/25/18 [History] Glimepiride [Amaryl] 8 mg PO QAM 05/25/18 [History] Metformin HCl [Glucophage Xr] 1,000 mg PO QAM 05/25/18 [History] Albuterol Sulfate [Proair Hfa] 2 puff IH Q4H PRN 07/01/18 [History] Budesonide/Formoterol 160/4.5 [Symbicort 160/4.5] 2 puff IH BID 07/01/18 [History] Levothyroxine [Synthroid] 112 mcg PO QAM 07/01/18 [History] Empagliflozin [Jardiance] 25 mg PO QAM 07/31/18 [History] Atenolol [Tenormin] 25 mg PO QAM 09/14/18 [History] Brimonidine Tartrate 1 drop BOTH EYES BID 09/14/18 [History] HYDROcodone/Acet 5/325 mg [Russell 5-325 mg] 1 tab PO DAILY PRN 09/14/18 [History] Roflumilast [Daliresp] 500 mcg PO QAM 09/14/18 [History] Allergy/AdvReac Type Severity Reaction Status Date / Time No Known Allergies Allergy Verified 09/14/18 14:57 All Systems PM: A 10-system review of systems was performed and is negative for pertinent findings except as documented above in the HPI. - Constitutional Constitutional: fatigue, falls, lethargy, weakness, no anorexia, no chills, no fever(s) - EENT Eyes: blurry vision (right eye blindness, chronic), no change in vision Nose, mouth and throat: no sinus pain, no sore throat - Cardiovascular Cardiovascular ROS IM: dyspnea, irregular heart rhythm, palpitations, no chest pain, no edema, no syncope - Respiratory Respiratory: dyspnea, wheezing, chest congestion, no cough, no excessive phlegm production - Gastrointestinal Gastrointestinal: abdominal pain, diarrhea, nausea, no vomiting - Genitourinary Genitourinary ROS male: no difficulty urinating, no urinary frequency, no urinary urgency - Musculoskeletal Musculoskeletal ROS IM: back pain, no neck pain - Integumentary Integumentary IM: no erythema, no new lesions - Neurological Neurological ROS: abnormal gait, frequent falls, weakness, no headache(s) - Psychiatric Psychiatric: no anxiety, no depression - Endocrine Endocrine IM: no polydipsia, no polyphagia, no polyuria - Hematologic/Lymphatic Hematologic/Lymphatic: no easy bleeding, no easy bruising - Constitutional Vitals: Temp Pulse Resp BP Pulse Ox 98.2 F 100 20 118/75 93 09/14/18 07:51 09/14/18 07:51 09/14/18 07:51 09/14/18 07:51 09/14/18 07:51 General appearance: Present: cooperative, A&O X 2 (difficulty recalling current month), no acute distress. Absent: answers questions appropriately (slow to respond to questions) Exam: lethargic - Head Head exam: Present: atraumatic, normocephalic - Eye Eye exam: Present: EOMI, conjuntiva pink, sclera anicteric - ENT ENT exam: Present: mucous membranes dry, normal oropharynx - Neck Neck exam general surgery: Present: supple, trachea midline - Respiratory Respiratory exam: Present: rales (coarse breath sounds bilaterally), wheezes (diffuse). Absent: accessory muscle use, decreased breath sounds, CTAB, rhonchi - Cardiovascular Cardiovascular exam: Present: RRR, +S1, +S2, tachycardia. Absent: diastolic murmur, gallop, rubs, systolic murmur - GI/Abdominal GI/Abdominal exam: Present: normal bowel sounds, soft, no peritoneal signs. Absent: distended, tenderness - Extremities Exam Extremities exam: Present: normal inspection, warm, radial pulses palpable and symmetrical. Absent: calf tenderness, cyanotic, pedal edema - Back Exam Back exam: Present: normal inspection. Absent: paraspinal tenderness, tenderness - Neurological Exam Neurological exam: Present: CN II-XII intact, oriented X3, no focal deficits. Absent: pronater drift, facial droop, speech deficit - Skin Skin exam: Present: dry, intact Internal Med - H&P Results - Labs CBC & Chem 7: 09/14/18 10:36 09/14/18 10:36 - Assessment and Plan (1) Acute and chronic respiratory failure with hypoxia Current Visit: Yes Status: Acute Assessment and plan: COPD patient with 2 L supplemental oxygen dependence at night presents with elevated respiratory rate, respiratory distress, and increased supplemental oxygen requirements. Continue Duonebs and steroids Continue monitoring (2) HCAP (healthcare-associated pneumonia) Current Visit: Yes Status: Acute Assessment and plan: Patient was recently discharged from [facility] on IV Rocephin, Azithromycin, and prednisone taper on 08/02/18 due to MRDO Proteus mirabilis pneumonia and RSV infection. Labs revealed leukocytosis WBC 15.9 with left shift, vital signs revealed pulse 111, resp rate 24, blood pressure 119/75, temp 98.4 F, and SPO2 91% on 2 L O2. Patient was given Levaquin IV 500 mg 1, Solu-Medrol 125 mg IV 1 prior to transfer Chest x-ray pending Blood cultures pending, sputum culture pending, strep pneumo and Legionella urinary antigens pending MRSA nasal screen negative on 07/30/18 Continue empiric antibiotics (Vanc, Zosyn, Levaquin) De-escalate antibiotics based on culture results. Encourage incentive spirometry. (3) Acute exacerbation of chronic obstructive airways disease Current Visit: Yes Status: Acute Assessment and plan: Patient with multiple episodes of COPD exacerbations Continue antibiotics, steroids, and bronchodilators. (4) Generalized weakness Current Visit: Yes Status: Acute Assessment and plan: Patient ambulates with a walker. Patient reports feeling weak for the past 2 days and fell at home while transferring from his recliner to his bed. PT/OT/SW consulted (5) Paroxysmal ventricular fibrillation Current Visit: Yes Status: Acute Assessment and plan: EKG from [facility] revealed new onset atrial fibrillation with heart rate 119, normal axis, no ST elevations or depressions. Patient does not have a known history of atrial fibrillation and is not on any anticoagulation. Currently in NSR. [id number] Score 1 (diabetes) Patient has a history of pericardial effusion/ pericardial window. Echo pending Cardiology consulted. Patient may benefit from outpatient sleep study to evaluate for ANNA. (6) Diarrhea Current Visit: Yes Status: Acute Assessment and plan: Patient also reports diarrhea since his rod piler, Dr. Giles, started him on Daliresp on 08/12/18. He also completed a course of IV Rocephin on Azithromycin on 08/02/18. Patient has LLQ pain with paltapion. C. diff/ GI panel pending. Qualifiers: Diarrhea type: unspecified type Qualified Code(s): R19.7 - Diarrhea, unspecified (7) Large cell carcinoma of right lung Current Visit: No Status: Chronic Assessment and plan: History of large cell carcinoma of the right lung status post radiation/chemotherapy in 2008. Outpatient management. (8) Spinal stenosis Current Visit: No Status: Chronic Assessment and plan: Patient reports chronic back pain with standing. Continue pain meds as needed. PT/OT consulted. Qualifiers: Spinal region: lumbar Neurogenic claudication status: unspecified Qualified Code(s): M48.061 - Spinal stenosis, lumbar region without neurogenic claudication (9) Type 2 diabetes mellitus Current Visit: No Status: Chronic Assessment and plan: HGB a1c 8.2 on 07/30/18 Continue ADA diet, Accucheck ACHS, and low dose SSI Qualifiers: Diabetes mellitus alf insulin use: without heavy cleaner use Diabetes mellitus complication status: without complication Qualified Code(s): E11.9 - Type 2 diabetes mellitus without complications (10) Hyperlipidemia Current Visit: No Status: Chronic Assessment and plan: Continue statin Qualifiers: Hyperlipidemia type: unspecified Qualified Code(s): E78.5 - Hyperlipidemia, unspecified (11) Hypothyroid Current Visit: No Status: Chronic Assessment and plan: TSH pending. Continue synthroid Qualifiers: Hypothyroidism type: unspecified Qualified Code(s): E03.9 - Hypothyroidism, unspecified (12) DVT prophylaxis Current Visit: Yes Status: Acute Assessment and plan: Heparin subcutaneous TID - Time Spent With Patient Total time spent is greater than 50% in coordination of care (as documented) at patient's floor/unit and/or counseling patient: <Radha Catalan - Last Filed: 09/16/18 06:05> Date of Encounter: 09/15/18 Internal Medicine - H&P: HPI History of present illness: Mr. Loco is a 62 year old male All Systems PM: A 10-system review of systems was performed and is negative for pertinent findings except as documented above in the HPI. - Constitutional Vitals: Temp Pulse Resp BP Pulse Ox 97.8 F 109 19 124/68 94 09/14/18 23:02 09/14/18 23:02 09/14/18 23:57 09/14/18 23:02 09/14/18 23:57 Internal Med - H&P Results - Labs CBC & Chem 7: 09/15/18 02:03 09/15/18 02:03 Labs: Short CBC 09/14/18 Range/Units 10:36 WBC 17.0 H (4.3-11.1) K/mcL Hgb 14.1 (12.9-16.9) g/dL Hct 44.9 (37.5-50.1) % Plt Count 201 (140-400) K/mcL Neutrophils # 16.0 H (1.6-8.9) K/mcL BMP 09/14/18 10:36 Sodium 139 Potassium 4.0 Chloride 105 Carbon Dioxide 19 L BUN 17 Creatinine 0.69 L Glucose 178 H Calcium 9.2 Cardiac Enzymes 09/14/18 09/14/18 09/14/18 Range/Units 10:36 16:12 22:10 Troponin I < 0.03 < 0.03 < 0.03 (< 0.04) ng/mL - Impressions ITS Impressions Chest X-Ray 09/14/18 10:39 IMPRESSION: No interval change in left basilar and right perihilar airspace opacities. D/ / Trinidad Calhoun MD / Trinidad Calhoun MD Interpreting Provider: Trinidad Calhoun MD - Assessment and Plan (1) Type 2 diabetes mellitus Current Visit: No Status: Chronic Qualifiers: Diabetes mellitus alf insulin use: without heavy cleaner use Diabetes mellitus complication status: without complication Qualified Code(s): E11.9 - Type 2 diabetes mellitus without complications (2) Hypothyroid Current Visit: No Status: Chronic Qualifiers: Hypothyroidism type: acquired Qualified Code(s): E03.9 - Hypothyroidism, unspecified (3) Acute exacerbation of chronic obstructive airways disease Current Visit: Yes Status: Acute (4) Acute and chronic respiratory failure with hypoxia Current Visit: Yes Status: Acute (5) HCAP (healthcare-associated pneumonia) Current Visit: Yes Status: Acute (6) DVT prophylaxis Current Visit: Yes Status: Acute (7) Generalized weakness Current Visit: Yes Status: Acute (8) Paroxysmal ventricular fibrillation Current Visit: Yes Status: Acute (9) Hyperlipidemia Current Visit: No Status: Chronic Qualifiers: Hyperlipidemia type: unspecified Qualified Code(s): E78.5 - Hyperlipidemia, unspecified (10) Spinal stenosis Current Visit: No Status: Chronic Qualifiers: Spinal region: lumbar Neurogenic claudication status: unspecified Qualified Code(s): M48.061 - Spinal stenosis, lumbar region without neurogenic claudication (11) Diarrhea Current Visit: Yes Status: Acute Qualifiers: Diarrhea type: unspecified type Qualified Code(s): R19.7 - Diarrhea, unspecified (12) Large cell carcinoma of right lung Current Visit: No Status: Chronic - Time Spent With Patient Total time spent is greater than 50% in coordination of care (as documented) at patient's floor/unit and/or counseling patient: - Attending Attestation I personally and independently interviewed and examined the patient, and I reviewed the patient's medical records. I am in agreement with the assessment and proposed treatment plan. I discussed my findings and recommendation with the patient and answer his questions. The patient's medical records were edited to accurately reflect this encounter.
[2018-09-14] MEDS ORDERED: *HR* Dextrose 50 % in Water (Syg) 50 ML SYRINGE IVP PRN (09:38)
[2018-09-14] MEDS ORDERED: Naloxone 0.4 MG/ML INJ IVP PRN (09:38)
[2018-09-14] MEDS ORDERED: Dextrose Gel 15 GM/37.5 ML TUBE PO PRN ×2 (09:38)
[2018-09-14] MEDS ORDERED: D5% in Water 1,000 ML IVC PRN (09:38)
[2018-09-14] MEDS ORDERED: 0.9 % Sodium Chloride 1,000 ML IVC SCH ×2 (09:45→14:00)
[2018-09-14 10:47] LABS: Basophils % 0.1 %; Hematocrit 44.9 % (37.5-50.1); Hemoglobin 14.1 g/dL (12.9-16.9); Immature Granulocytes % 0.9 % (0-4); Lymphocytes # 0.7 K/mcL (0.6-4.6); Lymphocytes % 3.9 %; Mean Corpuscular HGB Conc 31.4 g/dL (31.6-35.5); Mean Corpuscular Hemoglobin 26.6 pg (28.0-33.3); Mean Corpuscular Volume 84.7 fL (83.0-100.0); Mean Platelet Volume 8.8 fL (9.4-12.4); Monocytes # 0.1 K/mcL (0.0-1.3); Monocytes % 0.8 %; Platelet Count 201 K/mcL (140-400); Red Cell Distribution Width 13.7 % (11.5-14.5); Segmented Neutrophils % 94.3 %
[2018-09-14] MEDS: Levofloxacin 750 MG/150 ML 750 MG/150 ML BAG IVPB SCH (10:53)
[2018-09-14 10:55] LABS: INR 1.3; Prothrombin Time 14.3 Seconds (9.4-12.1)
[2018-09-14] MEDS ORDERED: Tiotropium 18 MCG inhalation IH SCH (11:00)
[2018-09-14 11:10] LABS: BUN/Creatinine Ratio 25 (6-26); Blood Urea Nitrogen 17 mg/dL (8-23); Calcium 9.2 mg/dL (8.6-10.3); Carbon Dioxide 19 mEq/L (23-29); Chloride 105 mEq/L (98-107); Glucose 178 mg/dL (70-105); Osmolality,Calculated 294 (280-300); Sodium 139 mEq/L (136-145); eGFR For Non-African Americans > 60 (> 60)
[2018-09-14 11:22] LABS: Thyroid Stimulating Hormone 0.269 mcIU/mL (0.340-5.600)
[2018-09-14] MEDS: Budesonide/Formoterol 160/4.5 1 PUFF INH IH SCH ×2 (11:37→20:03)
[2018-09-14] MEDS: Ipratropium/Albuterol Neb 3 ML IH SCH ×4 (11:37→23:56)
[2018-09-14] MEDS: Piperacillin/Tazobactam 3.375 GM in 0.9 % Sodium Chloride Mini Bag 100 ML IVPB SCH ×2 (12:55→17:54)
[2018-09-14] MEDS: Aspirin Enteric Coated 81 MG Tablet PO SCH (12:59)
[2018-09-14] MEDS: MethylPREDNISolone 40 MG/ML VIAL IVP SCH ×2 (12:59→17:57)
[2018-09-14] MEDS: *HR* Heparin 5,000 UNIT/ML VIAL SQ SCH ×2 (13:01→21:34)
[2018-09-14] MEDS: Insulin LISPRO 300 UNITS/3 ML VIAL SQ SCH ×2 (13:18→17:16)
[2018-09-14] MEDS ORDERED: Perflutren Lipid Microsphere 1.3 ML in 0.9 % Sodium Chloride 8.7 ML IVP ONE (19:58)
[2018-09-14] MEDS ORDERED: Insulin LISPRO 300 UNITS/3 ML VIAL SQ SCH (21:00)
[2018-09-15] MEDS: MethylPREDNISolone 40 MG/ML VIAL IVP SCH ×4 (01:00→17:11)
[2018-09-15] MEDS: Piperacillin/Tazobactam 3.375 GM in 0.9 % Sodium Chloride Mini Bag 100 ML IVPB SCH ×3 (01:00→17:07)
[2018-09-15 03:01] LABS: Basophils % 0.1 %; Hematocrit 38.8 % (37.5-50.1); Immature Granulocytes % 0.5 % (0-4); Lymphocytes # 0.3 K/mcL (0.6-4.6); Lymphocytes % 1.7 %; Mean Corpuscular HGB Conc 32.2 g/dL (31.6-35.5); Mean Corpuscular Hemoglobin 26.9 pg (28.0-33.3); Mean Corpuscular Volume 83.4 fL (83.0-100.0); Mean Platelet Volume 9.3 fL (9.4-12.4); Monocytes # 0.5 K/mcL (0.0-1.3); Monocytes % 2.8 %; Neutrophils # 15.4 K/mcL (1.6-8.9); Platelet Count 211 K/mcL (140-400); Red Blood Count 4.65 M/mcL (4.19-5.50); Red Cell Distribution Width 13.9 % (11.5-14.5); Segmented Neutrophils % 94.9 %
[2018-09-15 03:02] LABS: Hemoglobin 12.5 g/dL (12.9-16.9)
[2018-09-15 03:17] LABS: BUN/Creatinine Ratio 32 (6-26); Blood Urea Nitrogen 23 mg/dL (8-23); Calcium 9.3 mg/dL (8.6-10.3); Carbon Dioxide 17 mEq/L (23-29); Chloride 103 mEq/L (98-107); Glucose 235 mg/dL (70-105); Osmolality,Calculated 297 (280-300); Potassium 3.5 mEq/L (3.5-5.1); Sodium 138 mEq/L (136-145); eGFR For Non-African Americans > 60 (> 60)
[2018-09-15] MEDS: Ipratropium/Albuterol Neb 3 ML IH SCH ×6 (03:21→23:34)
[2018-09-15] MEDS: Ondansetron 4 MG/2 ML VIAL IVP PRN (04:37)
[2018-09-15] MEDS: *HR* Heparin 5,000 UNIT/ML VIAL SQ SCH ×3 (05:26→20:38)
[2018-09-15] MEDS: Levothyroxine 25 MCG TABLET PO SCH (05:26)
[2018-09-15] MEDS: Budesonide/Formoterol 160/4.5 1 PUFF INH IH SCH ×2 (07:19→20:15)
[2018-09-15] MEDS: Levofloxacin 750 MG/150 ML 750 MG/150 ML BAG IVPB SCH (08:19)
[2018-09-15] MEDS: Aspirin Enteric Coated 81 MG Tablet PO SCH (08:19)
[2018-09-15] MEDS: Insulin LISPRO 300 UNITS/3 ML VIAL SQ SCH ×4 (08:29→20:38)
[2018-09-15] MEDS ORDERED: Aminoglycoside Consult 1 EACH MC ONE (09:45)
--- NOTE | 2018-09-15 12:54 | Internal Med Progress Note ---
Hospitalist Progress Note - Encounter Date of Encounter: 09/15/18 Time of Encounter: 11:30 - Subjective Interval History: Mr. Loco is a 62 year old male with a past medical history of diabetes mellitus type 2, right eye blindness, pericardial window, hyperlipidemia, spinal stenosis, hypothyroidism, COPD with 2.5 L supplemental oxygen dependence at night, and large cell carcinoma of the right lung status post radiation/chemotherapy who was transferred from [facility] secondary to suspected COPD exacerbation. Of note, patient was recently discharged from [facility] on IV Rocephin, Azithromycin, and prednisone taper on 08/02/18 due to Proteus mirabilis pneumonia and RSV infection. His CXR showed b/l lower lobe consolidations concerning for PNA. He was admitted in the hospital and placed him on traffic monitor specialist. His serial troponin came b ack as negative. He was started on broad spec abx Zosyn, Levaquin and Vanc x 1. He was also placed on high dose IV steroids. Pt stated he is feeling little better today. Still has moderate SOB and BENEDICT. Cough with expectoration. - Exam Vitals: Temp Pulse Resp BP Pulse Ox 98.4 F 119 16 124/69 95 09/15/18 11:28 09/15/18 11:28 09/15/18 11:28 09/15/18 11:28 09/15/18 11:28 Exam: Gen: Alert, awake, Oriented to time,place and person Chest: Diminished breath sounds B/L, Moderate wheezing, No crackles, No rales, ronchi++ Junk BS ++ Heart: S1S2+ RRR No murmurs Abd: Soft, NT, BS +, No organomegaly Ext: No edema, pulses are palpable, No calf tenderness Neuro : Benign findings Skin: No rash. - Assessment and Plan (1) Sepsis Current Visit: No Status: Acute Assessment and Plan: He met sepsis criteria with elevated WBC, high procalcitonin, Tachycardia and source of inf as PNA blood cx no growth so far Sputum cx no growth low risk for MRSA.. d/c Vanc Cont empirical abx IV Zosyn and Levaquin (2) HCAP (healthcare-associated pneumonia) Current Visit: Yes Status: Acute Assessment and Plan: Recurrent Pneumonia CXR was concenring for b/l Lower lobe PNA mostly bacterial PNA his strep PNA and Legionella are negative sputum cx no growth Ordered CT of Chest for further eval ordered Chest percussion therapy Consulted Pulmonary for further eval..he may need Bronchoscope He does have thickened secretions now will start him on Mucinex (3) Sinus tachycardia Current Visit: Yes Status: Acute Assessment and Plan: He was Atenolol at home switched to Po Metoprolol now Does not look A fib EKG was reviewed by Sampler And Test Preparer y/d (4) Large cell carcinoma of right lung Current Visit: No Status: Chronic Assessment and Plan: History of large cell carcinoma of the right lung status post radiation/chemotherapy in 2008. Outpatient management. (5) Acute and chronic respiratory failure with hypoxia Current Visit: Yes Status: Acute Assessment and Plan: Due to Multi lobular PNA and COPD exacerbation currently on 4 lit O2 (6) Acute exacerbation of chronic obstructive airways disease Current Visit: Yes Status: Acute Assessment and Plan: Patient with multiple episodes of COPD exacerbations Continue empirical antibiotics start tapering steroids Cont frequent bronchodilators (7) Type 2 diabetes mellitus Current Visit: No Status: Chronic Assessment and Plan: HGB a1c 8.2 on 07/30/18 Continue ADA diet BS fairly controlled Will change ISS to Medium (8) Hypothyroid Current Visit: No Status: Chronic Assessment and Plan: Resumed home med.. (9) DVT prophylaxis Current Visit: Yes Status: Acute Assessment and Plan: Heparin subcutaneous TID (10) Generalized weakness Current Visit: Yes Status: Acute Assessment and Plan: Patient ambulates with a walker. Patient reports feeling weak for the past 2 days and fell at home while transferring from his recliner to his bed. PT/OT/SW consulted (11) Hyperlipidemia Current Visit: No Status: Chronic Assessment and Plan: Continue statin (12) Spinal stenosis Current Visit: No Status: Chronic Assessment and Plan: Patient reports chronic back pain with standing. Continue pain meds as needed. PT/OT consulted. (13) Diarrhea Current Visit: Yes Status: Acute Assessment and Plan: resolved No more diarrhea since y/d - Time Spent with Patient Total time spent is greater than 50% in coordination of care (as documented) at patient's floor/unit and/or counseling patient: Internal Medicine: Result - Labs CBC & Chem 7: 09/15/18 02:03 09/15/18 02:03 Labs: Short CBC 09/15/18 Range/Units 02:03 WBC 16.2 H (4.3-11.1) K/mcL Hgb 12.5 L D (12.9-16.9) g/dL Hct 38.8 (37.5-50.1) % Plt Count 211 (140-400) K/mcL Neutrophils # 15.4 H (1.6-8.9) K/mcL BMP 09/14/18 09/15/18 10:36 02:03 Sodium 139 138 Potassium 4.0 3.5 Chloride 105 103 Carbon Dioxide 19 L 17 L BUN 17 23 Creatinine 0.69 L 0.73 Glucose 178 H 235 H Calcium 9.2 9.3 Cardiac Enzymes 09/14/18 09/14/18 Range/Units 16:12 22:10 Troponin I < 0.03 < 0.03 (< 0.04) ng/mL - ABG Interpretation ABG results: PT/INR, D-dimer PT 14.3 Seconds (9.4-12.1) H 09/14/18 10:36 - Impressions Impressions Echocardiogram 09/14/18 09:53 Impressions: LVEF 60%. Mild left ventricular diastolic dysfunction. Definity echo contrast was used. Normal right ventricular structure and function. No significant valvular dysfunction. Unable to estimate RVSP due to suboptimal TR signal. Left Ventricular Wall Motion: Rest Echo Findings The apex, apical inferior, mid inferior, basal inferior, apical anterior, mid anterior and basal anterior majano were not visualized. All other wall segments showed normal motion. Findings: Study Quality * Technically adequate exam. ECG Findings * Normal sinus rhythm. Left Ventricle * LVEF 60%. * Normal LV chamber size, wall thickness and function. * Mild left ventricular diastolic dysfunction. * Definity echo contrast was used. Right Ventricle * Normal right ventricular structure and function. Left Atrium * Not well visualized. Right Atrium * Not well visualized. Aortic Valve * No aortic regurgitation. * Aortic valve not well visualized. * No aortic stenosis. Mitral Valve * No mitral regurgitation. * Normal mitral valve structure. * No mitral stenosis. Tricuspid Valve * Tricuspid valve not well visualized. * No tricuspid regurgitation. Pulmonic Valve * Pulmonic valve is not well visualized. * Doppler interrogation not well obtained. Pulmonary Artery * Pulmonary artery not well visualized. Aorta * Normally sized aortic root. Pericardium * There is no pericardial effusion present. Interatrial Septum * Interatrial septum not well evaluated. IVC * The IVC is not well evaluated. Consult Discharge Plan - Plan Referrals: Juanito Dsouza DO [Primary Care Provider] - (1) Sepsis Qualifiers: Sepsis type: sepsis due to unspecified organism Qualified Code(s): A41.9 - Sepsis, unspecified organism (7) Type 2 diabetes mellitus Qualifiers: Diabetes mellitus rat exterminator insulin use: without half-way use Diabetes mellitus complication status: without complication Qualified Code(s): E11.9 - Type 2 diabetes mellitus without complications (8) Hypothyroid Qualifiers: Hypothyroidism type: acquired Qualified Code(s): E03.9 - Hypothyroidism, unspecified (11) Hyperlipidemia Qualifiers: Hyperlipidemia type: unspecified Qualified Code(s): E78.5 - Hyperlipidemia, unspecified (12) Spinal stenosis Qualifiers: Spinal region: lumbar Neurogenic claudication status: unspecified Qualified Code(s): M48.061 - Spinal stenosis, lumbar region without neurogenic claudication (13) Diarrhea Qualifiers: Diarrhea type: unspecified type Qualified Code(s): R19.7 - Diarrhea, unspecified
--- NOTE | 2018-09-15 12:57 | Electrocardiograph Report ---
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
[2018-09-15] MEDS: *HR* HYDROcodone/Acet 5/325 mg TABLET PO PRN (13:29)
--- NOTE | 2018-09-15 13:47 | Pulmonology Consult Note ---
Date of Encounter: 09/15/18 Time of Encounter: 13:00 Assessment and Plan (1) Acute and chronic respiratory failure Current Visit: Yes Status: Acute Patient is an acute on chronic respiratory failure complicated by COPD and bronchiectasis exacerbation. Qualifiers: Respiratory failure complication: hypoxia Qualified Code(s): J96.21 - Acute and chronic respiratory failure with hypoxia (2) COPD exacerbation Current Visit: No Status: Acute To continue with scheduled bronchodilators and steroids (3) Bronchiectasis Current Visit: Yes Status: Acute Patient with Proteus mirabilis pneumonia in the past looks like exacerbation of COPD will do a bronchoscopy with adequate toileting and BAL. Keep nothing by mouth after midnight. Qualifiers: Bronchiectasis type: with acute exacerbation Qualified Code(s): J47.1 - Bronchiectasis with (acute) exacerbation (4) Non-small cell cancer of right lung Current Visit: Yes Status: Resolved Supported by radiation followed by oncology History of Present Illness Consult date: 09/15/18 Requesting physician: Sharlene Chaudhary Reason for consult: COPD, pneumonia Chief complaint: Shortness of breath, cough and sputum production History of present illness: 62-year-old male well known to our clinic as oxygen dependent COPD bronchiectasis with chronic structural lung disease with non-small cell, carcinoma supported by radiation patient had a recent exacerbation of COPD and bronchiectasis complicated by Proteus pneumonia and also RSV pneumonia patient is coming with recurrent COPD and bronchiectasis exacerbation started on broad- spectrum antibiotics as based on culture sensitivity in the past patient has struggled clearing his secretions pulmonary was consult for evaluation of possible bronchoscopy. Past Med Surg Social Fam HX - Past Medical History Medical history: cancer, COPD, diabetes, GERD, hyperlipidemia, thyroid disease Additional medical history: Lung CA Psychiatric history: anxiety - Past Surgical History Surgical History: cataract, orthopedic, other, other Additional surgical history: Pericardial window, left supraclavicular lymph node biopsy, carpal tunnel release - Social History Smoking Status: Former smoker Smokeless Tobacco Status: Yes Alcohol use: none Drug use: none - Family History Mother Age at : 86 Hx Family Medical Disorders: Yes (Alzheimers) Father Living Status: Age at : 85 Hx Family Cardiac Disorders: Yes (LA, CHF) Hx Family Respiratory Disorders: Yes (Black lung) Sister Living Status: Hx Family Cancer: Yes (Lymph node cancer) Hx Family GI Disorders: Yes Medications and Allergies Gabapentin [Neurontin] 600 mg PO QAM 11/05/17 [History] SitaGLIPtin [Januvia] 100 mg PO QAM 11/05/17 [History] Albuterol Neb [Proventil Neb] 2.5 mg IH TID 05/25/18 [History] Aspirin [Lo-Dose Aspirin EC] 81 mg PO DAILY 05/25/18 [History] Dorzolamide/Timolol/Pf [Dorzolamide-Timolol 2%-0.5%] 1 drop LEFT EYE BID 05/25/18 [History] Glimepiride [Amaryl] 8 mg PO QAM 05/25/18 [History] Metformin HCl [Glucophage Xr] 1,000 mg PO QAM 05/25/18 [History] Albuterol Sulfate [Proair Hfa] 2 puff IH Q4H PRN 07/01/18 [History] Budesonide/Formoterol 160/4.5 [Symbicort 160/4.5] 2 puff IH BID 07/01/18 [History] Levothyroxine [Synthroid] 112 mcg PO QAM 07/01/18 [History] Empagliflozin [Jardiance] 25 mg PO QAM 07/31/18 [History] Atenolol [Tenormin] 25 mg PO QAM 09/14/18 [History] Brimonidine Tartrate 1 drop BOTH EYES BID 09/14/18 [History] HYDROcodone/Acet 5/325 mg [[place] 5-325 mg] 1 tab PO DAILY PRN 09/14/18 [History] Roflumilast [Daliresp] 500 mcg PO QAM 09/14/18 [History] Allergy/AdvReac Type Severity Reaction Status Date / Time No Known Allergies Allergy Verified 09/14/18 14:57 All Systems: The remainder of the systems were reviewed and are negative Physical Examination Vital Signs: Vital Signs, Last 4 Hours Temp Pulse Resp BP Pulse Ox 09/15/18 11:28 98.4 F 119 16 124/69 95 09/15/18 10:52 16 97 Eyes: nonicteric ENT: oropharynx moist Effort: mildly labored Auscultation: bilateral: wheezes, rales Extremities: no edema non-focal exam depressed Results - Laboratory Findings CBC and BMP: 09/15/18 02:03 09/15/18 02:03 PT/INR, D-dimer PT 14.3 Seconds (9.4-12.1) H 09/14/18 10:36 Abnormal lab findings: Abnormal lab results WBC 16.2 K/mcL (4.3-11.1) H 09/15/18 02:03 Hgb 12.5 g/dL (12.9-16.9) L D 09/15/18 02:03 MCH 26.9 pg (28.0-33.3) L 09/15/18 02:03 MCHC 31.4 g/dL (31.6-35.5) L 09/14/18 10:36 MPV 9.3 fL (9.4-12.4) L 09/15/18 02:03 15.4 K/mcL (1.6-8.9) H 09/15/18 02:03 0.3 K/mcL (0.6-4.6) L 09/15/18 02:03 PT 14.3 Seconds (9.4-12.1) H 09/14/18 10:36 Carbon Dioxide 17 mEq/L (23-29) L 09/15/18 02:03 0.69 mg/dL (0.70-1.30) L 09/14/18 10:36 32 (6-26) H 09/15/18 02:03 Glucose 235 mg/dL (70-105) H 09/15/18 02:03 POC Glucose 190 mg/dL (70-99) H 09/14/18 20:08 4.45 ng/mL (0.00-0.15) H 09/14/18 10:36 TSH 0.269 mcIU/mL (0.340-5.600) L 09/14/18 10:36 - Microbiology Findings Microbiology Findings: Microbiology, Last 48 Hours 09/14/18 21:40 Sputum Culture - Final Sputum 09/14/18 12:30 Legionella Antigen - Final Urine,[place] Streptococcus pneumoniae Antigen (M - Final 09/14/18 10:33 Blood Culture - Preliminary Peripheral Venipuncture Culture is incubating and being continuously monitored for growth. Final report to follow. 09/14/18 10:30 Blood Culture - Preliminary Peripheral Venipuncture Culture is incubating and being continuously monitor ed for growth. Final report to follow. - Clinical Findings Intake & Output: Intake & Output 09/14/18 09/15/18 09/15/18 23:59 07:59 15:59 Intake Total 200 / 350 350 / 830 480 / 830 Output Total 300 / 2100 300 / 700 400 / 700 Balance -100 / -1750 50 / 130 80 / 130 Weight 84.8 kg Consult Discharge Plan - Plan Referrals: Juanito Dsouza DO [Primary Care Provider] -
--- NOTE | 2018-09-15 18:58 | Anesthesia Evaluation PreOp ---
Date of Encounter: 09/15/18 Time of Encounter: 18:56 - Past History Planned Operation: Bronchoscopy Cardiac History: HTN, Hyperlipidemia Pulmonary History: COPD (O2 dependent), Other (bronchietasis, lung cancer) STUDENT ASSISTANCE COUNSELOR History: Other (Anxiety) Other Medical History: Diabetes Type II, Thyroid (Hypo) Anesthesia History: No Prior Anesthetic Complications, Past Anesthesia (Abbie cardial window, left supraclavicular lymph node biopsy, carpal tunnel release) Alcohol Use: none Drug use: none Medications and Allergies Gabapentin [Neurontin] 600 mg PO QAM 11/05/17 [History] SitaGLIPtin [Januvia] 100 mg PO QAM 11/05/17 [History] Albuterol Neb [Proventil Neb] 2.5 mg IH TID 05/25/18 [History] Aspirin [Lo-Dose Aspirin EC] 81 mg PO DAILY 05/25/18 [History] Dorzolamide/Timolol/Pf [Dorzolamide-Timolol 2%-0.5%] 1 drop LEFT EYE BID 05/25/18 [History] Glimepiride [Amaryl] 8 mg PO QAM 05/25/18 [History] Metformin HCl [Glucophage Xr] 1,000 mg PO QAM 05/25/18 [History] Albuterol Sulfate [Proair Hfa] 2 puff IH Q4H PRN 07/01/18 [History] Budesonide/Formoterol 160/4.5 [Symbicort 160/4.5] 2 puff IH BID 07/01/18 [History] Levothyroxine [Synthroid] 112 mcg PO QAM 07/01/18 [History] Empagliflozin [Jardiance] 25 mg PO QAM 07/31/18 [History] Atenolol [Tenormin] 25 mg PO QAM 09/14/18 [History] Brimonidine Tartrate 1 drop BOTH EYES BID 09/14/18 [History] HYDROcodone/Acet 5/325 mg [[place] 5-325 mg] 1 tab PO DAILY PRN 09/14/18 [History] Roflumilast [Daliresp] 500 mcg PO QAM 09/14/18 [History] Allergy/AdvReac Type Severity Reaction Status Date / Time No Known Allergies Allergy Verified 09/14/18 14:57 - Meds/Allergy Pre-op Review Medications Reviewed: Yes Allergies Reviewed: Yes Beta Blockers on Current Med List: Yes Anesthesia Results - Labs 09/15/18 02:03 09/15/18 02:03 - Imaging EKG: report reviewed (Sinus rhythm NONSPECIFIC T-WAVE ABNORMALITY) Anesthesia Exam Vital Signs/O2 Sat, Most Current Temp Pulse Resp BP Pulse Ox 98.3 F 107 18 119/61 98 09/15/18 15:13 09/15/18 15:13 09/15/18 16:28 09/15/18 15:13 09/15/18 16:28 - HEENT Pupil (Motor): Pupils equal, EOMI Mallampati: II Teeth: Edentulous Oral Opening: Greater than 3 - STUDENT ASSISTANCE COUNSELOR LOC: Oriented STUDENT ASSISTANCE COUNSELOR Motor: Normal RUE, Normal LUE, Normal RLE, Normal LLE, Normal Face STUDENT ASSISTANCE COUNSELOR Sensory: Normal: RUE, LUE, RLE, LLE, Face - Cardiac Rhythm: Regular Murmur: None JVD: No Carotid Bruit: No - Pulmonary Breath Sounds: bilateral Clear Respiratory Effort: Symmetrical Anesthesia Assess/Plan ASA Score: 3 Level of consciousness: Cooperative Anesthetic Plan: General Autologous Blood: Yes Monitoring Plan: Standard Monitors Recovery Plan: PACU
[2018-09-16] MEDS: Piperacillin/Tazobactam 3.375 GM in 0.9 % Sodium Chloride Mini Bag 100 ML IVPB SCH ×3 (00:15→17:46)
[2018-09-16] MEDS: Ipratropium/Albuterol Neb 3 ML IH SCH ×6 (03:34→23:33)
[2018-09-16] MEDS: MethylPREDNISolone 40 MG/ML VIAL IVP SCH ×2 (05:37→17:42)
[2018-09-16] MEDS: Levothyroxine 25 MCG TABLET PO SCH (05:37)
[2018-09-16] MEDS: *HR* Heparin 5,000 UNIT/ML VIAL SQ SCH ×3 (05:37→20:46)
[2018-09-16 06:41] LABS: Hematocrit 35.4 % (37.5-50.1); Hemoglobin 11.3 g/dL (12.9-16.9); Immature Granulocytes % 0.8 % (0-4); Lymphocytes # 0.4 K/mcL (0.6-4.6); Lymphocytes % 3.1 %; Mean Corpuscular HGB Conc 31.9 g/dL (31.6-35.5); Mean Corpuscular Volume 84.7 fL (83.0-100.0); Mean Platelet Volume 9.5 fL (9.4-12.4); Monocytes # 0.8 K/mcL (0.0-1.3); Monocytes % 6.2 %; Neutrophils # 11.5 K/mcL (1.6-8.9); Platelet Count 208 K/mcL (140-400); Red Blood Count 4.18 M/mcL (4.19-5.50); Red Cell Distribution Width 14.2 % (11.5-14.5); Segmented Neutrophils % 89.9 %
[2018-09-16 06:59] LABS: BUN/Creatinine Ratio 39 (6-26); Blood Urea Nitrogen 22 mg/dL (8-23); Calcium 8.9 mg/dL (8.6-10.3); Carbon Dioxide 24 mEq/L (23-29); Chloride 109 mEq/L (98-107); Glucose 186 mg/dL (70-105); Magnesium 2.5 mg/dL (1.6-2.6); Osmolality,Calculated 302 (280-300); Potassium 3.4 mEq/L (3.5-5.1); Sodium 142 mEq/L (136-145); eGFR For Non-African Americans > 60 (> 60)
[2018-09-16] MEDS: Budesonide/Formoterol 160/4.5 1 PUFF INH IH SCH ×2 (08:23→20:03)
[2018-09-16] MEDS: Insulin LISPRO 300 UNITS/3 ML VIAL SQ SCH ×4 (08:29→20:46)
[2018-09-16] MEDS: (Roflumilast [Daliresp] 500 MCG) PO SCH (08:30)
[2018-09-16] MEDS: Aspirin Enteric Coated 81 MG Tablet PO SCH (08:30)
[2018-09-16] MEDS ORDERED: *HR* Midazolam HCl 2 MG/2 ML VIAL ONE (10:19)
[2018-09-16] MEDS ORDERED: *HR* FentaNYL (PF) 100 MCG/2 ML VIAL ONE (10:19)
[2018-09-16] MEDS ORDERED: *HR* Propofol 200 MG/20 ML VIAL IVP ONE (10:20)
[2018-09-16] MEDS ORDERED: Lidocaine -MPF 4% 5 ML AMPUL ONE (10:23)
[2018-09-16] MEDS ORDERED: Lidocaine -MPF 2% 2 ML VIAL ONE (10:25)
[2018-09-16] MEDS ORDERED: Ondansetron 4 MG/2 ML VIAL ONE (10:25)
--- NOTE | 2018-09-16 13:30 | Internal Med Progress Note ---
Hospitalist Progress Note - Encounter Date of Encounter: 09/16/18 Time of Encounter: 13:30 - Subjective Interval History: Mr. 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 Of note, patient was recently discharged from [facility] on IV Rocephin, Azithromycin, and prednisone taper on 08/02/18 due to Proteus mirabilis pneumonia and RSV infection. His CXR showed b/l lower lobe consolidations concerning for PNA. He was admitted in the hospital and placed him on chief nursing officer. His serial troponin came b ack as negative. He was started on broad spec abx Zosyn, Levaquin and Vanc x 1. He was also placed on high dose IV steroids. He just came back from bronchoscope. Pt stated he is feeling little better today. Still has cough with expectoration. Denied any CP. Still looks more weak and lethargic. - Exam Vitals: Temp Pulse Resp BP Pulse Ox 97.9 F 105 18 106/68 95 09/16/18 12:42 09/16/18 12:42 09/16/18 12:42 09/16/18 12:42 09/16/18 12:42 Exam: Gen: Alert, awake, Oriented to time,place and person Chest: Diminished breath sounds B/L, Moderate wheezing, No crackles, No rales, ronchi+ ( improved ) Heart: S1S2+ RRR No murmurs Abd: Soft, NT, BS +, No organomegaly Ext: No edema, pulses are palpable, No calf tenderness Neuro : Benign findings Skin: No rash. - Assessment and Plan (1) Sepsis Current Visit: No Status: Acute Assessment and Plan: He met sepsis criteria with elevated WBC, high procalcitonin, Tachycardia and source of inf as PNA blood cx no growth so far Sputum cx no growth low risk for MRSA.. d/c Vanc Cont empirical abx IV Zosyn and Levaquin (2) HCAP (healthcare-associated pneumonia) Current Visit: Yes Status: Acute Assessment and Plan: Recurrent Pneumonia CXR was concenring for b/l Lower lobe PNA mostly bacterial PNA his strep PNA and Legionella are negative sputum cx no growth Reviewed CT of Chest Slightly increased tree-in-bud opacities within the lower lobes, bilaterally with patchy consolidative opacities and areas of mucoid impaction suggestive of an acute infectious bronchiolitis Cont Chest percussion therapy Consulted Pulmonary who just did Bronchoscope today appreciate pulmonary recommendations cont Mucinex (3) Acute and chronic respiratory failure with hypoxia Current Visit: Yes Status: Acute Assessment and Plan: Due to Multi lobular PNA and COPD exacerbation currently on 3 lit O2 (4) Acute exacerbation of chronic obstructive airways disease Current Visit: Yes Status: Acute Assessment and Plan: Patient with multiple episodes of COPD exacerbations Continue empirical antibiotics Cont IV steroids Solumedrol 40mg BID for now Cont frequent bronchodilators (5) Type 2 diabetes mellitus Current Visit: No Status: Chronic Assessment and Plan: HGB a1c 8.2 on 07/30/18 Continue ADA diet BS are better now with medium ISS (6) Hypothyroid Current Visit: No Status: Chronic Assessment and Plan: Resumed home med.. (7) DVT prophylaxis Current Visit: Yes Status: Acute Assessment and Plan: Heparin subcutaneous TID (8) Generalized weakness Current Visit: Yes Status: Acute Assessment and Plan: Patient ambulates with a walker. Patient reports feeling weak for the past 2 days and fell at home while transferring from his recliner to his bed. PT/OT/SW consulted (9) Hyperlipidemia Current Visit: No Status: Chronic Assessment and Plan: Continue statin (10) Spinal stenosis Current Visit: No Status: Chronic Assessment and Plan: Patient reports chronic back pain with standing. Continue pain meds as needed. PT/OT consulted. 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 Outpatient management. (13) Bronchiectasis Current Visit: Yes Status: Acute (14) Sinus tachycardia Current Visit: Yes Status: Acute Assessment and Plan: He was on Atenolol at home switched to Po Metoprolol now HR well controlled now EKG was reviewed by Feeder Catcher upon admission - Time Spent with Patient Total time spent is greater than 50% in coordination of care (as documented) at patient's floor/unit and/or counseling patient: Internal Medicine: Result - Labs CBC & Chem 7: 09/16/18 04:57 09/16/18 04:57 Labs: Short CBC 09/16/18 Range/Units 04:57 WBC 12.8 H (4.3-11.1) K/mcL Hgb 11.3 L (12.9-16.9) g/dL Hct 35.4 L (37.5-50.1) % Plt Count 208 (140-400) K/mcL Neutrophils # 11.5 H (1.6-8.9) K/mcL BMP 09/16/18 04:57 Sodium 142 Potassium 3.4 L Chloride 109 H Carbon Dioxide 24 BUN 22 Creatinine 0.57 L Glucose 186 H Calcium 8.9 - ABG Interpretation ABG results: PT/INR, D-dimer PT 14.3 Seconds (9.4-12.1) H 09/14/18 10:36 - Impressions Impressions Chest CT 09/15/18 13:00 IMPRESSION: 1. No significant interval change of posttreatment changes within the right lung with associated volume loss. Soft tissue thickening in the right hilum is not significantly changed, however there is slightly improved narrowing of the right upper lobe bronchus. 2. Slightly increased tree-in-bud opacities within the lower lobes bilaterally with patchy consolidative opacities and areas of mucoid impaction suggestive of an acute infectious bronchiolitis. Aspiration can be a consideration. 3. Stable 1.2 x 0.9 cm right paraesophageal lymph node. No new findings of metastatic disease in the chest. 4. Heterogeneous appearance of thebones with areas of lucency likely reflecting areas of osteopenia. These findings are at least stable dating back to 04/16/2018. D/ / 09/15/2018 14:38:23 Trinidad Calhoun MD / [email or web address] Interpreting Provider: Trinidad Calhoun MD Consult Discharge Plan - Plan Referrals: Juanito Dsouza, [Primary Care Provider] - (1) Sepsis Qualifiers: Sepsis type: sepsis due to unspecified organism Qualified Code(s): A41.9 - Sepsis, unspecified organism (5) Type 2 diabetes mellitus Qualifiers: Diabetes mellitus intermodal dispatcher insulin use: without fdc use Diabetes mellitus complication status: without complication Qualified Code(s): E11.9 - Type 2 diabetes mellitus without complications (6) Hypothyroid Qualifiers: Hypothyroidism type: acquired Qualified Code(s): E03.9 - Hypothyroidism, unspecified (9) Hyperlipidemia Qualifiers: Hyperlipidemia type: unspecified Qualified Code(s): E78.5 - Hyperlipidemia, unspecified (10) Spinal stenosis Qualifiers: Spinal region: lumbar Neurogenic claudication status: unspecified Qualified Code(s): M48.061 - Spinal stenosis, lumbar region without neurogenic claudication (11) Diarrhea Qualifiers: Diarrhea type: unspecified type Qualified Code(s): R19.7 - Diarrhea, unspecified (13) Bronchiectasis Qualifiers: Bronchiectasis type: with acute exacerbation Qualified Code(s): J47.1 - Bronchiectasis with (acute) exacerbation
[2018-09-16] MEDS: Levofloxacin 750 MG/150 ML 750 MG/150 ML BAG IVPB SCH (14:03)
--- NOTE | 2018-09-16 15:04 | Pulmonology Progress Note ---
Date of Encounter: 09/16/18 Time of Encounter: 08:00 Assessment and Plan (1) Acute and chronic respiratory failure Current Visit: Yes Status: Acute Acute on chronic Hypoxic respiratory failure complicated by COPD and bronchiectasis exacerbation Qualifiers: Respiratory failure complication: hypoxia Qualified Code(s): J96.21 - Acute and chronic respiratory failure with hypoxia (2) COPD exacerbation Current Visit: No Status: Acute Continue scheduled bronchodilators and steroids. Patient will need prolonged steroid tapered because of the combined COPD and bronchiectasis exacerbation. To my assessment patient should be on chronically on steroid therapy until he sees sees us as an outpatient pulmonology. (3) Bronchiectasis Current Visit: Yes Status: Acute We will do a bronchoscopy with BAL patient has Proteus pneumonia in the past and new with the broad-spectrum antibiotics and steroids Qualifiers: Bronchiectasis type: with acute exacerbation Qualified Code(s): J47.1 - Bronchiectasis with (acute) exacerbation (4) Non-small cell cancer of right lung Current Visit: Yes Status: Resolved Patient imaging with slight progressive non-small cell cancer of the right lung Subjective Principal diagnosis: Exacerbation of bronchiectasis Interval history: Patient is presently with COPD exacerbation exacerbation of bronchiectasis. Patient denies any acute events overnight patient denies any chest pain chest tightness denies any palpitations syncope denies cough not much sputum production. Objective PUL Vital signs: Last Vital Signs Temp 97.9 F 09/16/18 12:42 Pulse 105 09/16/18 12:42 Resp 18 09/16/18 12:42 BP 106/68 09/16/18 12:42 Pulse Ox 95 09/16/18 12:42 General appearance: no acute distress ENT: oropharynx moist Auscultation: bilateral: rales Cardiovascular: regular rate and rhythm Gastrointestinal: normoactive bowel sounds Extremities: no cyanosis, no edema normal mental status, non-focal exam Results - Laboratory Findings CBC and BMP: 09/16/18 04:57 09/16/18 04:57 PT/INR, D-dimer PT 14.3 Seconds (9.4-12.1) H 09/14/18 10:36 Abnormal lab findings: Abnormal lab results WBC 12.8 K/mcL (4.3-11.1) H 09/16/18 04:57 RBC 4.18 M/mcL (4.19-5.50) L 09/16/18 04:57 Hgb 11.3 g/dL (12.9-16.9) L 09/16/18 04:57 Hct 35.4 % (37.5-50.1) L 09/16/18 04:57 MCH 27.0 pg (28.0-33.3) L 09/16/18 04:57 MCHC 31.4 g/dL (31.6-35.5) L 09/14/18 10:36 MPV 9.3 fL (9.4-12.4) L 09/15/18 02:03 11.5 K/mcL (1.6-8.9) H 09/16/18 04:57 0.4 K/mcL (0.6-4.6) L 09/16/18 04:57 PT 14.3 Seconds (9.4-12.1) H 09/14/18 10:36 Potassium 3.4 mEq/L (3.5-5.1) L 09/16/18 04:57 Chloride 109 mEq/L (98-107) H 09/16/18 04:57 Carbon Dioxide 17 mEq/L (23-29) L 09/15/18 02:03 0.57 mg/dL (0.70-1.30) L 09/16/18 04:57 39 (6-26) H 09/16/18 04:57 Glucose 186 mg/dL (70-105) H 09/16/18 04:57 POC Glucose 282 mg/dL (70-99) H 09/15/18 19:55 302 (280-300) H 09/16/18 04:57 4.45 ng/mL (0.00-0.15) H 09/14/18 10:36 TSH 0.269 mcIU/mL (0.340-5.600) L 09/14/18 10:36 - Microbiology Findings Microbiology Findings: Microbiology, Last 48 Hours 09/14/18 21:40 Sputum Culture - Final Sputum 09/14/18 12:30 Legionella Antigen - Final Urine,[place] Streptococcus pneumoniae Antigen (M - Final 09/14/18 10:33 Blood Culture - Preliminary Peripheral Venipuncture Culture is incubating and being continuously monitored for growth. Final report to follow. 09/14/18 10:30 Blood Culture - Preliminary Peripheral Venipuncture Culture is incubating and being continuously m onitored for growth. Final report to follow. - Clinical Findings Intake & Output: Intake & Output 09/15/18 09/16/18 09/16/18 23:59 07:59 15:59 Intake Total 340 / 1420 Output Total 400 / 1100 600 / 600 Balance -60 / 320 -600 / -600 Weight 87.2 kg Consult Discharge Plan - Plan Referrals: Juanito Dsouza DO [Primary Care Provider] -
[2018-09-16 15:12] LABS: Appearance of Body Fluid Hazy (Clear); Volume of Body Fluid 26 mL
[2018-09-16 15:16] LABS: Appearance of Body Fluid Slightly Hazy (Clear); Volume of Body Fluid 15 mL
[2018-09-16] MEDS: Ringers Solution, Lactated 1,000 ML IVC SCH (17:38)
[2018-09-17] MEDS: Piperacillin/Tazobactam 3.375 GM in 0.9 % Sodium Chloride Mini Bag 100 ML IVPB SCH ×3 (00:04→15:02)
[2018-09-17] MEDS: Ipratropium/Albuterol Neb 3 ML IH SCH ×6 (03:46→23:39)
[2018-09-17] MEDS: Ringers Solution, Lactated 1,000 ML IVC SCH (05:36)
[2018-09-17] MEDS: Levothyroxine 25 MCG TABLET PO SCH (05:51)
[2018-09-17] MEDS: *HR* Heparin 5,000 UNIT/ML VIAL SQ SCH ×3 (05:51→20:28)
[2018-09-17] MEDS: MethylPREDNISolone 40 MG/ML VIAL IVP SCH ×2 (05:52→17:22)
[2018-09-17 06:21] LABS: Hematocrit 35.6 % (37.5-50.1); Hemoglobin 11.2 g/dL (12.9-16.9); Immature Granulocytes % 0.7 % (0-4); Lymphocytes # 0.4 K/mcL (0.6-4.6); Lymphocytes % 5.4 %; Mean Corpuscular HGB Conc 31.5 g/dL (31.6-35.5); Mean Corpuscular Hemoglobin 26.8 pg (28.0-33.3); Mean Corpuscular Volume 85.2 fL (83.0-100.0); Mean Platelet Volume 9.5 fL (9.4-12.4); Monocytes # 0.5 K/mcL (0.0-1.3); Monocytes % 6.1 %; Platelet Count 180 K/mcL (140-400); Red Blood Count 4.18 M/mcL (4.19-5.50); Red Cell Distribution Width 14.1 % (11.5-14.5); Segmented Neutrophils % 87.8 %
[2018-09-17 06:44] LABS: BUN/Creatinine Ratio 32 (6-26); Blood Urea Nitrogen 19 mg/dL (8-23); Calcium 8.9 mg/dL (8.6-10.3); Carbon Dioxide 27 mEq/L (23-29); Chloride 106 mEq/L (98-107); Glucose 208 mg/dL (70-105); Magnesium 2.3 mg/dL (1.6-2.6); Osmolality,Calculated 302 (280-300); Potassium 3.8 mEq/L (3.5-5.1); Sodium 142 mEq/L (136-145); eGFR For Non-African Americans > 60 (> 60)
[2018-09-17] MEDS: Budesonide/Formoterol 160/4.5 1 PUFF INH IH SCH ×2 (07:51→20:12)
[2018-09-17] MEDS: Insulin LISPRO 300 UNITS/3 ML VIAL SQ SCH ×4 (08:27→20:28)
[2018-09-17] MEDS: Levofloxacin 750 MG/150 ML 750 MG/150 ML BAG IVPB SCH (08:28)
[2018-09-17] MEDS: Aspirin Enteric Coated 81 MG Tablet PO SCH (08:28)
[2018-09-17] MEDS: (Roflumilast [Daliresp] 500 MCG) PO SCH (08:29)
[2018-09-17] MEDS: Acetaminophen 325 MG TABLET PO PRN ×2 (09:40→21:19)
--- NOTE | 2018-09-17 10:58 | Internal Med Progress Note ---
Hospitalist Progress Note - Encounter Date of Encounter: 09/17/18 Time of Encounter: 09:00 - Subjective Interval History: Mr. 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 Of note, patient was recently discharged from [facility] on IV Rocephin, Azithromycin, and prednisone taper on 08/02/18 due to Proteus mirabilis pneumonia and RSV infection. His CXR showed b/l lower lobe consolidations concerning for PNA. He was admitted in the hospital and placed him on child monitor. His serial troponin came b ack as negative. He was started on broad spec abx Zosyn, Levaquin and Vanc x 1. He was also placed on high dose IV steroids. He did have bronchoscope on 09/16/18 for pulmonary toileting / wash out. Pt stated he is feeling much better today. Still has cough with expectoration. Denied any CP. he is more alert, awake and O x 3 today. He remained afebrile - Exam Vitals: Temp Pulse Resp BP Pulse Ox 97.9 F 88 16 120/69 95 09/17/18 06:46 09/17/18 06:46 09/17/18 06:46 09/17/18 06:46 09/17/18 06:46 Exam: Gen: Alert, awake, Oriented to time,place and person Chest: Diminished breath sounds B/L, Moderate wheezing, No crackles, No rales, no ronchi ( improved ) Heart: S1S2+ RRR No murmurs Abd: Soft, NT, BS +, No organomegaly Ext: No edema, pulses are palpable, No calf tenderness Neuro : Benign findings Skin: No rash. - Assessment and Plan (1) Sepsis Current Visit: No Status: Acute Assessment and Plan: He met sepsis criteria with elevated WBC, high procalcitonin, Tachycardia and source of inf as PNA blood cx no growth so far Sputum cx no growth low risk for MRSA.. d/c Vanc Cont empirical abx IV Zosyn and Levaquin (2) HCAP (healthcare-associated pneumonia) Current Visit: Yes Status: Acute Assessment and Plan: Recurrent Pneumonia CXR was concenring for b/l Lower lobe PNA mostly bacterial PNA his strep PNA and Legionella are negative sputum cx no growth Reviewed CT of Chest Slightly increased tree-in-bud opacities within the lower lobes, bilaterally with patchy consolidative opacities and areas of mucoid impaction suggestive of an acute infectious bronchiolitis Cont Chest percussion therapy Consulted Pulmonary who did Bronchoscope on 09/16/18 will f/u on BAL cx appreciate pulmonary recommendations cont Mucinex (3) Bronchiectasis Current Visit: Yes Status: Acute Assessment and Plan: Start tapering down steroids .. changed to PO Prednisone 40mg pO Dialy Due to his worsening bronchiectasis he does need jail steroid therapy and slow tapering only so cut down 10mg ever week and finally continue at 10mg PO daily until he follows with Pulm as an out pt (4) Acute and chronic respiratory failure with hypoxia Current Visit: Yes Status: Acute Assessment and Plan: Due to Multi lobular PNA and COPD exacerbation currently on 2.5 lit O2 (5) Acute exacerbation of chronic obstructive airways disease Current Visit: Yes Status: Acute Assessment and Plan: Patient with multiple episodes of COPD exacerbations Continue empirical antibiotics Start tapering down steroids .. changed to PO Prednisone 40mg pO Dialy Due to his worsening bronchiectasis he does need rodent exterminator steroid therapy and slow tapering only so cut down 10mg ever week and finally continue at 10mg PO daily until he follows with Pulm as an out pt Cont frequent bronchodilators (6) Type 2 diabetes mellitus Current Visit: No Status: Chronic Assessment and Plan: HGB a1c 8.2 on 07/30/18 Continue ADA diet BS are better now with medium ISS (7) Hypothyroid Current Visit: No Status: Chronic Assessment and Plan: Resumed home med.. (8) DVT prophylaxis Current Visit: Yes Status: Acute Assessment and Plan: Heparin subcutaneous TID (9) Generalized weakness Current Visit: Yes Status: Acute Assessment and Plan: Patient ambulates with a walker. Patient reports feeling weak for the past 2 days and fell at home while transferring from his recliner to his bed. PT/OT/SW consulted (10) Hyperlipidemia Current Visit: No Status: Chronic Assessment and Plan: Continue statin (11) Spinal stenosis Current Visit: No Status: Chronic Assessment and Plan: Patient reports chronic back pain with standing. Continue pain meds as needed. PT/OT consulted. 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 Outpatient management. (14) Sinus tachycardia Current Visit: Yes Status: Acute Assessment and Plan: He was on Atenolol at home switched to Po Metoprolol now HR well controlled now EKG was reviewed by Social Research Assistant upon admission - Time Spent with Patient Total time spent is greater than 50% in coordination of care (as documented) at patient's floor/unit and/or counseling patient: Internal Medicine: Result - Labs CBC & Chem 7: 09/17/18 05:35 09/17/18 05:35 Labs: Short CBC 09/17/18 Range/Units 05:35 WBC 8.0 (4.3-11.1) K/mcL Hgb 11.2 L (12.9-16.9) g/dL Hct 35.6 L (37.5-50.1) % Plt Count 180 (140-400) K/mcL Neutrophils # 7.0 (1.6-8.9) K/mcL BMP 09/17/18 05:35 Sodium 142 Potassium 3.8 Chloride 106 Carbon Dioxide 27 BUN 19 Creatinine 0.60 L Glucose 208 H Calcium 8.9 - ABG Interpretation ABG results: PT/INR, D-dimer PT 14.3 Seconds (9.4-12.1) H 09/14/18 10:36 - Impressions Impressions Chest CT 09/15/18 13:00 IMPRESSION: 1. No significant interval change of posttreatment changes within the right lung with associated volume loss. Soft tissue thickening in the right hilum is not significantly changed, however there is slightly improved narrowing of the right upper lobe bronchus. 2. Slightly increased tree-in-bud opacities within the lower lobes bilaterally with patchy consolidative opacities and areas of mucoid impaction suggestive of an acute infectious bronchiolitis. Aspiration can be a consideration. 3. Stable 1.2 x 0.9 cm right paraesophageal lymph node. No new findings of metastatic disease in the chest. 4. Heterogeneous appearance of thebones with areas of lucency likely reflecting areas of osteopenia. These findings are at least stable dating back to 04/16/2018. D/ / 09/15/2018 14:38:23 Trinidad Calhoun MD / [email or web address] Interpreting Provider: Trinidad Calhoun MD Consult Discharge Plan - Plan Referrals: Juanito Dsouza DO [Primary Care Provider] - (1) Sepsis Qualifiers: Sepsis type: sepsis due to unspecified organism Qualified Code(s): A41.9 - Sepsis, unspecified organism (3) Bronchiectasis Qualifiers: Bronchiectasis type: with acute exacerbation Qualified Code(s): J47.1 - Bronchiectasis with (acute) exacerbation (6) Type 2 diabetes mellitus Qualifiers: Diabetes mellitus jail insulin use: without jail use Diabetes mellitus complication status: without complication Qualified Code(s): E11.9 - Type 2 diabetes mellitus without complications (7) Hypothyroid Qualifiers: Hypothyroidism type: acquired Qualified Code(s): E03.9 - Hypothyroidism, unspecified (10) Hyperlipidemia Qualifiers: Hyperlipidemia type: unspecified Qualified Code(s): E78.5 - Hyperlipidemia, unspecified (11) Spinal stenosis Qualifiers: Spinal region: lumbar Neurogenic claudication status: unspecified Qualified Code(s): M48.061 - Spinal stenosis, lumbar region without neurogenic claudication (12) Diarrhea Qualifiers: Diarrhea type: unspecified type Qualified Code(s): R19.7 - Diarrhea, unspecified
[2018-09-17] MEDS: *HR* HYDROcodone/Acet 5/325 mg TABLET PO PRN (20:29)
[2018-09-17] MEDS ORDERED: *HR* Metoprolol 5 MG/5 ML VIAL IVP ONE (23:00)
[2018-09-17] MEDS ORDERED: 0.9 % Sodium Chloride 500 ML IVC ONE (23:02)
[2018-09-17] MEDS ORDERED: 0.9 % Sodium Chloride 1,000 ML IVC SCH (23:15)
[2018-09-18] MEDS: Dorzolamide/Timolol 1 DROP LEFT EYE SCH ×2 (00:02→08:59)
[2018-09-18] MEDS: Piperacillin/Tazobactam 3.375 GM in 0.9 % Sodium Chloride Mini Bag 100 ML IVPB SCH ×3 (00:02→18:59)
[2018-09-18] MEDS ORDERED: 0.9 % Sodium Chloride 1,000 ML IVC ONE ×2 (00:23→09:00)
[2018-09-18] MEDS ORDERED: *HR* Metoprolol 5 MG/5 ML VIAL IVP ONE (00:28)
[2018-09-18] MEDS: Ipratropium/Albuterol Neb 3 ML IH SCH ×6 (04:14→23:09)
--- NOTE | 2018-09-18 04:18 | Event Note ---
Date of Encounter: 09/18/18 Time of Encounter: 04:11 Patient became acutely tachycardic overnight to 170s. EKG appeared to showed atrial fibrillation. Patient was not symptomatic, no chest pain, SOB, palpitations. He reports his heart races sometimes, but he denies a history of atrial fibrillation. He takes a daily aspirin but denies ever being on anti- coagulation in the past. I gave a total of 10 mg IV metoprolol and 1500 ml normal saline. Heart rate is now hovering 100-118. He still appears to be in atrial fibrillation on repeat EKG. Last blood pressure was systolic of 96 around 4 AM. I held off on giving anymore rate control therapy due to his hypotension. I put him on maintenance fluids of 75 ml initially, but increased him to 100 ml/hr. I discontinued subQ heparin and started him on weight based lovenox injections.
[2018-09-18] MEDS: *HR* Enoxaparin 100 MG/ML SYRINGE SQ SCH ×2 (05:05→19:24)
[2018-09-18] MEDS: *HR* HYDROcodone/Acet 5/325 mg TABLET PO PRN ×2 (05:05→12:05)
[2018-09-18] MEDS: Levothyroxine 25 MCG TABLET PO SCH (06:49)
[2018-09-18] MEDS: MethylPREDNISolone 40 MG/ML VIAL IVP SCH ×2 (06:50→18:59)
[2018-09-18] MEDS: Insulin LISPRO 300 UNITS/3 ML VIAL SQ SCH ×4 (07:47→22:18)
[2018-09-18] MEDS: Budesonide/Formoterol 160/4.5 1 PUFF INH IH SCH ×2 (07:54→20:12)
[2018-09-18] MEDS: (Roflumilast [Daliresp] 500 MCG) PO SCH (07:55)
[2018-09-18] MEDS: Aspirin Enteric Coated 81 MG Tablet PO SCH (07:59)
[2018-09-18] MEDS: Levofloxacin 750 MG/150 ML 750 MG/150 ML BAG IVPB SCH (08:00)
[2018-09-18] MEDS ORDERED: 0.9 % Sodium Chloride 500 ML IVC ONE (08:40)
[2018-09-18 09:05] LABS: BUN/Creatinine Ratio 35 (6-26); Blood Urea Nitrogen 18 mg/dL (8-23); Calcium 8.5 mg/dL (8.6-10.3); Carbon Dioxide 25 mEq/L (23-29); Chloride 108 mEq/L (98-107); Glucose 218 mg/dL (70-105); Magnesium 2.1 mg/dL (1.6-2.6); Osmolality,Calculated 293 (280-300); Potassium 4.3 mEq/L (3.5-5.1); Sodium 137 mEq/L (136-145); eGFR For Non-African Americans > 60 (> 60)
[2018-09-18 09:06] LABS: Basophils % 0.3 %; Hematocrit 36.8 % (37.5-50.1); Hemoglobin 11.5 g/dL (12.9-16.9); Lymphocytes # 0.7 K/mcL (0.6-4.6); Lymphocytes % 9.2 %; Mean Corpuscular HGB Conc 31.3 g/dL (31.6-35.5); Mean Corpuscular Hemoglobin 26.7 pg (28.0-33.3); Mean Corpuscular Volume 85.6 fL (83.0-100.0); Mean Platelet Volume 9.6 fL (9.4-12.4); Monocytes # 0.3 K/mcL (0.0-1.3); Monocytes % 4.5 %; Neutrophils # 6.2 K/mcL (1.6-8.9); Platelet Count 177 K/mcL (140-400); Red Cell Distribution Width 13.9 % (11.5-14.5)
--- NOTE | 2018-09-18 09:13 | Internal Med Progress Note ---
Hospitalist Progress Note - Encounter Date of Encounter: 09/18/18 Time of Encounter: 09:03 - Subjective Interval History: Was seen and examined at bedside and per nursing staff the patient has low blood pressure appears to be in A. fib RVR. EKG obtained which does show A. fib RVR rate about 118. Overnight patient did have episode A. fib RVR with heart rate 170s he was given metoprolol 5 mg 2 it did bring his weight down to upper 1 teens. Now it appears to be ranging from 118 to 130. Systolic blood pressure is low 90-100 We will give IV fluid bolus 1 L 0.9 now and initiate on Cardizem drip at 5 mg and hour. I did speak with cardiology who will see patient up on consult and agrees with plan.. Stat chest x-ray and labs were ordered. Patient denies any chest pain does not appear to be in any risk for distress at this time, however he has coarse rhonchi scattered throughout lung moat Patient will be transferred to [facility] for closer monitoring. - Exam Vitals: Temp Pulse Resp BP Pulse Ox 98.2 F 109 14 103/70 99 09/18/18 06:46 09/18/18 06:46 09/18/18 08:04 09/18/18 06:46 09/18/18 08:04 Exam: Gen: Alert, awake, Oriented to time,place and person Chest: Diminished breath sounds B/L, Moderate wheezing, coarse rhonchi scattered throughout Heart: S1S2+ RRR No murmurs Abd: Soft, NT, BS +, No organomegaly Ext: No edema, pulses are palpable, No calf tenderness Neuro : Benign findings Skin: No rash. - Assessment and Plan (1) Type 2 diabetes mellitus Current Visit: No Status: Chronic Assessment and Plan: HGB a1c 8.2 on 07/30/18 Continue ADA diet BS are better now with medium ISS continue medium scale (2) Hypothyroid Current Visit: No Status: Chronic Assessment and Plan: Resumed home med.. (3) Acute exacerbation of chronic obstructive airways disease Current Visit: Yes Status: Acute Assessment and Plan: Patient with multiple episodes of COPD exacerbations Continue empirical antibiotics Start tapering down steroids .. changed to PO Prednisone 40mg pO Dialy Due to his worsening bronchiectasis he does need intermodal customer service steroid therapy and slow tapering only so cut down 10mg ever week and finally continue at 10mg PO daily until he follows with Pulm as an out pt Cont frequent bronchodilators (4) Acute and chronic respiratory failure with hypoxia Current Visit: Yes Status: Acute Assessment and Plan: Due to Multi lobular PNA and COPD exacerbation currently on 2.5 lit O2-sats stable at this time (5) HCAP (healthcare-associated pneumonia) Current Visit: Yes Status: Acute Assessment and Plan: Recurrent Pneumonia CXR was concenring for b/l Lower lobe PNA mostly bacterial PNA his strep PNA and Legionella are negative sputum cx no growth Reviewed CT of Chest Slightly increased tree-in-bud opacities within the lower lobes, bilaterally with patchy consolidative opacities and areas of mucoid impaction suggestive of an acute infectious bronchiolitis Cont Chest percussion therapy Consulted Pulmonary who did Bronchoscope on 09/16/18 will f/u on BAL cx appreciate pulmonary recommendations cont Mucinex This a.m. patient does have coarse rhonchi weak cough with difficulty clear secretions. Will obtain a chest x-ray (6) DVT prophylaxis Current Visit: Yes Status: Acute Assessment and Plan: Heparin subcutaneous TID (7) Generalized weakness Current Visit: Yes Status: Acute Assessment and Plan: Patient ambulates with a walker. Patient reports feeling weak for the past 2 days and fell at home while transferring from his recliner to his bed. PT/OT/SW consulted (8) Sepsis Current Visit: No Status: Acute Assessment and Plan: He met sepsis criteria with elevated WBC, high procalcitonin, Tachycardia and source of inf as PNA blood cx no growth so far Sputum cx no growth low risk for MRSA.. d/c Vanc Cont empirical abx IV Zosyn and Levaquin (9) Hyperlipidemia Current Visit: No Status: Chronic Assessment and Plan: Continue statin (10) Spinal stenosis Current Visit: No Status: Chronic Assessment and Plan: Patient reports chronic back pain with standing. Continue pain meds as needed. PT/OT consulted. (11) Diarrhea Current Visit: Yes Status: Acute Assessment and Plan: resolved No more diarrhea since admission (12) Large cell carcinoma of right lung Current Visit: No Status: Chronic Assessment and Plan: History of large cell carcinoma of the right lung status post r adiation/chemotherapy in 2008. Outpatient management. (13) Sinus tachycardia Current Visit: Yes Status: Acute Assessment and Plan: He was on Atenolol at home switched to Po Metoprolol now He appears to be in A. fib RVR today see below (14) Bronchiectasis Current Visit: Yes Status: Acute Assessment and Plan: Start tapering down steroids .. changed to PO Prednisone 40mg pO Dialy Due to his worsening bronchiectasis he does need assisted steroid therapy and slow tapering only so cut down 10mg ever week and finally continue at 10mg PO daily until he follows with Pulm as an out pt (15) New onset a-fib Current Visit: Yes Status: Acute Assessment and Plan: Patient had episode of A. fib RVR overnight appears heart rate up to 170 questionable SVT. He was given metoprolol 5 mg IV 2 overnight with rate coming down to 1 teens This morning he is hypertensive with systolic 90-100 rate 118 to 130 appears to be A. fib. Patient denies any history of A. fib Patient was given fluid bolus Will initiate on Cardizem drip Placed on Lovenox 1 mg/kg twice a day Consult cardiology Cardiac echo completed 09/15/2018 Impressions: LVEF 60%. Mild left ventricular diastolic dysfunction. Definity echo contrast was used. Normal right ventricular structure and function. No significant valvular dysfunction. Unable to estimate RVSP due to suboptimal TR signal. - Time Spent with Patient Total time spent is greater than 50% in coordination of care (as documented) at patient's floor/unit and/or counseling patient: Internal Medicine: Result - Labs CBC & Chem 7: 09/18/18 08:36 09/18/18 08:36 - ABG Interpretation ABG results: PT/INR, D-dimer PT 14.3 Seconds (9.4-12.1) H 09/14/18 10:36 Consult Discharge Plan - Plan Referrals: Juanito Dsouza, DO [Primary Care Provider] - (1) Type 2 diabetes mellitus Qualifiers: Diabetes mellitus intermodal customer service insulin use: without assisted use Diabetes mellitus complication status: without complication Qualified Code(s): E11.9 - Type 2 diabetes mellitus without complications (2) Hypothyroid Qualifiers: Hypothyroidism type: acquired Qualified Code(s): E03.9 - Hypothyroidism, unspecified (8) Sepsis Qualifiers: Sepsis type: sepsis due to unspecified organism Qualified Code(s): A41.9 - Sepsis, unspecified organism (9) Hyperlipidemia Qualifiers: Hyperlipidemia type: unspecified Qualified Code(s): E78.5 - Hyperlipidemia, unspecified (10) Spinal stenosis Qualifiers: Spinal region: lumbar Neurogenic claudication status: unspecified Qualified Code(s): M48.061 - Spinal stenosis, lumbar region without neurogenic claudication (11) Diarrhea Qualifiers: Diarrhea type: unspecified type Qualified Code(s): R19.7 - Diarrhea, unspecified (14) Bronchiectasis Qualifiers: Bronchiectasis type: with acute exacerbation Qualified Code(s): J47.1 - Bronchiectasis with (acute) exacerbation
--- NOTE | 2018-09-18 13:50 | Electrocardiograph Report ---
[place] [id number] Test Date: 2018-09-18 Pat Name: Lisandro Loco Department: 113 Room: 2NE19 Gender: M Balance Staff Inspector: : 1955 Requested By: Toño Cook Order Number: [id number] Reading MD: Andrew Brown Measurements Intervals [place] Rate: 112 P: [place]: 0 QRS: 30 QRSD: 88 T: 42 QT: 343 QTc: 409 Interpretive Statements Atrial fibrillation with rapid ventricular response ABNORMAL RHYTHM ECG Electronically Signed On 09-18-2018 13:49:04 EDT by Anderw Brown
--- NOTE | 2018-09-18 13:54 | Electrocardiograph Report ---
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
--- NOTE | 2018-09-18 15:02 | Cardiology Consult Note ---
Date of Encounter: 09/18/18 Time of Encounter: 15:00 Assessment and Plan (1) Acute and chronic respiratory failure Current Visit: Yes Status: Acute Per Cardiology: Pulm following: "Hx of acute on chronic respiratory failure complicated by COPD and bronchiectasis exacerbation. On bronchodilators and steroids. Patient with Proteus mirabilis pneumonia in the past". Qualifiers: Respiratory failure complication: hypoxia Qualified Code(s): J96.21 - Acute and chronic respiratory failure with hypoxia (2) Non-small cell cancer of right lung Current Visit: Yes Status: Chronic Per Cardiology: Per Pulm: "Supported by radiation followed by oncology". (3) New onset a-fib Current Visit: Yes Status: Acute Per Cardiology: Apparent new onset A. fib in setting of acute on chronic respiratory failure and on small cell lung cancer. Currently A. fib in the 100s on Cardizem drip at 7.5 mg per hour. We will initiate Cardizem 30 mg by mouth every 6 hours and attempt to wean Cardizem drip to off. Echo showed preserved EF. Troponins negative 4. Regarding long-term AC, at least [id number] = 1 (DM2). Will need to adequately assess if appropriate with multiple co-morbids, fall hx, etc. On asa currently. Discussion w patient/family: The assessment and plan as outlined above was discussed with the patient and/or family members who expressed understanding and agreement. All questions were answered. Thank you for involving us in the care of your patient. Please call with any questions. History of Present Illness Consult date: 09/18/18 Consult reason: afib Chief complaint: Headache History of present illness: Previous medical records reviewed: "Mr. 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 Of note, patient was recently discharged from [facility] on IV Rocephin, Azithromycin, and prednisone taper on 08/02/18 due to MRDO Proteus mirabilis pneumonia and RSV infection. Patient lives at home with his sister and ambulates with a walker. Patient is a very poor historian, slow to respond to questions, and has difficulty recalling the current month of the year". Cardiology C/S for afib. Patient seen with no family at bedside. Currently he is alert and oriented 3. He denies any palpitations, dizziness. Reports midsternal chest pain with coughing. Otherwise, denies any chest pain. Reports shortness of breath has improved somewhat during hospital stay. Reports he falls at home occasionally, unknown frequency. Denies any history of bleeding or blood loss. He denies any known history of atrial fibrillation or history of CVA. Patient denies any significant symptoms during the night where he is found to be A. fib with RVR. Past Med Surg Social Fam HX - Past Medical History Attestation: Yes The following information was validated with the patient. Source: patient Medical history: cancer, COPD, diabetes, GERD, hyperlipidemia, thyroid disease Additional medical history: Lung CA Psychiatric history: anxiety - Past Surgical History Surgical History: cataract, orthopedic, other, other Additional surgical history: Pericardial window, left supraclavicular lymph node biopsy, carpal tunnel release - Social History Smoking Status: Former smoker Smokeless Tobacco Status: Yes Alcohol use: none Drug use: none - Family History Mother Age at : 86 Hx Family Medical Disorders: Yes (Alzheimers) Father Living Status: Age at : 85 Hx Family Cardiac Disorders: Yes (DE, CHF) Hx Family Respiratory Disorders: Yes (Black lung) Sister Living Status: Hx Family Cancer: Yes (Lymph node cancer) Hx Family GI Disorders: Yes Medications and Allergies Gabapentin [Neurontin] 600 mg PO QAM 11/05/17 [History] SitaGLIPtin [Januvia] 100 mg PO QAM 11/05/17 [History] Albuterol Neb [Proventil Neb] 2.5 mg IH TID 05/25/18 [History] Aspirin [Lo-Dose Aspirin EC] 81 mg PO DAILY 05/25/18 [History] Dorzolamide/Timolol/Pf [Dorzolamide-Timolol 2%-0.5%] 1 drop LEFT EYE BID 05/25/18 [History] Glimepiride [Amaryl] 8 mg PO QAM 05/25/18 [History] Metformin HCl [Glucophage Xr] 1,000 mg PO QAM 05/25/18 [History] Albuterol Sulfate [Proair Hfa] 2 puff IH Q4H PRN 07/01/18 [History] Budesonide/Formoterol 160/4.5 [Symbicort 160/4.5] 2 puff IH BID 07/01/18 [History] Levothyroxine [Synthroid] 112 mcg PO QAM 07/01/18 [History] Empagliflozin [Jardiance] 25 mg PO QAM 07/31/18 [History] Atenolol [Tenormin] 25 mg PO QAM 09/14/18 [History] Brimonidine Tartrate 1 drop BOTH EYES BID 09/14/18 [History] HYDROcodone/Acet 5/325 mg [Olney 5-325 mg] 1 tab PO DAILY PRN 09/14/18 [History] Roflumilast [Daliresp] 500 mcg PO QAM 09/14/18 [History] Allergy/AdvReac Type Severity Reaction Status Date / Time No Known Allergies Allergy Verified 09/14/18 14:57 All Systems Review: The remainder of the systems were reviewed and are negative - Cardiovascular Cardiovascular: as per HPI, chest pain at rest, dyspnea at rest, dyspnea on exertion - Respiratory Respiratory: cough, dyspnea Physical Examination Vital Signs, Last 4 Hours Temp Pulse Resp BP Pulse Ox 09/18/18 12:05 97.6 F 121 16 101/74 98 General: Conversant, No Apparent Distress HEENT: Atraumatic, Normocephaly, Mucus Membranes Moist Neck: No JVD, Normal carotid pulses Cardiac: No Murmur, Other (Irregularly irregular) Lungs: Other (Scattered rhonchi throughout, mild conversational dyspnea noted) Neuro: Alert and responsive, No focal deficits noted Abdomen: Soft, Non-Tender Skin: No rashes noted on visualized skin Musculoskeletal: No Chest Wall Tenderness Extremities: No Clubbing, No Cyanosis, Normal Pulses, Other (+1 pitting bilateral LE edema) Results 09/18/18 08:36 09/18/18 08:36 Lab Results Laboratory Tests 09/14/18 09/14/18 09/14/18 10:36 10:36 10:36 Hgb Hct INR 1.3 Creatinine Est GFR (Non-Af Amer) Magnesium Troponin I < 0.03 TSH 0.269 L 09/14/18 09/14/18 09/18/18 16:12 22:10 08:36 Hgb 11.5 L Hct 36.8 L INR Creatinine Est GFR (Non-Af Amer) Magnesium Troponin I < 0.03 < 0.03 TSH 09/18/18 08:36 Hgb Hct INR Creatinine 0.51 L Est GFR (Non-Af Amer) > 60 Magnesium 2.1 Troponin I TSH ITS Impressions Echocardiogram 09/14/18 09:53 Impressions: LVEF 60%. Mild left ventricular diastolic dysfunction. Definity echo contrast was used. Normal right ventricular structure and function. No significant valvular dysfunction. Unable to estimate RVSP due to suboptimal TR signal. Left Ventricular Wall Motion: Rest Echo Findings The apex, apical inferior, mid inferior, basal inferior, apical anterior, mid anterior and basal anterior majano were not visualized. All other wall segments showed normal motion. Findings: Study Quality * Technically adequate exam. ECG Findings * Normal sinus rhythm. Left Ventricle * LVEF 60%. * Normal LV chamber size, wall thickness and function. * Mild left ventricular diastolic dysfunction. * Definity echo contrast was used. Right Ventricle * Normal right ventricular structure and function. Left Atrium * Not well visualized. Right Atrium * Not well visualized. Aortic Valve * No aortic regurgitation. * Aortic valve not well visualized. * No aortic stenosis. Mitral Valve * No mitral regurgitation. * Normal mitral valve structure. * No mitral stenosis. Tricuspid Valve * Tricuspid valve not well visualized. * No tricuspid regurgitation. Pulmonic Valve * Pulmonic valve is not well visualized. * Doppler interrogation not well obtained. Pulmonary Artery * Pulmonary artery not well visualized. Aorta * Normally sized aortic root. Pericardium * There is no pericardial effusion present. Interatrial Septum * Interatrial septum not well evaluated. IVC * The IVC is not well evaluated. Chest X-Ray 09/14/18 10:39 IMPRESSION: No interval change in left basilar and right perihilar airspace opacities. D/ / Trinidad Calhoun MD / Trinidad Calhoun MD Interpreting Provider: Trinidad Calhoun MD Chest CT 09/15/18 13:00 IMPRESSION: 1. No significant interval change of posttreatment changes within the right lung with associated volume loss. Soft tissue thickening in the right hilum is not significantly changed, however there is slightly improved narrowing of the right upper lobe bronchus. 2. Slightly increased tree-in-bud opacities within the lower lobes bilaterally with patchy consolidative opacities and areas of mucoid impaction suggestive of an acute infectious bronchiolitis. Aspiration can be a consideration. 3. Stable 1.2 x 0.9 cm right paraesophageal lymph node. No new findings of metastatic disease in the chest. 4. Heterogeneous appearance of thebones with areas of lucency likely reflecting areas of osteopenia. These findings are at least stable dating back to 04/16/2018. D/ / 09/15/2018 14:38:23 Trinidad Calhoun MD / [facility] Interpreting Provider: Trinidad Calhoun MD Active Medications Acetaminophen (Tylenol) 650 mg PO Q6HR PRN PRN Reason: Mild Pain/Fever Stop: 03/16/19 09:39 Last Admin: 09/17/18 21:19 Dose: 650 mg Documented by: Hydrocodone Bitart/Acetaminophen (Olney 5-325 Mg) 1 tab PO Q6HR PRN PRN Reason: Moderate Pain Stop: 03/16/19 09:39 Last Admin: 09/18/18 12:05 Dose: 1 tab Documented by: Albuterol/Ipratropium (Duoneb) 3 ml IH [id number] [facility] Stop: 03/16/19 12:01 Last Admin: 09/18/18 11:53 Dose: Not Given Documented by: Aspirin (Aspirin Ec) 81 mg PO DAILY [facility] Stop: 03/16/19 10:46 Last Admin: 09/18/18 07:59 Dose: 81 mg Documented by: Atorvastatin Calcium (Lipitor) 40 mg PO HS [facility] Stop: 03/16/19 21:01 Last Admin: 09/17/18 20:29 Dose: 40 mg Documented by: Brimonidine Tartrate (Alphagan) 1 drop BOTH EYES BID [facility] Stop: 03/19/19 23:16 Last Admin: 09/18/18 08:01 Dose: 1 drop Documented by: Budesonide/Formoterol Fumarate (Symbicort) 2 puff IH BIDR [facility]; Protocol Stop: 03/16/19 10:46 Last Admin: 09/18/18 07:54 Dose: 2 puff Documented by: Dextrose/Water (Dextrose 50% (Syg)) 25 ml IVP AD PRN PRN Reason: Hypoglycemia Stop: 03/16/19 09:39 Docusate Sodium (Colace) 100 mg PO BID PRN PRN Reason: Constipation Stop: 03/16/19 21:01 Dorzolamide/Timolol (Cosopt Dropperette) 1 drop LEFT EYE BID [facility] Stop: 03/19/19 23:16 Last Admin: 09/18/18 08:59 Dose: 1 drop Documented by: Enoxaparin Sodium (Lovenox) 90 mg SQ Q12HCO [facility] Stop: 03/20/19 06:01 Last Admin: 09/18/18 05:05 Dose: 90 mg Documented by: Glucagon (Glucagen) 1 mg IM ONCE PRN PRN Reason: Hypoglycemia Stop: 03/16/19 09:39 Glucose (Gluctose) 15 gm PO ONCE PRN PRN Reason: Hypoglycemia Stop: 03/16/19 09:39 Glucose (Gluctose) 30 gm PO ONCE PRN PRN Reason: Hypoglycemia Stop: 03/16/19 09:39 Dextrose (Dextrose 5%) 1,000 mls @ 100 mls/hr IVC .Q10H PRN PRN Reason: HYPOGLYCEMIA Stop: 03/16/19 09:39 Levofloxacin/Dextrose (Levaquin Premix 750mg/150 Ml) 750 mg in 150 mls @ 100 mls/hr IVPB DAILY [facility]; Protocol Stop: 03/16/19 10:01 Last Admin: 09/18/18 08:00 Dose: 100 mls/hr Documented by: Piperacillin Sod/Tazobactam (Sod 3.375 gm/ Sodium Chloride) 100 mls @ 25 mls/hr IVPB Q8HR [facility] Stop: 03/16/19 10:01 Last Admin: 09/18/18 07:59 Dose: 25 mls/hr Documented by: Sodium Chloride (0.9 % Sodium Chloride) 1,000 mls @ 100 mls/hr IVC .Q10H [facility] Stop: 03/20/19 07:08 Diltiazem HCl 50 mg/ Sodium (Chloride) 50 mls @ 5 mls/hr IVC CONT [facility]; Protocol Stop: 03/20/19 09:16 Last Titration: 09/18/18 14:02 Dose: 7.5 mg/hr, 7.5 mls/hr Documented by: Insulin Human Lispro (Humalog) 0 units SQ HS [facility]; Protocol Stop: 03/16/19 21:01 Last Admin: 09/17/18 20:28 Dose: 3 units Documented by: Insulin Human Lispro (Humalog) 0 units SQ TIDAC [facility]; Protocol Stop: 03/16/19 11:31 Last Admin: 09/18/18 07:47 Dose: Not Given Documented by: Levothyroxine Sodium (Synthroid) 25 mcg PO DAILY@0630 [facility] Stop: 03/17/19 06:31 Last Admin: 09/18/18 06:49 Dose: 25 mcg Documented by: Methylprednisolone (Solu-Medrol) 40 mg IVP Q12HR [facility] Stop: 03/17/19 18:01 Last Admin: 09/18/18 06:50 Dose: 40 mg Documented by: Metoprolol Tartrate (Lopressor) 25 mg PO BID [facility] Stop: 03/17/19 13:01 Last Admin: 09/18/18 07:55 Dose: Not Given Documented by: Naloxone HCl (Narcan) 0.4 mg IVP Q2MPRN PRN PRN Reason: SEE COMMENTS Stop: 03/16/19 09:39 Ondansetron HCl (Zofran) 4 mg IVP Q6HR PRN PRN Reason: Nausea And Vomiting Stop: 03/16/19 09:39 Last Admin: 09/15/18 04:37 Dose: 4 mg Documented by: Pharmacy Profile Note (Patient Taking Own Medication) 0 each PO QAM [facility] Stop: 03/18/19 09:01 Last Admin: 09/18/18 07:55 Dose: Not Given Documented by: - Imaging and Cardiology Echo: report reviewed - EKG Interpretation EKG results cardiology: personally reviewed (Dirk galloway with RVR) Consult Discharge Plan - Plan Referrals: Juanito Dsouza DO [Primary Care Provider] -
[2018-09-18] MEDS: 0.9 % Sodium Chloride 1,000 ML IVC SCH (19:02)
[2018-09-19] MEDS: Piperacillin/Tazobactam 3.375 GM in 0.9 % Sodium Chloride Mini Bag 100 ML IVPB SCH ×3 (00:01→17:59)
[2018-09-19] MEDS: 0.9 % Sodium Chloride 1,000 ML IVC SCH (00:01)
[2018-09-19] MEDS: Dorzolamide/Timolol 1 DROP LEFT EYE SCH ×3 (00:02→22:37)
[2018-09-19] MEDS: Ipratropium/Albuterol Neb 3 ML IH SCH ×6 (03:47→19:50)
[2018-09-19] MEDS: Levothyroxine 25 MCG TABLET PO SCH (05:56)
[2018-09-19] MEDS: MethylPREDNISolone 40 MG/ML VIAL IVP SCH ×2 (05:56→17:56)
[2018-09-19] MEDS: *HR* Enoxaparin 100 MG/ML SYRINGE SQ SCH ×2 (05:56→18:04)
[2018-09-19] MEDS: Budesonide/Formoterol 160/4.5 1 PUFF INH IH SCH ×2 (07:20→19:46)
[2018-09-19] MEDS: Aspirin Enteric Coated 81 MG Tablet PO SCH (08:58)
[2018-09-19] MEDS: Levofloxacin 750 MG/150 ML 750 MG/150 ML BAG IVPB SCH (09:00)
[2018-09-19] MEDS: Insulin LISPRO 300 UNITS/3 ML VIAL SQ SCH ×4 (09:23→22:37)
[2018-09-19] MEDS: (Roflumilast [Daliresp] 500 MCG) PO SCH (09:27)
--- NOTE | 2018-09-19 10:34 | Internal Med Progress Note ---
<Sal Colby - Last Filed: 09/19/18 13:46> Hospitalist Progress Note - Encounter Date of Encounter: 09/19/18 Time of Encounter: 10:33 - Subjective Interval History: Patient was seen and examined at bedside; states that she is feeling fine today. Denies having any difficulty sleeping last night. Currently satting well on 2.5 L of O2; will attempt to wean down today. Currently being treated with antibiotics. No growth on cultures today. On physical exam, patient does have a prolonged expiratory phase and bilateral wheezing. Currently on Cardizem for A. fib. He has no complaints at this time. - Exam Vitals: Temp Pulse Resp BP Pulse Ox 97.6 F 98 17 111/66 98 09/19/18 07:20 09/19/18 07:20 09/19/18 07:23 09/19/18 07:20 09/19/18 07:23 Exam: General: Appears somewhat drowsy Head: atraumatic, normocephalic Eye: PERRL, EOMI Neck: Supple, trachea midline; No lymphadenopathy Respiratory: Diminished breath sounds bilaterally, bilateral wheezing, prolonged expiratory phase, no rales or rhonchi Cardiovascular: Irregularly irregular, +S1, +S2; no murmurs, rubs, gallops Abdomen: Soft, nontender Extremities: warm, radial pulses palpable and symmetrical Psychiatric: Normal affect, normal mood Skin: Dry, intact - Assessment and Plan (1) HCAP (healthcare-associated pneumonia) Current Visit: Yes Status: Acute Assessment and Plan: - Patient presented to the emergency department complaining of shortness of breath - He has a known history of recurrent pneumonia; sputum culture from 07/01/18 grew Proteus mirabilis, resistant to ampicillin, Cipro, Levaquin and Bactrim - CXR 09/14/18: No interval change in left basilar and right perihilar airspace opacities - Chest CT 09/15/18: Slightly increased tree-in-bud opacities within the lower lobes bilaterally with patchy consolidative opacities and areas of mucoid impaction suggestive of an acute infectious bronchiolitis - CXR 09/18/18: Right suprahilar airspace opacification possibly representing pneumonia - Bronchoscopy performed on 09/16; fungal cultures pending - Acid-fast stain is negative - Blood cultures pending 2 Plan: - Levaquin, Zosyn - Solu-Medrol 40 mg IV every 12 - Symbicort (2) New onset a-fib Current Visit: Yes Status: Acute Assessment and Plan: - Per event note on 09/18: Patient became acutely tachycardic, heart rate 170s, EKG showed atrial fibrillation; patient was asymptomatic - TTE 09/15: EF 60%, mild LV diastolic dysfunction Plan: - Per the recommendations of cardiology, attempts to wean off Cardizem drip - Cardizem 30 mg by mouth every 6 hours; - Lovenox 1 mg/kg twice a day - ASA, Lipitor, Lopressor (3) Acute exacerbation of chronic obstructive airways disease Current Visit: Yes Status: Acute Assessment and Plan: - History of multiple COPD exacerbations Plan: - Continue supplemental O2 as necessary; maintain SPO2 greater than 92% - Wean off oxygen as tolerated; currently satting 98% at 2.5 L (4) Bronchiectasis Current Visit: Yes Status: Acute Assessment and Plan: - As demonstrated on CT scan - Plan as above (5) Generalized weakness Current Visit: Yes Status: Acute Assessment and Plan: - PTOT consulted (6) Type 2 diabetes mellitus Current Visit: No Status: Chronic Assessment and Plan: - ADA diet, ISS (7) Hyperlipidemia Current Visit: No Status: Chronic Assessment and Plan: - Continue statin - Time Spent with Patient Total time spent is greater than 50% in coordination of care (as documented) at patient's floor/unit and/or counseling patient: Internal Medicine: Result - Labs CBC & Chem 7: 09/18/18 08:36 09/18/18 08:36 - ABG Interpretation ABG results: PT/INR, D-dimer PT 14.3 Seconds (9.4-12.1) H 09/14/18 10:36 - Impressions Impressions Chest X-Ray 09/18/18 08:19 IMPRESSION: Right suprahilar airspace opacification possibly representing pneumonia. Follow-up is recommended to ensure resolution. D/ / Parth Mccartney MD / Parth Mccartney MD Interpreting Provider: Parth Mccartney MD Consult Discharge Plan - Plan Referrals: Juanito Dsouza DO [Primary Care Provider] - <GhaneLuann maciel - Last Filed: 09/20/18 13:58> Hospitalist Progress Note - Encounter Date of Encounter: 09/20/18 - Exam Vitals: Temp Pulse Resp BP Pulse Ox 97.7 F 106 16 97/57 93 09/20/18 11:41 09/20/18 11:41 09/20/18 11:14 09/20/18 11:41 09/20/18 11:41 - Assessment and Plan (1) Type 2 diabetes mellitus Current Visit: No Status: Chronic (2) Hypothyroid Current Visit: No Status: Chronic (3) Acute exacerbation of chronic obstructive airways disease Current Visit: Yes Status: Acute (4) Acute and chronic respiratory failure with hypoxia Current Visit: Yes Status: Acute (5) HCAP (healthcare-associated pneumonia) Current Visit: Yes Status: Acute (6) DVT prophylaxis Current Visit: Yes Status: Acute (7) Generalized weakness Current Visit: Yes Status: Acute (8) Sepsis Current Visit: No Status: Acute (9) Hyperlipidemia Current Visit: No Status: Chronic (10) Spinal stenosis Current Visit: No Status: Chronic (11) Diarrhea Current Visit: Yes Status: Acute (12) Large cell carcinoma of right lung Current Visit: No Status: Chronic (13) Sinus tachycardia Current Visit: Yes Status: Acute (14) Bronchiectasis Current Visit: Yes Status: Acute (15) New onset a-fib Current Visit: Yes Status: Acute - Time Spent with Patient Total time spent is greater than 50% in coordination of care (as documented) at patient's floor/unit and/or counseling patient: Internal Medicine: Result - Labs CBC & Chem 7: 09/18/18 08:36 09/18/18 08:36 - ABG Interpretation ABG results: PT/INR, D-dimer PT 14.3 Seconds (9.4-12.1) H 09/14/18 10:36 - Attending Attestation I examined this patient and my medical decision-making was reviewed with the Resident Physician. I agree with the documented findings, disposition and treatment plan as described except to the extent set forth below. <Sal Colby - Last Filed: 09/19/18 13:46> (4) Bronchiectasis Qualifiers: Bronchiectasis type: with acute exacerbation Qualified Code(s): J47.1 - Bronchiectasis with (acute) exacerbation (6) Type 2 diabetes mellitus Qualifiers: Diabetes mellitus fdc insulin use: without auto engine mechanic use Diabetes mellitus complication status: without complication Qualified Code(s): E11.9 - Type 2 diabetes mellitus without complications (7) Hyperlipidemia Qualifiers: Hyperlipidemia type: unspecified Qualified Code(s): E78.5 - Hyperlipidemia, unspecified <VangieLidya Irisroopa - Last Filed: 09/20/18 13:58> (1) Type 2 diabetes mellitus Qualifiers: Diabetes mellitus auto engine mechanic insulin use: without fdc use Diabetes mellitus complication status: without complication Qualified Code(s): E11.9 - Type 2 diabetes mellitus without complications (2) Hypothyroid Qualifiers: Hypothyroidism type: acquired Qualified Code(s): E03.9 - Hypothyroidism, unspecified (8) Sepsis Qualifiers: Sepsis type: sepsis due to unspecified organism Qualified Code(s): A41.9 - Sepsis, unspecified organism (9) Hyperlipidemia Qualifiers: Hyperlipidemia type: unspecified Qualified Code(s): E78.5 - Hyperlipidemia, unspecified (10) Spinal stenosis Qualifiers: Spinal region: lumbar Neurogenic claudication status: unspecified Qualified Code(s): M48.061 - Spinal stenosis, lumbar region without neurogenic claudication (11) Diarrhea Qualifiers: Diarrhea type: unspecified type Qualified Code(s): R19.7 - Diarrhea, unspecified (14) Bronchiectasis Qualifiers: Bronchiectasis type: with acute exacerbation Qualified Code(s): J47.1 - Bronchiectasis with (acute) exacerbation
--- NOTE | 2018-09-19 11:02 | Cardiology Progress Note ---
Date of Encounter: 09/19/18 Time of Encounter: 11:00 Assessment and Plan (1) Acute and chronic respiratory failure Current Visit: Yes Status: Acute Per Cardiology: Pulm following: "Hx of acute on chronic respiratory failure complicated by COPD and bronchiectasis exacerbation. On bronchodilators and steroids. Patient with Proteus mirabilis pneumonia in the past". CXR: IMPRESSION: Right suprahilar airspace opacification possibly representing pneumonia. Follow-up is recommended to ensure resolution. Qualifiers: Respiratory failure complication: hypoxia Qualified Code(s): J96.21 - Acute and chronic respiratory failure with hypoxia (2) Non-small cell cancer of right lung Current Visit: Yes Status: Chronic Per Cardiology: Per Pulm: "Supported by radiation followed by oncology". (3) New onset a-fib Current Visit: Yes Status: Acute Per Cardiology: Apparent new onset A. fib in setting of acute on chronic respiratory failure and non small cell lung cancer. Currently A. fib in the 80's - 100s. Avg HR 101 past 12 hrs. Cardizem drip remains at 7.5 mg per hour, on Lopressor 25mg PO BID, and on Cardizem 30 mg by mouth every 6 hours. We will continue to attempt to wean IV Cardizem drip to keep heart rate less than 100 bpm -- order placed yesterday. Will increase Cardizem to 60 mg by mouth every 6 hours. Systolic blood pressures in the 110s. Echo showed preserved EF. Troponins negative 4. Regarding long-term AC, at least [id number] = 1 (DM2). Will need to adequately assess if appropriate with multiple co-morbids, fall hx, etc. On asa and lovenox currently. No family again at bedside. Discussion w patient/family: The assessment and plan as outlined above was discussed with the patient and/or family members who expressed understanding and agreement. All questions were answered. Thank you for involving us in the care of your patient. Please call with any questions. Subjective Principal diagnosis: Afib Interval history: Denies any new concerns or complaints. Denies any chest pain or palpitations. Reports short of breath has improved somewhat. No family at bedside. Objective Vital Signs, Last 4 Hours Temp Pulse Resp BP Pulse Ox 09/19/18 07:23 17 98 09/19/18 07:20 97.6 F 98 111/66 98 General: Conversant, No Apparent Distress HEENT: Atraumatic, Normocephaly, Mucus Membranes Moist Neck: No JVD, Normal carotid pulses Cardiac: No Murmur, Other (Irregularly irregular) Lungs: Other (Scattered rhonchi throughout) Neuro: Alert and responsive, No focal deficits noted Abdomen: Soft, Non-Tender Skin: No rashes noted on visualized skin Musculoskeletal: No Chest Wall Tenderness Extremities: No Clubbing, No Cyanosis, No Edema, Normal Pulses Results 09/18/18 08:36 09/18/18 08:36 Impressions Chest X-Ray 09/18/18 08:19 IMPRESSION: Right suprahilar airspace opacification possibly representing pneumonia. Follow-up is recommended to ensure resolution. D/ / Parth Mccartney MD / Parth Mccartney MD Interpreting Provider: Parth Mccartney MD Active Medications Acetaminophen (Tylenol) 650 mg PO Q6HR PRN PRN Reason: Mild Pain/Fever Stop: 03/16/19 09:39 Last Admin: 09/17/18 21:19 Dose: 650 mg Documented by: Hydrocodone Bitart/Acetaminophen ([place] 5-325 Mg) 1 tab PO Q6HR PRN PRN Reason: Moderate Pain Stop: 03/16/19 09:39 Last Admin: 09/18/18 12:05 Dose: 1 tab Documented by: Albuterol/Ipratropium (Duoneb) 3 ml IH [id number] SHAHAB Stop: 03/16/19 12:01 Last Admin: 09/19/18 07:20 Dose: 3 ml Documented by: Aspirin (Aspirin Ec) 81 mg PO DAILY SHAHAB Stop: 03/16/19 10:46 Last Admin: 09/19/18 08:58 Dose: 81 mg Documented by: Atorvastatin Calcium (Lipitor) 40 mg PO HS SHAHAB Stop: 03/16/19 21:01 Last Admin: 09/18/18 22:15 Dose: 40 mg Documented by: Brimonidine Tartrate (Alphagan) 1 drop BOTH EYES BID SH[facility]AB Stop: 03/19/19 23:16 Last Admin: 09/19/18 09:25 Dose: 1 drop Documented by: Budesonide/Formoterol Fumarate (Symbicort) 2 puff IH BIDR [facility]; Protocol Stop: 03/16/19 10:46 Last Admin: 09/19/18 07:20 Dose: 2 puff Documented by: Dextrose/Water (Dextrose 50% (Syg)) 25 ml IVP AD PRN PRN Reason: Hypoglycemia Stop: 03/16/19 09:39 Diltiazem HCl (Cardizem) 30 mg PO Q6HR [facility] Stop: 03/20/19 16:01 Last Admin: 09/19/18 05:56 Dose: 30 mg Documented by: Docusate Sodium (Colace) 100 mg PO BID PRN PRN Reason: Constipation Stop: 03/16/19 21:01 Dorzolamide/Timolol (Cosopt Dropperette) 1 drop LEFT EYE BID [facility] Stop: 03/19/19 23:16 Last Admin: 09/19/18 00:02 Dose: 1 drop Documented by: Enoxaparin Sodium (Lovenox) 90 mg SQ Q12HCO [facility] Stop: 03/20/19 06:01 Last Admin: 09/19/18 05:56 Dose: 90 mg Documented by: Glucagon (Glucagen) 1 mg IM ONCE PRN PRN Reason: Hypoglycemia Stop: 03/16/19 09:39 Glucose (Gluctose) 15 gm PO ONCE PRN PRN Reason: Hypoglycemia Stop: 03/16/19 09:39 Glucose (Gluctose) 30 gm PO ONCE PRN PRN Reason: Hypoglycemia Stop: 03/16/19 09:39 Dextrose (Dextrose 5%) 1,000 mls @ 100 mls/hr IVC .Q10H PRN PRN Reason: HYPOGLYCEMIA Stop: 03/16/19 09:39 Levofloxacin/Dextrose (Levaquin Premix 750mg/150 Ml) 750 mg in 150 mls @ 100 mls/hr IVPB DAILY [facility]; Protocol Stop: 03/16/19 10:01 Last Admin: 09/19/18 09:00 Dose: 100 mls/hr Documented by: Piperacillin Sod/Tazobactam (Sod 3.375 gm/ Sodium Chloride) 100 mls @ 25 mls/hr IVPB Q8HR [facility] Stop: 03/16/19 10:01 Last Admin: 09/19/18 08:58 Dose: 25 mls/hr Documented by: Diltiazem HCl 50 mg/ Sodium (Chloride) 50 mls @ 5 mls/hr IVC CONT [facility]; Protocol Stop: 03/20/19 09:16 Last Titration: 09/19/18 09:01 Dose: 7.5 mg/hr, 7.5 mls/hr Documented by: Insulin Human Lispro (Humalog) 0 units SQ HS [facility]; Protocol Stop: 03/16/19 21:01 Last Admin: 09/18/18 22:18 Dose: Not Given Documented by: Insulin Human Lispro (Humalog) 0 units SQ TIDAC [facility]; Protocol Stop: 03/16/19 11:31 Last Admin: 09/19/18 09:23 Dose: 4 units Documented by: Levothyroxine Sodium (Synthroid) 25 mcg PO DAILY@0630 [facility] Stop: 03/17/19 06:31 Last Admin: 09/19/18 05:56 Dose: 25 mcg Documented by: Methylprednisolone (Solu-Medrol) 40 mg IVP Q12HR [facility] Stop: 03/17/19 18:01 Last Admin: 09/19/18 05:56 Dose: 40 mg Documented by: Metoprolol Tartrate (Lopressor) 25 mg PO BID [facility] Stop: 03/17/19 13:01 Last Admin: 09/19/18 08:58 Dose: 25 mg Documented by: Naloxone HCl (Narcan) 0.4 mg IVP Q2MPRN PRN PRN Reason: SEE COMMENTS Stop: 03/16/19 09:39 Ondansetron HCl (Zofran) 4 mg IVP Q6HR PRN PRN Reason: Nausea And Vomiting Stop: 03/16/19 09:39 Last Admin: 09/15/18 04:37 Dose: 4 mg Documented by: Pharmacy Profile Note (Patient Taking Own Medication) 0 each PO QAM [facility] Stop: 03/18/19 09:01 Last Admin: 09/19/18 09:27 Dose: Not Given Documented by: - Imaging and Cardiology Chest Xray: report reviewed Consult Discharge Plan - Plan Referrals: Juanito Dsouza DO [Primary Care Provider] -
[2018-09-19 16:24] LABS: Influenza A PCR Body Fluid NOT DETECTED; Influenza B PCR Body Fluid NOT DETECTED; RVP Body Fluid Source BAL
[2018-09-19 16:25] LABS: Influenza A PCR Body Fluid NOT DETECTED; Influenza B PCR Body Fluid NOT DETECTED
[2018-09-19 17:47] LABS: RSV PCR Body Fluid NOT DETECTED; RVP Body Fluid Source NOT PROVIDED
[2018-09-19] MEDS: Ondansetron 4 MG/2 ML VIAL IVP PRN (18:05)
[2018-09-19] MEDS: *HR* HYDROcodone/Acet 5/325 mg TABLET PO PRN (18:36)
[2018-09-19] MEDS: Acetaminophen 325 MG TABLET PO PRN (20:47)
[2018-09-19] MEDS: Levalbuterol Neb 1.25 MG/3 ML IH SCH (23:58)
[2018-09-20] MEDS: Piperacillin/Tazobactam 3.375 GM in 0.9 % Sodium Chloride Mini Bag 100 ML IVPB SCH ×3 (01:04→15:40)
[2018-09-20 02:36] LABS: HSV Source BAL
[2018-09-20] MEDS: Levalbuterol Neb 1.25 MG/3 ML IH SCH ×6 (04:08→23:33)
[2018-09-20] MEDS: *HR* Enoxaparin 100 MG/ML SYRINGE SQ SCH (06:10)
[2018-09-20] MEDS: MethylPREDNISolone 40 MG/ML VIAL IVP SCH ×2 (06:10→17:24)
[2018-09-20] MEDS: Levothyroxine 25 MCG TABLET PO SCH (06:10)
[2018-09-20] MEDS: Budesonide/Formoterol 160/4.5 1 PUFF INH IH SCH ×2 (07:20→20:08)
[2018-09-20] MEDS ORDERED: Piperacillin/Tazobactam 3.375 GM VIAL ONE (08:42)
[2018-09-20] MEDS: Insulin LISPRO 300 UNITS/3 ML VIAL SQ SCH ×4 (08:46→22:42)
[2018-09-20] MEDS: Levofloxacin 750 MG/150 ML 750 MG/150 ML BAG IVPB SCH (08:51)
[2018-09-20] MEDS: Aspirin Enteric Coated 81 MG Tablet PO SCH (08:51)
[2018-09-20] MEDS: (Roflumilast [Daliresp] 500 MCG) PO SCH (08:53)
[2018-09-20] MEDS ORDERED: *HR* Rivaroxaban 10 MG TABLET PO SCH (10:19)
--- NOTE | 2018-09-20 10:24 | Cardiology Progress Note ---
Date of Encounter: 09/20/18 Time of Encounter: 10:20 Assessment and Plan (1) Acute and chronic respiratory failure Current Visit: Yes Status: Acute Per Cardiology: Pulm following: "Hx of acute on chronic respiratory failure complicated by COPD and bronchiectasis exacerbation. On bronchodilators and steroids. Patient with Proteus mirabilis pneumonia in the past". CXR: IMPRESSION: Right suprahilar airspace opacification possibly representing pneumonia. Follow-up is recommended to ensure resolution. Qualifiers: Respiratory failure complication: hypoxia Qualified Code(s): J96.21 - Acute and chronic respiratory failure with hypoxia (2) Non-small cell cancer of right lung Current Visit: Yes Status: Chronic Per Cardiology: Per Pulm: "Supported by radiation followed by oncology". Patient reports completed chemotherapy and radiation February 2018" reports in remission". Reports no further pending treatments. (3) New onset a-fib Current Visit: Yes Status: Acute Per Cardiology: Apparent new onset A. fib in setting of acute on chronic respiratory failure and non small cell lung cancer. Currently A. fib in the 90's- 100s. Avg HR 105 past 12 hrs. Cardizem drip now off. Systolic blood pressures in the 110s. On Lopressor 25mg PO BID and Cardizem 60 mg by mouth every 6 hours-- will convert Cardizem CD 240 mg by mouth daily. Titrate Lopressor or calcium channel rajesh if needed. With underlying respiratory, comorbidities rate control around 100 would be appropriate. Echo showed preserved EF. Troponins negative 4. Regarding long-term AC, at least [id number] = 1 (DM2). Patient with history of non-small cell lung cancer. Currently appears to be in remission per patient. Patient reports 2 falls in the past 1 year. Indicates has home health. We had lengthy discussion regarding long-term anticoagulation and patient prefers to proceed. We discussed Coumadin versus DOACs, patient does not live local for [facility]. Patient will be started on Xarelto 20mg PO daily-- assistance card provided on chart; his local pharmacy close today for holiday so yoo check unable to be obtained. We will discontinue Lovenox and aspirin. Discussed and reviewed with Dr. Laura Mccoy who agrees with anticoagulation recommendations. Cardiology signing off, reconsult as needed, follow-up arranged. Discussion w patient/family: The assessment and plan as outlined above was discussed with the patient and/or family members who expressed understanding and agreement. All questions were answered. Thank you for involving us in the care of your patient. Please call with any questions. Subjective Principal diagnosis: Afib Interval history: Denies any new concerns or complaints. Denies any chest pain or palpitations. Reports shortness of breath has overall improved. No family at bedside. Objective Vital Signs, Last 4 Hours Temp Pulse Resp BP Pulse Ox 09/20/18 07:20 16 97 09/20/18 06:54 97.5 F L 105 103/61 92 General: Conversant, No Apparent Distress HEENT: Atraumatic, Normocephaly, Mucus Membranes Moist Neck: No JVD, Normal carotid pulses Cardiac: No Murmur, Other (Irregular irregular) Lungs: Other (Scattered rhonchi throughout) Neuro: Alert and responsive, No focal deficits noted Abdomen: Soft, Non-Tender Skin: No rashes noted on visualized skin Musculoskeletal: No Chest Wall Tenderness Extremities: No Clubbing, No Cyanosis, No Edema, Normal Pulses Results 09/18/18 08:36 09/18/18 08:36 Active Medications Acetaminophen (Tylenol) 650 mg PO Q6HR PRN PRN Reason: Mild Pain/Fever Stop: 03/16/19 09:39 Last Admin: 09/19/18 20:47 Dose: 650 mg Documented by: Hydrocodone Bitart/Acetaminophen ([place] 5-325 Mg) 1 tab PO Q6HR PRN PRN Reason: Moderate Pain Stop: 03/16/19 09:39 Last Admin: 09/19/18 18:36 Dose: 1 tab Documented by: Atorvastatin Calcium (Lipitor) 40 mg PO HS SHAHAB Stop: 03/16/19 21:01 Last Admin: 09/19/18 20:47 Dose: 40 mg Documented by: Brimonidine Tartrate (Alphagan) 1 drop BOTH EYES BID SHAHAB Stop: 03/19/19 23:16 Last Admin: 09/20/18 08:50 Dose: 1 drop Documented by: Budesonide/Formoterol Fumarate (Symbicort) 2 puff IH BIDR [facility]; Protocol Stop: 03/16/19 10:46 Last Admin: 09/20/18 07:20 Dose: 2 puff Documented by: Dextrose/Water (Dextrose 50% (Syg)) 25 ml IVP AD PRN PRN Reason: Hypoglycemia Stop: 03/16/19 09:39 Diltiazem HCl (Cardizem Cd) 240 mg PO DAILY SHAHAB Stop: 03/22/19 10:31 Docusate Sodium (Colace) 100 mg PO BID PRN PRN Reason: Constipation Stop: 03/16/19 21:01 Dorzolamide/Timolol (Cosopt Dropperette) 1 drop LEFT EYE BID SHAHAB Stop: 03/19/19 23:16 Last Admin: 09/19/18 22:37 Dose: 1 drop Documented by: Glucagon (Glucagen) 1 mg IM ONCE PRN PRN Reason: Hypoglycemia Stop: 03/16/19 09:39 Glucose (Gluctose) 15 gm PO ONCE PRN PRN Reason: Hypoglycemia Stop: 03/16/19 09:39 Glucose (Gluctose) 30 gm PO ONCE PRN PRN Reason: Hypoglycemia Stop: 03/16/19 09:39 Dextrose (Dextrose 5%) 1,000 mls @ 100 mls/hr IVC .Q10H PRN PRN Reason: HYPOGLYCEMIA Stop: 03/16/19 09:39 Levofloxacin/Dextrose (Levaquin Premix 750mg/150 Ml) 750 mg in 150 mls @ 100 mls/hr IVPB DAILY [facility]; Protocol Stop: 03/16/19 10:01 Last Admin: 09/20/18 08:51 Dose: 100 mls/hr Documented by: Piperacillin Sod/Tazobactam (Sod 3.375 gm/ Sodium Chloride) 100 mls @ 25 mls/hr IVPB Q8HR [facility] Stop: 03/16/19 10:01 Last Admin: 09/20/18 08:49 Dose: 25 mls/hr Documented by: Diltiazem HCl 50 mg/ Sodium (Chloride) 50 mls @ 5 mls/hr IVC CONT [facility]; Protocol Stop: 03/20/19 09:16 Last Titration: 09/20/18 02:05 Dose: 0 mg/hr, 0 mls/hr Documented by: Insulin Human Lispro (Humalog) 0 units SQ HS [facility]; Protocol Stop: 03/16/19 21:01 Last Admin: 09/19/18 22:37 Dose: 5 units Documented by: Insulin Human Lispro (Humalog) 0 units SQ TIDAC [facility]; Protocol Stop: 03/16/19 11:31 Last Admin: 09/20/18 08:46 Dose: 8 units Documented by: Levalbuterol HCl (Xopenex) 1.25 mg IH [id number] [facility] Stop: 03/22/19 00:01 Last Admin: 09/20/18 07:20 Dose: 1.25 mg Documented by: Levothyroxine Sodium (Synthroid) 25 mcg PO DAILY@0630 [facility] Stop: 03/17/19 06:31 Last Admin: 09/20/18 06:10 Dose: 25 mcg Documented by: Methylprednisolone (Solu-Medrol) 40 mg IVP Q12HR [facility] Stop: 03/17/19 18:01 Last Admin: 09/20/18 06:10 Dose: 40 mg Documented by: Metoprolol Tartrate (Lopressor) 25 mg PO BID [facility] Stop: 03/17/19 13:01 Last Admin: 09/20/18 08:51 Dose: 25 mg Documented by: Naloxone HCl (Narcan) 0.4 mg IVP Q2MPRN PRN PRN Reason: SEE COMMENTS Stop: 03/16/19 09:39 Ondansetron HCl (Zofran) 4 mg IVP Q6HR PRN PRN Reason: Nausea And Vomiting Stop: 03/16/19 09:39 Last Admin: 09/19/18 18:05 Dose: 4 mg Documented by: Pharmacy Profile Note (Patient Taking Own Medication) 0 each PO QAM [facility] Stop: 03/18/19 09:01 Last Admin: 09/20/18 08:53 Dose: Not Given Documented by: Rivaroxaban (Xarelto) 20 mg PO 1700 [facility] Stop: 03/22/19 10:20 Consult Discharge Plan - Plan Referrals: Juanito Dsouza DO [Primary Care Provider] -
--- NOTE | 2018-09-20 10:34 | Internal Med Progress Note ---
<LashaSal - Last Filed: 09/20/18 13:10> Hospitalist Progress Note - Encounter Date of Encounter: 09/20/18 Time of Encounter: 10:33 - Subjective Interval History: Patient seen and examined at bedside; states that he is feeling well. Currently satting well at 95% on 2.5 L of O2. Denies cough, dyspnea, shortness of breath, chest discomfort, chest pain, or palpitations. Patient's Cardizem has been increased today; heart rate has been between the 90s and 110s. He has no complaints. - Exam Vitals: Temp Pulse Resp BP Pulse Ox 97.5 F L 105 16 103/61 97 09/20/18 06:54 09/20/18 06:54 09/20/18 07:20 09/20/18 06:54 09/20/18 07:20 Exam: General: Appears somewhat drowsy Head: atraumatic, normocephalic Eye: PERRL, EOMI Neck: Supple, trachea midline; No lymphadenopathy Respiratory: Diminished breath sounds bilaterally, bilateral wheezing, prolonged expiratory phase, no rales or rhonchi Cardiovascular: Irregularly irregular, +S1, +S2; no murmurs, rubs, gallops Abdomen: Soft, nontender Extremities: warm, radial pulses palpable and symmetrical Psychiatric: Normal affect, normal mood Skin: Dry, intact - Assessment and Plan (1) HCAP (healthcare-associated pneumonia) Current Visit: Yes Status: Acute Assessment and Plan: - Patient presented to the emergency department complaining of shortness of breath - He has a known history of recurrent pneumonia; sputum culture from 07/01/18 grew Proteus mirabilis, resistant to ampicillin, Cipro, Levaquin and Bactrim - CXR 09/14/18: No interval change in left basilar and right perihilar airspace opacities - Chest CT 09/15/18: Slightly increased tree-in-bud opacities within the lower lo bes bilaterally with patchy consolidative opacities and areas of mucoid impaction suggestive of an acute infectious bronchiolitis - CXR 09/18/18: Right suprahilar airspace opacification possibly representing pneumonia - Bronchoscopy performed on 09/16; fungal cultures pending - Acid-fast stain is negative - Blood cultures pending 2 Plan: - Levaquin, Zosyn - Solu-Medrol 40 mg IV every 12 - Symbicort (2) New onset a-fib Current Visit: Yes Status: Acute Assessment and Plan: - Per event note on 09/18: Patient became acutely tachycardic, heart rate 170s, EKG showed atrial fibrillation; patient was asymptomatic - TTE 09/15: EF 60%, mild LV diastolic dysfunction Plan: - Per the recommendations of cardiology, attempt to wean off Cardizem drip - Cardizem 30 mg by mouth every 6 hours - Lovenox 1 mg/kg twice a day - ASA, Lipitor, Lopressor (3) Acute exacerbation of chronic obstructive airways disease Current Visit: Yes Status: Acute Assessment and Plan: - History of multiple COPD exacerbations Plan: - Continue supplemental O2 as necessary; maintain SPO2 greater than 92% - Wean off oxygen as tolerated; currently satting 98% at 2.5 L (4) Bronchiectasis Current Visit: Yes Status: Acute Assessment and Plan: - As demonstrated on CT scan - Plan as above (5) Generalized weakness Current Visit: Yes Status: Acute Assessment and Plan: - PTOT consulted (6) Type 2 diabetes mellitus Current Visit: No Status: Chronic Assessment and Plan: - ADA diet, ISS (7) Hyperlipidemia Current Visit: No Status: Chronic Assessment and Plan: - Continue statin - Time Spent with Patient Total time spent is greater than 50% in coordination of care (as documented) at patient's floor/unit and/or counseling patient: Internal Medicine: Result - Labs CBC & Chem 7: 09/18/18 08:36 09/18/18 08:36 - ABG Interpretation ABG results: PT/INR, D-dimer PT 14.3 Seconds (9.4-12.1) H 09/14/18 10:36 Consult Discharge Plan - Plan Referrals: Juanito Dsouza DO [Primary Care Provider] - <Luann Vences - Last Filed: 09/20/18 13:58> Hospitalist Progress Note - Encounter Date of Encounter: 09/20/18 - Exam Vitals: Temp Pulse Resp BP Pulse Ox 97.7 F 106 16 97/57 93 09/20/18 11:41 09/20/18 11:41 09/20/18 11:14 09/20/18 11:41 09/20/18 11:41 - Assessment and Plan (1) Type 2 diabetes mellitus Current Visit: No Status: Chronic (2) Hypothyroid Current Visit: No Status: Chronic (3) Acute exacerbation of chronic obstructive airways disease Current Visit: Yes Status: Acute (4) Acute and chronic respiratory failure with hypoxia Current Visit: Yes Status: Acute (5) HCAP (healthcare-associated pneumonia) Current Visit: Yes Status: Acute (6) DVT prophylaxis Current Visit: Yes Status: Acute (7) Generalized weakness Current Visit: Yes Status: Acute (8) Sepsis Current Visit: No Status: Acute (9) Hyperlipidemia Current Visit: No Status: Chronic (10) Spinal stenosis Current Visit: No Status: Chronic (11) Diarrhea Current Visit: Yes Status: Acute (12) Large cell carcinoma of right lung Current Visit: No Status: Chronic (13) Sinus tachycardia Current Visit: Yes Status: Acute (14) Bronchiectasis Current Visit: Yes Status: Acute (15) New onset a-fib Current Visit: Yes Status: Acute - Time Spent with Patient Total time spent is greater than 50% in coordination of care (as documented) at patient's floor/unit and/or counseling patient: Internal Medicine: Result - Labs CBC & Chem 7: 09/18/18 08:36 09/18/18 08:36 - ABG Interpretation ABG results: PT/INR, D-dimer PT 14.3 Seconds (9.4-12.1) H 09/14/18 10:36 - Attending Attestation I examined this patient and my medical decision-making was reviewed with the Resident Physician. I agree with the documented findings, disposition and treatment plan as described except to the extent set forth below. <Sal Colby - Last Filed: 09/20/18 13:10> (4) Bronchiectasis Qualifiers: Bronchiectasis type: with acute exacerbation Qualified Code(s): J47.1 - Bronchiectasis with (acute) exacerbation (6) Type 2 diabetes mellitus Qualifiers: Diabetes mellitus intermediate manager insulin use: without intermediate manager use Diabetes mellitus complication status: without complication Qualified Code(s): E11.9 - Type 2 diabetes mellitus without complications (7) Hyperlipidemia Qualifiers: Hyperlipidemia type: unspecified Qualified Code(s): E78.5 - Hyperlipidemia, unspecified <Luann Vences - Last Filed: 09/20/18 13:58> (1) Type 2 diabetes mellitus Qualifiers: Diabetes mellitus jail insulin use: without jail use Diabetes mellitus complication status: without complication Qualified Code(s): E11.9 - Type 2 diabetes mellitus without complications (2) Hypothyroid Qualifiers: Hypothyroidism type: acquired Qualified Code(s): E03.9 - Hypothyroidism, unspecified (8) Sepsis Qualifiers: Sepsis type: sepsis due to unspecified organism Qualified Code(s): A41.9 - Sepsis, unspecified organism (9) Hyperlipidemia Qualifiers: Hyperlipidemia type: unspecified Qualified Code(s): E78.5 - Hyperlipidemia, unspecified (10) Spinal stenosis Qualifiers: Spinal region: lumbar Neurogenic claudication status: unspecified Qualified Code(s): M48.061 - Spinal stenosis, lumbar region without neurogenic claudication (11) Diarrhea Qualifiers: Diarrhea type: unspecified type Qualified Code(s): R19.7 - Diarrhea, unspecified (14) Bronchiectasis Qualifiers: Bronchiectasis type: with acute exacerbation Qualified Code(s): J47.1 - Bronchiectasis with (acute) exacerbation
[2018-09-20] MEDS: Diltiazem CD (24hr) 240 MG CAPSULE PO SCH (11:04)
[2018-09-20] MEDS: Dorzolamide/Timolol 1 DROP LEFT EYE SCH ×2 (11:04→22:42)
[2018-09-21] MEDS: Piperacillin/Tazobactam 3.375 GM in 0.9 % Sodium Chloride Mini Bag 100 ML IVPB SCH ×2 (00:44→09:51)
[2018-09-21] MEDS: Levalbuterol Neb 1.25 MG/3 ML IH SCH ×5 (04:35→17:30)
[2018-09-21] MEDS: Levothyroxine 25 MCG TABLET PO SCH (06:00)
[2018-09-21] MEDS: MethylPREDNISolone 40 MG/ML VIAL IVP SCH (06:00)
[2018-09-21] MEDS: Budesonide/Formoterol 160/4.5 1 PUFF INH IH SCH (07:36)
[2018-09-21] MEDS: Diltiazem CD (24hr) 240 MG CAPSULE PO SCH (08:04)
[2018-09-21] MEDS: Insulin LISPRO 300 UNITS/3 ML VIAL SQ SCH ×2 (08:04→11:59)
[2018-09-21] MEDS: Levofloxacin 750 MG/150 ML 750 MG/150 ML BAG IVPB SCH (08:05)
[2018-09-21] MEDS: (Roflumilast [Daliresp] 500 MCG) PO SCH (08:06)
[2018-09-21 08:07] LABS: Mean Corpuscular HGB Conc 32.5 g/dL (31.6-35.5); Mean Corpuscular Volume 83.2 fL (83.0-100.0); Mean Platelet Volume 9.1 fL (9.4-12.4); Nucleated Red Blood Cells 0.2 /100 WBC (0); Platelet Count 222 K/mcL (140-400); Red Blood Count 4.81 M/mcL (4.19-5.50); Red Cell Distribution Width 13.7 % (11.5-14.5)
[2018-09-21 08:12] LABS: Lymphocytes # 0.6 K/mcL (0.6-4.6)
[2018-09-21 08:29] LABS: BUN/Creatinine Ratio 41 (6-26); Blood Urea Nitrogen 24 mg/dL (8-23); Calcium 8.6 mg/dL (8.6-10.3); Carbon Dioxide 28 mEq/L (23-29); Chloride 104 mEq/L (98-107); Glucose 265 mg/dL (70-105); Osmolality,Calculated 299 (280-300); Sodium 138 mEq/L (136-145); eGFR For Non-African Americans > 60 (> 60)
[2018-09-21 08:34] LABS: Monocytes # 0.3 K/mcL (0.0-1.3); Neutrophils # 9.3 K/mcL (1.6-8.9); Platelet Estimate Normal (Normal)
[2018-09-21] MEDS: Dorzolamide/Timolol 1 DROP LEFT EYE SCH (09:56)
[2018-09-21 11:40] VITALS: BP 105/59
--- NOTE | 2018-09-21 15:08 | Discharge Summary ---
<Sal Colby - Last Filed: 09/21/18 15:30> - NOTES TO OUTPATIENT PROVIDER Notes to Outpatient Provider: Follow-up with primary care provider and cardiology within 1-2 weeks. Orders not resulted at time of discharge: Pending orders 09/16/18 AFB Culture, Respiratory [TB] Routine AFB Culture, Respiratory [TB] Routine AFB Culture, Respiratory [TB] Routine AFB Smear [TB] Routine AFB Smear [TB] Routine AFB Smear [TB] Routine Fungal Culture [MYC] Routine Fungal Culture [MYC] Routine Fungal Culture [MYC] Routine Herpes Simplex PCR Body Fl Routine Resp.Virus Panel,Body Fl Routine 09/17/18 08:09 Herpes Simplex PCR Body Fl Routine Resp.Virus Panel,Body Fl Routine Date of Encounter: 09/21/18 Time of Encounter: 10:22 - Discharge Diagnosis (1) HCAP (healthcare-associated pneumonia) Priority: Primary Status: Acute (2) New onset a-fib Priority: Secondary Status: Acute (3) Acute exacerbation of chronic obstructive airways disease Priority: Secondary Status: Acute (4) Bronchiectasis Priority: Secondary Status: Acute Qualifiers: Bronchiectasis type: with acute exacerbation Qualified Code(s): J47.1 - Bronchiectasis with (acute) exacerbation (5) Generalized weakness Priority: Secondary Status: Acute (6) Type 2 diabetes mellitus Priority: Secondary Status: Chronic Qualifiers: Diabetes mellitus [facility] insulin use: without [place] use Diabetes mellitus complication status: without complication Qualified Code(s): E11.9 - Type 2 diabetes mellitus without complications (7) Hyperlipidemia Priority: Secondary Status: Chronic Qualifiers: Hyperlipidemia type: unspecified Qualified Code(s): E78.5 - Hyperlipidemia, unspecified Hospital course: Mr. 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 Patient had recently been discharged from [facility] after being treated with IV Rocephin, Zithromax, and a prednisone taper on 08/02 due to multidrug resistant Proteus mirabilis pneumonia and an RSV infection. He reported weakness and a fall while transferring to his bed from his recliner. Also reported new onset diarrhea. When patient presented to [facility], his vital signs were significant for an elevated pulse at 111 bpm, respiratory rate of 24, and an O2 saturation of 91% on 2 L of oxygen. Other vitals were within normal limits. Labs at [facility] showed an elevated white count at 15.9 with left shift, hemoglobin 15.5, lactic acid of 2.8. ABG was obtained, which showed pH 7.43, pCO2 33, PO2 80, bicarbonate 21.9, and O2 sat 96 %. EKG demonstrated the presence of new onset atrial fibrillation, with a heart rate of 119 bpm, normal axis, and no ST elevations or depressions. He had no previous known history of atrial fibrillation. He was given a one-time dose of Levaquin and Solu-Medrol, and then was transferred to [facility] for further management. Chest x-ray on 09/14/18 showed no interval change in left basilar and right perihilar airspace opacities. He was started on broad-spectrum antibiotics, vancomycin, Zosyn, Levaquin. Also started on IV steroids. Chest CT obtained on 09/15/18 demonstrated Slightly increased tree-in-bud opacities within the lower lobes bilaterally with patchy consolidative opacities and areas of mucoid impaction suggestive of an acute infectious bronchiolitis. Due to patients previous history of lung cancer and pneumonia, pulmonology was consulted for bronchoscopy. On 09/16, a bronchoscopy was performed. Fungal cultures were ordered, and acid-fast stain was performed. Acid-fast was negative. Cardiology was consulted for the new onset of atrial fibrillation. At first, patient was started on a Cardizem drip. Cardiology initiated Cardizem 30 mg by mouth every 6 hours, and began weaning off Cardizem drip. After Cardizem drip was discontinued, he was converted to Cardizem CD 240 mg by mouth daily. Per the recommendations of cardiology, patient will be started on Xarelto 20 mg by mouth daily for anticoagulation. An bindery library technical assistant card was provided. Lovenox and aspirin were discontinued. Patient was seen and examined on date of discharge. He states that he is feeling well today. Vital signs today are stable. Heart rate is well-controlled at 74 bpm. He denies fever, chills, chest pain, palpitations, shortness of breath, dizziness, diaphoresis, or headache. - Time Spent with Patient Total time spent providing and/or coordinating discharge services: - Discharge Medications Prescriptions: New Diltiazem CD (24hr) [Cardizem CD] 240 mg PO DAILY #30 cap.er.24h Atorvastatin [Lipitor] 40 mg PO HS #30 tablet Metoprolol [Lopressor] 25 mg PO BID #60 tablet Rivaroxaban [Xarelto] 20 mg PO 1700 #30 tablet predniSONE [PredniSONE] See Taper PO DAILY #40 tablet Continued SitaGLIPtin [Januvia] 100 mg PO QAM Gabapentin [Neurontin] 600 mg PO QAM Albuterol Neb [Proventil Neb] 2.5 mg IH TID Aspirin [Lo-Dose Aspirin EC] 81 mg PO DAILY Dorzolamide/Timolol/Pf [Dorzolamide-Timolol 2%-0.5%] 1 drop LEFT EYE BID Glimepiride [Amaryl] 8 mg PO QAM Metformin HCl [Glucophage Xr] 1,000 mg PO QAM Budesonide/Formoterol 160/4.5 [Symbicort 160/4.5] 2 puff IH BID Levothyroxine [Synthroid] 112 mcg PO QAM Albuterol Sulfate [Proair Hfa] 2 puff IH Q4H PRN PRN Reason: COPD Empagliflozin [Jardiance] 25 mg PO QAM Atenolol [Tenormin] 25 mg PO QAM Brimonidine Tartrate 1 drop BOTH EYES BID HYDROcodone/Acet 5/325 mg [[place] 5-325 mg] 1 tab PO DAILY PRN PRN Reason: Pain Roflumilast [Daliresp] 500 mcg PO QAM Home Medications: Gabapentin [Neurontin] 600 mg PO QAM 11/05/17 [History] SitaGLIPtin [Januvia] 100 mg PO QAM 11/05/17 [History] Albuterol Neb [Proventil Neb] 2.5 mg IH TID 05/25/18 [History] Aspirin [Lo-Dose Aspirin EC] 81 mg PO DAILY 05/25/18 [History] Dorzolamide/Timolol/Pf [Dorzolamide-Timolol 2%-0.5%] 1 drop LEFT EYE BID 05/25/18 [History] Glimepiride [Amaryl] 8 mg PO QAM 05/25/18 [History] Metformin HCl [Glucophage Xr] 1,000 mg PO QAM 05/25/18 [History] Albuterol Sulfate [Proair Hfa] 2 puff IH Q4H PRN 07/01/18 [History] Budesonide/Formoterol 160/4.5 [Symbicort 160/4.5] 2 puff IH BID 07/01/18 [History] Levothyroxine [Synthroid] 112 mcg PO QAM 07/01/18 [History] Empagliflozin [Jardiance] 25 mg PO QAM 07/31/18 [History] Atenolol [Tenormin] 25 mg PO QAM 09/14/18 [History] Brimonidine Tartrate 1 drop BOTH EYES BID 09/14/18 [History] HYDROcodone/Acet 5/325 mg [[place] 5-325 mg] 1 tab PO DAILY PRN 09/14/18 [History] Roflumilast [Daliresp] 500 mcg PO QAM 09/14/18 [History] Atorvastatin [Lipitor] 40 mg PO HS #30 tablet 09/21/18 [Rx] Diltiazem CD (24hr) [Cardizem CD] 240 mg PO DAILY #30 cap.er.24h 09/21/18 [Rx] Metoprolol [Lopressor] 25 mg PO BID #60 tablet 09/21/18 [Rx] Rivaroxaban [Xarelto] 20 mg PO 1700 #30 tablet 09/21/18 [Rx] predniSONE [PredniSONE] See Taper PO DAILY #40 tablet 09/21/18 [Rx] Allergies/Adverse Reactions: Allergy/AdvReac Type Severity Reaction Status Date / Time No Known Allergies Allergy Verified 09/14/18 14:57 Date of admission: 09/15/18 10:49 Primary care physician: Juanito Dsouza Consults: 09/14/18 09:47 Consult to Occupational Therapy [CONS] Routine Comment: Evaluate, develop and implement POC Reason for Consult: Weakness, fall Does patient have active BEDREST order?: No Is patient medically & hemodynamically stable?: Yes Patient assessed for mobility or mobilized this visit?: No Consult to Physical Therapy [CONS] Routine Comment: Evaluate, develop and implement POC Reason for Consult: Weakness, fall Does patient have active BEDREST order?: No Is patient medically & hemodynamically stable?: Yes Patient assessed for mobility or mobilized this visit?: No Consult to Strapper [CONS] Routine Reason for SW Consult: placement 09/14/18 12:24 Consult to Nurse Navigator [CONS] Routine Comment: PNEUMONIA, COPD 09/15/18 12:48 Consult to Pulmonology [CONS] Routine Consulting Provider: Pulm Crit Care & Sleep Nadine Reason for Consult: Acute on chronic hypoxic resp failure Multi lobular PNA Time Notified: 12:49 Call Completed: Yes 09/18/18 08:57 Consult to Cardiology [CONS] Routine Comment: Consulting Provider: Cardiology [place] Reason for Consult: new afib Time Notified: 09:00 Call Completed: Yes Discharging clinician: Sal Colby Anticipated date of discharge: 09/21/18 - Constitutional Vitals: Temp Pulse Resp BP Pulse Ox 97.9 F 74 16 105/59 98 09/21/18 11:26 09/21/18 11:26 09/21/18 11:26 09/21/18 11:26 09/21/18 11:26 General appearance: Present: cooperative, A&O X 2 (difficulty recalling current month), no acute distress. Absent: answers questions appropriately (slow to respond to questions) Exam: General: Appears somewhat drowsy Head: atraumatic, normocephalic Eye: PERRL, EOMI Neck: Supple, trachea midline; No lymphadenopathy Respiratory: Diminished breath sounds bilaterally, bilateral wheezing, prolonged expiratory phase, no rales or rhonchi Cardiovascular: Irregularly irregular, +S1, +S2; no murmurs, rubs, gallops Abdomen: Soft, nontender Extremities: warm, radial pulses palpable and symmetrical Psychiatric: Normal affect, normal mood Skin: Dry, intact - Patient Status Disposition: Transfer SNF Condition: Fair Overall status at discharge: patient is progressing back to baseline - Discharge Instructions Instructions: Acute Respiratory Distress Syndrome (DC), Pneumonia (DC) Follow Up With: Juanito Dsouza DO [Primary Care Provider] - Ian Metcalf HAND MOLD MAKER [Advanced Practice Nurse] - (Referral put in for patient to see Ian Metcalf at the [facility]. ) - Diet and Activity Activity: increase activity as tolerated Diet: low salt diet <Luann Vences - Last Filed: 09/21/18 22:37> Orders not resulted at time of discharge: Pending orders 09/16/18 AFB Culture, Respiratory [TB] Routine AFB Culture, Respiratory [TB] Routine AFB Culture, Respiratory [TB] Routine AFB Smear [TB] Routine AFB Smear [TB] Routine AFB Smear [TB] Routine Fungal Culture [MYC] Routine Fungal Culture [MYC] Routine Fungal Culture [MYC] Routine Date of Encounter: 09/21/18 - Discharge Diagnosis (1) Type 2 diabetes mellitus Status: Chronic Qualifiers: Diabetes mellitus [facility] [facility] [place] use: without [facility] use Diabetes mellitus complication status: without complication Qualified Code(s): E11.9 - Type 2 diabetes mellitus without complications (2) Hypothyroid Status: Chronic Qualifiers: Hypothyroidism type: acquired Qualified Code(s): E03.9 - Hypothyroidism, unspecified (3) Acute exacerbation of chronic obstructive airways disease Status: Acute (4) Acute and chronic respiratory failure with hypoxia Status: Acute (5) HCAP (healthcare-associated pneumonia) Status: Acute (6) DVT prophylaxis Status: Acute (7) Generalized weakness Status: Acute (8) Sepsis Status: Acute Qualifiers: Sepsis type: sepsis due to unspecified organism Qualified Code(s): A41.9 - Sepsis, unspecified organism (9) Hyperlipidemia Status: Chronic Qualifiers: Hyperlipidemia type: unspecified Qualified Code(s): E78.5 - Hyperlipidemia, unspecified (10) Spinal stenosis Status: Chronic Qualifiers: Spinal region: lumbar Neurogenic claudication status: unspecified Qualified Code(s): M48.061 - Spinal stenosis, lumbar region without neurogenic claudication (11) Diarrhea Status: Acute Qualifiers: Diarrhea type: unspecified type Qualified Code(s): R19.7 - Diarrhea, unspecified (12) Large cell carcinoma of right lung Status: Chronic (13) Sinus tachycardia Status: Acute (14) Bronchiectasis Status: Acute Qualifiers: Bronchiectasis type: with acute exacerbation Qualified Code(s): J47.1 - Bronchiectasis with (acute) exacerbation (15) New onset a-fib Status: Acute Hospital course: Mr. Loco is a 62 year old male - Time Spent with Patient Total time spent providing and/or coordinating discharge services: Date of admission: 09/15/18 10:49 Primary care physician: Juanito Dsouza Consults: 09/14/18 09:47 Consult to Occupational Therapy [CONS] Routine Comment: Evaluate, develop and implement POC Reason for Consult: Weakness, fall Does patient have active BEDREST order?: No Is patient medically & hemodynamically stable?: Yes Patient assessed for mobility or mobilized this visit?: No Consult to Physical Therapy [CONS] Routine Comment: Evaluate, develop and implement POC Reason for Consult: Weakness, fall Does patient have active BEDREST order?: No Is patient medically & hemodynamically stable?: Yes Patient assessed for mobility or mobilized this visit?: No Consult to Strapper [CONS] Routine Reason for SW Consult: placement 09/14/18 12:24 Consult to Nurse Navigator [CONS] Routine Comment: PNEUMONIA, COPD 09/15/18 12:48 Consult to Pulmonology [CONS] Routine Consulting Provider: Pulm Crit Care & Sleep Nadine Reason for Consult: Acute on chronic hypoxic resp failure Multi lobular PNA Time Notified: 12:49 Call Completed: Yes 09/18/18 08:57 Consult to Cardiology [CONS] Routine Comment: Consulting Provider: Cardiology [place] Reason for Consult: new afib Time Notified: 09:00 Call Completed: Yes - Constitutional Vitals: Temp Pulse Resp BP Pulse Ox 97.9 F 74 18 105/59 98 09/21/18 11:26 09/21/18 11:26 09/21/18 17:30 09/21/18 11:26 09/21/18 17:30 - Attending Attestation I examined this patient and my medical decision-making was reviewed with the Resident Physician. I agree with the documented findings, disposition and treatment plan as described except to the extent set forth below. Discharge time 40 min.
[2018-09-21 15:13] LABS: HSV Source NOT PROVIDED
--- NOTE | 2018-09-21 15:50 | Physician Discharge Referral ---
ExtendedCare Referral Info Provider in Charge after Transfer: PCP Institutional Level of Care: Skilled - Diagnosis (1) HCAP (healthcare-associated pneumonia) Priority: Primary Status: Acute (2) New onset a-fib Priority: Secondary Status: Acute (3) Acute exacerbation of chronic obstructive airways disease Priority: Secondary Status: Acute (4) Bronchiectasis Priority: Secondary Status: Acute (5) Generalized weakness Priority: Secondary Status: Acute (6) Type 2 diabetes mellitus Priority: Secondary Status: Chronic (7) Hyperlipidemia Priority: Secondary Status: Chronic - Transfer Medications Prescriptions: Diltiazem CD (24hr) [Cardizem CD] 240 mg PO DAILY #30 cap.er.24h Atorvastatin [Lipitor] 40 mg PO HS #30 tablet Metoprolol [Lopressor] 25 mg PO BID #60 tablet predniSONE [PredniSONE] See Taper PO DAILY #40 tablet Rivaroxaban [Xarelto] 20 mg PO 1700 #30 tablet Home Medications: Gabapentin [Neurontin] 600 mg PO QAM 11/05/17 [History] SitaGLIPtin [Januvia] 100 mg PO QAM 11/05/17 [History] Albuterol Neb [Proventil Neb] 2.5 mg IH TID 05/25/18 [History] Aspirin [Lo-Dose Aspirin EC] 81 mg PO DAILY 05/25/18 [History] Dorzolamide/Timolol/Pf [Dorzolamide-Timolol 2%-0.5%] 1 drop LEFT EYE BID 05/25/18 [History] Glimepiride [Amaryl] 8 mg PO QAM 05/25/18 [History] Metformin HCl [Glucophage Xr] 1,000 mg PO QAM 05/25/18 [History] Albuterol Sulfate [Proair Hfa] 2 puff IH Q4H PRN 07/01/18 [History] Budesonide/Formoterol 160/4.5 [Symbicort 160/4.5] 2 puff IH BID 07/01/18 [History] Levothyroxine [Synthroid] 112 mcg PO QAM 07/01/18 [History] Empagliflozin [Jardiance] 25 mg PO QAM 07/31/18 [History] Atenolol [Tenormin] 25 mg PO QAM 09/14/18 [History] Brimonidine Tartrate 1 drop BOTH EYES BID 09/14/18 [History] HYDROcodone/Acet 5/325 mg [[place] 5-325 mg] 1 tab PO DAILY PRN 09/14/18 [History] Roflumilast [Daliresp] 500 mcg PO QAM 09/14/18 [History] Atorvastatin [Lipitor] 40 mg PO HS #30 tablet 09/21/18 [Rx] Diltiazem CD (24hr) [Cardizem CD] 240 mg PO DAILY #30 cap.er.24h 09/21/18 [Rx] Metoprolol [Lopressor] 25 mg PO BID #60 tablet 09/21/18 [Rx] Rivaroxaban [Xarelto] 20 mg PO 1700 #30 tablet 09/21/18 [Rx] predniSONE [PredniSONE] See Taper PO DAILY #40 tablet 09/21/18 [Rx] Allergies/Adverse Reactions: Allergy/AdvReac Type Severity Reaction Status Date / Time No Known Allergies Allergy Verified 09/14/18 14:57 - Respiratory Orders Smoking Cessation: Smoking cessation has been advised. For more information, call the [place] Tobacco Quit Line at 7-935-RTRN-NOW. CERTIFICATION: I certify that the transfer of the above named patient to an Extended Care Facility is necessary for the continuing treatment of the diagnosis listed. The above information is true and accurate reflection of patient's current condition. Confidential - Redisclosure prohibited without a patient's written consent.
[2018-09-21] MEDS ORDERED: *HR* Rivaroxaban 10 MG TABLET PO SCH (17:00)
--- NOTE | 2018-09-23 12:07 | Electrocardiograph Report ---
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
== END 2018-09-21 17:35 | DRG 871 ==
LOC: 3BNU → SUATTDRO 06:52 → 2NENU 09-18 11:52
PROVIDERS: ADMIT Family Medicine; ATTEND Student in an Organized Health Care Education/Training Program

== ENCOUNTER 2018-11-25 21:06 | Inpatient (IN) ==
[2018-11-25] MEDS ORDERED: Isovue-370 500 ML BOTTLE IVP ONE (23:57)
[2018-11-26] MEDS ORDERED: Ondansetron 4 MG/2 ML VIAL IVP PRN (00:12)
[2018-11-26] MEDS ORDERED: Ipratropium/Albuterol Neb 3 ML IH ONE (00:13)
[2018-11-26] MEDS ORDERED: Furosemide 40 MG/4 ML VIAL IVP ONE (00:21)
[2018-11-26] MEDS ORDERED: traMADol 50 MG TABLET PO PRN (00:23)
[2018-11-26] MEDS ORDERED: *HR* Dextrose 50 % in Water (Syg) 50 ML SYRINGE IVP PRN (00:43)
[2018-11-26] MEDS ORDERED: Dextrose Gel 15 GM/37.5 ML TUBE PO PRN ×2 (00:43)
[2018-11-26 00:46] LABS: Basophils % 0.1 %; Eosinophils # 0.1 K/mcL (0.0-0.6); Eosinophils % 0.8 %; Immature Granulocytes % 0.3 % (0-4); Lymphocytes # 1.5 K/mcL (0.6-4.6); Lymphocytes % 21.2 %; Mean Corpuscular Hemoglobin 25.9 pg (28.0-33.3); Mean Corpuscular Volume 86.2 fL (83.0-100.0); Monocytes # 0.3 K/mcL (0.0-1.3); Monocytes % 4.1 %; Neutrophils # 5.4 K/mcL (1.6-8.9); Platelet Count 191 K/mcL (140-400); Red Blood Count 3.48 M/mcL (4.19-5.50); Red Cell Distribution Width 17.5 % (11.5-14.5); Segmented Neutrophils % 73.5 %; White Blood Count 7.3 K/mcL (4.3-11.1)
--- NOTE | 2018-11-26 00:48 | Internal Med History&Physical ---
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 Other comorbidities include poorly controlled diabetes and COPD with chronic hypoxic respiratory failure who has been hospitalized twice in the past 1 month in which she required intubation with mechanical ventilation, once at [facility] and once here. On his last admission here he was found to have MRSA pneumonia complicated by bacteremia and was discharged on 11/19 to complete a 4-6 week course of IV vancomycin. He comes back here today on transfer from [facility] where he was taken to from his ECF with complaints of ongoing shortness of breath, productive cough and generalized malaise. No fever or chills were reported and he denies hemoptysis but acknowledges feeling lousy stating he does not feel any different than at the time of his discharge. Vitals: Reviewed General: Elderly man who appears older than stated age with notably poor substrate. Skin: Warm, dry, decreased turgor. HEENT: Moist mucous membranes. Mild conjunctivae pallor. Neck: No JVD. No carotid bruits. No palpable thyroid. Gurgly on auscultation. Chest: Diminished thoracic expansion. Diffuse rhonchi and coarse breath sounds in both lung mota. Heart: Irregularly irregular. No rubs or murmurs. Abdomen: Non-distended, soft and non-tender to palpation. No peritoneal reaction. Extremities: No clubbing, cyanosis. 1+ pedal edema. No calf tenderness. Normal distal pulses. Neurological: Awake, alert and oriented to person, place and time. Psych: Affect flat. Assessment/Plan 1. Acute on chronic hypoxic respiratory failure: I evaluated the x-ray done at [facility] and it does not seem significantly different to the one done here two weeks ago so I will like to get a contrast-enhanced CT for more thorough evaluation. In the interim will add PipTazo empirically for the possibility of a superimposed pneumonia given his multiple hospitalizations, halfway residence, weakened condition and aspiration risk. Will also give him some nebulizer therapy to help diminish airway inflammation and facilitate expectoration of secretions to enable us collect a sputum specimen for culture. A 20mg dose of furosemide will be helpful to decrease the fluid buildup auscultated in his lungs. 2. Electrolyte imbalance: Was reported to be hypokalemic at 2.3 at [facility] but no adequate supplementation was given. Will recheck his electrolytes comprehensively and manage accordingly. 3. Aspiration: The patient is high risk for aspiration and precautions are warranted. Will keep him on honey thickened diet given his last failed videofluoroscopy. 4. MRSA bacteremia: Will recheck another set of blood cultures to ensure sterility. Continue vancomycin till dates as previously determined by ID. 5. Atrial fibrillation: Not on anticoagulants due to his poor clinical state and multiple comorbidities. Continue daily aspirin. 6. Diabetes: Will place on insulin sliding scale. 7. Right lung lesion: Concerning for a malignant neoplasm, possible recurrence. He was unable to undergo bronchoscopy during his last admission due to instability with plans for him to follow up as an outpatient in a matter of weeks. He may need to be revisited during this admission. Past Med Surg Social Fam HX - Past Medical History Medical history: cancer, COPD, diabetes, GERD, hyperlipidemia, thyroid disease Additional medical history: Lung CA Psychiatric history: anxiety - Past Surgical History Surgical History: cataract, orthopedic, other, other Additional surgical history: Pericardial window, left supraclavicular lymph node biopsy, carpal tunnel release - Social History Smoking Status: Former smoker Smokeless Tobacco Status: Yes Alcohol use: none Drug use: none - Family History Father Living Status: Hx Family Cardiac Disorders: Yes (PA, CHF) Hx Family Respiratory Disorders: Yes (Black lung) Sister Living Status: Hx Family Cancer: Yes (Lymph node cancer) Hx Family GI Disorders: Yes Internal Medicine - H&P: Meds Albuterol Sulfate [Proair Hfa] 2 puff IH Q6H PRN 07/01/18 [History] Acetaminophen [Tylenol] 325 mg PO Q4H PRN 11/08/18 [History] Amiodarone [[place]] [place] [address]/08/18 [History] Aspirin [Lo-Dose Aspirin EC] 81 mg PO 0811/08/18 [History] Atorvastatin [Lipitor] 40 mg PO 199911/08/18 [History] Brimonidine 0.2% [Alphagan] 2 drop BOTH EYES 0830,1630 07/15/19 [History] Carvedilol 3.125 mg PO 0830,16311/08/18 [History] Famotidine [Heartburn Prevention] 20 mg PO 08,199911/08/18 [History] Fluticasone Propionate Nasal [[place]ase] 1 [place] [address]/08/18 [History] Fluticasone/Salmeterol [Advair 250-50 Diskus] 1 puff PO 829,199911/08/18 [History] Ipratropium Neb [Atrovent Neb] 0.5 mg PO 0830,1200,163,199911/08/18 [History] Ipratropium/Albuterol Neb [Duoneb] 3 ml PO Q6H 11/08/18 [History] Levothyroxine [Synthroid] [place] [address]/08/18 [History] Nystatin [Nystatin Suspension] 500,000 units PO QID 11/08/18 [History] Roflumilast [D[place]resp] [place] [address]/08/18 [History] Vancomycin/0.9 % Sod Chloride [Vanco 1 Gram/250 ml-0.9% NaCl] 1 gm IV Q12H 28 Days #56 plast..bag 11/18/18 [Rx] Metformin HCl [Glucophage Xr] 1,000 mg PO BID #0 11/19/18 [Rx] Allergy/AdvReac Type Severity Reaction Status Date / Time No Known Allergies Allergy Verified 11/08/18 13:30 All Systems PM: A 10-system review of systems was performed and is negative for pertinent findings except as documented above in the HPI. - Constitutional Vitals: Temp Pulse Resp BP Pulse Ox 98.5 F 102 20 124/70 98 11/25/18 23:36 11/25/18 23:36 11/25/18 23:36 11/25/18 23:36 11/25/18 23:36 Exam: . - Time Spent With Patient Total time spent is greater than 50% in coordination of care (as documented) at patient's floor/unit and/or counseling patient: Greater than 35 minutes
[2018-11-26 00:49] LABS: VBG HCO3 36 mEq/L (21-27); VBG PCO2 56 mmHg (41-51); VBG PH 7.42 pH Units (7.32-7.42); VBG PO2 48 mmHg (25-50)
[2018-11-26 00:55] LABS: INR 1.4; Prothrombin Time 16.4 Seconds (9.4-12.1)
[2018-11-26 00:58] LABS: Activated Partial Thrombo Time 36.6 Seconds (26.0-36.0)
[2018-11-26 01:16] LABS: Alanine Aminotransferase 23 Units/L (7-52); Albumin 2.8 g/dL (3.5-5.7); Alkaline Phosphatase 73 Units/L (34-104); Aspartate Amino Transferase 15 Units/L (13-39); BUN/Creatinine Ratio 25 (6-26); Bilirubin,Direct 0.2 mg/dL (0.0-0.2); Bilirubin,Indirect 0.5 mg/dL (0.0-1.2); Bilirubin,Total 0.7 mg/dL (0.3-1.0); Blood Urea Nitrogen 9 mg/dL (8-23); Calcium 8.4 mg/dL (8.6-10.3); Carbon Dioxide 33 mEq/L (23-29); Chloride 102 mEq/L (98-107); Globulin 2.9 g/dL (2.4-3.5); Glucose 152 mg/dL (70-105); Magnesium 1.7 mg/dL (1.6-2.6); Osmolality,Calculated 300 (280-300); Phosphorous 1.8 mg/dL (2.7-4.5); Potassium 2.9 mEq/L (3.5-5.1); Sodium 144 mEq/L (136-145); Total Protein 5.7 g/dL (6.4-8.9); eGFR For African Americans > 60 (> 60); eGFR For Non-African Americans > 60 (> 60)
[2018-11-26] MEDS ORDERED: Potassium Phosphate 44 MEQ in 0.9 % Sodium Chloride 250 ML IVPB STA (01:21)
[2018-11-26] MEDS: *HR* Heparin 5,000 UNIT/ML VIAL SQ SCH ×2 (06:34→17:25)
[2018-11-26] MEDS: Ipratropium/Albuterol Neb 3 ML IH PRN ×4 (07:32→19:47)
[2018-11-26] MEDS: Budesonide/Formoterol 80/4.5 1 PUFF INH IH SCH ×2 (07:32→19:47)
[2018-11-26] MEDS: Dorzolamide/Timolol OPTH 10 ML BOTTLE LEFT EYE SCH ×2 (08:43→22:06)
[2018-11-26] MEDS: Fluticasone Propionate Nasal 50 MCG/SPRAY BOTTLE NS SCH (08:46)
[2018-11-26] MEDS: Insulin LISPRO 300 UNITS/3 ML VIAL SQ SCH ×4 (08:48→22:08)
[2018-11-26] MEDS: Famotidine 20 MG TABLET PO SCH ×2 (08:51→22:06)
[2018-11-26] MEDS: *HR* Amiodarone 200 MG TABLET PO SCH (08:51)
[2018-11-26] MEDS: Aspirin Enteric Coated 81 MG Tablet PO SCH (08:51)
[2018-11-26] MEDS: Piperacillin/Tazobactam 3.375 GM in 0.9 % Sodium Chloride Mini Bag 100 ML IVPB SCH ×2 (09:07→17:30)
--- NOTE | 2018-11-26 09:33 | Pulmonology Consult Note ---
<Charles Manzano - Last Filed: 11/26/18 16:45> Date of Encounter: 11/26/18 Time of Encounter: 09:33 Assessment and Plan (1) Acute and chronic respiratory failure with hypoxia Current Visit: No Status: Acute Acute on Chronic Resp Failure - Hx of CODP - Presented with SOB, tachypnea - Difficulty with expectoration Plan: - Supplemental O2 as needed - Cont antibiotics - Symbicort BID - Plan for Bronchoscopy tomorrow (2) COPD exacerbation Current Visit: No Status: Suspected COPD exacerbation - As above (3) Bilateral pneumonia Current Visit: No Status: Acute PNA - Evidence of PNA on CXR and Chest CT - Blood cultures pending. - Procalcitonin 0.24 Plan: - Continue antibiotics - Monitor Blood cultures Qualifiers: Pneumonia type: due to unspecified organism Lung location: lower lobe of lung Qualified Code(s): J18.1 - Lobar pneumonia, unspecified organism (4) Large cell carcinoma of right lung Current Visit: No Status: Chronic Hx of Large cell carcinoma R Lung - Diagnosed in 2008 - In remission - Treated with Cisplatin, [employer], and radiation History of Present Illness Consult date: 11/26/18 Chief complaint: SOB History of present illness: Mr. Loco is a 62-year-old with past medical history of COPD, diabetes, and history of large cell neuroendocrine carcinoma. He presented to the hospital early this morning as a transfer from [facility] where he had presented from an ECF where he had been complaining of ongoing, progressively worsening shortness of breath with productive cough and generalized malaise. He denied any fever, chills, or hemoptysis. He was written recently admitted to [facility] where he was found to have MRSA pneumonia, complicated by bacteremia and was discharged on 11/19 with instructions to complete a four-week course of IV vancomycin. He was discharged to an ECF at that time. Here in the ED, he had no leukocytosis, anemia with hemoglobin 9.0. Chest CT showed worsening multifocal airspace disease in lung bases, as well as nodules that are stable from prior exams. He is admitted for acute on chronic hypoxic respiratory failure following failed outpatient treatment of MRSA pneumonia. Empiric antibiotics Zosyn and vancomycin started. Scheduled DuoNeb and Symbicort were started. Peripheral blood cultures were drawn. Sputum culture and Legionella antigen pending. When seen and examined patient laying in bed in some respiratory distress. History was difficult to obtain, patient was very somnolent. Mr. Loco has an extensive pulmonary history. He smoked 2 packs a day for 30 years, quit around 2006. He was diagnosed with non-small cell lung cancer in August 2008, he received radiation and chemotherapy at that time. He has been in remission since. He has been following up [facility] pulmonology since at least 2011. PFT from 02/03/15 showed moderate obstructive impairment with decreased total lung capacity suggesting restrictive deficit. Has been in and out of the hospital for episodes of pneumonia for at least past 3 years. Past Med Surg Social Fam HX - Past Medical History Medical history: cancer, COPD, diabetes, GERD, hyperlipidemia, thyroid disease Additional medical history: Lung cancer Psychiatric history: anxiety - Past Surgical History Surgical History: cataract, orthopedic, other, other Additional surgical history: Pericardial window, left supraclavicular lymph node biopsy, carpal tunnel release - Social History Smoking Status: Former smoker Smokeless Tobacco Status: Yes Alcohol use: none Drug use: none - Family History Father Living Status: Hx Family Cardiac Disorders: Yes (OK, CHF) Hx Family Respiratory Disorders: Yes (Black lung) Sister Living Status: Hx Family Cancer: (Lymph node cancer) Hx Family GI Disorders: Yes Medications and Allergies Amiodarone [Cordarone] 200 mg PO DAILY 11/08/18 [History] Aspirin [Lo-Dose Aspirin EC] 81 mg PO DAILY 11/08/18 [History] Atorvastatin [Lipitor] 40 mg PO QPM 11/08/18 [History] Brimonidine 0.2% [Alphagan] 2 drop BOTH EYES BID 11/08/18 [History] Carvedilol 3.125 mg PO BID 11/08/18 [History] Famotidine [Heartburn Prevention] 20 mg PO BID 11/08/18 [History] Fluticasone Propionate Nasal [Flonase] 1 spray NS DAILY 11/08/18 [History] Fluticasone/Salmeterol [Advair 250-50 Diskus] 1 puff PO BID 11/08/18 [History] Ipratropium Neb [Atrovent Neb] 0.5 mg PO Q6HR 11/08/18 [History] Ipratropium/Albuterol Neb [Duoneb] 3 ml PO Q6H 11/08/18 [History] Levothyroxine [Synthroid] 125 mcg PO DAILY 11/08/18 [History] Nystatin [Nystatin Suspension] 500,000 units PO QID 11/08/18 [History] Roflumilast [Daliresp] 500 mcg PO DAILY 11/08/18 [History] Metformin HCl [Glucophage Xr] 1,000 mg PO BID #0 11/19/18 [Rx] Dorzolamide/Timolol [Cosopt] 1 drop LEFT EYE BID 11/26/18 [History] HYDROcodone/Acet 5/325 mg [Tappan 5-325 mg] 1 tab PO Q4HR 11/26/18 [History] HYDROcodone/Acet 5/325 mg [Tappan 5-325 mg] 1 tab PO Q6HR PRN 11/26/18 [History] LORazepam [Ativan] 0.5 mg PO TID PRN 11/26/18 [History] LORazepam [Ativan] 1 mg PO TID 11/26/18 [History] Vancomycin/0.9 % Sod Chloride [Vanco 1.25 gm/150 ml-0.9% NaCl] 1,250 mg IV Q12HR 11/26/18 [History] Allergy/AdvReac Type Severity Reaction Status Date / Time No Known Allergies Allergy Verified 11/08/18 13:30 All Systems: The remainder of the systems were reviewed and are negative Review of Systems: Constitutional: Reports generalized malaise. Denies fevers, chills, weight loss Head/Neck: Denies CHURCH, neck stiffness EENT: Denies vision changes/blurriness, rhinorrhea, congestion, sore throat CVS: Denies chest pain, palpitations, BENEDICT, orthopnea, edema, PND Pulm: Reports SOB, cough. Denies, hemoptysis, wheezing GI: Denies abdominal pain, nausea, vomiting, diarrhea, constipation, melena, hematemasis : Denies dysuria, increased frequency, urgency, hematuria Heme: Denies ease of bleeding or bruising MSK: Denies joint pain, limited ROM Skin: Denies rashes, ulcers, color changes Neuro: Denies CHURCH, paresthesias, focal deficits, ataxia Physical Examination Vital Signs: Vital Signs, Last 4 Hours Temp Pulse Resp BP Pulse Ox 11/26/18 07:51 98.0 F 116 16 126/76 90 11/26/18 07:32 18 90 11/26/18 05:49 97.8 F 92 16 121/68 92 Gen: Vitals noted. No acute distress. Eyes: anicteric sclerae, moist conjunctivae, Pupils equal and reactive to light HENT: Atraumatic, normocephalic. oropharynx clear with moist mucous membranes and no mucosal ulcerations Neck: Trachea midline; supple, no thyromegaly or lymphadenopathy Cardiac: RRR, no murmurs, rubs or gallops, S1/S2 Pulmonary: Diffuse crackels and ronchi. No wheexing. Equal chest expansion Abdomen: soft, nontender, no rigidity or guarding. No masses or hep atosplenomegaly MSK: ROM intact, no joint swelling noted Extremities: no BLE edema, nontender calf, no cyanosis or clubbing Skin: Normal temperature, turgor and texture; no rash, ulcers or subcutaneous nodules Neuro: moves all extremities, no focal deficits. Psych: Appropriate mood and behavior. A&Ox3 Results - Laboratory Findings CBC and BMP: 11/26/18 00:25 11/26/18 15:28 PT/INR, D-dimer PT 16.4 Seconds (9.4-12.1) H 11/26/18 00:25 Abnormal lab findings: Abnormal lab results RBC 3.48 M/mcL (4.19-5.50) L 11/26/18 00:25 Hgb 9.0 g/dL (12.9-16.9) L D 11/26/18 00:25 Hct 30.0 % (37.5-50.1) L 11/26/18 00:25 MCH 25.9 pg (28.0-33.3) L 11/26/18 00:25 MCHC 30.0 g/dL (31.6-35.5) L 11/26/18 00:25 RDW 17.5 % (11.5-14.5) H 11/26/18 00:25 MPV 9.0 fL (9.4-12.4) L 11/26/18 00:25 PT 16.4 Seconds (9.4-12.1) H 11/26/18 00:25 APTT 36.6 Seconds (26.0-36.0) H 11/26/18 00:25 VBG pCO2 56 mmHg (41-51) H 11/26/18 00:47 VBG HCO3 36 mEq/L (21-27) H 11/26/18 00:47 Potassium 2.9 mEq/L (3.5-5.1) L 11/26/18 00:21 Carbon Dioxide 33 mEq/L (23-29) H 11/26/18 00:21 Creatinine 0.36 mg/dL (0.70-1.30) L 11/26/18 00:21 Glucose 152 mg/dL (70-105) H 11/26/18 00:21 Calcium 8.4 mg/dL (8.6-10.3) L 11/26/18 00:21 Phosphorus 1.8 mg/dL (2.7-4.5) L 11/26/18 00:21 Serum Total Protein 5.7 g/dL (6.4-8.9) L 11/26/18 00:21 Albumin 2.8 g/dL (3.5-5.7) L 11/26/18 00:21 Albumin/Globulin Ratio 1.0 (1.1-2.2) L 11/26/18 00:21 - Microbiology Findings Microbiology Findings: Microbiology, Last 48 Hours 11/26/18 00:25 Blood Culture - Preliminary Peripheral Venipuncture Culture is incubating and being continuously monitored for growth. Final report to follow. 11/26/18 00:25 Blood Culture - Preliminary Peripheral Venipuncture Culture is incubating and being continuously monitored for growth. Final report to follow. - Clinical Findings Intake & Output: Intake & Output 11/25/18 11/26/18 11/26/18 23:59 07:59 15:59 Intake Total 0 / 0 0 / 0 Output Total 0 / 0 Balance 0 / 0 0 / 0 Weight 77.4 kg Consult Discharge Plan - Plan Referrals: Juanito Dsouza DO [Primary Care Provider] - <Skinny Giles - Last Filed: 11/26/18 17:12> Date of Encounter: 11/26/18 All Systems: The remainder of the systems were reviewed and are negative Physical Examination Vital Signs: Vital Signs, Last 4 Hours Temp Pulse Resp BP Pulse Ox 11/26/18 16:00 98.4 F 103 14 120/62 94 11/26/18 15:44 18 94 Results - Laboratory Findings CBC and BMP: 11/26/18 00:25 11/26/18 15:28 PT/INR, D-dimer PT 16.4 Seconds (9.4-12.1) H 11/26/18 00:25 Abnormal lab findings: Abnormal lab results RBC 3.48 M/mcL (4.19-5.50) L 11/26/18 00:25 Hgb 9.0 g/dL (12.9-16.9) L D 11/26/18 00:25 Hct 30.0 % (37.5-50.1) L 11/26/18 00:25 MCH 25.9 pg (28.0-33.3) L 11/26/18 00:25 MCHC 30.0 g/dL (31.6-35.5) L 11/26/18 00:25 RDW 17.5 % (11.5-14.5) H 11/26/18 00:25 MPV 9.0 fL (9.4-12.4) L 11/26/18 00:25 PT 16.4 Seconds (9.4-12.1) H 11/26/18 00:25 APTT 36.6 Seconds (26.0-36.0) H 11/26/18 00:25 VBG pCO2 56 mmHg (41-51) H 11/26/18 00:47 VBG HCO3 36 mEq/L (21-27) H 11/26/18 00:47 Potassium 3.2 mEq/L (3.5-5.1) L 11/26/18 15:28 Carbon Dioxide 33 mEq/L (23-29) H 11/26/18 00:21 Creatinine 0.36 mg/dL (0.70-1.30) L 11/26/18 00:21 Glucose 152 mg/dL (70-105) H 11/26/18 00:21 Calcium 8.4 mg/dL (8.6-10.3) L 11/26/18 00:21 Phosphorus 1.8 mg/dL (2.7-4.5) L 11/26/18 00:21 Serum Total Protein 5.7 g/dL (6.4-8.9) L 11/26/18 00:21 Albumin 2.8 g/dL (3.5-5.7) L 11/26/18 00:21 Albumin/Globulin Ratio 1.0 (1.1-2.2) L 11/26/18 00:21 Procalcitonin 0.24 ng/mL (0.00-0.15) H 11/26/18 00:39 - Microbiology Findings Microbiology Findings: Microbiology, Last 48 Hours 11/26/18 00:25 Blood Culture - Preliminary Peripheral Venipuncture Culture is incubating and being continuously monitored for growth. Final report to follow. 11/26/18 00:25 Blood Culture - Preliminary Peripheral Venipuncture Culture is incubating and being continuously monitored for growth. Final report to follow. - Clinical Findings Intake & Output: Intake & Output 11/26/18 11/26/18 11/26/18 07:59 15:59 23:59 Intake Total 0 / 1070 970 / 1070 100 / 1070 Balance 0 / 1070 970 / 1070 100 / 1070 - Attending Attestation I examined this patient and my medical decision-making was reviewed with the Resident Physician. I agree with the documented findings, disposition and treatment plan as described except to the extent set forth below. We inde pendently had [id number] contact with the patient Patient seen and examined at bedside Labs, radiology, chart personally reviewed. Impression/Recs: 62-year-old gentleman well known to the pulmonary service multiple admissions for pneumonia and COPD exacerbation overall poor health and frail complicated by history of lung cancer with permanent scarring in the right upper lobe related to radiation effect. He returns with increased difficulty breathing and very rhonchorous. Difficult time mobilizing secretions will benefit from therapeutic bronchoscopy discussed with patient and son and they agree to continue agree with that broad-spectrum antibiotics pending now bronchoscopy. Cannot fully exclude rare occurrence of primary lung malignancy based upon CT scan but there is some relative stability for last CT scan and this admissions. Overall prognosis is poor. A bronchoscopy is recommended. The procedure , risks, benefits, complications, and expected outcomes have been reviewed. Benefits of diagnosis, as well as risks to include bleeding, infection, pneumothorax which may require surgical intervention, and in a small population. The patient is aware that sometimes test is nondiagnostic. Discussed with patient and agrees to proceed.
[2018-11-26] MEDS ORDERED: D5% in Water 500 ML IVC SCH (12:15)
[2018-11-26] MEDS: (Roflumilast [Daliresp] 500 MCG) PO SCH (12:22)
[2018-11-26 15:56] LABS: Phosphorous 2.8 mg/dL (2.7-4.5); Potassium 3.2 mEq/L (3.5-5.1)
--- NOTE | 2018-11-26 16:26 | Internal Med Progress Note ---
Hospitalist Progress Note - Encounter Date of Encounter: 11/26/18 Time of Encounter: 16:23 - Subjective Interval History: Patient with tenuous respiratory status this morning. Discussed with respiratory therapy and initiating pulmonary hygiene. Consult pulmonology, who know patient from outpatient setting. Plan for bronchoscopy today and possibly goals of care discussions. - Exam Vitals: Temp Pulse Resp BP Pulse Ox 98.4 F 103 14 120/62 94 11/26/18 16:00 11/26/18 16:00 11/26/18 16:00 11/26/18 16:00 11/26/18 16:00 Exam: . - Assessment and Plan (1) Acute and chronic respiratory failure with hypoxia Current Visit: No Status: Acute Assessment and Plan: Patient with history of chronic respiratory failure secondary to known neuroendocrine cancer, COPD, and recently diagnosed MRSA pneumonia on vancomycin presents with worsening respiratory status and hypoxia in the setting of chest imaging with evidence of worsening multifocal airspace disease concerning for multifocal pneumonia. -Patient has chronic respiratory failure and this is a major setback and patient's clinical status -Worsening pneumonia may be aspiration related given very poor cough in a chronically ill patient -Started on Zosyn in addition to vancomycin -Cultures currently negative -Pulmonology consulted and will complete bronchoscopy tomorrow PLAN: - Vancomycin and Zosyn - Follow up cultures - Aggressive bronchopulmonary hygiene - Bronchoscopy tomorrow - Ongoing goals of care discussions (2) HCAP (healthcare-associated pneumonia) Current Visit: No Status: Acute Assessment and Plan: See above (3) MRSA pneumonia Current Visit: Yes Status: Acute Assessment and Plan: Recent admission for MRSA pneumonia and was discharged on IV vancomycin. - Continue vancomycin, stop date yet to be determined (4) Large cell neuroendocrine carcinoma Current Visit: No Status: Resolved Assessment and Plan: Concern for recurrence given known right lung lesion in which biopsy is being considered. -Son very persistent on wanting to get this biopsy -Patient has a very low functional status so unclear if he would actually benefit from treatment regardless of biopsy results -[employer] on service this week does not do biopsies so this may be delayed PLAN: - Further interventions pending ongoing discussions with family in pulmonology DVT Prophylaxis: Hold for bronchoscopy tomorrow Internal Medicine: Result - Labs CBC & Chem 7: 11/26/18 00:25 11/26/18 15:28 Labs: Short CBC 11/26/18 Range/Units 00:25 WBC 7.3 (4.3-11.1) K/mcL Hgb 9.0 L D (12.9-16.9) g/dL Hct 30.0 L (37.5-50.1) % Plt Count 191 (140-400) K/mcL Neutrophils # 5.4 (1.6-8.9) K/mcL BMP 11/26/18 11/26/18 00:21 15:28 Sodium 144 Potassium 2.9 L 3.2 L Chloride 102 Carbon Dioxide 33 H BUN 9 Creatinine 0.36 L Glucose 152 H Calcium 8.4 L Liver Function 11/26/18 Range/Units 00:21 Total Bilirubin 0.7 (0.3-1.0) mg/dL Direct Bilirubin 0.2 (0.0-0.2) mg/dL AST 15 (13-39) Units/L ALT 23 (7-52) Units/L Alkaline Phosphatase 73 (34-104) Units/L Albumin 2.8 L (3.5-5.7) g/dL - ABG Interpretation ABG results: PT/INR, D-dimer PT 16.4 Seconds (9.4-12.1) H 11/26/18 00:25 - Impressions Impressions Chest X-Ray 11/26/18 12:20 IMPRESSION: 1. Right arm PICC in appropriate position. 2. Stable small right subpulmonic pleural effusion. 3. Stable right upper lobe masslike opacity. 4. Stable bibasilar airspace disease, likely superimposed pneumonia. D/ / 11/26/2018 13:49:58 Leon Sargent MD / madelyn Interpreting Provider: Leon Sargent MD Chest CT 11/26/18 23:57 IMPRESSION: Worsening multifocal airspace disease in the lung bases compatible with pneumonia. Paraesophageal soft tissue and right hilar soft tissue is grossly stable accounting for technical differences. Upper lobe pulmonary nodules and right lower are stable, the largest measuring 1 cm. Attention and follow-up is advised to document for interval change. D/ / 11/26/2018 07:43:10 Zion Bolaoñs / lily Interpreting Provider: Zion Bolaños Consult Discharge Plan - Plan Referrals: Juanito Dsouza DO [Primary Care Provider] -
[2018-11-26] MEDS: Acetaminophen 325 MG TABLET PO PRN (18:16)
[2018-11-27] MEDS: Piperacillin/Tazobactam 3.375 GM in 0.9 % Sodium Chloride Mini Bag 100 ML IVPB SCH ×3 (00:56→17:31)
[2018-11-27] MEDS: Nystatin POWDER 30 GM BOTTLE TP SCH ×3 (00:57→22:24)
[2018-11-27] MEDS: *HR* Heparin 5,000 UNIT/ML VIAL SQ SCH ×3 (06:17→17:34)
[2018-11-27 06:36] LABS: BUN/Creatinine Ratio 30 (6-26); Blood Urea Nitrogen 13 mg/dL (8-23); Calcium 8.2 mg/dL (8.6-10.3); Carbon Dioxide 35 mEq/L (23-29); Chloride 103 mEq/L (98-107); Glucose 157 mg/dL (70-105); Osmolality,Calculated 295 (280-300); Phosphorous 2.2 mg/dL (2.7-4.5); Potassium 3.9 mEq/L (3.5-5.1); Sodium 141 mEq/L (136-145); eGFR For African Americans > 60 (> 60); eGFR For Non-African Americans > 60 (> 60)
--- NOTE | 2018-11-27 06:46 | Pulmonology Progress Note ---
Date of Encounter: 11/27/18 Time of Encounter: 06:45 Assessment and Plan (1) Multifocal pneumonia Current Visit: No Status: Acute He is status post bronchoscopy which is noted for some scattered mucoid secretions and narrowing of the right middle lobe bronchus. No clear evidence of endobronchial tumor. He will need to have aggressive bronchopulmonary hygiene to facilitate expectoration of mucus/secretions. It is imperative the patient stop using oral tobacco because of risk of aspiration. Recommend continued to broad-spectrum antibiotics which can be de-escalate based upon microbiological sensitivities. He will need outpatient follow-up in the pulmonary clinic to repeat CT scan and consider PET scan for further evaluation of hilar lung mass/adenopathy which could represent recurrence of his tumor. Continue scheduled duo nebs and Symbicort 160/4.52 puffs twice a day. Pulmonary will sign off call with any questions. (2) Non-small cell lung cancer (NSCLC) Current Visit: No Status: Resolved Qualifiers: Laterality: unspecified laterality Qualified Code(s): C34.90 - Malignant neoplasm of unspecified part of unspecified bronchus or lung (3) Acute exacerbation of chronic obstructive airways disease Current Visit: No Status: Acute Subjective Principal diagnosis: Pneumonia Interval history: No acute events overnight. I saw "Dean" (as he likes to be called) in the anesthesia holding area. He was noted to have a tobacco granules stuck in his stock he denied any complaints today. He is still very hoarse of voice Objective PUL Vital signs: Last Vital Signs Temp 97.7 F 11/27/18 01:00 Pulse 78 11/27/18 01:00 Resp 16 11/27/18 01:00 BP 91/57 11/27/18 01:00 Pulse Ox 97 11/27/18 01:00 General appearance: no acute distress Eyes: nonicteric Auscultation: bilateral: rhonchi (very audible ) Cardiovascular: regular rate and rhythm Gastrointestinal: normoactive bowel sounds Integumentary: normal Extremities: no edema Musculoskeletal: no deformities normal mental status, non-focal exam mood appropriate Results - Laboratory Findings CBC and BMP: 11/26/18 00:25 11/27/18 05:30 PT/INR, D-dimer PT 16.4 Seconds (9.4-12.1) H 11/26/18 00:25 Abnormal lab findings: Abnormal lab results RBC 3.48 M/mcL (4.19-5.50) L 11/26/18 00:25 Hgb 9.0 g/dL (12.9-16.9) L D 11/26/18 00:25 Hct 30.0 % (37.5-50.1) L 11/26/18 00:25 MCH 25.9 pg (28.0-33.3) L 11/26/18 00:25 MCHC 30.0 g/dL (31.6-35.5) L 11/26/18 00:25 RDW 17.5 % (11.5-14.5) H 11/26/18 00:25 MPV 9.0 fL (9.4-12.4) L 11/26/18 00:25 PT 16.4 Seconds (9.4-12.1) H 11/26/18 00:25 APTT 36.6 Seconds (26.0-36.0) H 11/26/18 00:25 VBG pCO2 56 mmHg (41-51) H 11/26/18 00:47 VBG HCO3 36 mEq/L (21-27) H 11/26/18 00:47 Potassium 3.2 mEq/L (3.5-5.1) L 11/26/18 15:28 Carbon Dioxide 35 mEq/L (23-29) H 11/27/18 05:30 Creatinine 0.43 mg/dL (0.70-1.30) L 11/27/18 05:30 BUN/Creatinine Ratio 30 (6-26) H 11/27/18 05:30 Glucose 157 mg/dL (70-105) H 11/27/18 05:30 POC Glucose 300 mg/dL (70-99) H 11/26/18 21:01 Calcium 8.2 mg/dL (8.6-10.3) L 11/27/18 05:30 Phosphorus 2.2 mg/dL (2.7-4.5) L 11/27/18 05:30 Serum Total Protein 5.7 g/dL (6.4-8.9) L 11/26/18 00:21 Albumin 2.8 g/dL (3.5-5.7) L 11/26/18 00:21 Albumin/Globulin Ratio 1.0 (1.1-2.2) L 11/26/18 00:21 Procalcitonin 0.24 ng/mL (0.00-0.15) H 11/26/18 00:39 - Microbiology Findings Microbiology Findings: Microbiology, Last 48 Hours 11/26/18 00:25 Blood Culture - Preliminary Peripheral Venipuncture Culture is incubating and being continuously monitored for growth. Final report to follow. 11/26/18 00:25 Blood Culture - Preliminary Peripheral Venipuncture Culture is incubating and being continuously monitored for growth. Final report to follow. - Clinical Findings Intake & Output: Intake & Output 11/26/18 11/26/18 11/27/18 15:59 23:59 07:59 Intake Total 970 / 1720 750 / 1720 200 / 200 Balance 970 / 1720 750 / 1720 200 / 200 Consult Discharge Plan - Plan Referrals: Juanito Dsouza DO [Primary Care Provider] -
[2018-11-27] MEDS: Aspirin Enteric Coated 81 MG Tablet PO SCH (09:57)
[2018-11-27] MEDS: *HR* Amiodarone 200 MG TABLET PO SCH (09:57)
[2018-11-27] MEDS: Famotidine 20 MG TABLET PO SCH ×2 (09:58→22:21)
[2018-11-27] MEDS: Dorzolamide/Timolol OPTH 10 ML BOTTLE LEFT EYE SCH ×2 (09:59→22:24)
[2018-11-27] MEDS: Insulin LISPRO 300 UNITS/3 ML VIAL SQ SCH ×4 (10:00→22:25)
[2018-11-27] MEDS: Fluticasone Propionate Nasal 50 MCG/SPRAY BOTTLE NS SCH (10:02)
[2018-11-27] MEDS: (Roflumilast [Daliresp] 500 MCG) PO SCH (10:03)
[2018-11-27] MEDS: Budesonide/Formoterol 80/4.5 1 PUFF INH IH SCH ×2 (10:21→22:44)
[2018-11-27] MEDS ORDERED: Lidocaine -MPF 2% 2 ML VIAL ONE (11:22)
[2018-11-27] MEDS ORDERED: *HR* FentaNYL (PF) 100 MCG/2 ML VIAL ONE (11:22)
[2018-11-27] MEDS ORDERED: *HR* Succinylcholine 200 MG/10 ML VIAL IVP ONE (11:23)
[2018-11-27] MEDS ORDERED: Lidocaine -MPF 4% 5 ML AMPUL ONE (11:23)
[2018-11-27] MEDS ORDERED: Dexamethasone 4 MG/ML VIAL ONE (11:23)
[2018-11-27] MEDS ORDERED: Ondansetron 4 MG/2 ML VIAL ONE (11:23)
--- NOTE | 2018-11-27 11:50 | Anesthesia Evaluation PreOp ---
Date of Encounter: 11/27/18 Time of Encounter: 11:47 - Past History Planned Operation: Bronchoscopy Cardiac History: Hyperlipidemia, Arrhythmia (AFib NOT anticoagulated re: poor clinical state - per H&P) Pulmonary History: COPD ( w/ chronic hypoxic resp failure requiring Hospitalization/Intubation), Other (Lung Ca. 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) Anesthesia History: No Prior Anesthetic Complications, Past Anesthesia (Pericardial window, L-supraclavicular LN Bx, CTR) Alcohol Use: none Drug use: none Medications and Allergies Amiodarone [Cordarone] 200 mg PO DAILY 11/08/18 [History] Aspirin [Lo-Dose Aspirin EC] 81 mg PO DAILY 11/08/18 [History] Atorvastatin [Lipitor] 40 mg PO QPM 11/08/18 [History] Brimonidine 0.2% [Alphagan] 2 drop BOTH EYES BID 11/08/18 [History] Carvedilol 3.125 mg PO 0800,1600 11/08/18 [History] Famotidine [Heartburn Prevention] 20 mg PO BID 11/08/18 [History] Fluticasone Propionate Nasal [Flonase] 1 spray NS DAILY 11/08/18 [History] Fluticasone/Salmeterol [Advair 250-50 Diskus] 1 puff PO BID 11/08/18 [History] Ipratropium Neb [Atrovent Neb] 0.5 mg PO Q6HR 11/08/18 [History] Ipratropium/Albuterol Neb [Duoneb] 3 ml PO Q6H 11/08/18 [History] Levothyroxine [Synthroid] 125 mcg PO QAM 11/08/18 [History] Nystatin [Nystatin Suspension] 500,000 units PO QID 11/08/18 [History] Roflumilast [Daliresp] 500 mcg PO DAILY 11/08/18 [History] Metformin HCl [Glucophage Xr] 1,000 mg PO BID #0 11/19/18 [Rx] Dorzolamide/Timolol [Cosopt] 1 drop LEFT EYE BID 11/26/18 [History] HYDROcodone/Acet 5/325 mg [Empire 5-325 mg] 1 tab PO Q6HR PRN 11/26/18 [History] Vancomycin HCl in Dextrose 5 % [Vancomycin HCl 1G/200 ml Bag] 1 gm IV Q12H 11/26/18 [History] Allergy/AdvReac Type Severity Reaction Status Date / Time No Known Allergies Allergy Verified 11/08/18 13:30 - Meds/Allergy Pre-op Review Medications Reviewed: Yes Allergies Reviewed: Yes Beta Blockers on Current Med List: Yes (Carvedilol) If Beta Blockers taken, Date/Time (Last Dose taken): 11/27/2018 @ 958 Anesthesia Results - Labs 11/26/18 00:25 11/27/18 05:30 ECHO 11/17/2018 - EV/EV echocardiogram Impressions: LVEF 50-55%. Indeterminate diastolic function. Normal right ventricular structure and function. Mild tricuspid regurgitation. No pulmonary hypertension. Valvular vegetations are not visualized. Left Ventricular Wall Motion: Rest Echo Findings All wall segments showed normal motion. - Imaging EKG: report reviewed (113bpm - Sinus tachycardia IVCD Electronically Signed On 11-08-2018 17:09:16 EDT by Tino Mccoy) Anesthesia Exam Vital Signs Temp Pulse Resp BP Pulse Ox 11/27/18 11:20 97.8 F 80 13 108/56 95 11/27/18 10:21 20 97 11/27/18 07:22 97.7 F 77 16 99/55 96 11/27/18 01:00 97.7 F 78 16 91/57 97 11/26/18 21:17 98.1 F 89 20 90/53 95 11/26/18 19:47 20 96 11/26/18 18:38 74 138/88 11/26/18 16:00 98.4 F 103 14 120/62 94 11/26/18 15:44 18 94 Intake and Output 11/26/18 11/27/18 11/27/18 23:59 07:59 15:59 Intake Total 750 / 1720 200 / 200 0 / 200 Balance 750 / 1720 200 / 200 0 / 200 Intake: IV Fluids 750 / 1260 200 / 200 Zosyn 3.375 GM In 0.9 % Sodium 200 / 200 100 / 100 Chloride (Mini-Bag +) 100 ML @ 25 mls/hr IVPB Q8HR [facility] Rx#: [id number] Potassium Chloride 10 mEq/100mL 300 / 300 100 / 100 10 meq In 100 ml @ 100 mls/hr IVPB Q1H [facility] Rx#:[id number] Vancocin 1,250 MG In 0.9 % 250 / 500 Sodium Chloride 250 ML @ 166.67 mls/hr IVPB Q12H [facility] Rx#: [id number] Oral 0 / 0 Other: Meal Breakfast Percent of Meal Consumed 0% # Urine Diapers 0 Blood Glucose* 300 141 - HEENT Pupil (Motor): Pupils equal, EOMI Mallampati: II Teeth: Missing (PT has 2 bottom teeth remaining), Poor dentition Oral Opening: Greater than 3 - SUPERVISOR SAMPLE PREPARATION LOC: Oriented SUPERVISOR SAMPLE PREPARATION Motor: Normal RUE, Normal LUE, Normal RLE, Normal LLE, Normal Face [employer]PERVIS[employer] PREPAR[employer] Sensory: Normal: RUE, LUE, RLE, LLE, Face - Cardiac Rhythm: Regular Murmur: None - Pulmonary Breath Sounds: bilateral Clear Respiratory Effort: Symmetrical Anesthesia Assess/Plan ASA Score: 3 Level of consciousness: Cooperative, Oriented, Tranquil Anesthetic Plan: General Monitoring Plan: Standard Monitors Recovery Plan: PACU Anes Supervising Prov Stmt: Pt seen/evaluated, R&B Discussed, questions answered and consent obtained. Padmini Ward MD
--- NOTE | 2018-11-27 12:00 | Internal Med Progress Note ---
Hospitalist Progress Note - Encounter Date of Encounter: 11/27/18 Time of Encounter: 11:57 - Subjective Interval History: Breathing improved today. Going down for bronchoscopy today. Denies pain - Exam Vitals: Temp Pulse Resp BP Pulse Ox 97.8 F 80 13 108/56 95 11/27/18 11:20 11/27/18 11:20 11/27/18 11:20 11/27/18 11:20 11/27/18 11:20 Exam: . - Assessment and Plan (1) Acute and chronic respiratory failure with hypoxia Current Visit: No Status: Acute Assessment and Plan: Patient with history of chronic respiratory failure secondary to known neuroen docrine cancer, COPD, and recently diagnosed MRSA pneumonia on vancomycin presents with worsening respiratory status and hypoxia in the setting of chest imaging with evidence of worsening multifocal airspace disease concerning for multifocal pneumonia. -Patient has chronic respiratory failure and this is a major setback and patient's clinical status -Worsening pneumonia may be aspiration related given very poor cough in a chronically ill patient -Started on Zosyn in addition to vancomycin -Cultures currently negative -Breathing improved today -Pulmonology consulted - will complete bronchoscopy today PLAN: - Vancomycin and Zosyn - Follow up cultures - Aggressive bronchopulmonary hygiene - Bronchoscopy today - Ongoing goals of care discussions (2) HCAP (healthcare-associated pneumonia) Current Visit: No Status: Acute Assessment and Plan: See above (3) Large cell neuroendocrine carcinoma Current Visit: No Status: Resolved Assessment and Plan: Concern for recurrence given known right lung lesion in which biopsy is being c onsidered. -Son very persistent on wanting to get this biopsy -Patient has a very low functional status so unclear if he would actually benefit from treatment regardless of biopsy results -Front Desk Monitor on service this week does not do biopsies so this may be delayed PLAN: - Further interventions pending ongoing discussions with family in pulmonology DVT Prophylaxis: Hold for bronchoscopy tomorrow - Time Spent with Patient Total time spent is greater than 50% in coordination of care (as documented) at patient's floor/unit and/or counseling patient: Internal Medicine: Result - Labs CBC & Chem 7: 11/26/18 00:25 11/27/18 05:30 Labs: BMP 11/26/18 11/27/18 15:28 05:30 Sodium 141 Potassium 3.2 L 3.9 Chloride 103 Carbon Dioxide 35 H BUN 13 Creatinine 0.43 L Glucose 157 H Calcium 8.2 L - ABG Interpretation ABG results: PT/INR, D-dimer PT 16.4 Seconds (9.4-12.1) H 11/26/18 00:25 - Impressions Impressions Chest X-Ray 11/26/18 12:20 IMPRESSION: 1. Right arm PICC in appropriate position. 2. Stable small right subpulmonic pleural effusion. 3. Stable right upper lobe masslike opacity. 4. Stable bibasilar airspace disease, likely superimposed pneumonia. D/ / 11/26/2018 13:49:58 Leon Sargent MD / madelyn Interpreting Provider: Leon Sargent MD Chest CT 11/26/18 23:57 IMPRESSION: Worsening multifocal airspace disease in the lung bases compatible with pneumonia. Paraesophageal soft tissue and right hilar soft tissue is grossly stable accounting for technical differences. Upper lobe pulmonary nodules and right lower are stable, the largest measuring 1 cm. Attention and follow-up is advised to document for interval change. D/ / 11/26/2018 07:43:10 Zion Bolaños / lily Interpreting Provider: Zion Bolaños Consult Discharge Plan - Plan Referrals: Juanito Dsouza DO [Primary Care Provider] -
[2018-11-27] MEDS: Ringers Solution, Lactated 1,000 ML IVC SCH (12:08)
[2018-11-27] MEDS ORDERED: *HR* PHENYLEPHRINE 1,000 MCG/10 ML SYRINGE IVP ONE (12:25)
[2018-11-27] MEDS: *HR* HYDROcodone/Acet 5/325 mg TABLET PO PRN (17:44)
[2018-11-27 18:17] LABS: Appearance of Body Fluid Cloudy (Clear); Volume of Body Fluid 18 mL
--- NOTE | 2018-11-27 19:25 | Anesthesia Evaluation Post Op ---
Date of Encounter: 11/27/18 Time of Encounter: 13:00 - Vital Signs Vital Signs: Vital Signs Temp Pulse Resp BP Pulse Ox 11/27/18 13:10 98.5 F 90 18 101/59 98 11/27/18 13:00 92 20 104/64 99 11/27/18 12:50 90 18 96/62 98 11/27/18 12:40 97.3 F L 83 18 105/58 100 11/27/18 12:04 97.8 F 84 18 104/68 98 11/27/18 11:20 97.8 F 80 13 108/56 95 11/27/18 10:21 20 97 11/27/18 07:22 97.7 F 77 16 99/55 96 11/27/18 01:00 97.7 F 78 16 91/57 97 11/26/18 21:17 98.1 F 89 20 90/53 95 11/26/18 19:47 20 96 Intake and Output 11/27/18 11/27/18 11/27/18 07:59 15:59 23:59 Intake Total 450 / 550 100 / 550 Balance 450 / 550 100 / 550 Intake: IV Fluids 450 / 550 100 / 550 Zosyn 3.375 GM In 0.9 % Sodium 100 / 200 100 / 200 Chloride (Mini-Bag +) 100 ML @ 25 mls/hr IVPB Q8HR [facility] Rx#: [id number] Potassium Chloride 10 mEq/100mL 100 / 100 10 meq In 100 ml @ 100 mls/hr IVPB Q1H [facility] Rx#:[id number] Vancocin 1,250 MG In 0.9 % 250 / 250 Sodium Chloride 250 ML @ 166.67 mls/hr IVPB Q12H [facility] Rx#: [id number] Oral 0 / 0 Other: Meal Breakfast Percent of Meal Consumed 0% Blood Glucose* 141 125 196 - Lungs Lungs: Rhonchi, Treatment Ordered - Airway Airway: Non-obstructed - Cardiovascular Regular Rate, Baseline Rhythm - Mental Status Mental Status: Alert & Oriented, Answers Appropriately - Pain Pain Scale: 0 Pain Scale used: Numeric (1 - 10) - Nausea Vomiting Nausea Vomiting: Not Present - Hydration Hydration: Ice chips, Has not voided - Discharge PostOp Status: Transfer Patient to floor Anes Supervising Prov Stmt: Pt seen'/evaluated, VSS and has met criteria for discharge to floor. - MD Ed
[2018-11-28] MEDS: Piperacillin/Tazobactam 3.375 GM in 0.9 % Sodium Chloride Mini Bag 100 ML IVPB SCH ×2 (01:48→08:08)
[2018-11-28] MEDS: *HR* Heparin 5,000 UNIT/ML VIAL SQ SCH ×2 (05:44→17:48)
[2018-11-28] MEDS: Famotidine 20 MG TABLET PO SCH ×2 (08:06→22:40)
[2018-11-28] MEDS: *HR* Amiodarone 200 MG TABLET PO SCH (08:06)
[2018-11-28] MEDS: Aspirin Enteric Coated 81 MG Tablet PO SCH (08:06)
[2018-11-28] MEDS: Dorzolamide/Timolol OPTH 10 ML BOTTLE LEFT EYE SCH ×2 (08:07→22:42)
[2018-11-28] MEDS: Fluticasone Propionate Nasal 50 MCG/SPRAY BOTTLE NS SCH (08:07)
[2018-11-28] MEDS: Insulin LISPRO 300 UNITS/3 ML VIAL SQ SCH ×4 (08:08→22:31)
[2018-11-28] MEDS: Budesonide/Formoterol 80/4.5 1 PUFF INH IH SCH ×2 (09:26→19:50)
[2018-11-28] MEDS: (Roflumilast [Daliresp] 500 MCG) PO SCH (12:08)
[2018-11-28] MEDS: Nystatin POWDER 30 GM BOTTLE TP SCH ×2 (12:08→22:45)
--- NOTE | 2018-11-28 12:12 | Internal Med Progress Note ---
Hospitalist Progress Note - Encounter Date of Encounter: 11/28/18 Time of Encounter: 12:08 - Subjective Interval History: Discussed case with pulmonology. From their perspective, patient can discharge and that would be best if he followed up for biopsy. Patient doing fine this morning - Exam Vitals: Temp Pulse Resp BP Pulse Ox 98.7 F 72 18 105/60 95 11/28/18 07:43 11/28/18 07:43 11/28/18 09:26 11/28/18 07:43 11/28/18 09:26 Exam: . - Assessment and Plan (1) Acute and chronic respiratory failure with hypoxia Current Visit: No Status: Acute Assessment and Plan: Patient with history of chronic respiratory failure secondary to known neuroendocrine cancer, COPD, and recently diagnosed MRSA pneumonia on vancomycin presents with worsening respiratory status and hypoxia in the setting of chest imaging with evidence of worsening multifocal airspace disease concerning for multifocal pneumonia. -Patient has chronic respiratory failure and this is a major setback and patient's clinical status -Worsening pneumonia may be aspiration related given very poor cough in a chronically ill patient -Started on Zosyn in addition to vancomycin -Cultures currently negative -Bronchoscopy completed yesterday. Pulmonary lesion not intrabronchial so could not be biopsied -Pulmonoogy recommends discharging patient on Vancomycin and Augmentin and h aving him f/u in pulm clinic for bx PLAN: - Vancomycin - Zosyn --> Augmentin - Follow up cultures - Aggressive bronchopulmonary hygiene - Ongoing goals of care discussions (2) HCAP (healthcare-associated pneumonia) Current Visit: No Status: Acute Assessment and Plan: See above (3) Large cell neuroendocrine carcinoma Current Visit: No Status: Resolved Assessment and Plan: Concern for recurrence given known right lung lesion in which biopsy is being considered. -Son very persistent on wanting to get this biopsy -Patient has a very low functional status so unclear if he would actually benefit from treatment regardless of biopsy results -Freight Sorter on service this week does not do biopsies so this may be delayed -Pulmonology recommends that patient f/u outpatient for biopsy PLAN: - Plan for discharge tomorrow with outpatient f/u for biopsy DVT Prophylaxis: LMWH Internal Medicine: Result - Labs CBC & Chem 7: 11/26/18 00:25 11/27/18 05:30 - ABG Interpretation ABG results: PT/INR, D-dimer PT 16.4 Seconds (9.4-12.1) H 11/26/18 00:25 - Impressions Impressions Chest X-Ray 11/26/18 12:20 IMPRESSION: 1. Right arm PICC in appropriate position. 2. Stable small right subpulmonic pleural effusion. 3. Stable right upper lobe masslike opacity. 4. Stable bibasilar airspace disease, likely superimposed pneumonia. D/ / 11/26/2018 13:49:58 Leon Sargent MD / madelyn Interpreting Provider: Leon Sargent MD Consult Discharge Plan - Plan Referrals: Juanito Dsouza DO [Primary Care Provider] -
[2018-11-28] MEDS: *HR* HYDROcodone/Acet 5/325 mg TABLET PO PRN (13:49)
[2018-11-28] MEDS ORDERED: Benzocaine 20% 12 APPL GEL..GRAM. TP PRN (13:53)
[2018-11-28] MEDS: *HR* LORazepam 0.5 MG TABLET PO PRN ×2 (14:38→22:40)
[2018-11-28] MEDS: Ringers Solution, Lactated 1,000 ML IVC SCH (16:20)
[2018-11-29 05:17] LABS: Hematocrit 25.7 % (37.5-50.1); Hemoglobin 7.5 g/dL (12.9-16.9); Mean Corpuscular HGB Conc 29.2 g/dL (31.6-35.5); Mean Corpuscular Hemoglobin 26.2 pg (28.0-33.3); Mean Corpuscular Volume 89.9 fL (83.0-100.0); Mean Platelet Volume 9.2 fL (9.4-12.4); Platelet Count 162 K/mcL (140-400); Red Blood Count 2.86 M/mcL (4.19-5.50); Red Cell Distribution Width 17.1 % (11.5-14.5); White Blood Count 4.4 K/mcL (4.3-11.1)
[2018-11-29 05:37] LABS: BUN/Creatinine Ratio 21 (6-26); Blood Urea Nitrogen 10 mg/dL (8-23); Calcium 7.9 mg/dL (8.6-10.3); Carbon Dioxide 31 mEq/L (23-29); Chloride 105 mEq/L (98-107); Glucose 142 mg/dL (70-105); Osmolality,Calculated 293 (280-300); Sodium 141 mEq/L (136-145); eGFR For African Americans > 60 (> 60); eGFR For Non-African Americans > 60 (> 60)
[2018-11-29] MEDS ORDERED: *HR* Enoxaparin 40 MG/0.4 ML SYRINGE SQ SCH (06:00)
[2018-11-29] MEDS: *HR* Heparin 5,000 UNIT/ML VIAL SQ SCH ×2 (06:11→17:09)
[2018-11-29] MEDS: Famotidine 20 MG TABLET PO SCH ×2 (08:27→22:37)
[2018-11-29] MEDS: Fluticasone Propionate Nasal 50 MCG/SPRAY BOTTLE NS SCH (08:27)
[2018-11-29] MEDS: *HR* Amiodarone 200 MG TABLET PO SCH (08:28)
[2018-11-29] MEDS: Aspirin Enteric Coated 81 MG Tablet PO SCH (08:28)
[2018-11-29] MEDS: Nystatin POWDER 30 GM BOTTLE TP SCH (08:29)
[2018-11-29] MEDS: Dorzolamide/Timolol OPTH 10 ML BOTTLE LEFT EYE SCH ×2 (08:29→22:38)
[2018-11-29] MEDS: (Roflumilast [Daliresp] 500 MCG) PO SCH (08:30)
[2018-11-29] MEDS: Insulin LISPRO 300 UNITS/3 ML VIAL SQ SCH ×4 (08:30→22:23)
[2018-11-29] MEDS: Budesonide/Formoterol 80/4.5 1 PUFF INH IH SCH ×2 (10:38→20:29)
[2018-11-29] MEDS: Cefdinir 300 MG CAPSULE PO SCH ×2 (11:13→22:56)
[2018-11-29 12:31] LABS: Hematocrit 27.4 % (37.5-50.1); Hemoglobin 8.2 g/dL (12.9-16.9); Mean Corpuscular HGB Conc 29.9 g/dL (31.6-35.5); Mean Corpuscular Hemoglobin 26.5 pg (28.0-33.3); Mean Corpuscular Volume 88.4 fL (83.0-100.0); Mean Platelet Volume 9.1 fL (9.4-12.4); Platelet Count 162 K/mcL (140-400); Red Cell Distribution Width 17.2 % (11.5-14.5); White Blood Count 5.6 K/mcL (4.3-11.1)
--- NOTE | 2018-11-29 13:30 | Electrocardiograph Report ---
[place] [id number] Test Date: 2018-11-26 Pat Name: Lisandro Loco Department: 111 Room: 2NE18 Gender: M Health Safety Coordinator: : 1955 Requested By: Parth Schultz Order Number: [id number] Reading MD: Vivek Hernández Measurements Intervals [place] Rate: 112 P: 48 DE: 161 QRS: 40 QRSD: 93 T: 99 QT: 275 QTc: 341 Interpretive Statements SINUS TACHYCARDIA WITH OCCASIONAL SUPRAVENTRICULAR PREMATURE COMPLEXES INCOMPLETE RIGHT BUNDLE BRANCH BLOCK Electronically Signed On 11-29-2018 13:28:26 EDT by Vivek Hernández
--- NOTE | 2018-11-29 16:39 | Pulmonology Progress Note ---
Date of Encounter: 11/29/18 Time of Encounter: 16:37 Assessment and Plan (1) Abnormal CT scan, chest Current Visit: Yes Status: Acute I was asked to reevaluate the patient regarding abnormal chest imaging and consideration of repeat bronchoscopy. The patient already underwent bronchoscopy earlier this hospitalization. No endobronchial lesions were noted. A BAL was performed. Cytology from that lavage is pending. I reviewed the patient's chest imaging and compared it to prior CT scans of the chest. He has chronic changes in the right hilar and) esophageal regions that are relatively unchanged. There is no clear mediastinal adenopathy that appears amenable to bronchoscopy with EBUS guided biopsy. Regardless, the patient should finish a course of antibiotics and have repeat imaging as an outpatient. PET scan could also be considered at that time. Recommend repeat CT scan approximate 4 weeks and pulmonary follow-up. I will arrange the pulmonary follow-up with Dr. Giles. (2) Multifocal pneumonia Current Visit: No Status: Acute Antibiotic course per primary service. Serratia noted growing from bronchoscopy is susceptible to Omnicef. (3) Large cell neuroendocrine carcinoma Current Visit: No Status: Resolved Plan as above with repeat CT scan of the chest as an outpatient. Comment: No further recommendations from a pulmonary standpoint. We will sign off. Subjective Principal diagnosis: Pneumonia Interval history: No acute overnight events. Patient is without new complaints. Objective PUL Vital signs: Last Vital Signs Temp 97.9 F 11/29/18 15:25 Pulse 82 11/29/18 15:25 Resp 18 11/29/18 15:25 BP 116/72 11/29/18 15:25 Pulse Ox 97 11/29/18 15:25 General appearance: no acute distress Eyes: nonicteric ENT: oropharynx moist Effort: mildly labored Auscultation: bilateral: rhonchi Cardiovascular: regular rate and rhythm Gastrointestinal: normoactive bowel sounds, soft, non-tender Integumentary: normal Extremities: no cyanosis non-focal exam mood appropriate Results - Laboratory Findings CBC and BMP: 11/29/18 12:17 11/29/18 04:54 PT/INR, D-dimer PT 16.4 Seconds (9.4-12.1) H 11/26/18 00:25 Abnormal lab findings: Abnormal lab results RBC 3.10 M/mcL (4.19-5.50) L 11/29/18 12:17 Hgb 8.2 g/dL (12.9-16.9) L 11/29/18 12:17 Hct 27.4 % (37.5-50.1) L 11/29/18 12:17 MCH 26.5 pg (28.0-33.3) L 11/29/18 12:17 MCHC 29.9 g/dL (31.6-35.5) L 11/29/18 12:17 RDW 17.2 % (11.5-14.5) H 11/29/18 12:17 MPV 9.1 fL (9.4-12.4) L 11/29/18 12:17 PT 16.4 Seconds (9.4-12.1) H 11/26/18 00:25 APTT 36.6 Seconds (26.0-36.0) H 11/26/18 00:25 VBG pCO2 56 mmHg (41-51) H 11/26/18 00:47 VBG HCO3 36 mEq/L (21-27) H 11/26/18 00:47 Potassium 3.2 mEq/L (3.5-5.1) L 11/26/18 15:28 Carbon Dioxide 31 mEq/L (23-29) H 11/29/18 04:54 Creatinine 0.48 mg/dL (0.70-1.30) L 11/29/18 04:54 BUN/Creatinine Ratio 30 (6-26) H 11/27/18 05:30 Glucose 142 mg/dL (70-105) H 11/29/18 04:54 POC Glucose 202 mg/dL (70-99) H 11/29/18 10:51 Calcium 7.9 mg/dL (8.6-10.3) L 11/29/18 04:54 Phosphorus 2.2 mg/dL (2.7-4.5) L 11/27/18 05:30 Serum Total Protein 5.7 g/dL (6.4-8.9) L 11/26/18 00:21 Albumin 2.8 g/dL (3.5-5.7) L 11/26/18 00:21 Albumin/Globulin Ratio 1.0 (1.1-2.2) L 11/26/18 00:21 Procalcitonin 0.24 ng/mL (0.00-0.15) H 11/26/18 00:39 Fluid Appearance Cloudy (Clear) A 11/27/18 12:31 Vancomycin Trough 20 mcg/mL (5-10) H 11/29/18 04:54 - Microbiology Findings Microbiology Findings: Microbiology, Last 48 Hours 11/27/18 12:31 Acid Fast Stain - Final Right Middle Lobe Lung 11/27/18 12:31 Respiratory Culture - Final Right Middle Lobe Lung Serratia marcescens 11/27/18 12:31 Fungal Culture - Preliminary Right Middle Lobe Lung Culture is incubating. - Clinical Findings Intake & Output: Intake & Output 11/29/18 11/29/18 11/29/18 07:59 15:59 23:59 Intake Total 120 / 120 0 / 120 Output Total 200 / 600 400 / 600 Balance -80 / -480 -400 / -480 Weight 77.9 kg Consult Discharge Plan - Plan Referrals: Juanito Dsouza DO [Primary Care Provider] -
[2018-11-29] MEDS: Acetaminophen 325 MG TABLET PO PRN (17:08)
[2018-11-29] MEDS: *HR* LORazepam 0.5 MG TABLET PO PRN (17:09)
--- NOTE | 2018-11-29 17:43 | Internal Med Progress Note ---
Hospitalist Progress Note - Encounter Date of Encounter: 11/29/18 Time of Encounter: 17:37 - Subjective Interval History: Had a long discussion with patient's son over the phone. Would really like to get PET scan scheduled before patient leaves the hospital. Told him I would work on this there are no promises. May need to follow-up with pulmonology be fore PET scan can be scheduled. - Exam Vitals: Temp Pulse Resp BP Pulse Ox 97.9 F 82 18 116/72 97 11/29/18 15:25 11/29/18 15:25 11/29/18 15:25 11/29/18 15:25 11/29/18 15:25 Exam: General: Ill-appearing and in no acute distress HEENT: No erythema of posterior pharynx. No exudates. Lymphatics: No mandibular or cervical lymphadenopathy Cardiovascular: RRR. No murmurs. No chest wall tenderness. Lungs: Rhonchi throughout. Regular chest rise. Abdomen: Non-tender. No rebound or gaurding. Nl bowel sounds. Extremities: No edema. 2+ pulses radial and pedal pulses Skin: No rahses, abrasions, or contusions. Nl cap refill. Psych: Nl attention. A&Ox3 Neuro: speed belt sander II-XII intact. 5/5 strength. Sensation to light touch and pinprick intact. - Assessment and Plan (1) Acute and chronic respiratory failure with hypoxia Current Visit: No Status: Acute Assessment and Plan: Patient with history of chronic respiratory failure secondary to known neuroendocrine cancer, COPD, and recently diagnosed MRSA pneumonia on vancomycin presents with worsening respiratory status and hypoxia in the setting of chest imaging with evidence of worsening multifocal airspace disease concerning for multifocal pneumonia. -Patient has chronic respiratory failure and this is a major setback and patient's clinical status -Worsening pneumonia may be aspiration related given very poor cough in a chronically ill patient -Started on Zosyn in addition to vancomycin -Cultures currently negative -Bronchoscopy completed yesterday. Growing out Serratia marcescens PLAN: - Vancomycin, will need 3-5 weeks of antibiotics from date of discharge - will discuss with ID before discharge - Augmentin --> cefdinir - Follow up cultures - Aggressive bronchopulmonary hygiene - Ongoing goals of care discussions (2) HCAP (healthcare-associated pneumonia) Current Visit: No Status: Acute Assessment and Plan: See above (3) Large cell neuroendocrine carcinoma Current Visit: No Status: Resolved Assessment and Plan: Concern for recurrence given known right lung lesion in which biopsy is being considered. -Son very persistent on wanting to get this biopsy -Patient has a very low functional status so unclear if he would actually benefit from treatment regardless of biopsy results -Per pulmonology, low suspicion that this is actually secondary to cancer given appearance and stability on CT scans. Recommend o/p PET scan. Will try to set this up PLAN: - Plan for discharge tomorrow with outpatient f/u for PET scan DVT Prophylaxis: LMWH Internal Medicine: Result - Labs CBC & Chem 7: 11/29/18 12:17 11/29/18 04:54 Labs: Short CBC 11/29/18 11/29/18 Range/Units 04:54 12:17 WBC 4.4 5.6 (4.3-11.1) K/mcL Hgb 7.5 L D 8.2 L (12.9-16.9) g/dL Hct 25.7 L 27.4 L (37.5-50.1) % Plt Count 162 162 (140-400) K/mcL [facility] 11/29/18 04:54 Sodium 141 Potassium 4.0 Chloride 105 Carbon Dioxide 31 H BUN 10 Creatinine 0.48 L Glucose 142 H Calcium 7.9 L - ABG Interpretation ABG results: PT/INR, D-dimer PT 16.4 Seconds (9.4-12.1) H 11/26/18 00:25 Consult Discharge Plan - Plan Referrals: Juanito Dsouza DO [Primary Care Provider] -
[2018-11-29] MEDS ORDERED: Cefdinir 125 MG/5 ML UDC PO SCH (23:00)
[2018-11-30] MEDS: Nystatin POWDER 30 GM BOTTLE TP SCH ×2 (00:09→09:01)
[2018-11-30] MEDS: Cefdinir 125 MG/5 ML UDC PO SCH ×2 (00:13→08:44)
[2018-11-30] MEDS: *HR* Heparin 5,000 UNIT/ML VIAL SQ SCH (05:50)
[2018-11-30] MEDS: Budesonide/Formoterol 80/4.5 1 PUFF INH IH SCH (07:57)
[2018-11-30 08:13] VITALS: BP 110/67
[2018-11-30] MEDS: Insulin LISPRO 300 UNITS/3 ML VIAL SQ SCH ×2 (08:33→12:32)
[2018-11-30] MEDS: Famotidine 20 MG TABLET PO SCH (08:42)
[2018-11-30] MEDS: *HR* Amiodarone 200 MG TABLET PO SCH (08:43)
[2018-11-30] MEDS: Aspirin Enteric Coated 81 MG Tablet PO SCH (08:44)
[2018-11-30] MEDS: Fluticasone Propionate Nasal 50 MCG/SPRAY BOTTLE NS SCH (08:45)
[2018-11-30] MEDS: Dorzolamide/Timolol OPTH 10 ML BOTTLE LEFT EYE SCH (08:45)
[2018-11-30] MEDS ORDERED: Potassium Chloride Elixir 20 MEQ/15 ML UDC PO SCH (09:00)
[2018-11-30] MEDS: *HR* LORazepam 0.5 MG TABLET PO PRN (12:30)
--- NOTE | 2018-11-30 16:12 | Discharge Summary ---
Orders not resulted at time of discharge: Pending orders 11/25/18 23:57 Culture,Blood [BC] Stat Culture,Sputum with Gram Stain [RM] Stat Legionella Antigen [RM] Stat 11/27/18 12:31 AFB Culture, Respiratory [TB] Routine AFB Smear [TB] Routine Fungal Culture [MYC] Routine Date of Encounter: 11/30/18 Time of Encounter: 16:07 - Discharge Diagnosis (1) Acute and chronic respiratory failure with hypoxia Priority: Primary Status: Acute (2) HCAP (healthcare-associated pneumonia) Priority: Secondary Status: Acute (3) Large cell neuroendocrine carcinoma Priority: Secondary Status: Resolved Hospital course: Mr. Loco is a 62 year old male with history of chronic respiratory failure secondary to known neuroendocrine cancer, COPD, and recently diagnosed MRSA pneumonia with bacteremia on 4-6 week course of vancomycin presented with recurrent aspiration pneumonia with bronch culture growing serratia marcescens. Suspect recurrent aspiration events are due to weakness from recurrent hospitalizations and patient using chewing tobacco. He was discharged back to a SNF with Cefdinir along with continuation of vancomycin and will need to stay at SNF throughout the duration of his IV antibiotics (4-6 weeks from 11/07 admission, exact duration as determined by infectious disease, who he will follow-up with). Patient also has a lung lesion concerning for recurrence of his cancer that he will need to follow-up with pulmonology for PET scan after hos pital stay. Discharge discussed with: patient - Time Spent with Patient Total time spent providing and/or coordinating discharge services: 85 minutes Time spent: Greater than 30 minutes - Discharge Medications Prescriptions: New Cefdinir [Omnicef] 300 mg PO BID 5 Days #10 udc Continued Roflumilast [Daliresp] 500 mcg PO DAILY Amiodarone [Cordarone] 200 mg PO DAILY Aspirin [Lo-Dose Aspirin EC] 81 mg PO DAILY Atorvastatin [Lipitor] 40 mg PO QPM Brimonidine 0.2% [Alphagan] 2 drop BOTH EYES BID Carvedilol 3.125 mg PO 0800,1600 Famotidine [Heartburn Prevention] 20 mg PO BID Fluticasone Propionate Nasal [Flonase] 1 spray NS DAILY Fluticasone/Salmeterol [Advair 250-50 Diskus] 1 puff PO BID Ipratropium Neb [Atrovent Neb] 0.5 mg PO Q6HR Ipratropium/Albuterol Neb [Duoneb] 3 ml PO Q6H Levothyroxine [Synthroid] 125 mcg PO QAM Nystatin [Nystatin Suspension] 500,000 units PO QID Metformin HCl [Glucophage Xr] 1,000 mg PO BID #0 HYDROcodone/Acet 5/325 mg [[place] 5-325 mg] 1 tab PO Q6HR PRN PRN Reason: Pain Dorzolamide/Timolol [Cosopt] 1 drop LEFT EYE BID Vancomycin HCl in Dextrose 5 % [Vancomycin HCl 1G/200 ml Bag] 1 gm IV Q12H Home Medications: Amiodarone [Cordarone] 200 mg PO DAILY 11/08/18 [History] Aspirin [Lo-Dose Aspirin EC] 81 mg PO DAILY 11/08/18 [History] Atorvastatin [Lipitor] 40 mg PO QPM 11/08/18 [History] Brimonidine 0.2% [Alphagan] 2 drop BOTH EYES BID 11/08/18 [History] Carvedilol 3.125 mg PO 0800,1600 11/08/18 [History] Famotidine [Heartburn Prevention] 20 mg PO BID 11/08/18 [History] Fluticasone Propionate Nasal [Flonase] 1 spray NS DAILY 11/08/18 [History] Fluticasone/Salmeterol [Advair 250-50 Diskus] 1 puff PO BID 11/08/18 [History] Ipratropium Neb [Atrovent Neb] 0.5 mg PO Q6HR 11/08/18 [History] Ipratropium/Albuterol Neb [Duoneb] 3 ml PO Q6H 11/08/18 [History] Levothyroxine [Synthroid] 125 mcg PO QAM 11/08/18 [History] Nystatin [Nystatin Suspension] 500,000 units PO QID 11/08/18 [History] Roflumilast [Daliresp] 500 mcg PO DAILY 11/08/18 [History] Metformin HCl [Glucophage Xr] 1,000 mg PO BID #0 11/19/18 [Rx] Dorzolamide/Timolol [Cosopt] 1 drop LEFT EYE BID 11/26/18 [History] HYDROcodone/Acet 5/325 mg [[place] 5-325 mg] 1 tab PO Q6HR PRN 11/26/18 [History] Vancomycin HCl in Dextrose 5 % [Vancomycin HCl 1G/200 ml Bag] 1 gm IV Q12H 11/26/18 [History] Cefdinir [Omnicef] 300 mg PO BID 5 Days #10 [facility] [place]/30/18 [Rx] Allergies/Adverse Reactions: Allergy/AdvReac Type Severity Reaction Status Date / Time No Known Allergies Allergy Verified 11/08/18 13:30 Date of admission: 11/25/18 23:55 Primary care physician: Juanito Dsouza Consults: 11/26/18 08:25 Consult to Speech Therapy [CONS] Routine Comment: Evaluate, develop and implement POC Reason for Consult: Dysphagia Call Completed: No - Constitutional Vitals: Temp Pulse Resp BP Pulse Ox 98.1 F 80 16 110/67 96 11/30/18 08:05 11/30/18 08:05 11/30/18 08:05 11/30/18 08:05 11/30/18 08:05 Exam: General: Ill-appearing and in no acute distress HEENT: No erythema of posterior pharynx. No exudates. Lymphatics: No mandibular or cervical lymphadenopathy Cardiovascular: RRR. No murmurs. No chest wall tenderness. Lungs: Rhonchi throughout. Regular chest rise. Abdomen: Non-tender. No rebound or gaurding. Nl bowel sounds. Extremities: No edema. 2+ pulses radial and pedal pulses Skin: No rahses, abrasions, or contusions. Nl cap refill. Psych: Nl attention. A&Ox3 Neuro: head sampler II-XII intact. 5/5 strength. Sensation to light touch and pinprick intact. - Patient Status Disposition: Home, Self-Care Condition: Good Functional capacity at discharge: independent ambulation Overall status at discharge: patient is progressing back to baseline - Discharge Instructions Follow Up With: Deanne Palacios CNP [Advanced Practice Nurse] - 12/03/18 9:20 am (Juanito Dsouza is no longer Available patient will be seeing Deanne Palacios Cnp) Logan Hitchcock MD [Partnered Physician] - 12/06/18 8:00 am (Dr. Palafox office will set up the PET Scan for the patent ......they will call with a time for the PET Scan) Margy Ruiz CNP [Advanced Practice Nurse] - 12/14/18 2:40 pm Jeyson Blackburn MD [Partnered Physician] - (SUBMITTED A WEB REQUEST FOR DR. BLACKBURN OFFICE TO CONTACT PATIENT WITH A HOSPITAL FOLLOW UP ) - Diet and Activity Activity: as per physical therapy Diet: low salt diet, regular diet
--- NOTE | 2018-11-30 16:25 | Physician Discharge Referral ---
ExtendedCare Referral Info Transfer To: SNF Provider in Charge: Parth Schultz MD Provider in Charge after Transfer: PCP Institutional Level of Care: Skilled - Diagnosis (1) Acute and chronic respiratory failure with hypoxia Priority: Primary Status: Acute (2) HCAP (healthcare-associated pneumonia) Priority: Secondary Status: Acute (3) Large cell neuroendocrine carcinoma Priority: Secondary Status: Resolved (4) MRSA bacteremia Priority: Secondary Status: Acute - Transfer Medications Prescriptions: Cefdinir [Omnicef] 300 mg PO BID 5 Days #10 [facility] [place] Home Medications: Amiodarone [Cordarone] 200 mg PO DAILY 11/08/18 [History] Aspirin [Lo-Dose Aspirin EC] 81 mg PO DAILY 11/08/18 [History] Atorvastatin [Lipitor] 40 mg PO QPM 11/08/18 [History] Brimonidine 0.2% [Alphagan] 2 drop BOTH EYES BID 11/08/18 [History] Carvedilol 3.125 mg PO 0800,1600 11/08/18 [History] Famotidine [Heartburn Prevention] 20 mg PO BID 11/08/18 [History] Fluticasone Propionate Nasal [Flonase] 1 spray NS DAILY 11/08/18 [History] Fluticasone/Salmeterol [Advair 250-50 Diskus] 1 puff PO BID 11/08/18 [History] Ipratropium Neb [Atrovent Neb] 0.5 mg PO Q6HR 11/08/18 [History] Ipratropium/Albuterol Neb [Duoneb] 3 ml PO Q6H 11/08/18 [History] Levothyroxine [Synthroid] 125 mcg PO QAM 11/08/18 [History] Nystatin [Nystatin Suspension] 500,000 units PO QID 11/08/18 [History] Roflumilast [Daliresp] 500 mcg PO DAILY 11/08/18 [History] Metformin HCl [Glucophage Xr] 1,000 mg PO BID #0 11/19/18 [Rx] Dorzolamide/Timolol [Cosopt] 1 drop LEFT EYE BID 11/26/18 [History] HYDROcodone/Acet 5/325 mg [[place] 5-325 mg] 1 tab PO Q6HR PRN 11/26/18 [History] Vancomycin HCl in Dextrose 5 % [Vancomycin HCl 1G/200 ml Bag] 1 gm IV Q12H 11/26/18 [History] Cefdinir [Omnicef] 300 mg PO BID 5 Days #10 udc 11/30/18 [Rx] Allergies/Adverse Reactions: Allergy/AdvReac Type Severity Reaction Status Date / Time No Known Allergies Allergy Verified 11/08/18 13:30 - Respiratory Orders Smoking Cessation: Smoking cessation has been advised. For more information, call the [place] Tobacco Quit Line at 3-249-JVOY-NOW. - Lab Orders Lab Orders: CBC (Weekly starting 12/06), Other (include drug levels w/frequency) (CMP Weekly starting 12/06) - Advance Directives Living Will: No Power of Armature [employer] for Health Care: No Code Status: Full Code - Mobility Orders Chair, Ambulate - Rehabiliation Orders Rehab Potential: Fair Rehab Orders: Evaluation for Physical Therapy, Evaluation for Occupational Therapy, Evaluation for Speech Therapy - Diet Orders No Added Salt (ELIO), Cardiac CERTIFICATION: I certify that the transfer of the above named patient to an Extended Care Facility is necessary for the continuing treatment of the diagnosis listed. The above information is true and accurate reflection of patient's current condition. Jose Schultz MD Confidential - Redisclosure prohibited without a patient's written consent.
[2018-11-30] MEDS ORDERED: Aminoglycoside Consult 1 EACH MC ONE (18:15)
== END 2018-11-30 18:16 | disposition home or self-care (01) | DRG 177 ==
LOC: 2NENU → SUATTDRO 23:55
PROVIDERS: ADMIT Internal Medicine; ATTEND Internal Medicine

== ENCOUNTER 2018-12-20 12:01 | Inpatient (IN) ==
[2018-12-20] MEDS ORDERED: levoFLOXacin 750 MG/150 ML 750 MG/150 ML BAG IVPB ONE (12:21)
[2018-12-20] MEDS ORDERED: 0.9 % Sodium Chloride 1,000 ML IVC ONE (12:21)
[2018-12-20] MEDS ORDERED: Vancomycin 1,000 MG VIAL IVPB ONE (12:21)
[2018-12-20] MEDS ORDERED: Piperacillin/Tazobactam 3.375 GM in Water for inj. (sterile) 20 ML IVP ONE (12:21)
[2018-12-20] MEDS ORDERED: FentaNYL (PF) 1,000 MCG in 0.9 % Sodium Chloride 80 ML IVC SCH ×2 (12:30→13:15)
[2018-12-20] MEDS ORDERED: *HR* Etomidate 20 MG/10 ML AMPUL IVP ONE ×2 (12:30→15:25)
[2018-12-20] MEDS ORDERED: *HR* Succinylcholine 200 MG/10 ML VIAL IVP ONE ×2 (12:32→15:25)
[2018-12-20 12:52] LABS: Basophils % 0.1 %; Eosinophils % 0.1 %; Immature Granulocytes % 0.7 % (0-4); Lymphocytes # 0.6 K/mcL (0.6-4.6); Lymphocytes % 4.2 %; Mean Corpuscular HGB Conc 31.3 g/dL (31.6-35.5); Mean Corpuscular Hemoglobin 27.4 pg (28.0-33.3); Mean Corpuscular Volume 87.7 fL (83.0-100.0); Mean Platelet Volume 9.3 fL (9.4-12.4); Monocytes # 0.4 K/mcL (0.0-1.3); Monocytes % 2.9 %; Neutrophils # 12.8 K/mcL (1.6-8.9); Platelet Count 122 K/mcL (140-400); Red Blood Count 4.56 M/mcL (4.19-5.50); Red Cell Distribution Width 17.2 % (11.5-14.5); White Blood Count 13.8 K/mcL (4.3-11.1)
[2018-12-20 12:53] LABS: Bilirubin,Urine Negative (Negative); Blood,Urine Moderate (Negative); Clarity,Urine Clear (Clear); Color,Urine Yellow (Yellow); Glucose,Urine (UA) 500 mg/dL (Normal); Ketones,Urine Negative (Negative); Leukocyte Esterase,Urine Negative (Negative); Nitrite,Urine Negative (Negative); Protein,Urine Negative (Neg-Trace); Specific Gravity,Urine 1.021 (1.010-1.025); Urobilinogen,Urine Normal (Normal)
[2018-12-20 13:01] LABS: INR 2.2; Prothrombin Time 24.6 Seconds (9.4-12.1)
[2018-12-20 13:04] LABS: Activated Partial Thrombo Time 37.6 Seconds (26.0-36.0)
[2018-12-20 13:07] LABS: BUN/Creatinine Ratio 38 (6-26); Blood Urea Nitrogen 13 mg/dL (8-23); Calcium 8.4 mg/dL (8.6-10.3); Carbon Dioxide 37 mEq/L (23-29); Chloride 100 mEq/L (98-107); Glucose 233 mg/dL (70-105); Osmolality,Calculated 304 (280-300); Potassium 3.1 mEq/L (3.5-5.1); Sodium 143 mEq/L (136-145); eGFR For African Americans > 60 (> 60); eGFR For Non-African Americans > 60 (> 60)
[2018-12-20 13:08] LABS: Troponin I < 0.03 ng/mL (< 0.04)
[2018-12-20 13:10] LABS: Hemoglobin 12.5 g/dL (12.9-16.9)
[2018-12-20 13:24] LABS: Bacteria,Urine None Seen per hpf (None-Few); RBC,Urine 30-50 per hpf (0-3); Squamous Epithelial Cell,Urine Many per lpf (None-Few); WBC,Urine 30-50 per hpf (0-3)
[2018-12-20 13:55] LABS: ABG Base Excess 7 mEq/L (-2 to 3); ABG HCO3 31 mEq/L (21-27); ABG Oxygen Saturation 96 % (95-98); ABG PCO2 41 mmHg (35-45); ABG PH 7.49 pH Units (7.32-7.45); ABG PO2 78 mmHg (85-104); ABG TCO2 33 mEq/L (20-26); Blood Gas Modality BiLevel; Blood Gas VT 550 cc
[2018-12-20 14:07] LABS: Yeast,Urine Moderate per hpf (None Seen)
[2018-12-20] MEDS ORDERED: Naloxone 0.4 MG/ML INJ IVP PRN (14:34)
[2018-12-20 14:37] LABS: Magnesium 1.9 mg/dL (1.6-2.6)
[2018-12-20] MEDS ORDERED: Artificial Tears SOLN 15 ML BOTTLE BOTH EYES PRN (16:42)
[2018-12-20] MEDS ORDERED: Dextrose Gel 15 GM/37.5 ML TUBE PO PRN ×2 (16:42)
[2018-12-20] MEDS ORDERED: *HR* Dextrose 50 % in Water (Syg) 50 ML SYRINGE IVP PRN (16:42)
[2018-12-20] MEDS ORDERED: D5% in Water 1,000 ML IVC PRN (16:42)
[2018-12-20] MEDS ORDERED: 0.9 % Sodium Chloride 250 ML ONE (17:17)
[2018-12-20] MEDS ORDERED: Dexmedetomidine HCl 400 MCG/100 ML MLS IVC ONE (17:17)
[2018-12-20] MEDS ORDERED: *HR* Norepinephrine 4 MG/4 ML VIAL IVC ONE (17:18)
[2018-12-20] MEDS: Dexmedetomidine HCl 400 MCG/100 ML MLS IVC SCH (17:25)
[2018-12-20] MEDS ORDERED: *HR* Heparin 5,000 UNIT/ML VIAL SQ SCH ×2 (18:00→22:00)
[2018-12-20] MEDS: Norepinephrine 4 MG in 0.9 % Sodium Chloride 250 ML IVC SCH (18:17)
[2018-12-20] MEDS: Chlorhexidine Rinse 15 ML MOUTHWASH MM SCH (20:17)
[2018-12-20] MEDS: Insulin LISPRO 300 UNITS/3 ML VIAL SQ SCH (20:19)
[2018-12-20] MEDS: Artificial Tears SOLN 15 ML BOTTLE BOTH EYES SCH ×2 (20:19→23:50)
[2018-12-20] MEDS: FentaNYL (PF) 1,000 MCG in 0.9 % Sodium Chloride 80 ML IVC SCH (23:07)
[2018-12-20] MEDS: Hydrocortisone Sodium Succ 100 MG/2 ML VIAL IVP SCH (23:50)
[2018-12-21] MEDS: Insulin LISPRO 300 UNITS/3 ML VIAL SQ SCH ×4 (00:04→18:02)
[2018-12-21] MEDS: Dexmedetomidine HCl 400 MCG/100 ML MLS IVC SCH ×2 (00:21→10:50)
[2018-12-21] MEDS: Artificial Tears SOLN 15 ML BOTTLE BOTH EYES SCH ×5 (03:49→20:07)
[2018-12-21 04:33] LABS: Hematocrit 30.6 % (37.5-50.1); Hemoglobin 9.6 g/dL (12.9-16.9); Immature Granulocytes % 0.7 % (0-4); Lymphocytes # 0.6 K/mcL (0.6-4.6); Lymphocytes % 7.3 %; Mean Corpuscular HGB Conc 31.4 g/dL (31.6-35.5); Mean Corpuscular Hemoglobin 27.4 pg (28.0-33.3); Mean Corpuscular Volume 87.4 fL (83.0-100.0); Mean Platelet Volume 9.4 fL (9.4-12.4); Monocytes # 0.3 K/mcL (0.0-1.3); Monocytes % 3.7 %; Neutrophils # 6.8 K/mcL (1.6-8.9); Platelet Count 106 K/mcL (140-400); Red Cell Distribution Width 17.3 % (11.5-14.5); Segmented Neutrophils % 88.3 %; White Blood Count 7.6 K/mcL (4.3-11.1)
[2018-12-21 04:53] LABS: BUN/Creatinine Ratio 47 (6-26); Blood Urea Nitrogen 18 mg/dL (8-23); Calcium 7.8 mg/dL (8.6-10.3); Carbon Dioxide 34 mEq/L (23-29); Chloride 102 mEq/L (98-107); Glucose 159 mg/dL (70-105); Osmolality,Calculated 303 (280-300); Potassium 3.3 mEq/L (3.5-5.1); Sodium 144 mEq/L (136-145); eGFR For African Americans > 60 (> 60); eGFR For Non-African Americans > 60 (> 60)
[2018-12-21 05:11] LABS: ABG Base Excess 9 mEq/L (-2 to 3); ABG HCO3 34 mEq/L (21-27); ABG Oxygen Saturation 93 % (95-98); ABG PCO2 48 mmHg (35-45); ABG PH 7.46 pH Units (7.32-7.45); ABG PO2 66 mmHg (85-104); ABG TCO2 36 mEq/L (20-26); Blood Gas Modality ASSIST CONTROL; Blood Gas VT 500 cc
[2018-12-21] MEDS: *HR* Heparin 5,000 UNIT/ML VIAL SQ SCH ×3 (06:34→21:40)
[2018-12-21] MEDS ORDERED: Piperacillin/Tazobactam 3.375 GM in 0.9 % Sodium Chloride Mini Bag 100 ML IVPB ONE (08:30)
[2018-12-21] MEDS: Chlorhexidine Rinse 15 ML MOUTHWASH MM SCH ×2 (09:18→20:07)
[2018-12-21] MEDS: levoFLOXacin 750 MG/150 ML 750 MG/150 ML BAG IVPB SCH (09:20)
[2018-12-21] MEDS: Hydrocortisone Sodium Succ 100 MG/2 ML VIAL IVP SCH ×2 (09:20→14:54)
[2018-12-21] MEDS: FentaNYL (PF) 1,000 MCG in 0.9 % Sodium Chloride 80 ML IVC SCH (09:21)
[2018-12-21] MEDS: Nystatin POWDER 30 GM BOTTLE TP SCH ×2 (09:35→20:08)
[2018-12-21 10:15] LABS: INR 1.5; Prothrombin Time 16.7 Seconds (9.4-12.1)
[2018-12-21] MEDS ORDERED: Potassium Chloride 40 MEQ, Lidocaine 1% 2 ML in 0.9 % Sodium Chloride 500 ML IVPB ONE (10:37)
[2018-12-21] MEDS ORDERED: *HR* Succinylcholine 200 MG/10 ML VIAL IVP ONE (12:42)
[2018-12-21] MEDS ORDERED: *HR* Etomidate 20 MG/10 ML AMPUL IVP ONE (12:42)
[2018-12-21] MEDS: Piperacillin/Tazobactam 3.375 GM in 0.9 % Sodium Chloride Mini Bag 100 ML IVPB SCH ×2 (14:46→21:41)
[2018-12-21] MEDS: Pantoprazole 40 MG VIAL IVP SCH (17:45)
[2018-12-21] MEDS: Norepinephrine 4 MG in 0.9 % Sodium Chloride 250 ML IVC SCH (18:02)
[2018-12-21 18:31] LABS: Basophils % 0.1 %; Hematocrit 29.8 % (37.5-50.1); Hemoglobin 9.6 g/dL (12.9-16.9); Immature Granulocytes % 0.8 % (0-4); Lymphocytes # 0.6 K/mcL (0.6-4.6); Lymphocytes % 6.3 %; Mean Corpuscular HGB Conc 32.2 g/dL (31.6-35.5); Mean Corpuscular Hemoglobin 27.7 pg (28.0-33.3); Mean Corpuscular Volume 86.1 fL (83.0-100.0); Mean Platelet Volume 9.7 fL (9.4-12.4); Monocytes # 0.3 K/mcL (0.0-1.3); Monocytes % 3.4 %; Neutrophils # 8.2 K/mcL (1.6-8.9); Platelet Count 124 K/mcL (140-400); Red Blood Count 3.46 M/mcL (4.19-5.50); Red Cell Distribution Width 17.4 % (11.5-14.5); Segmented Neutrophils % 89.4 %; White Blood Count 9.1 K/mcL (4.3-11.1)
[2018-12-21] MEDS ORDERED: Ketorolac 15 MG/ML VIAL IVP PRN (21:14)
[2018-12-22] MEDS: Hydrocortisone Sodium Succ 100 MG/2 ML VIAL IVP SCH ×3 (00:06→15:57)
[2018-12-22] MEDS: Insulin LISPRO 300 UNITS/3 ML VIAL SQ SCH ×4 (00:28→17:53)
[2018-12-22] MEDS: Artificial Tears SOLN 15 ML BOTTLE BOTH EYES SCH ×3 (00:29→08:07)
[2018-12-22] MEDS: Dexmedetomidine HCl 400 MCG/100 ML MLS IVC SCH (03:08)
[2018-12-22 05:12] LABS: Basophils % 0.1 %; Hematocrit 29.2 % (37.5-50.1); Immature Granulocytes % 1.1 % (0-4); Lymphocytes # 0.5 K/mcL (0.6-4.6); Lymphocytes % 7.3 %; Mean Corpuscular HGB Conc 30.8 g/dL (31.6-35.5); Mean Corpuscular Volume 87.7 fL (83.0-100.0); Mean Platelet Volume 9.5 fL (9.4-12.4); Monocytes # 0.3 K/mcL (0.0-1.3); Monocytes % 3.6 %; Neutrophils # 6.3 K/mcL (1.6-8.9); Platelet Count 117 K/mcL (140-400); Red Blood Count 3.33 M/mcL (4.19-5.50); Red Cell Distribution Width 17.6 % (11.5-14.5); Segmented Neutrophils % 87.9 %; White Blood Count 7.2 K/mcL (4.3-11.1)
[2018-12-22 05:18] LABS: INR 1.3; Prothrombin Time 15.3 Seconds (9.4-12.1)
[2018-12-22] MEDS: *HR* Heparin 5,000 UNIT/ML VIAL SQ SCH ×3 (05:23→20:09)
[2018-12-22] MEDS: Piperacillin/Tazobactam 3.375 GM in 0.9 % Sodium Chloride Mini Bag 100 ML IVPB SCH ×3 (05:23→21:54)
[2018-12-22] MEDS: Pantoprazole 40 MG VIAL IVP SCH ×2 (05:23→17:53)
[2018-12-22 05:31] LABS: Alanine Aminotransferase 19 Units/L (7-52); Albumin 2.4 g/dL (3.5-5.7); Alkaline Phosphatase 47 Units/L (34-104); Aspartate Amino Transferase 12 Units/L (13-39); BUN/Creatinine Ratio 59 (6-26); Bilirubin,Total 0.5 mg/dL (0.3-1.0); Blood Urea Nitrogen 19 mg/dL (8-23); Calcium 7.6 mg/dL (8.6-10.3); Carbon Dioxide 25 mEq/L (23-29); Chloride 104 mEq/L (98-107); Globulin 2.3 g/dL (2.4-3.5); Glucose 230 mg/dL (70-105); Osmolality,Calculated 302 (280-300); Potassium 3.3 mEq/L (3.5-5.1); Sodium 141 mEq/L (136-145); Total Protein 4.7 g/dL (6.4-8.9); eGFR For African Americans > 60 (> 60); eGFR For Non-African Americans > 60 (> 60)
[2018-12-22] MEDS: Chlorhexidine Rinse 15 ML MOUTHWASH MM SCH (08:07)
[2018-12-22] MEDS: levoFLOXacin 750 MG/150 ML 750 MG/150 ML BAG IVPB SCH (08:07)
[2018-12-22] MEDS: Nystatin POWDER 30 GM BOTTLE TP SCH ×2 (08:08→21:54)
[2018-12-22] MEDS ORDERED: *HR* Dextrose 50 % in Water (Syg) 50 ML SYRINGE IVP PRN (11:10)
[2018-12-22] MEDS ORDERED: Naloxone 0.4 MG/ML INJ IVP PRN (11:10)
[2018-12-22] MEDS ORDERED: Ketorolac 15 MG/ML VIAL IVP PRN (11:10)
[2018-12-22] MEDS ORDERED: Artificial Tears SOLN 15 ML BOTTLE BOTH EYES PRN (11:10)
[2018-12-22] MEDS ORDERED: D5% in Water 1,000 ML IVC PRN (11:10)
[2018-12-22] MEDS ORDERED: Dextrose Gel 15 GM/37.5 ML TUBE PO PRN ×2 (11:10)
[2018-12-22 11:31] LABS: Magnesium 1.9 mg/dL (1.6-2.6)
[2018-12-22] MEDS ORDERED: *HR* LORazepam 1 MG TABLET PO PRN (14:24)
[2018-12-22] MEDS ORDERED: *HR* HYDROcodone/Acet 5/325 mg TABLET PO PRN (14:26)
[2018-12-22] MEDS ORDERED: Furosemide 40 MG/4 ML VIAL IVP ONE (15:33)
[2018-12-22] MEDS: *HR* LORazepam 2 MG/ML VIAL IVP PRN (21:53)
[2018-12-22] MEDS: Dorzolamide/Timolol OPTH 10 ML BOTTLE LEFT EYE SCH (21:53)
[2018-12-23] MEDS: Insulin LISPRO 300 UNITS/3 ML VIAL SQ SCH ×2 (00:21→06:50)
[2018-12-23] MEDS: Hydrocortisone Sodium Succ 100 MG/2 ML VIAL IVP SCH ×2 (00:47→08:30)
[2018-12-23] MEDS: Pantoprazole 40 MG VIAL IVP SCH (06:50)
[2018-12-23] MEDS: *HR* Heparin 5,000 UNIT/ML VIAL SQ SCH (06:50)
[2018-12-23] MEDS: Piperacillin/Tazobactam 3.375 GM in 0.9 % Sodium Chloride Mini Bag 100 ML IVPB SCH (06:50)
[2018-12-23] MEDS: Nystatin POWDER 30 GM BOTTLE TP SCH (08:31)
[2018-12-23] MEDS: Dorzolamide/Timolol OPTH 10 ML BOTTLE LEFT EYE SCH (08:31)
[2018-12-23] MEDS ORDERED: Nystatin SUSP 5 ML UD.LIQ PO SCH (09:00)
[2018-12-23] MEDS ORDERED: levoFLOXacin 750 MG/150 ML 750 MG/150 ML BAG IVPB SCH (09:00)
[2018-12-23] MEDS ORDERED: Morphine Sulfate Oral CONC 10 MG/0.5 ML ORAL.SYG SL PRN (10:58)
[2018-12-23] MEDS ORDERED: Ipratropium/Albuterol Neb 3 ML ONE (11:14)
[2018-12-23] MEDS ORDERED: Ipratropium/Albuterol Neb 3 ML IH SCH (11:15)
[2018-12-23 11:17] VITALS: BP 118/75
[2018-12-23] MEDS ORDERED: Insulin LISPRO 300 UNITS/3 ML VIAL SQ SCH (11:30)
[2018-12-23] MEDS: *HR* LORazepam 2 MG/ML VIAL IVP PRN (13:00)
[2018-12-23] MEDS ORDERED: Aminoglycoside Consult 1 EACH MC ONE (15:10)
[2018-12-23] MEDS ORDERED: Hydrocortisone Sodium Succ 100 MG/2 ML VIAL IVP SCH (18:00)
[2018-12-23] MEDS ORDERED: Dorzolamide/Timolol OPTH 10 ML BOTTLE LEFT EYE SCH (21:00)
[2018-12-23] MEDS ORDERED: Apixaban 5 MG TABLET PO SCH (21:00)
[2018-12-23] MEDS ORDERED: Budesonide/Formoterol 80/4.5 1 PUFF INH IH SCH (22:00)
[2018-12-24] MEDS ORDERED: Aspirin Enteric Coated 81 MG Tablet PO SCH (09:00)
[2018-12-24] MEDS ORDERED: *HR* Amiodarone 200 MG TABLET PO SCH (09:00)
[2018-12-24] MEDS ORDERED: Fluticasone Propionate Nasal 50 MCG/SPRAY BOTTLE NS SCH (09:00)
== END 2018-12-23 15:11 | disposition hospice, inpatient (51) | DRG 871 ==
LOC: EMEROOARM 12:01 → ICNU 13:58 → 2NNU 12-22 18:54
PROVIDERS: ADMIT Internal Medicine Hospice and Palliative Medicine; ATTEND Internal Medicine Hospice and Palliative Medicine